=== PATIENT | male | born 2000 | race Caucasian/White ===

== ENCOUNTER 2021-05-28 19:52 | Emergency (ER) | payer SELFPAY ==
[~2021-05-28] VITALS: Ht 175.3 cm; Wt 77.3 kg
[2021-05-28 20:05] VITALS: BP 145/81
== END 2021-05-28 21:47 | disposition home or self-care (01) ==
LOC: ER 19:53
DX: J06.9 Acute upper respiratory infection, unspecified (principal); Z20.822 Contact with and (suspected) exposure to COVID-19
CPT/HCPCS: 87635; 99283; C9803

== ENCOUNTER 2021-05-29 22:01 | Emergency (ER) | payer MEDICAID ==
[~2021-05-29] VITALS: Ht 175.3 cm; Wt 69.3 kg
[2021-05-29 22:51] VITALS: BP 155/77
== END 2021-05-30 02:00 | disposition home or self-care (01) ==
LOC: ER 22:01
DX: M79.604 Pain in right leg (principal); R20.0 Anesthesia of skin; M79.651 Pain in right thigh; F17.200 Nicotine dependence, unspecified, uncomplicated
CPT/HCPCS: 99281

== ENCOUNTER 2022-01-26 16:03 | Emergency (ER) | payer MEDICAID ==
[~2022-01-26] VITALS: Ht 175.3 cm; Wt 65.9 kg
[2022-01-26 16:49] VITALS: BP 104/70
== END 2022-01-26 22:12 | disposition home or self-care (01) ==
LOC: ER 16:04
DX: F15.10 Other stimulant abuse, uncomplicated (principal); Z00.8 Encounter for other general examination
CPT/HCPCS: 99281

== ENCOUNTER 2022-01-30 10:00 | Emergency (ER) | payer MEDICAID ==
[~2022-01-30] VITALS: Ht 175.3 cm; Wt 59.1 kg
[2022-01-30 10:05] VITALS: BP 126/73
== END 2022-01-30 10:51 | disposition home or self-care (01) ==
LOC: ER 10:00
DX: Z00.8 Encounter for other general examination (principal); F12.90 Cannabis use, unspecified, uncomplicated; F15.90 Other stimulant use, unspecified, uncomplicated; Z72.89 Other problems related to lifestyle
CPT/HCPCS: 99281

== ENCOUNTER 2022-03-07 13:13 | Emergency (ER) | payer MEDICAID ==
[~2022-03-07] VITALS: Ht 175.3 cm; Wt 74.0 kg
[~2022-03-07 13:13] MED LIST: ESCI-8 PO; HYDR-3686 PO; NICO-687 TD; NO HOME MEDS; OLAN10TA73 PO; OLAN15TA20 PO; TRAZ-251 PO
[2022-03-07 13:48] VITALS: BP 118/64
== END 2022-03-07 18:10 | disposition left against medical advice (07) ==
LOC: ER 13:14
DX: Z76.0 Encounter for issue of repeat prescription (principal); Z53.21 Procedure and treatment not carried out due to patient leaving prior to being seen by health care provider

== ENCOUNTER 2022-03-16 14:58 | Emergency (ER) | payer MEDICAID ==
[~2022-03-16] VITALS: Ht 175.3 cm; Wt 77.3 kg
[2022-03-16] MEDS ORDERED: HYDR-3686 PO (19:28)
[2022-03-16] MEDS ORDERED: hydrOXYzine 25 MG tablet PO ONE (19:30)
[2022-03-16 19:41] VITALS: BP 121/79
== END 2022-03-16 19:43 | disposition home or self-care (01) ==
LOC: ER 14:59
DX: F41.9 Anxiety disorder, unspecified (principal); F12.90 Cannabis use, unspecified, uncomplicated; F15.90 Other stimulant use, unspecified, uncomplicated; Z72.89 Other problems related to lifestyle; Z79.899 Other long term (current) drug therapy
CPT/HCPCS: 99283; Q0177

== ENCOUNTER 2022-04-17 15:47 | Inpatient (IN) | payer MEDICAID ==
[~2022-04-17] VITALS: Ht 175.3 cm; Wt 80.8 kg
[2022-04-17 22:46] LABS: BASOPHILS % (AUTO) 0.5 % (0-1); EOSINOPHILS # (AUTO) 0.1 X10'3 (0-0.9); EOSINOPHILS % (AUTO) 1.5 % (0-6); HEMATOCRIT 45.3 % (42.0-52.0); HEMOGLOBIN 15.1 g/dl (14.0-17.9); LYMPHOCYTES # (AUTO) 2.1 X10'3 (1.1-4.8); LYMPHOCYTES % (AUTO) 25.1 % (21-51); MEAN CORPUSCULAR HEMOGLOBIN 28.1 PG (27.0-31.0); MEAN CORPUSCULAR HGB CONC 33.3 g/dL (33.0-36.5); MEAN CORPUSCULAR VOLUME 84.3 FL (78-98); MEAN PLATELET VOLUME 7.4 FL (7.4-10.4); MONOCYTES # (AUTO) 0.9 X10'3 (0-0.9); MONOCYTES % (AUTO) 10.3 % (2-12); NEUTROPHILS # (AUTO) 5.2 X10'3 (1.8-7.7); NEUTROPHILS % (AUTO) 62.6 % (42-75); PLATELET COUNT 250 X10'3 (140-440); RED BLOOD COUNT 5.38 X10'6 (4.70-6.10); RED CELL DISTRIBUTION WIDTH 13.9 % (11.5-14.5); WHITE BLOOD COUNT 8.3 X10'3 (4.5-11.0)
[2022-04-17 22:53] LABS: ALANINE AMINOTRANSFERASE 37 U/L (12-78); ALBUMIN 4.2 G/DL (3.4-5.0); ALBUMIN/GLOBULIN RATIO 1.1 (1.1-1.5); ALKALINE PHOSPHATASE 83 IU/L (46-116); ANION GAP 9 (8-16); ASPARTATE AMINO TRANSFERASE 27 U/L (10-37); BILIRUBIN,TOTAL 0.6 MG/DL (0.1-1.0); BLOOD UREA NITROGEN 16 MG/DL (7-18); BUN/CREATININE RATIO 15.1 (5.4-32.0); CALCIUM 9.8 MG/DL (8.5-10.1); CHLORIDE 102 MMOL/L (99-107); CREATININE 1.06 MG/DL (0.60-1.10); ETHANOL < 0.010 GM/DL (0.0-0.010); GLUCOSE 93 MG/DL (70-104); POTASSIUM 3.7 MMOL/L (3.5-5.1); SODIUM 139 MMOL/L (135-145); TOTAL CARBON DIOXIDE 28.5 MMOL/L (24-32); TOTAL PROTEIN 7.9 G/DL (6.4-8.2); eGFR 88 ML/MIN
--- NOTE | 2022-04-18 07:46 | NUR ---
PT SLEEPING ON FLOOR IN ER LOBBY, EASILY AROUSEABLE, GCS 15, ALERT AND ORIENTED X3, RESP EVEN AND UNLABORED, SKIN P/W/D, PT IS CALM AND COOPERATIVE
--- NOTE | 2022-04-18 07:48 | NUR ---
PT SAID HE IS STILL HEARING VOICES IN HIS HEAD TELLING HIM TO GO TO THE TRAIN STATION, PT AGREES TO STAY HERE AND BE SEEN
--- NOTE | 2022-04-18 08:29 | NUR ---
Pt transported from the waiting room to [facility]
[2022-04-18 10:41] LABS: URINE AMPHETAMINE SCREEN POSITIVE (Neg); URINE BARBITUATE SCREEN NEGATIVE (Neg); URINE BENZODIAZEPINES SCREEN NEGATIVE (Neg); URINE CANNABINOID SCREEN POSITIVE (Neg); URINE COCAINE SCREEN NEGATIVE (Neg); URINE METHADONE SCREEN NEGATIVE (Neg); URINE OPIATE SCREEN NEGATIVE (Neg); URINE PHENCYCLIDINE SCREEN NEGATIVE (Neg)
--- NOTE | 2022-04-18 10:48 | NUR ---
packet was sent to [facility]
--- NOTE | 2022-04-18 11:00 | NUR ---
Pt resting in bed w/ eyes closed. No s/s of distress at this time.
--- NOTE | 2022-04-18 13:15 | NUR ---
Pt overall quiet and pleasant. Pt ate lunch well and remains in bed resting.
[2022-04-18] MEDS ORDERED: loperamide 2mg capsule PO ONE (13:55)
[2022-04-18] MEDS ORDERED: hydrOXYzine 25 MG tablet PO ONE ×2 (14:30→19:20)
--- NOTE | 2022-04-18 14:50 | NUR ---
Pt seen by [facility] and placed on 5150 hold. Pt reports smoking a pack of cigs Qd and asked for a nicotine patch.
--- NOTE | 2022-04-18 16:15 | NUR ---
Pt in bed talking to Pt next door appropriately. Pt reports drug relapse and getting off his MH meds.
[2022-04-18] MEDS ORDERED: nicotine 21mg patch - 24 hr TD ONE (16:40)
--- NOTE | 2022-04-18 17:25 | NUR ---
Pt received Nicotine Patch 21mg. Pt in bed with eyes closed.
[2022-04-18 18:05] LABS: CLARITY,URINE CLOUDY (Clear); COLOR,URINE YELLOW (Yellow); GLUCOSE, URINE NEGATIVE (Neg); KETONES,URINE >=80 mg/dl (Neg); LEUKOCYTE ESTERASE ,URINE NEGATIVE (Neg); NITRITES, URINE NEGATIVE (Neg); OCCULT BLOOD,URINE TRACE-INTACT (Neg); PROTEIN,URINE NEGATIVE (Neg); UROBILINOGEN,URINE 0.2 E.U/dL (0.2-1.0)
[2022-04-18 18:20] LABS: UA COLLECTION TYPE CLN CATCH MIDSTREAM
[2022-04-18 18:23] LABS: AMORPHOUS URATES 4+; RBC,URINE 0-2 /HPF (0-2)
[2022-04-18 18:42] LABS: BACTERIA,URINE 1+ /HPF (Neg); SQUAMOUS EPITHELIAL CELL,UR FEW /LPF (FEW)
[2022-04-18] MEDS ORDERED: HYDR-3686 PO (19:12)
[2022-04-18] MEDS ORDERED: ESCI-8 PO (19:12)
[2022-04-18] MEDS ORDERED: OLAN15TA3 PO (19:12)
[2022-04-18] MEDS ORDERED: TRAZ-251 PO (19:12)
--- NOTE | 2022-04-18 19:28 | NUR ---
Lissette montanez in [facility] - 04/18/22 at 1931 by CHICHO c
--- NOTE | 2022-04-18 19:31 | NUR ---
One to one with the patient who has been somulent and quietly resting on his bed. He was polite when approached for the evening assessment. He stated that he has not been taking medications as prescribed and admits to meth use. He reports he is hearing voices "all the time" and at times they are telling him to kill himself. He reports continued suicidal thoughts with a plan to steop in front of a train. He stated that he believes he can be safe here in the hospital. The patient approached the nursing station a short time later and requested to be given Klonopin after he overheard another patient receiving klonopin. Discussed patient with Charline GÓMEZ and orders received.
--- NOTE | 2022-04-18 20:15 | NUR ---
The patient is focused on medications. He is asking for something for withdrawals from methamphetamines. He was made aware that he would be transfering soon to [facility] and they would address his medications up there.
--- NOTE | 2022-04-18 21:12 | NUR ---
The patient appears to be sleeping at this time
--- NOTE | 2022-04-18 21:25 | NUR ---
Admit Note Pt arrived on unit @ 2124. Pt has a history of suicidal ideation and placed on 5150. Pt has an active plan to end his life by jumping in front of a train. Pt states he sees train lights in his head telling him to jump in front of it. Pt current denies SI at this moment and would like to stay here until he gets better. Pt has hx of marijuana, methamphetamine, alcohol and tobacco use. Pt would like to go to rehab after leaving here.
[2022-04-18] MEDS ORDERED: loperamide 2mg capsule PO PRN (21:55)
[2022-04-18] MEDS ORDERED: mag hydrox/Alum hydrox/simeth 30ml oral suspension PO PRN (21:55)
[2022-04-18] MEDS ORDERED: acetaminophen 325mg tablet PO PRN (21:55)
[2022-04-18] MEDS ORDERED: magnesium hydroxide 30ml (MOM) UD suspension PO PRN (21:55)
[2022-04-18] MEDS ORDERED: traZODone 50mg tablet PO ONE (22:30)
[2022-04-18] MEDS ORDERED: OLANZAPINE 5 MG TABLET PO ONE (22:35)
[2022-04-19 08:00] VITALS: BP 104/56
[2022-04-19] MEDS: OLANZAPINE 5 MG TABLET PO SCH (08:42)
[2022-04-19] MEDS: nicotine 21mg patch - 24 hr TD SCH (08:46)
[2022-04-19 08:54] LABS: CHOL/HDL RATIO 2.2 (0.00-4.99); CHOLESTEROL 121 MG/DL (0-200); HDL CHOLESTEROL 54 MG/DL (35-60); HEMOGLOBIN A1C 5.4 % (4.5-6.2); LDL CHOLESTEROL 59 MG/DL (50-100); TRIGLYCERIDES 56 MG/DL (20-135)
[2022-04-19] MEDS ORDERED: OLAN15TA20 PO (11:32)
[2022-04-19] MEDS ORDERED: OLANZapine 5mg rapidly disint. tablet PO SCH (11:34)
[2022-04-19] MEDS: hydrOXYzine 25 MG tablet PO PRN ×2 (13:01→21:02)
--- NOTE | 2022-04-19 14:48 | NUR ---
Nursing Note: Problem : Pt has a history of suicidal ideation and was placed on 5150. Pt has an active plan to end his life by jumping in front of a train. Pt states he sees train lights in his head telling him to jump in front of it. Pt current denies SI at this moment and would like to stay here until he gets better. Pt has hx of marijuana, methamphetamine, alcohol and tobacco use. Pt would like to go to rehab after leaving here. Interventions : 1:1 assessment, establishment of rapport, therapeutic communication, active listening, ensured contract for safety, medication administration/education/monitoring, encouragement to come to the dining room for meals, provided encouragement, Q 15 minute safety checks. Response : Pt declined to come to the dining room this morning and ate breakfast in his room. Pt was encouraged to come to the dining room for lunch however, he was brought his tray in his room by a staff member. Pt endorsed AH, "normal conversation" and VH, "shadows." When asked if he felt depressed, pt replied, "I'm coming down." Pt denied SI this morning. Pt approached the charting room to ask for something to help with his withdrawals. Encouraged pt to eat well and to sleep. Administered PRN Atarax 50 mg for increased anxiety at 1301. Less than an hour later, pt asked if he could have some "methadone or something." Education provided that methadone is for opiate replacement not methamphetamine. Pt is not complaining of pain. Pt's tox screen was positive for methamphetamine, not opioids. Plan : Pt is in need of crisis interruption and stabilization until no longer a danger to self.
[2022-04-19 19:00] VITALS: BP 108/51
[2022-04-19] MEDS: traZODone 50mg tablet PO SCH (20:53)
[2022-04-19] MEDS: ESCITALOPRAM OXALATE 5 MG TABLET PO SCH (20:53)
[2022-04-19] MEDS ORDERED: non-formulary drug (Olanzapine 1 TAB) PO SCH (21:00)
--- NOTE | 2022-04-20 00:48 | NUR ---
Nursing Note: Problem : Pt has a history of suicidal ideation and was placed on 5150. Pt has an active plan to end his life by jumping in front of a train. Pt states he sees train lights in his head telling him to jump in front of it. Pt current denies SI at this moment and would like to stay here until he gets better. Pt has hx of marijuana, methamphetamine, alcohol and tobacco use. Pt would like to go to rehab after leaving here. Interventions : 1:1 assessment, establishment of rapport, therapeutic communication, active listening, ensured contract for safety, medication administration/education/monitoring, encouragement to come to the dining room for meals, provided encouragement, Q 15 minute safety checks. Response : Received pt. in dark room lying in bed at shift change. He isolated to his room . Pt. did not participate in snack. States he plans to come out of the room tomorrow. Pt. was asleep when this ONCOLOGY NURSE entered his room with bedtime medications. He woke up pleasant and cooperative and was compliant with medications. Denies HI, AH/VH. Continues having passive SI. Requested PRN atarax and it was provided to patient. Pt. appears to be sleeping at this time. Plan : Pt is in need of crisis interruption and stabilization until no longer a danger to self.
[2022-04-20 07:32] VITALS: BP 100/58
[2022-04-20] MEDS: OLANZAPINE 5 MG TABLET PO SCH (07:56)
[2022-04-20] MEDS: nicotine 21mg patch - 24 hr TD SCH (07:58)
[2022-04-20] MEDS: hydrOXYzine 25 MG tablet PO PRN ×2 (11:32→15:52)
[2022-04-20] MEDS: NICOTINE POLACRILEX 2 MG LOZENGE BC PRN ×2 (11:32→21:21)
--- NOTE | 2022-04-20 13:58 | NUR ---
Nursing Note: Problem : Pt has a history of suicidal ideation and was placed on 5150. Pt has an active plan to end his life by jumping in front of a train. Pt states he sees train lights in his head telling him to jump in front of it. Pt current denies SI at this moment and would like to stay here until he gets better. Pt has hx of marijuana, methamphetamine, alcohol and tobacco use. Pt would like to go to rehab after leaving here. Interventions : 1:1 assessment, establishment of rapport, therapeutic communication, active listening, ensured contract for safety, medication administration/education/monitoring, encouragement to come to the dining room for meals, provided encouragement, Q 15 minute safety checks. Response : Pt was up for breakfast in the dining room. Pt was cooperative with his Zyprexa. Pt c/o increased anxiety and was given PRN Atarax 50 mg and a nicotine lozenge at 1132 with good effect. Pt is endorsing CAH to kill himself. Pt rated his depression at a 7/10 with a plan to walk in front of a train if he is discharged. Pt stated, "I think I should stay here longer." Pt denies VH. Plan : Pt is in need of crisis interruption and stabilization until no longer a danger to self. Addendum: 04/20/22 at 1555 by Reena Ward RN ([place]) Pt has new orders for Clonidine 0.1 mg Q6H PRN agitation, his PRN Atarax was increased to 100 mg Q6H.
[2022-04-20 16:34] VITALS: BP 136/72
[2022-04-20] MEDS: cloNIDine 0.1 mg tablet PO PRN (16:37)
[2022-04-20 19:00] VITALS: BP 126/60
[2022-04-20] MEDS: ESCITALOPRAM OXALATE 5 MG TABLET PO SCH (21:08)
[2022-04-20] MEDS: traZODone 50mg tablet PO SCH (21:08)
--- NOTE | 2022-04-21 00:10 | NUR ---
Nursing Note: Problem : Pt has a history of suicidal ideation and was placed on 5150. Pt has an active plan to end his life by jumping in front of a train. Pt states he sees train lights in his head telling him to jump in front of it. Pt current denies SI at this moment and would like to stay here until he gets better. Pt has hx of marijuana, methamphetamine, alcohol and tobacco use. Pt would like to go to rehab after leaving here. Interventions : 1:1 assessment, establishment of rapport, therapeutic communication, active listening, ensured contract for safety, medication administration/education/monitoring, encouragement to come to the dining room for meals, provided encouragement, Q 15 minute safety checks. Response : patient lying in bed at change of shift. He is quiet and pleasant. Stayed in room until snack time. He was observed standing in the hallway getting a snack. Pt. went back to room. Compliant with medications. Stated he talk to his mom today. When asked about SI patient states "feeling a little suicidal and that he sees a train with lights". A while later he came to the nurse's area and requested a nicotine lozenge. Pt. provided with lozenge. Stayed in his room the rest of the night. Appears to be sleeping. Plan : Pt is in need of crisis interruption and stabilization until no longer a danger to self.
[2022-04-21 07:27] VITALS: BP 110/54
[2022-04-21] MEDS: OLANZAPINE 5 MG TABLET PO SCH (08:20)
[2022-04-21] MEDS: nicotine 21mg patch - 24 hr TD SCH (08:22)
[2022-04-21] MEDS: NICOTINE POLACRILEX 2 MG LOZENGE BC PRN ×3 (13:14→20:31)
[2022-04-21] MEDS: hydrOXYzine 25 MG tablet PO PRN ×2 (13:14→20:31)
[2022-04-21 15:57] VITALS: BP 119/77
[2022-04-21] MEDS: cloNIDine 0.1 mg tablet PO PRN (15:58)
--- NOTE | 2022-04-21 17:12 | NUR ---
Nursing Note: Problem : Pt has a history of suicidal ideation and was placed on 5150. Pt has an active plan to end his life by jumping in front of a train. Pt states he sees train lights in his head telling him to jump in front of it. Pt current denies SI at this moment and would like to stay here until he gets better. Pt has hx of marijuana, methamphetamine, alcohol and tobacco use. Pt would like to go to rehab after leaving here. Interventions : 1:1 assessment, establishment of rapport, therapeutic communication, active listening, ensured contract for safety, medication administration/education/monitoring, provided distraction, direction, encouragement, Q 15 minute safety checks. Response : Pt was up for breakfast. Pt was cooperative with scheduled medication. Pt does have periods of increased anxiety. Pt asked for an anxiety med after lunch and was given PRN Atarax 100 mg at 1314. He c/o anxiety again at 1558 and was given PRN Clonidine 0.1 mg with good effect. Pt asked for nicotine lozenges at 1314 and 1602. Pt rated his depression today at a 6/10. Pt continues to endorse SI with a plan to walk in front of a train if discharged. When asked about voices, pt replied, "They got better." Pt reads [employer] books in his room and colors [employer] coloring pages. Pt socializes with select peers. Plan : Pt is in need of crisis interruption and stabilization until no longer a danger to self.
[2022-04-21 20:00] VITALS: BP 114/52
[2022-04-21] MEDS: traZODone 50mg tablet PO SCH (20:31)
[2022-04-21] MEDS: ESCITALOPRAM OXALATE 5 MG TABLET PO SCH (20:31)
[2022-04-21] MEDS ORDERED: traZODone 50mg tablet PO ONE (22:10)
--- NOTE | 2022-04-21 23:23 | NUR ---
Nursing Note: Problem : Pt has a history of suicidal ideation and was placed on 5150. Pt has an active plan to end his life by jumping in front of a train. Pt states he sees train lights in his head telling him to jump in front of it. Pt current denies SI at this moment and would like to stay here until he gets better. Pt has hx of marijuana, methamphetamine, alcohol and tobacco use. Pt would like to go to rehab after leaving here. Interventions : 1:1 assessment, establishment of rapport, therapeutic communication, active listening, ensured contract for safety, medication administration/education/monitoring, provided distraction, direction, encouragement, Q 15 minute safety checks. Response : This patient resides in his room following shift change. 1:1 Interview at bedside. This patient is well oriented. He denies S/I or H/I. Patient does complain of anxiety. He denies hallucinations this evening. Patient states his depression is improving. He does not describe any hallucinations. Patient continued to have difficulty sleeping after his scheduled Trazadone was given. Atarax was given for anxiety. Patient remains awake. Dr. Martinez was contacted, an order for an additional Trazadone 100 mg was given PO and the scheduled Trazadone order was increased to 100 mg QHS. Plan : Pt is in need of crisis interruption and stabilization until no longer a danger to self.
[2022-04-22 07:00] VITALS: BP 110/66
[2022-04-22] MEDS: OLANZAPINE 5 MG TABLET PO SCH (08:19)
[2022-04-22] MEDS: nicotine 21mg patch - 24 hr TD SCH (08:20)
--- NOTE | 2022-04-22 09:47 | NUR ---
Initial: Pt admit DX SI and meth abuse per EMR. PO mostly 100% regular diet meeting needs. LBM 04/19. No nutrition interventions at this time. Will continue to follow. Rec: 1. continue regular diet 2. bowel care per rx 3. weekly wts Addendum: 04/22/22 at [address] Amended: Links added.
[2022-04-22] MEDS: NICOTINE POLACRILEX 2 MG LOZENGE BC PRN ×3 (11:18→17:52)
[2022-04-22] MEDS: hydrOXYzine 25 MG tablet PO PRN (11:47)
[2022-04-22] MEDS: cloNIDine 0.1 mg tablet PO PRN ×2 (13:06→18:46)
--- NOTE | 2022-04-22 17:16 | NUR ---
Nursing Progress Note: Problem : Pt has a history of suicidal ideation and was placed on 5150. Pt has an active plan to end his life by jumping in front of a train. Pt states he sees train lights in his head telling him to jump in front of it. Pt current denies SI at this moment and would like to stay here until he gets better. Pt has hx of marijuana, methamphetamine, alcohol and tobacco use. Pt would like to go to rehab after leaving here. Interventions : 1:1 assessment, establishment of rapport, therapeutic communication, active listening, ensured contract for safety, medication administration/education/monitoring, provided distraction, direction, encouragement, Q 15 minute safety checks. Response: Received patient sleeping in bed at change of shift. Patient awakens and attends breakfast in the dining room. Patient takes his medications as directed. Patient reports that he is still suicidal. Patient states that he has been hearing voices that tell him to kill himself or that he is no good. Patient would like a prn antipsychotic for these intrusive thoughts. Patient having anxiety and was given Atarax 100 mg. Patient went outside for group, and came back in requesting Clonidine, which was administered for anxiety. Plan : Pt is in need of crisis interruption and stabilization until no longer a danger to self.
[2022-04-22] MEDS: acetaminophen 325mg tablet PO PRN (18:50)
[2022-04-22 19:17] VITALS: BP 125/71
[2022-04-22] MEDS ORDERED: OLANZAPINE 5 MG TABLET PO SCH (20:43)
[2022-04-22] MEDS: traZODone 50mg tablet PO SCH (20:55)
--- NOTE | 2022-04-22 21:05 | NUR ---
Nicotine patch removed from left shoulder
--- NOTE | 2022-04-22 21:46 | NUR ---
Nursing Progress Note: Problem : Pt has a history of suicidal ideation and was placed on 5150. Pt has an active plan to end his life by jumping in front of a train. Pt states he sees train lights in his head telling him to jump in front of it. Pt current denies SI at this moment and would like to stay here until he gets better. Pt has hx of marijuana, methamphetamine, alcohol and tobacco use. Pt would like to go to rehab after leaving here. Interventions : 1:1 assessment, establishment of rapport, therapeutic communication, active listening, ensured contract for safety, medication administration/education/monitoring, provided distraction, direction, encouragement, Q 15 minute safety checks. Response: Pt was in the group room at change of shift. C/O anxiety and reports s/i and hearing voices. Pt states he doesnt have plans to harm himself while he is here. Pt sat quietly in the leonard then spent time laying in bed in his room. Pt is quiet and doesnt appear to social with peers. Pt was given PO clonidine, and HS meds. Provider called after meds were given and ordered Zyprexa 15 mg. Zyprexa was changed to an HS order. Lexapro was changed to a daily order per Dr. Martinez. Pt requested nicotine lozenge and went to bed after HS meds. Plan : Pt is in need of crisis interruption and stabilization until no longer a danger to self.
[2022-04-23 07:28] VITALS: BP 94/50
[2022-04-23] MEDS: nicotine 21mg patch - 24 hr TD SCH (08:05)
[2022-04-23] MEDS: ESCITALOPRAM OXALATE 5 MG TABLET PO SCH (08:05)
[2022-04-23] MEDS: acetaminophen 325mg tablet PO PRN ×3 (08:18→20:24)
[2022-04-23] MEDS: hydrOXYzine 25 MG tablet PO PRN ×2 (11:18→17:12)
[2022-04-23 12:25] VITALS: BP 122/68
[2022-04-23] MEDS: cloNIDine 0.1 mg tablet PO PRN ×2 (12:30→20:24)
[2022-04-23] MEDS: NICOTINE POLACRILEX 2 MG LOZENGE BC PRN ×4 (13:19→20:40)
--- NOTE | 2022-04-23 13:24 | NUR ---
5250 upheld for GD and DTS
--- NOTE | 2022-04-23 14:59 | NUR ---
CASE MANAGEMENT Spoke to Pt. about his discharge plan. He would like to go back to [facility] but not sure he can. This [employer]her left a message for Salvador at [facility] to see if this is a possibility for Pt. Also gave Pt. phone number for [facility] for him to call to see what other rehabs are available to him. Pt was appreciative for the information and plans on calling this afternoon. Lilli Miller LCSW
--- NOTE | 2022-04-23 16:42 | NUR ---
Nursing Progress Note: Problem: Pt has a history of suicidal ideation and was placed on 5150. Pt has an active plan to end his life by jumping in front of a train. Pt states he sees train lights in his head telling him to jump in front of it. Pt current denies SI at this moment and would like to stay here until he gets better. Pt has hx of marijuana, methamphetamine, alcohol and tobacco use. Pt would like to go to rehab after leaving here. Interventions: Provide medication administration & medication management; Maintained a safe & supportive environment; Clear & simple instructions; Direction & encouragement regarding performance of ADLs; monitored behaviors & maintained clear boundaries; Patient physical assessment & 1:1 patient interview; Therapeutic conversation & active listening; Patient education & monitoring. Response: Patient woke up at approximately 0755 and went to sit in the Community Room. Patient took 0800 medications and sat in the back of the room and ate breakfast. Patient stated I started having pain this morning in my left forearm that feels like my nerves and veins are throbbing in my forearms. Compared bilateral forearms and noted equal strength and that the LFA had 1+ swelling from his left elbow to wrist. Patient received Tylenol for pain rated at 6 out of 10, and received good relief from the Tylenol. Patient states he is not having AH/VH, but does report that he is still having SI. Patient laid down and slept until about 1115, then informed that he was feeling anxious and was given Atarax at 1117 this morning with good relief. Patient states he met with Dr. Young this morning, and he asked Dr. Young to increase the Atarax to 150mg. Will watch for this new order. Patient woke up for lunch and went to the Community Room then requested Tylenol and a Nicotine Lozenge before he returned back to bed after lunch. Resting in bed now. Plan: Pt is in need of crisis interruption and stabilization until no longer a danger to self.
[2022-04-23 19:26] VITALS: BP 127/46
[2022-04-23] MEDS: OLANZAPINE 5 MG TABLET PO SCH (20:24)
[2022-04-23] MEDS: traZODone 50mg tablet PO SCH (20:25)
--- NOTE | 2022-04-23 21:23 | NUR ---
Nursing Progress Note: Problem: Pt has a history of suicidal ideation and was placed on 5150. Pt has an active plan to end his life by jumping in front of a train. Pt states he sees train lights in his head telling him to jump in front of it. Pt current denies SI at this moment and would like to stay here until he gets better. Pt has hx of marijuana, methamphetamine, alcohol and tobacco use. Pt would like to go to rehab after leaving here. Interventions: Provide medication administration & medication management; Maintained a safe & supportive environment; Clear & simple instructions; Direction & encouragement regarding performance of ADLs; monitored behaviors & maintained clear boundaries; Patient physical assessment & 1:1 patient interview; Therapeutic conversation & active listening; Patient education & monitoring. Response: Pt was in bed napping at change of shift. Pts vitals were WNL, pt reports feeling anxious and reports 4/10 pain in his left forearm. Pt denies s/i, denies a/vh. Pt is requesting nicotine lozenge, anxiety meds at change of shift. Explained to patient he had already received those and would need to wait until they were due again. Pt was given prns for anxiety, pain, and nicotine lozenge. Pt had an evening snack and took HS meds. Pt requested deoderant and states he would like to keep his nicotine patch on and will let me know if he changes his mind and takes it off. Plan: Pt is in need of crisis interruption and stabilization until no longer a danger to self.
[2022-04-24 07:00] VITALS: BP 93/50
[2022-04-24] MEDS: ESCITALOPRAM OXALATE 5 MG TABLET PO SCH (08:10)
[2022-04-24] MEDS: acetaminophen 325mg tablet PO PRN ×3 (08:14→20:40)
[2022-04-24] MEDS: nicotine 21mg patch - 24 hr TD SCH (08:16)
--- NOTE | 2022-04-24 09:28 | NUR ---
CASE MANAGEMENT Received a call back from Salvador at [facility]. They are okay with him coming back to that program but have a waiting list at the time of 20 people in front of him. It was suggested he call [facility] and see what other programs have availability in the area. Will pass this message on to Pt. Lilli Miller LCSW
[2022-04-24] MEDS: hydrOXYzine 25 MG tablet PO PRN ×2 (10:07→17:05)
[2022-04-24] MEDS: NICOTINE POLACRILEX 2 MG LOZENGE BC PRN ×4 (10:07→20:45)
[2022-04-24 13:47] VITALS: BP 129/66
[2022-04-24] MEDS: cloNIDine 0.1 mg tablet PO PRN (13:47)
--- NOTE | 2022-04-24 15:08 | NUR ---
Mr. Gerber attended group today. Todays group was about healthy communication, based on Gotjeovanyan method. We learned about what shuts communication down (defensiveness, contempt, stonewalling, criticism) and then discussed what positive communication styles: "I" statements, taking time outs, listening. Pt. was engaged in the topic as evidenced by conversation with peers and this software writer, review of handouts. Thought content contained sadness and concern about a son who client said has a brain injury, and he feels he let him down/he doesn't know where he is. Client stated he does not like toxic masculinity (his words), and when men try to be tough--he feels he communicates better with women. Client was dressed in scrubs, hygiene WNL, client was alert and oriented X 4. His mood was sad and concerned, along with stating he wants to continue to be a better man and father. Demeanor was calm, compliant, and pleasant to work with. Addendum: 04/24/22 at 1513 by Idalia NORWOOD DISREGARD, entered in error
--- NOTE | 2022-04-24 15:14 | NUR ---
DISREGARD therapeutic group note: Entered in error.
--- NOTE | 2022-04-24 17:48 | NUR ---
Nursing Progress Note: Problem: Pt has a history of suicidal ideation and was placed on 5150. Pt has an active plan to end his life by jumping in front of a train. Pt states he sees train lights in his head telling him to jump in front of it. Pt current denies SI at this moment and would like to stay here until he gets better. Pt has hx of marijuana, methamphetamine, alcohol and tobacco use. Pt would like to go to rehab after leaving here. Interventions: Provide medication administration & medication management; Maintained a safe & supportive environment; Clear & simple instructions; Direction & encouragement regarding performance of ADLs; monitored behaviors & maintained clear boundaries; Patient physical assessment & 1:1 patient interview; Therapeutic conversation & active listening; Patient education & monitoring. Response: Received patient sleeping in bed at change of shift. Patient awakens for breakfast and takes medications in the dining room. Patient returns to his room and 1:1 was performed. Patient reports that he is still feeling suicidal and can still see the train tracks. Reports A/H telling him to kill himself and calling him other derogatory names. Patient reports anxiety and was given Atarax, then patient requested Clonidine. Patient self isolates to his room, and doesnt speak to staff or peers unless he needs something. Patient is complaining of left forearm pain and swelling, requested he speak with M.D. regarding left wrist. Patient has had Tylenol x 2, nicotine lozenges x 2, Atarax x 2. Plan: Pt is in need of crisis interruption and stabilization until no longer a danger to self.
[2022-04-24 19:55] VITALS: BP 116/53
[2022-04-24] MEDS: traZODone 50mg tablet PO SCH (20:39)
[2022-04-24] MEDS: OLANZAPINE 5 MG TABLET PO SCH (20:40)
--- NOTE | 2022-04-25 00:19 | NUR ---
Nursing Progress Note: Problem: Pt has a history of suicidal ideation and was placed on 5150. Pt has an active plan to end his life by jumping in front of a train. Pt states he sees train lights in his head telling him to jump in front of it. Pt current denies SI at this moment and would like to stay here until he gets better. Pt has hx of marijuana, methamphetamine, alcohol and tobacco use. Pt would like to go to rehab after leaving here. Interventions: Provide medication administration & medication management; Maintained a safe & supportive environment; Clear & simple instructions; Direction & encouragement regarding performance of ADLs; monitored behaviors & maintained clear boundaries; Patient physical assessment & 1:1 patient interview; Therapeutic conversation & active listening; Patient education & monitoring. Response: Pt was in his room at change of shift. Pt asked for tylenol and prns for anxiety. Explained to pt that it was too soon for him to have more. Pt states he understands. Pt is isolating to his room, reports hearing voices telling him to kill himself and the thinks of walking on the train tracks. Pt took HS meds and requested prn nicotine lozenge. Pt was provided with tylenol prn and still not time for anxiety meds, pt went to sleep before they were due. Pt declined to remove nicotine patch this evening. Plan: Pt is in need of crisis interruption and stabilization until no longer a danger to self.
[2022-04-25 07:09] VITALS: BP 102/52
[2022-04-25] MEDS: ESCITALOPRAM OXALATE 5 MG TABLET PO SCH (08:54)
[2022-04-25] MEDS: nicotine 21mg patch - 24 hr TD SCH (08:55)
[2022-04-25] MEDS: hydrOXYzine 25 MG tablet PO PRN ×2 (09:03→18:52)
[2022-04-25] MEDS: acetaminophen 325mg tablet PO PRN ×2 (12:39→18:46)
[2022-04-25] MEDS: NICOTINE POLACRILEX 2 MG LOZENGE BC PRN ×4 (14:06→20:52)
[2022-04-25] MEDS ORDERED: guanFACINE 1 mg tablet PO ONE ×3 (16:25→20:39)
--- NOTE | 2022-04-25 17:26 | NUR ---
Nursing Progress Note: Problem: Pt has a history of suicidal ideation and was placed on 5150. Pt has an active plan to end his life by jumping in front of a train. Pt states he sees train lights in his head telling him to jump in front of it. Pt current denies SI at this moment and would like to stay here until he gets better. Pt has hx of marijuana, methamphetamine, alcohol and tobacco use. Pt would like to go to rehab after leaving here. Interventions: Provide medication administration & medication management; Maintained a safe & supportive environment; Clear & simple instructions; Direction & encouragement regarding performance of ADLs; monitored behaviors & maintained clear boundaries; Patient physical assessment & 1:1 patient interview; Therapeutic conversation & active listening; Patient education & monitoring. Response: Received patient sleeping in bed at change of shift. Pt took meals in community room. Compliant with all medication administration. This YOGA INSTRUCTOR completed 1:1 in bedroom; endorses SI off/on stating, I think about walking in front of a train; denies HI. Endorses AH stating, It tells me Im worthless and stupid; denies VH. Pt well-groomed and dressed appropriately. Speaks in a soft linear manner. Patient reports anxiety and was given Atarax. Pt requested clonidine and Tylenol PRN in afternoon. Pt self isolates to his room, and doesnt speak to staff or peers unless he needs something. Pt given one time order of Tenex 0.5mg, and new order started of Tenex 0.5mg BID. Pt states he would like to discharge to a rehab. Plan: Pt is in need of crisis interruption and stabilization until no longer a danger to self.
[2022-04-25] MEDS ORDERED: guanFACINE 1 mg tablet PO SCH ×2 (20:00→20:17)
[2022-04-25] MEDS: OLANZAPINE 5 MG TABLET PO SCH (20:40)
[2022-04-25] MEDS: traZODone 50mg tablet PO SCH (20:40)
[2022-04-25 20:54] VITALS: BP 120/67
--- NOTE | 2022-04-26 04:19 | NUR ---
Nursing Progress Note: Problem: Pt has a history of suicidal ideation and was placed on 5150. Pt has an active plan to end his life by jumping in front of a train. Pt states he sees train lights in his head telling him to jump in front of it. Pt current denies SI at this moment and would like to stay here until he gets better. Pt has hx of marijuana, methamphetamine, alcohol and tobacco use. Pt would like to go to rehab after leaving here. Interventions: Provide medication administration & medication management; Maintained a safe & supportive environment; Clear & simple instructions; Direction & encouragement regarding performance of ADLs; monitored behaviors & maintained clear boundaries; Patient physical assessment & 1:1 patient interview; Therapeutic conversation & active listening; Patient education & monitoring. Response: Patient was received laying in bed resting. Patient came up to nurse asking for anxiety medication. Patient was given prn Atrax and retuned to room. Patient spent majority of shift in room self isolating and sleeping. Patient came to nurse asking for nicotine lozenge and Tylenol for headache. Patient participate in snack and took al night medications without issue. Patient complained that is Atrax isn't working and he needs Ativan, patient was upset that he didn't have any ordered. Patient requested another nicotine lozenge and refused to take off nicotine patch. Plan: Pt is in need of crisis interruption and stabilization until no longer a danger to self.
[2022-04-26 08:00] VITALS: BP 130/78
[2022-04-26] MEDS: ESCITALOPRAM OXALATE 5 MG TABLET PO SCH (08:29)
[2022-04-26] MEDS: nicotine 21mg patch - 24 hr TD SCH (08:35)
[2022-04-26] MEDS: acetaminophen 325mg tablet PO PRN ×2 (08:50→20:21)
[2022-04-26] MEDS: hydrOXYzine 25 MG tablet PO PRN (12:00)
[2022-04-26] MEDS: NICOTINE POLACRILEX 2 MG LOZENGE BC PRN ×4 (13:42→21:54)
--- NOTE | 2022-04-26 16:42 | NUR ---
Nursing Progress Note: Problem: Pt has a history of suicidal ideation and was placed on 5150. Pt has an active plan to end his life by jumping in front of a train. Pt states he sees train lights in his head telling him to jump in front of it. Pt current denies SI at this moment and would like to stay here until he gets better. Pt has hx of marijuana, methamphetamine, alcohol and tobacco use. Pt would like to go to rehab after leaving here. Interventions: Provide medication administration & medication management; Maintained a safe & supportive environment; Clear & simple instructions; Direction & encouragement regarding performance of ADLs; monitored behaviors & maintained clear boundaries; Patient physical assessment & 1:1 patient interview; Therapeutic conversation & active listening; Patient education & monitoring. Response: Received patient sleeping in bed at change of shift. Pt awoke and attended breakfast and then returned to bed. Medications administered and 1:1 done at bedside. Pt requesting his tenex to be discontinued stating it makes him feel weird. He states he spoke with the psychiatrist about this today. Pt continues to isolate himself to his room, lying in bed. He continues to have thoughts of suicide stating, I think about going in front of a train. He endorses AH, often hearing them having derogatory remarks towards him, denies VH. PRN atarax administered at 12pm for c/o anxiety. Plan: Pt is in need of crisis interruption and stabilization until no longer a danger to self.
[2022-04-26 19:54] VITALS: BP 130/81
[2022-04-26] MEDS: OLANZAPINE 5 MG TABLET PO SCH (20:20)
[2022-04-26] MEDS: traZODone 50mg tablet PO SCH (20:21)
[2022-04-26] MEDS: busPIRone 5mg tablet PO SCH (20:22)
--- NOTE | 2022-04-27 04:07 | NUR ---
Nursing Progress Note: Problem: Pt has a history of suicidal ideation and was placed on 5150. Pt has an active plan to end his life by jumping in front of a train. Pt states he sees train lights in his head telling him to jump in front of it. Pt current denies SI at this moment and would like to stay here until he gets better. Pt has hx of marijuana, methamphetamine, alcohol and tobacco use. Pt would like to go to rehab after leaving here. Interventions: Provide medication administration & medication management; Maintained a safe & supportive environment; Clear & simple instructions; Direction & encouragement regarding performance of ADLs; monitored behaviors & maintained clear boundaries; Patient physical assessment & 1:1 patient interview; Therapeutic conversation & active listening; Patient education & monitoring. Response: Patient was received laying in bed at beginning of shift. Patient almost instantly got up and started asking for medications the dr. young hadn't ordered yet. Patient appeared anxious and antsy. Patient asked for a nicotine lozenge and returned to room. Patient got up again shortly after still asking for new medications. Patient was confused on what his new medications would do and was upset his clonidine didn't start until tomorrow. Patient participated in snack and took night medications with out issue. Patent came to nurse asking for another nicotine lozenge and Tylenol 650mg for a headache. Patient again refused to give back nicotine patch. Plan: Pt is in need of crisis interruption and stabilization until no longer a danger to self.
[2022-04-27] MEDS: cloNIDine 0.1 mg tablet PO SCH ×2 (06:59→12:02)
[2022-04-27] MEDS: busPIRone 5mg tablet PO SCH ×3 (07:00→20:27)
[2022-04-27] MEDS: acetaminophen 325mg tablet PO PRN ×2 (07:00→19:29)
[2022-04-27] MEDS: ESCITALOPRAM OXALATE 5 MG TABLET PO SCH (07:01)
[2022-04-27] MEDS: nicotine 21mg patch - 24 hr TD SCH (07:01)
[2022-04-27 08:00] VITALS: BP 118/80
[2022-04-27] MEDS: NICOTINE POLACRILEX 2 MG LOZENGE BC PRN ×4 (08:22→21:26)
--- NOTE | 2022-04-27 11:25 | NUR ---
CASE MANAGEMENT Pt. was interested in seeing if [facility] would be an option as he is not finding any available rehab beds. This Live Ammunition Inspector sent a referral to the [facility] today. Will await a response. Pt also reported he called [facility] again and is waiting to hear back again from them - he is wondering what the wait time for beds is like now. Lilli Miller
[2022-04-27] MEDS: hydrOXYzine 25 MG tablet PO PRN ×2 (13:14→20:26)
--- NOTE | 2022-04-27 13:56 | NUR ---
CASE MANAGEMENT Gave Pt. an application for [facility] at the [facility] to fill out as another option for rehab. Pt reported he also called [facility] a few more times to try to get through and also called [facility] today. Lilli Miller LCSW
--- NOTE | 2022-04-27 16:54 | NUR ---
Nursing Progress Note: Problem: Pt has a history of suicidal ideation and was placed on 5150. Pt has an active plan to end his life by jumping in front of a train. Pt states he sees train lights in his head telling him to jump in front of it. Pt current denies SI at this moment and would like to stay here until he gets better. Pt has hx of marijuana, methamphetamine, alcohol and tobacco use. Pt would like to go to rehab after leaving here. Interventions: Provide medication administration & medication management; Maintained a safe & supportive environment; Clear & simple instructions; Direction & encouragement regarding performance of ADLs; monitored behaviors & maintained clear boundaries; Patient physical assessment & 1:1 patient interview; Therapeutic conversation & active listening; Patient education & monitoring. Response: Received patient sleeping in bed at change of shift. Pt took meals in community room. Compliant with all medication administration. This VICE PROVOST completed 1:1 in bedroom; endorses SI off/on stating, I saw train tracks in my dreams; denies HI. Endorses AH stating, It tells me Im stupid; denies VH. Pt well-groomed and dressed appropriately. Speaks in a soft linear manner. Patient reports anxiety and was given routine Clonidine. Buspar added 5mg TID and Lexapro increased to 20mg QD. PRN Atarax and Nicotine Lozenge. Pt self isolates to his room, and doesnt speak to staff or peers unless he needs something. Pt states he would like to discharge to a rehab, and attempted to call Marissa of the [facility]; director out will return Saturday. Plan: Pt is in need of crisis interruption and stabilization until no longer a danger to self.
[2022-04-27 20:00] VITALS: BP 115/61
[2022-04-27] MEDS: OLANZAPINE 5 MG TABLET PO SCH (20:25)
[2022-04-27] MEDS: traZODone 50mg tablet PO SCH (20:26)
--- NOTE | 2022-04-28 05:23 | NUR ---
Nursing Progress Note: Problem: Pt has a history of suicidal ideation and was placed on 5150. Pt has an active plan to end his life by jumping in front of a train. Pt states he sees train lights in his head telling him to jump in front of it. Pt current denies SI at this moment and would like to stay here until he gets better. Pt has hx of marijuana, methamphetamine, alcohol and tobacco use. Pt would like to go to rehab after leaving here. Interventions: Provide medication administration & medication management; Maintained a safe & supportive environment; Clear & simple instructions; Direction & encouragement regarding performance of ADLs; monitored behaviors & maintained clear boundaries; Patient physical assessment & 1:1 patient interview; Therapeutic conversation & active listening; Patient education & monitoring. Response: Received patient laying in bed at begging of shift. Patient self isolated through out shift except for asking nurse for prn medications. Patient requested Tylenol for headaches, nicotine lozenge times 2 and Atrax for anxiety. Patient stated that his voices were getting louder and he hoped his new medications mixed with the Atrax will help calm them down. Patient took all night medications with out issue except for refusing to give up nicotine patch. Plan: Pt is in need of crisis interruption and stabilization until no longer a danger to self.
[2022-04-28] MEDS: cloNIDine 0.1 mg tablet PO SCH ×2 (07:04→12:30)
[2022-04-28] MEDS: nicotine 21mg patch - 24 hr TD SCH (07:05)
[2022-04-28] MEDS: busPIRone 5mg tablet PO SCH ×3 (07:05→19:35)
[2022-04-28] MEDS: ESCITALOPRAM OXALATE 5 MG TABLET PO SCH (07:05)
[2022-04-28] MEDS: NICOTINE POLACRILEX 2 MG LOZENGE BC PRN ×6 (07:06→21:09)
[2022-04-28 08:00] VITALS: BP 110/51
[2022-04-28] MEDS: hydrOXYzine 25 MG tablet PO PRN (11:28)
[2022-04-28] MEDS: acetaminophen 325mg tablet PO PRN ×2 (15:32→19:35)
--- NOTE | 2022-04-28 17:30 | NUR ---
Nursing Progress Note: Problem: Pt has a history of suicidal ideation and was placed on 5150. Pt has an active plan to end his life by jumping in front of a train. Pt states he sees train lights in his head telling him to jump in front of it. Pt current denies SI at this moment and would like to stay here until he gets better. Pt has hx of marijuana, methamphetamine, alcohol and tobacco use. Pt would like to go to rehab after leaving here. Interventions: Provide medication administration & medication management; Maintained a safe & supportive environment; Clear & simple instructions; Direction & encouragement regarding performance of ADLs; monitored behaviors & maintained clear boundaries; Patient physical assessment & 1:1 patient interview; Therapeutic conversation & active listening; Patient education & monitoring. Response: Received patient sleeping in bed at change of shift. Pt took meals in community room. Compliant with all medication administration. This VICE PRESIDENT [employer] completed 1:1 in bedroom; endorses SI off/on stating, It comes and goes. denies HI. Endorses AH stating, They just say bad things about me; denies VH. Pt well-groomed and dressed appropriately. Speaks in a soft linear manner. Patient reports anxiety and was given routine Clonidine. PRN Atarax and Nicotine Lozenge. Pt requested shower, 2 outfits picked from community closet. Pt reports decreased overall anxiety over last day, attributing it to new order of Buspar. Pt self isolates to his room, and doesnt speak to staff or peers unless he needs something. Pt states he would like to discharge to a rehab. Plan: Pt is in need of crisis interruption and stabilization until no longer a danger to self.
[2022-04-28] MEDS: OLANZAPINE 5 MG TABLET PO SCH (19:34)
[2022-04-28] MEDS: traZODone 50mg tablet PO SCH (19:35)
[2022-04-28 20:00] VITALS: BP 115/53
--- NOTE | 2022-04-29 00:26 | NUR ---
Nursing Progress Note: Problem: Pt has a history of suicidal ideation and was placed on 5150. Pt has an active plan to end his life by jumping in front of a train. Pt states he sees train lights in his head telling him to jump in front of it. Pt current denies SI at this moment and would like to stay here until he gets better. Pt has hx of marijuana, methamphetamine, alcohol and tobacco use. Pt would like to go to rehab after leaving here. Interventions: Provide medication administration & medication management; Maintained a safe & supportive environment; Clear & simple instructions; Direction & encouragement regarding performance of ADLs; monitored behaviors & maintained clear boundaries; Patient physical assessment & 1:1 patient interview; Therapeutic conversation & active listening; Patient education & monitoring. Response:Patient sleeping in room at shift change. patient compliant with VS. Patient denies SI at this this time stating, "I did a couple times earlier today but not right now." Patient reports A/H that are both positive and negative at times. Patient isolates to room most of the evening. Patient ate snack in community room by himself. Patient took evening meds and nicotine lozenges throughout the evening X2. Patient went to sleep shortly after med pass. Plan: Pt is in need of crisis interruption and stabilization until no longer a danger to self.
[2022-04-29] MEDS: cloNIDine 0.1 mg tablet PO SCH ×2 (07:30→13:20)
[2022-04-29 07:55] VITALS: BP 100/50
[2022-04-29] MEDS: ESCITALOPRAM OXALATE 5 MG TABLET PO SCH (08:42)
[2022-04-29] MEDS: busPIRone 5mg tablet PO SCH ×3 (08:42→19:44)
[2022-04-29] MEDS: nicotine 21mg patch - 24 hr TD SCH (08:44)
[2022-04-29] MEDS: acetaminophen 325mg tablet PO PRN (11:23)
[2022-04-29] MEDS: hydrOXYzine 25 MG tablet PO PRN (11:23)
[2022-04-29] MEDS: NICOTINE POLACRILEX 2 MG LOZENGE BC PRN ×5 (11:23→20:44)
[2022-04-29 13:13] VITALS: BP 126/57
--- NOTE | 2022-04-29 14:25 | NUR ---
NURSING PROGRESS NOTE Problem: Pt has a history of suicidal ideation and was placed on 5150. Pt has an active plan to end his life by jumping in front of a train. Pt states he sees train lights in his head telling him to jump in front of it. Pt current denies SI at this moment and would like to stay here until he gets better. Pt has hx of marijuana, methamphetamine, alcohol and tobacco use. Pt would like to go to rehab after leaving here. Interventions: One to one with patient to assess mood, administered medication as ordered with no adverse side effects, monitored behaviors, therapeutic conversation with active listening, ensured contract for safety, provided safe and supportive environment, encouraged participation in unit activities, Q15 min safety rounds. Response: Received patient sleeping at shift change. Pt slept 8.0 hours per sleep assessment. Pt woke and requested his morning medication. Pt is pleasant. Pt denies A/VH, HI. Passive SI without a plan. Pt was visible on unit, socializing appropriately. Pt gets along well with roommate. Encouraged pt to utilize coping skills as he was asking for PRNs throughout the shift. PRNs administered as ordered. Pt states he relates his anxiety to upcoming discharge I need to set a plan before I leave. PRNs given this shift Atarax, Tylenol for headache, nicotine lozenge. Plan: To develop a safe discharge plan to possibly include Residential treatment plan. Addendum: 04/29/22 at 1428 by Bertha Finley RN AH - "negative thoughts in my head."
[2022-04-29] MEDS: traZODone 50mg tablet PO SCH (19:44)
[2022-04-29] MEDS: OLANZAPINE 5 MG TABLET PO SCH (19:44)
[2022-04-29 20:19] VITALS: BP 131/83
--- NOTE | 2022-04-29 23:31 | NUR ---
Nursing Progress Note: Problem: Pt has a history of suicidal ideation and was placed on 5150. Pt has an active plan to end his life by jumping in front of a train. Pt states he sees train lights in his head telling him to jump in front of it. Pt current denies SI at this moment and would like to stay here until he gets better. Pt has hx of marijuana, methamphetamine, alcohol and tobacco use. Pt would like to go to rehab after leaving here. Interventions: Provide medication administration & medication management; Maintained a safe & supportive environment; Clear & simple instructions; Direction & encouragement regarding performance of ADLs; monitored behaviors & maintained clear boundaries; Patient physical assessment & 1:1 patient interview; Therapeutic conversation & active listening; Patient education & monitoring. Response: Patient in room socializing with roommate at shift change. Patient 1:1, Patient reports thoughts of suicide earlier in the day with no plan. patient also states that he hears voices that have negative things to say about himself. Patient up socializing in his room and out of room. patient ate snack in community room. patient took evening meds w/o complications. Patient asked for PRN Nicotine lozenges X2 throughout evening. Patient went to bed shortly after med pass. Plan: Pt is in need of crisis interruption and stabilization until no longer a danger to self.
[2022-04-30 07:39] VITALS: BP 108/50
[2022-04-30] MEDS: ESCITALOPRAM OXALATE 5 MG TABLET PO SCH (08:09)
[2022-04-30] MEDS: cloNIDine 0.1 mg tablet PO SCH ×2 (08:09→11:51)
[2022-04-30] MEDS: busPIRone 5mg tablet PO SCH ×3 (08:09→20:34)
[2022-04-30 08:10] VITALS: BP 110/60
[2022-04-30] MEDS: nicotine 21mg patch - 24 hr TD SCH (08:32)
--- NOTE | 2022-04-30 11:32 | NUR ---
[facility] INTERVIEW TOMORROW 05/01/22 ADARSH Villalpando
[2022-04-30 11:50] VITALS: BP 117/65
[2022-04-30] MEDS: NICOTINE POLACRILEX 2 MG LOZENGE BC PRN ×5 (11:51→20:40)
[2022-04-30] MEDS: hydrOXYzine 25 MG tablet PO PRN ×2 (13:33→20:33)
--- NOTE | 2022-04-30 15:00 | NUR ---
NURSING PROGRESS NOTE Problem: Pt has a history of suicidal ideation and was placed on 5150. Pt has an active plan to end his life by jumping in front of a train. Pt states he sees train lights in his head telling him to jump in front of it. Pt current denies SI at this moment and would like to stay here until he gets better. Pt has hx of marijuana, methamphetamine, alcohol and tobacco use. Pt would like to go to rehab after leaving here. Interventions: One to one with patient to assess mood, administered medication as ordered with no adverse side effects, monitored behaviors, therapeutic conversation with active listening, provided safe and supportive environment, encouraged participation in unit activities, Q15 min safety rounds. Response: Received patient sleeping at shift change. Pt slept 7.25 hours per sleep assessment. Pt continues to be cooperative and compliant with medication. Pt expresses anxiety r/t upcoming discharge. Pt has an interview with [facility] tomorrow 05/01. Pt is verbalizing motivation for his recovery. Pt attended and participated in group today. Pt required PRN Atarax and nicotine lozenges. Pt was encouraged to find ways to cope with his anxiety, pt reported he completed fifteen burpees. Plan: Patient is at baseline and has an interview with [facility] tomorrow. A safety plan will then be developed.
[2022-04-30] MEDS: acetaminophen 325mg tablet PO PRN (19:20)
[2022-04-30 19:58] VITALS: BP 125/77
[2022-04-30] MEDS: traZODone 50mg tablet PO SCH (20:33)
[2022-04-30] MEDS: OLANZAPINE 5 MG TABLET PO SCH (20:34)
--- NOTE | 2022-05-01 05:48 | NUR ---
NURSING PROGRESS NOTE Problem: Pt has a history of suicidal ideation and was placed on 5150. Pt has an active plan to end his life by jumping in front of a train. Pt states he sees train lights in his head telling him to jump in front of it. Pt current denies SI at this moment and would like to stay here until he gets better. Pt has hx of marijuana, methamphetamine, alcohol and tobacco use. Pt would like to go to rehab after leaving here. Interventions: One to one with patient to assess mood, administered medication as ordered with no adverse side effects, monitored behaviors, therapeutic conversation with active listening, provided safe and supportive environment, encouraged participation in unit activities, Q15 min safety rounds. Response: Patient is pleasant and cooperative with care; compliant with medication. PRN Atarax, Tylenol and Nicotine lozenge provided. Nicotine patch removed. He expressed not having SI this shift but earlier in the day he was and planned to jump in front of a bridge. He endorsed negative AH telling him to he has nothing to live for and to kill himself. Patient is social with peers and participated in HS snack prior to bed; observed sleeping and does not appear to be hvaing difficulty. Plan: Patient is at baseline and has an interview with [facility] tomorrow. A safety plan will then be developed.
[2022-05-01] MEDS: busPIRone 5mg tablet PO SCH ×3 (07:31→20:27)
[2022-05-01] MEDS: ESCITALOPRAM OXALATE 5 MG TABLET PO SCH (07:31)
[2022-05-01] MEDS: cloNIDine 0.1 mg tablet PO SCH ×2 (07:31→12:56)
[2022-05-01] MEDS: nicotine 21mg patch - 24 hr TD SCH (07:32)
[2022-05-01 07:44] VITALS: BP 137/58
[2022-05-01] MEDS: NICOTINE POLACRILEX 2 MG LOZENGE BC PRN ×4 (10:08→19:13)
[2022-05-01] MEDS: acetaminophen 325mg tablet PO PRN (10:08)
--- NOTE | 2022-05-01 10:14 | NUR ---
CASE MANAGEMENT Received a call from Salvador from [facility] - He reported that Pt. is ninth on the list which means there will be no bed for at least 30 days. Pt. also called and left messages for Amarilis, Substance Abuse Counselor for [facility] to find out what other available options there are. Pt. is awaiting an interview today with [facility]. Lilli Miller LCSW
[2022-05-01] MEDS: hydrOXYzine 25 MG tablet PO PRN (13:26)
--- NOTE | 2022-05-01 13:32 | NUR ---
Nursing Progress Note: Problem: Pt has a history of suicidal ideation and was placed on 5150. Pt has an active plan to end his life by jumping in front of a train. Pt states he sees train lights in his head telling him to jump in front of it. Pt current denies SI at this moment and would like to stay here until he gets better. Pt has hx of marijuana, methamphetamine, alcohol and tobacco use. Pt would like to go to rehab after leaving here. Interventions: Provided 1:1 assessment with therapeutic communication and active listening; Provided Medication administration/education/monitoring; Education provided on the use of Atrax encouraging pt to try other relaxation methods; Provided PRN's per request. Provided direction & encouragement regarding performance of ADLs; monitored behaviors & maintained clear boundaries; Monitored q 15min safety checks. Response: Pt up for breakfast. Reports regular BM. Compliant with medications. Endorses SI stating, "sometimes still." He further endorse AH that are derogatory towards him. He continues to talk about discharge and where is might be going. Requested to talk with social sciences professor and psychiatrist today. Mood anxious. For anxiety, he was given routine Clonidine, PRN Atrax and Nicotine Lozenge. Speech is linear. Plan: Pt is in need of crisis interruption and stabilization until no longer a danger to self.
--- NOTE | 2022-05-01 15:37 | NUR ---
Therapeutic group Client attended group today. Todays group focused on a breathing and sensory exercise of freeform drawing with breathing, calm music. After this grounding exercise, clients were then asked to proactive add something not random/what they wanted in their drawings. Clients were then asked to explain their choices, with peer encouragement and input. Client's content was linear and WNL. Client was dressed neatly, hygiene WNL. Client interacted with material as evidenced by completing a drawing, sharing it with the group, talking with peers and this leader writer. Client's demeanor was calm, context appropriate, pleasant to work with. Client ankit a picture of the beach, explaining it is his favorite place to be.
[2022-05-01 19:56] VITALS: BP 113/55
[2022-05-01] MEDS: traZODone 50mg tablet PO SCH (20:27)
[2022-05-01] MEDS: OLANZAPINE 5 MG TABLET PO SCH (20:29)
--- NOTE | 2022-05-02 05:44 | NUR ---
NURSING PROGRESS NOTE Problem: Pt has a history of suicidal ideation and was placed on 5150. Pt has an active plan to end his life by jumping in front of a train. Pt states he sees train lights in his head telling him to jump in front of it. Pt current denies SI at this moment and would like to stay here until he gets better. Pt has hx of marijuana, methamphetamine, alcohol and tobacco use. Pt would like to go to rehab after leaving here. Interventions: One to one with patient to assess mood, administered medication as ordered with no adverse side effects, monitored behaviors, therapeutic conversation with active listening, provided safe and supportive environment, encouraged participation in unit activities, Q15 min safety rounds. Response: Patient is pleasant and cooperative with care; compliant with medication. PRN Nicotine lozenge provided and Nicotine patch removed. Patient denies SI, HI, A/VH this shift; expressed he had been having suicidal thoughts earlier in the day though. Patient socialized with peers and participated in HS snack prior to bed; observed sleeping and does not appear to be having difficulty. Plan: Patient is at baseline; accepted at [facility] and awaiting availability.
[2022-05-02 07:00] VITALS: BP 94/49
[2022-05-02] MEDS: ESCITALOPRAM OXALATE 5 MG TABLET PO SCH (08:28)
[2022-05-02] MEDS: busPIRone 5mg tablet PO SCH ×3 (08:29→20:51)
[2022-05-02] MEDS: nicotine 21mg patch - 24 hr TD SCH (08:29)
[2022-05-02] MEDS: cloNIDine 0.1 mg tablet PO SCH ×3 (08:35→20:51)
[2022-05-02] MEDS: NICOTINE POLACRILEX 2 MG LOZENGE BC PRN ×2 (10:16→19:56)
[2022-05-02] MEDS: acetaminophen 325mg tablet PO PRN ×2 (11:39→21:21)
[2022-05-02] MEDS: hydrOXYzine 25 MG tablet PO PRN (12:48)
--- NOTE | 2022-05-02 13:27 | NUR ---
F/u 05/02: Pt PO mostly ~100% regular diet meeting needs. LBM 04/30 per EMR. No nutrition interventions at this time. Will continue to follow. Rec: 1. continue regular diet 2. bowel care per rx 3. weekly wts Addendum: 05/02/22 at [address] Amended: Links added.
--- NOTE | 2022-05-02 17:29 | NUR ---
Nursing Progress Note: Problem: Pt has a history of suicidal ideation and was placed on 5150. Pt has an active plan to end his life by jumping in front of a train. Pt states he sees train lights in his head telling him to jump in front of it. Pt current denies SI at this moment and would like to stay here until he gets better. Pt has hx of marijuana, methamphetamine, alcohol and tobacco use. Pt would like to go to rehab after leaving here. Interventions: Provided 1:1 assessment with therapeutic communication and active listening; Provided Medication administration/education/monitoring; Education provided on the use of Atrax encouraging pt to try other relaxation methods; Provided PRN's per request. Provided direction & encouragement regarding performance of ADLs; monitored behaviors & maintained clear boundaries; Monitored q 15min safety checks. Response: Patient sleeping at change of shift. Patient awakens for breakfast and takes his morning medications. BP was 94/49, so Clonidine was held. Patient took his other medications without complication. Patient has been accepted at [facility] and is now awaiting bed. Patient is quiet, but makes his needs known. Patient self-isolates most of the day to his room, sleeping on and off. Patient states that he is hearing auditory hallucinations and remains feeling suicidal. Plan: Pt is in need of crisis interruption and stabilization until no longer a danger to self.
[2022-05-02 19:00] VITALS: BP 121/60
[2022-05-02] MEDS: traZODone 50mg tablet PO SCH (20:52)
[2022-05-02] MEDS: OLANZAPINE 5 MG TABLET PO SCH (21:05)
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
[2022-05-03 07:00] VITALS: BP 103/58
[2022-05-03] MEDS: ESCITALOPRAM OXALATE 5 MG TABLET PO SCH (08:18)
[2022-05-03] MEDS: busPIRone 5mg tablet PO SCH ×3 (08:18→20:24)
[2022-05-03] MEDS: cloNIDine 0.1 mg tablet PO SCH ×3 (08:19→20:24)
[2022-05-03] MEDS: acetaminophen 325mg tablet PO PRN ×2 (08:19→20:28)
[2022-05-03] MEDS: nicotine 21mg patch - 24 hr TD SCH (08:27)
[2022-05-03] MEDS: NICOTINE POLACRILEX 2 MG LOZENGE BC PRN ×4 (11:48→20:28)
--- NOTE | 2022-05-03 15:16 | NUR ---
CASE MANAGEMENT Pt has been accepted to the [facility], at first they thought they could take him this week but it was reported today that they actually won't have a bed until May 14. He is number one on the waiting list. Geno from [facility] will be coming over tomorrow morning to meet with Pt. to call more [facility] rehabs. Lilli Miller LCSW
--- NOTE | 2022-05-03 17:49 | NUR ---
Nursing Progress Note: Problem: Pt has a history of suicidal ideation and was placed on 5150. Pt has an active plan to end his life by jumping in front of a train. Pt states he sees train lights in his head telling him to jump in front of it. Pt current denies SI at this moment and would like to stay here until he gets better. Pt has hx of marijuana, methamphetamine, alcohol and tobacco use. Pt would like to go to rehab after leaving here. Interventions: Provided 1:1 assessment with therapeutic communication and active listening; Provided Medication administration/education/monitoring; Education provided on the use of Atrax encouraging pt to try other relaxation methods; Provided PRN's per request. Provided direction & encouragement regarding performance of ADLs; monitored behaviors & maintained clear boundaries; Monitored q 15min safety checks. Response: Patient sleeping in bed at shift change. Patient awakens and goes to the dining room for breakfast. Patient took his medications as directed. Patient takes prn Atarax, Tylenol and Nicotine lozengges. Patient reports that he is still hearing A/H, and that he is feeling suicidal. Patient wishes to go into rehab. When he leaves, but will also go to [facility] if a bed opens up. Patient continues to self-isolate during the day. Plan: Pt is in need of crisis interruption and stabilization until no longer a danger to self.
[2022-05-03 19:00] VITALS: BP 138/74
[2022-05-03] MEDS: OLANZAPINE 5 MG TABLET PO SCH (20:22)
[2022-05-03] MEDS: hydrOXYzine 25 MG tablet PO PRN (20:23)
[2022-05-03] MEDS: traZODone 50mg tablet PO SCH (20:23)
--- NOTE | 2022-05-04 04:43 | NUR ---
Nursing Progress Note: Problem: Pt has a history of suicidal ideation and was placed on 5150. Pt has an active plan to end his life by jumping in front of a train. Pt states he sees train lights in his head telling him to jump in front of it. Pt current denies SI at this moment and would like to stay here until he gets better. Pt has hx of marijuana, methamphetamine, alcohol and tobacco use. Pt would like to go to rehab after leaving here. Interventions: Provided 1:1 assessment with therapeutic communication and active listening; Provided Medication administration/education/monitoring; Education provided on the use of Atrax encouraging pt to try other relaxation methods; Provided PRN's per request. Provided direction & encouragement regarding performance of ADLs; monitored behaviors & maintained clear boundaries; Monitored q 15min safety checks. Response: Patient was received isolating in room at beginning of shift. Patient came to nurse asking when he could get his night Meds because he wanted to go to bed early. Patient requested prn hydroxyzine with his night medications. Patient stated he was having AH but they and hoped the Atrax would help to quiet them down. Patient spent majority of shift inside of room except for coming out for snack. Patient took all night medications without issue including prn Tylenol for headaches. Patient came back later for nicotine lozenge. Plan: Pt is in need of crisis interruption and stabilization until no longer a danger to self.
[2022-05-04] MEDS: busPIRone 5mg tablet PO SCH ×3 (07:44→20:18)
[2022-05-04] MEDS: ESCITALOPRAM OXALATE 5 MG TABLET PO SCH (07:45)
[2022-05-04] MEDS: nicotine 21mg patch - 24 hr TD SCH (07:45)
[2022-05-04] MEDS: cloNIDine 0.1 mg tablet PO SCH ×3 (07:48→20:21)
[2022-05-04 08:00] VITALS: BP 102/66
[2022-05-04] MEDS: NICOTINE POLACRILEX 2 MG LOZENGE BC PRN ×5 (10:10→20:28)
[2022-05-04] MEDS: acetaminophen 325mg tablet PO PRN (10:17)
[2022-05-04] MEDS: hydrOXYzine 25 MG tablet PO PRN (13:20)
--- NOTE | 2022-05-04 13:59 | NUR ---
DISCHARGE PLAN Received a call from the [facility] today, they had a male leave the program earlier then expected so they now have a bed available for this coming Saturday05/07/22 for Pt. Spoke to Pt. about this and he is agreeable to this plan. Lilli Miller LCSW
[2022-05-04] MEDS ORDERED: tuberculin, purif. prot. deriv. 5 units/0.1ml ID ONE (15:10)
[2022-05-04] MEDS ORDERED: ESCI20TA39 PO (16:11)
[2022-05-04] MEDS ORDERED: NICO-907 BC (16:11)
[2022-05-04] MEDS ORDERED: OLAN20TA19 PO ×2 (16:11)
[2022-05-04] MEDS ORDERED: BUSP10TA16 PO (16:11)
[2022-05-04] MEDS ORDERED: HYDR50TA65 PO (16:11)
[2022-05-04] MEDS ORDERED: CLON0.1T2 PO (16:11)
[2022-05-04] MEDS ORDERED: TRAZ150T78 PO (16:11)
--- NOTE | 2022-05-04 17:00 | NUR ---
Nursing Progress Note: Sajan Problem: Pt has a history of suicidal ideation and was placed on 5150. Pt has an active plan to end his life by jumping in front of a train. Pt states he sees train lights in his head telling him to jump in front of it. Pt current denies SI at this moment and would like to stay here until he gets better. Pt has hx of marijuana, methamphetamine, alcohol and tobacco use. Pt would like to go to rehab after leaving here. Interventions: Provided 1:1 assessment with therapeutic communication and active listening; Provided Medication administration/education/monitoring; Education provided on the use of Atrax encouraging pt to try other relaxation methods; Provided PRN's per request. Provided direction & encouragement regarding performance of ADLs; monitored behaviors & maintained clear boundaries; Monitored q 15min safety checks. Response: Pt. received asleep in his room, and woke to take his medications. Pt. endorses SI, stating Im suicidal, I think if I was let out Id head for the train tracks Pt. denies HI,VH and also endorses AH stating the voices are telling me things like, I suck, and Im worthless He reports his DC plan is to go to the [facility], but also had an interview with [facility] today. He c/o anxiety and requested Atarax once today along with nicotine lozenges. Pt. spent some time out of his room and socialized with another male cohorts, but spent considerable time isolating in his room. Pt. took a one hour nap today, and ate all meals in the community room. He has good hygiene, groomed, and wears street clothes. Plan: Pt is in need of crisis interruption and stabilization until no longer a danger to self
[2022-05-04 19:47] VITALS: BP 135/62
[2022-05-04] MEDS: traZODone 50mg tablet PO SCH (20:21)
[2022-05-04] MEDS: OLANZAPINE 5 MG TABLET PO SCH (20:21)
--- NOTE | 2022-05-04 22:51 | NUR ---
Nursing Progress Note: Problem: Pt has a history of suicidal ideation and was placed on 5150. Pt has an active plan to end his life by jumping in front of a train. Pt states he sees train lights in his head telling him to jump in front of it. Pt current denies SI at this moment and would like to stay here until he gets better. Pt has hx of marijuana, methamphetamine, alcohol and tobacco use. Pt would like to go to rehab after leaving here. Interventions: Provided 1:1 assessment with therapeutic communication and active listening; Provided Medication administration/education/monitoring; Education provided on the use of Atrax encouraging pt to try other relaxation methods; Provided PRN's per request. Provided direction & encouragement regarding performance of ADLs; monitored behaviors & maintained clear boundaries; Monitored q 15min safety checks. Response: Patient socialized with other patient following shift change in the community room. He is cooperative. 1:1 Interview with this rewriter in the recreation room. Patient is well oriented and cooperative. Some anxiety present. Patient does admit to hearing voices, "intermittent, good and bad," he does not elaborate. He admits to visual hallucinations, "train tracks." he associates this with a plan for a suicide attempt. He denies H/I. The patient did have a BM today. PRN nicotine lozenge given. He was medication compliant. Patient did get a shave. He ate a full dinner. In general save for minor anxiety he was in a good mood. Plan: Pt is in need of crisis interruption and stabilization until no longer a danger to self.
[2022-05-05 08:00] VITALS: BP 133/51
[2022-05-05] MEDS: ESCITALOPRAM OXALATE 5 MG TABLET PO SCH (08:52)
[2022-05-05] MEDS: cloNIDine 0.1 mg tablet PO SCH ×3 (08:52→20:00)
[2022-05-05] MEDS: busPIRone 5mg tablet PO SCH ×3 (08:52→20:00)
[2022-05-05] MEDS: nicotine 21mg patch - 24 hr TD SCH (08:59)
[2022-05-05] MEDS: NICOTINE POLACRILEX 2 MG LOZENGE BC PRN ×3 (11:40→17:26)
[2022-05-05] MEDS: acetaminophen 325mg tablet PO PRN ×2 (13:21→20:01)
[2022-05-05] MEDS: hydrOXYzine 25 MG tablet PO PRN (16:07)
[2022-05-05] MEDS: buPROPion SR 100mg tab PO SCH (16:10)
--- NOTE | 2022-05-05 16:21 | NUR ---
Nursing Progress Note Problem: Pt has a history of suicidal ideation and was placed on 5150. Pt has an active plan to end his life by jumping in front of a train. Pt states he sees train lights in his head telling him to jump in front of it. Pt current denies SI at this moment and would like to stay here until he gets better. Pt has hx of marijuana, methamphetamine, alcohol and tobacco use. Pt would like to go to rehab after leaving here. Interventions: Provided 1:1 assessment with therapeutic communication and active listening; Provided Medication administration/education/monitoring; Education provided on the use of Atrax encouraging pt to try other relaxation methods; Provided PRN's per request. Provided direction & encouragement regarding performance of ADLs; monitored behaviors & maintained clear boundaries; Monitored q 15min safety checks. Response: Received Pt in bed sleeping w/o distress at the beginning of the shift. Pt woke and was cooperative with vitals and went to sleep again. Pt woke for breakfast and ate well. He took meds throughout the day w/o issue and used nicotine Lozenges and Tylenol for a CARTER with good effect. Pt napped in AM and PM. Pt excited about going to the [facility] and discussed ways in which he can use that environment and tools. PPD placed in Lft forearm w/o issue.Pt in overall pleasant mood and cooperative with staff although isolative to room most of the day. Plan: Pt is in need of crisis interruption and stabilization until no longer a danger to self
[2022-05-05 20:00] VITALS: BP 140/58
[2022-05-05] MEDS: traZODone 50mg tablet PO SCH (20:01)
[2022-05-05] MEDS: OLANZAPINE 5 MG TABLET PO SCH (20:01)
--- NOTE | 2022-05-05 22:29 | NUR ---
Nursing Progress Note Problem: Pt has a history of suicidal ideation and was placed on 5150. Pt has an active plan to end his life by jumping in front of a train. Pt states he sees train lights in his head telling him to jump in front of it. Pt current denies SI at this moment and would like to stay here until he gets better. Pt has hx of marijuana, methamphetamine, alcohol and tobacco use. Pt would like to go to rehab after leaving here. Interventions: Provided 1:1 assessment with therapeutic communication and active listening; Provided Medication administration/education/monitoring; Education provided on the use of Atrax encouraging pt to try other relaxation methods; Provided PRN's per request. Provided direction & encouragement regarding performance of ADLs; monitored behaviors & maintained clear boundaries; Monitored q 15min safety checks. Response: Received Pt in community room talking with another Pt. Pt walked halls and talked and then enjoyed snack. Pt cooperative with vitals and assessments. He is anticipating going to [facility] and took PM meds w/o issue. He denies SI/HI. Pt did not elaborate on Ahs. Overall pleasant mood and respectful of staff and others. Pt given Tylenol for CARTER with good results. Pt currently sleeping w/o distress. Plan: Pt is in need of crisis interruption and stabilization until no longer a danger to self
[2022-05-06] MEDS: nicotine 21mg patch - 24 hr TD SCH (08:21)
[2022-05-06] MEDS: busPIRone 5mg tablet PO SCH ×3 (08:22→20:01)
[2022-05-06] MEDS: ESCITALOPRAM OXALATE 5 MG TABLET PO SCH (08:22)
[2022-05-06] MEDS: buPROPion SR 100mg tab PO SCH ×2 (08:22→12:50)
[2022-05-06] MEDS: cloNIDine 0.1 mg tablet PO SCH ×3 (08:22→20:01)
[2022-05-06] MEDS: NICOTINE POLACRILEX 2 MG LOZENGE BC PRN ×4 (08:25→17:57)
[2022-05-06] MEDS: hydrOXYzine 25 MG tablet PO PRN (11:23)
[2022-05-06] MEDS ORDERED: OLAN15TA3 PO (17:19)
[2022-05-06] MEDS ORDERED: BUPR100T15 PO (17:19)
--- NOTE | 2022-05-06 17:45 | NUR ---
Nursing Progress Note Problem: Pt has a history of suicidal ideation and was placed on 5150. Pt has an active plan to end his life by jumping in front of a train. Pt states he sees train lights in his head telling him to jump in front of it. Pt current denies SI at this moment and would like to stay here until he gets better. Pt has hx of marijuana, methamphetamine, alcohol and tobacco use. Pt would like to go to rehab after leaving here. Interventions: Provided 1:1 assessment with therapeutic communication and active listening; Provided Medication administration/education/monitoring; Education provided on the use of Atrax encouraging pt to try other relaxation methods; Provided PRN's per request. Provided direction & encouragement regarding performance of ADLs; monitored behaviors & maintained clear boundaries; Monitored q 15min safety checks. Response: Patient awoke for breakfast and took his medications as ordered. Patient requests Tylenol and Nicotine lozenge, then took a nap in his room. Patient is excited to go to [facility] tomorrow. PPD will need to be read tomorrow. Patient is polite and cooperative with treatment. Patient self-isolates to his room for most of the day. Plan: Pt is in need of crisis interruption and stabilization until no longer a danger to self
[2022-05-06] MEDS: acetaminophen 325mg tablet PO PRN (19:05)
[2022-05-06] MEDS: OLANZAPINE 5 MG TABLET PO SCH (20:00)
[2022-05-06] MEDS: traZODone 50mg tablet PO SCH (20:01)
[2022-05-06 20:37] VITALS: BP 117/55
--- NOTE | 2022-05-06 21:26 | NUR ---
Nursing Progress Note Problem: Pt has a history of suicidal ideation and was placed on 5150. Pt has an active plan to end his life by jumping in front of a train. Pt states he sees train lights in his head telling him to jump in front of it. Pt current denies SI at this moment and would like to stay here until he gets better. Pt has hx of marijuana, methamphetamine, alcohol and tobacco use. Pt would like to go to rehab after leaving here. Interventions: Provided 1:1 assessment with therapeutic communication and active listening; Provided Medication administration/education/monitoring; Education provided on the use of Atrax encouraging pt to try other relaxation methods; Provided PRN's per request. Provided direction & encouragement regarding performance of ADLs; monitored behaviors & maintained clear boundaries; Monitored q 15min safety checks. Response: Pt was in his room brushing his teeth at change of shift. Pt is in a good mood tonight states he is looking forward to going to the [facility]. Pt denies s/i. Pt was c/o of a CARTER and given prn tylenol at shift change. Pt took HS meds, declined to have snacks and went to bed. Plan: Pt is in need of crisis interruption and stabilization until no longer a danger to self
[2022-05-07 08:00] VITALS: BP 91/52
[2022-05-07] MEDS: cloNIDine 0.1 mg tablet PO SCH ×2 (08:02→13:01)
[2022-05-07] MEDS: busPIRone 5mg tablet PO SCH ×2 (08:02→13:00)
[2022-05-07] MEDS: buPROPion SR 100mg tab PO SCH ×2 (08:03→13:00)
[2022-05-07] MEDS: ESCITALOPRAM OXALATE 5 MG TABLET PO SCH (08:04)
[2022-05-07] MEDS: nicotine 21mg patch - 24 hr TD SCH (08:12)
[2022-05-07] MEDS: NICOTINE POLACRILEX 2 MG LOZENGE BC PRN (11:48)
[2022-05-07] MEDS: hydrOXYzine 25 MG tablet PO PRN (11:48)
[2022-05-07] MEDS: acetaminophen 325mg tablet PO PRN (12:54)
--- NOTE | 2022-05-07 13:26 | NUR ---
Nursing Discharge Note: Pt discharged from [facility] at 1316 to a [facility] new autos delivery driver to take him to the [facility]. Pt calm and cooperative and excited about going to [facility]. Pt denies SI/HI and has been improving since admission. Pt's belongings inventoried and returned to him along with medications. Pt in no acute physical or emotional distress and understands his discharge instructions and plan. Pt has been provided nicotine replacement at his request.
== END 2022-05-07 13:16 | DRG 751 ==
LOC: ER 15:47 → ED HOLD 04-18 17:35 → ADULT MH 04-18 21:25
PROVIDERS: ADMIT Psychiatry & Neurology Psychiatry; ATTEND Psychiatry & Neurology Psychiatry
DX: F33.2 Major depressive disorder, recurrent severe without psychotic features (principal); F29 Unspecified psychosis not due to a substance or known physiological condition; R45.851 Suicidal ideations; F41.9 Anxiety disorder, unspecified; Z20.822 Contact with and (suspected) exposure to COVID-19; F12.10 Cannabis abuse, uncomplicated; F90.9 Attention-deficit hyperactivity disorder, unspecified type; F17.210 Nicotine dependence, cigarettes, uncomplicated; F10.10 Alcohol abuse, uncomplicated; F43.10 Post-traumatic stress disorder, unspecified; F15.10 Other stimulant abuse, uncomplicated; Z59.00 Homelessness unspecified; Z79.899 Other long term (current) drug therapy; Z81.8 Family history of other mental and behavioral disorders; Z56.0 Unemployment, unspecified
CPT/HCPCS: 36415; 80053; 80061; 80305; 80320; 81001; 83036; 85025; 87081; 87088; 87811; 99285; J3490; Q0177

== ENCOUNTER 2022-08-25 21:13 | Emergency (ER) | payer MEDICAID ==
[~2022-08-25] VITALS: Ht 180.3 cm; Wt 79.5 kg
[~2022-08-25 21:13] MED LIST changes: +BUSP10TA16 PO; +CLON0.1T2 PO; -ESCI-8 PO; +ESCI20TA39 PO; -HYDR-3686 PO; +HYDR50TA65 PO; -NICO-687 TD; +NICO-907 BC; -NO HOME MEDS; -OLAN10TA73 PO; -OLAN15TA20 PO; +OLAN15TA3 PO; -TRAZ-251 PO; +TRAZ150T78 PO
[2022-08-25] MEDS ORDERED: LORazepam 1 MG tablet PO ONE (21:45)
[2022-08-25 22:11] LABS: BASOPHILS % (AUTO) 0.5 % (0-1); EOSINOPHILS % (AUTO) 0.5 % (0-6); HEMATOCRIT 43.9 % (42.0-52.0); HEMOGLOBIN 14.2 g/dl (14.0-17.9); LYMPHOCYTES # (AUTO) 2.2 X10'3 (1.1-4.8); LYMPHOCYTES % (AUTO) 23.5 % (21-51); MEAN CORPUSCULAR HEMOGLOBIN 26.3 PG (27.0-31.0); MEAN CORPUSCULAR HGB CONC 32.4 g/dL (33.0-36.5); MEAN CORPUSCULAR VOLUME 81.1 FL (78-98); MEAN PLATELET VOLUME 7.8 FL (7.4-10.4); MONOCYTES # (AUTO) 0.6 X10'3 (0-0.9); MONOCYTES % (AUTO) 6.8 % (2-12); NEUTROPHILS # (AUTO) 6.4 X10'3 (1.8-7.7); NEUTROPHILS % (AUTO) 68.7 % (42-75); PLATELET COUNT 354 X10'3 (140-440); RED BLOOD COUNT 5.42 X10'6 (4.70-6.10); RED CELL DISTRIBUTION WIDTH 16.3 % (11.5-14.5); WHITE BLOOD COUNT 9.3 X10'3 (4.5-11.0)
[2022-08-25 22:19] LABS: ALANINE AMINOTRANSFERASE 25 U/L (12-78); ALBUMIN 3.9 G/DL (3.4-5.0); ALKALINE PHOSPHATASE 97 IU/L (46-116); ANION GAP 3 (8-16); ASPARTATE AMINO TRANSFERASE 20 U/L (10-37); BILIRUBIN,TOTAL 0.3 MG/DL (0.1-1.0); BLOOD UREA NITROGEN 12 MG/DL (7-18); BUN/CREATININE RATIO 14.1 (10.0-20.0); CALCIUM 9.9 MG/DL (8.5-10.1); CHLORIDE 106 MMOL/L (99-107); CREATININE 0.85 MG/DL (0.60-1.10); ETHANOL < 0.010 GM/DL (0.0-0.010); GLUCOSE 114 MG/DL (70-104); POTASSIUM 4.1 MMOL/L (3.5-5.1); SODIUM 140 MMOL/L (135-145); TOTAL CARBON DIOXIDE 30.7 MMOL/L (24-32); TOTAL PROTEIN 7.9 G/DL (6.4-8.2); eGFR > 90 ML/MIN
[2022-08-25 22:26] LABS: CLARITY,URINE SLIGHTLY CLOUDY (Clear); COLOR,URINE YELLOW (Yellow); GLUCOSE, URINE NEGATIVE (Neg); KETONES,URINE NEGATIVE (Neg); LEUKOCYTE ESTERASE ,URINE NEGATIVE (Neg); NITRITES, URINE NEGATIVE (Neg); OCCULT BLOOD,URINE NEGATIVE (Neg); PROTEIN,URINE TRACE mg/dl (Neg); UROBILINOGEN,URINE 0.2 E.U/dL (0.2-1.0)
[2022-08-25 22:32] LABS: UA COLLECTION TYPE CLN CATCH MIDSTREAM
[2022-08-25 22:33] LABS: BACTERIA,URINE FEW /HPF (Neg); RBC,URINE NONE SEEN /HPF (0-2); SQUAMOUS EPITHELIAL CELL,UR FEW /LPF (FEW)
[2022-08-25 22:34] LABS: MUCUS STRANDS FEW /LPF (Neg); WBC CLUMPS,URINE FEW /HPF (NEGATIVE)
[2022-08-25 22:42] LABS: URINE AMPHETAMINE SCREEN POSITIVE (Neg); URINE BARBITUATE SCREEN NEGATIVE (Neg); URINE BENZODIAZEPINES SCREEN NEGATIVE (Neg); URINE CANNABINOID SCREEN POSITIVE (Neg); URINE COCAINE SCREEN NEGATIVE (Neg); URINE METHADONE SCREEN NEGATIVE (Neg); URINE OPIATE SCREEN NEGATIVE (Neg); URINE PHENCYCLIDINE SCREEN NEGATIVE (Neg)
[2022-08-25] MEDS ORDERED: NO HOME MEDS (22:43)
--- NOTE | 2022-08-25 23:01 | NUR ---
The patient is a well known 22 year old male. He has had two admissions to [facility] with the last admit in April. He has chronic substance abuse with some treatment at [facility] the [place]. He is currently possitive for Fentanyl, Amphetamines and THC. He is homeless and not taking his psychiatric medications. He was cooperative with the move the overflow area. He had called 911 from the local AM/PM and stated he was suicidal to walk in front of a train. He was not able to safety plan with the responding officer.
--- NOTE | 2022-08-25 23:29 | NUR ---
PACKET SENT TO [facility]
--- NOTE | 2022-08-26 00:08 | NUR ---
The patient appears to be sleeping
--- NOTE | 2022-08-26 01:22 | NUR ---
The patient appears to be sleeping
--- NOTE | 2022-08-26 03:02 | NUR ---
The patient appears to be sleeping
--- NOTE | 2022-08-26 05:05 | NUR ---
The patient appears to be sleeping
[2022-08-26] MEDS ORDERED: hydrOXYzine 25 MG tablet PO PRN (05:30)
--- NOTE | 2022-08-26 07:08 | NUR ---
Pt appears to be sleeping, no apparent distress. Respirations even and unlabored.
--- NOTE | 2022-08-26 09:00 | NUR ---
One on one with patient at bedside. Pt just finished breakfast and was pleasant on greeting. Pt currently denies SI/HI, A/VH. Pt reports the reason he is here "I want to get back on my medication (psychiatric meds.)" Pt has been non compliant since discharge from [facility] on 05/07, stating "I lost them." Pt said "I couldn't take Klonopin when I was here last time because I was in rehab." No history of prescibed Klonopin. Pt then said "I just need Suboxone or methadone and I will be fine." Pt is not interested in another residential program. Per [facility] clinician assessment. Pt is an out of county resident from the [facility]. Pt reports he has been in [place] for about 1.5 year. Pt moved to [place] to attend the residential treatment program at [facility]. Pt left voluntary and relapsed on methamphetamine. Pt was last seen at [facility] on 04/18/22 and admitted to [facility]. Pt was discharged on 05/07/22 to [facility], where he failed program because he came back drunk.
--- NOTE | 2022-08-26 10:58 | NUR ---
Pt resting comfortably on right side, respirations even and unlabored.
[2022-08-26] MEDS ORDERED: nicotine 14mg patch - 24hr TD ONE (11:00)
--- NOTE | 2022-08-26 13:00 | NUR ---
Pt resting comfortably with eyes open, respirations even and unlabored.
--- NOTE | 2022-08-26 15:30 | NUR ---
Pt has been c/o increased anxiety, hydrozyzine 50mg q8h is not helping. Received order for Ativan 1 mg q2h for withdrawal symptoms. Pt's last used Fentanyl 2 days ago.
[2022-08-26] MEDS: LORazepam 1 MG tablet PO PRN ×2 (15:35→20:16)
--- NOTE | 2022-08-26 17:01 | NUR ---
Pt resting comfortably on left side, rr even an unlabored.
--- NOTE | 2022-08-26 19:08 | NUR ---
The patient has been resting on his bed quietly after eating most of his dinner. He reports that the continues to feel suicidal and that he is hearing voices telling him random things. He is wanting suboxone.
--- NOTE | 2022-08-26 20:28 | NUR ---
The patient appears to be sleeping
[2022-08-26] MEDS ORDERED: quetiapine 100mg tablet PO ONE (21:10)
--- NOTE | 2022-08-26 22:15 | NUR ---
The patient is asking for more ativan. He wants higher doses. Discussed with Dr. Hendrix and orders received.
--- NOTE | 2022-08-26 23:00 | NUR ---
The patient appears to be sleeping
--- NOTE | 2022-08-27 01:13 | NUR ---
The patient appears to be sleeping
--- NOTE | 2022-08-27 02:48 | NUR ---
The patient appears to be sleeping
--- NOTE | 2022-08-27 05:01 | NUR ---
The patient appears to be sleeping
--- NOTE | 2022-08-27 06:45 | NUR ---
Patient awake and asking for Ativan and Suboxone. Will give the patient Ativan and speak to the doctor about suboxone. Continue to monitor.
[2022-08-27] MEDS: LORazepam 1 MG tablet PO PRN ×4 (06:48→15:41)
--- NOTE | 2022-08-27 08:11 | NUR ---
Patient eating breakfast. No distress observed. Continue to monitor.
[2022-08-27] MEDS ORDERED: buprenorphine/naloxone 8MG-2MG SUBlingual film SL SCH (09:55)
--- NOTE | 2022-08-27 10:25 | NUR ---
Patient given Suboxone, no increase in Ativan given. Patient appears to be sleeping supine. Continue to monitor.
--- NOTE | 2022-08-27 13:48 | NUR ---
The 1347 1 mg Ativan dose was administered at 1005 but RN forgot to scan med. Continue to monitor.
--- NOTE | 2022-08-27 14:37 | NUR ---
Patient sitting in bed agitated and cussing. Patient appears disorganized and psychotic. Patient was given Suboxone today for the first time. Continue to monitor.
[2022-08-27] MEDS: nicotine 14mg patch - 24hr TD SCH (15:41)
--- NOTE | 2022-08-27 16:05 | NUR ---
Solo CLARKE, speaking with patient. Patient is angry and wants to leave. Continue to monitor.
--- NOTE | 2022-08-27 19:27 | NUR ---
Patient resting in bed at this time. Obtained a good portion of dinner. Being compliant. Patient has used the restroom one time in this house. No acute distress at this time, will continue to monitor.
[2022-08-27] MEDS: buprenorphine/naloxone 8MG-2MG SUBlingual film SL SCH (20:42)
--- NOTE | 2022-08-27 21:10 | NUR ---
Patient has been resting in bed, with no apparent issues. No acute distress.
[2022-08-27] MEDS ORDERED: traZODone 50mg tablet PO SCH (22:40)
[2022-08-27] MEDS ORDERED: traZODone 50mg tablet PO ONE (22:40)
--- NOTE | 2022-08-28 00:55 | NUR ---
Patient sleeping in bed at this time. No acute distress at this time. Walked to the restroom x1.
--- NOTE | 2022-08-28 02:57 | NUR ---
Patient has been lying in bed in room, w/ tech (sitter) at bedside. Patients needs able to be met. No acut distress. Addendum: 08/28/22 at 257 by YOHANNES Sitter not for this patient. However by bedside with the other patients accompany. Addendum: 08/28/22 at 258 by YOHANNES acute"
--- NOTE | 2022-08-28 04:37 | NUR ---
Patient has been sleeping great throughout the night. [place] asking for a snack. Good verbage, no acute distress at this time.
--- NOTE | 2022-08-28 07:00 | NUR ---
Received Pt in bed sleeping w/o distress at the beginning of this shift.
[2022-08-28] MEDS: LORazepam 1 MG tablet PO PRN ×4 (09:36→19:32)
[2022-08-28] MEDS: nicotine 14mg patch - 24hr TD SCH (09:36)
[2022-08-28] MEDS: buprenorphine/naloxone 8MG-2MG SUBlingual film SL SCH ×2 (09:36→19:32)
--- NOTE | 2022-08-28 09:52 | NUR ---
Pt woke and ate breakfast well. He took AM meds w/o issue and also received Ativan prn for anxiety. Pt seen talking to self and mumbling. Pt remembers this RN from [facility] in past and was appropriate in interactions.
--- NOTE | 2022-08-28 11:29 | NUR ---
Breaking RN. Pt. asleep in bed on right side. Respirations 12, even and unlabored.
--- NOTE | 2022-08-28 12:47 | NUR ---
Met with patient in regards to substance use and to see if patient was interested in resources for treatment options. Patient is interested in outpatient and inpatient treatment. I gave patient [facility] number to start that process. I gave patient a list of facilities. Patient was started on Suboxone, I gave him a card for [facility] to continue it. Patient has my card to call me with any questions.
--- NOTE | 2022-08-28 14:27 | NUR ---
Pt up and ate lunch and met with Mary Kay r/t drug and alcohol Tx options. Pt appeared interested and received information. Pt received Ativan PRN and made a couple phone calls.
--- NOTE | 2022-08-28 16:16 | NUR ---
Pt in bed and appears to be sleeping without distress. Will continue to monitor.
--- NOTE | 2022-08-28 17:25 | NUR ---
Pt became verbally agitated and aggressive and was able to calm a bit. He was given Ativan PRN which he agreed to and took w/o issue. Pt in bed and remains making statements accusing his mother of many things in beed and appears to be calming slightly.
[2022-08-28] MEDS ORDERED: acetaminophen 325mg tablet PO ONE (18:15)
[2022-08-28] MEDS ORDERED: ondansetron 4mg rapidly disintigrating tab PO ONE (18:15)
--- NOTE | 2022-08-28 18:27 | NUR ---
The patient is resting on his bed. He complains of headache and nausea and Maury GÓMEZ made aware and orders received. He denies cravings. He denies thoughts to harm himself and he is wanting to DC. He did state he has minimal voices.
[2022-08-28] MEDS ORDERED: LORazepam 2 mg/ml vial ONE (20:02)
[2022-08-28] MEDS ORDERED: diphenhydrAMINE 50 mg/ml inj ONE (20:03)
[2022-08-28] MEDS ORDERED: haloperidol lactate 5mg/ml inj ONE (20:03)
--- NOTE | 2022-08-28 20:16 | NUR ---
The patient began making verbal threats to the patient in the bed next to him. He believed the patient was whispering under his breath that the other patient was calling him a pussy extra. The patient was agitated. His speech was disorganized. He was cooperative with moving across the unit to bed 26. Security called. Dr. Guerrier made aware and orders received. The patient was educated to what he was receiving and he gave consent for the medications to be given IM.
--- NOTE | 2022-08-28 21:30 | NUR ---
The patient appears to be sleeping
--- NOTE | 2022-08-28 23:03 | NUR ---
The patient appears to be sleeping
--- NOTE | 2022-08-29 00:53 | NUR ---
The patient appears to be sleeping
--- NOTE | 2022-08-29 02:43 | NUR ---
The patient appears to be sleeping
--- NOTE | 2022-08-29 05:02 | NUR ---
The patient appears to be sleeping
[2022-08-29] MEDS ORDERED: OLANZAPINE 5 MG TABLET PO SCH (08:00)
[2022-08-29] MEDS: buprenorphine/naloxone 8MG-2MG SUBlingual film SL SCH (09:07)
[2022-08-29] MEDS: nicotine 14mg patch - 24hr TD SCH (09:08)
--- NOTE | 2022-08-29 09:36 | NUR ---
Patient awoke for evaluation by [facility]. Patient went to the restroom, ate breakfast. Patient took his medications without incident. Patient sleeping in bed at this time.
--- NOTE | 2022-08-29 11:03 | NUR ---
Patient lying in bed sleeping supine. No distress noted.
[2022-08-29] MEDS ORDERED: BUPR1FIL3 SL (11:57)
--- NOTE | 2022-08-29 12:26 | NUR ---
Patient is sleeping. He will be discharged at 14:00 for a 15:00 meeting at the [facility] for their Drug and alcohol treatment program.
[2022-08-29 14:18] VITALS: BP 114/69
[2022-08-29] MEDS ORDERED: QUEtiapine 25mg tablet PO SCH (21:00)
== END 2022-08-29 14:32 | disposition home or self-care (01) ==
LOC: ER 21:13
DX: R45.851 Suicidal ideations (principal); Z20.822 Contact with and (suspected) exposure to COVID-19; F15.959 Other stimulant use, unspecified with stimulant-induced psychotic disorder, unspecified; F12.90 Cannabis use, unspecified, uncomplicated
CPT/HCPCS: 36415; 80053; 80305; 80320; 81001; 85025; 87088; 87811; 99285; Q0177

== ENCOUNTER 2022-11-07 05:45 | Emergency (ER) | payer MEDICAID ==
[~2022-11-07] VITALS: Ht 175.3 cm; Wt 60.0 kg
[~2022-11-07 05:45] MED LIST changes: -BUSP10TA16 PO; -CLON0.1T2 PO; -ESCI20TA39 PO; -HYDR50TA65 PO; -NICO-907 BC; +NO HOME MEDS; -OLAN15TA3 PO; -TRAZ150T78 PO
[2022-11-07 07:32] LABS: BASOPHILS % (AUTO) 0.1 % (0-1); EOSINOPHILS # (AUTO) 0.1 X10'3 (0-0.9); EOSINOPHILS % (AUTO) 0.9 % (0-6); HEMATOCRIT 42.4 % (42.0-52.0); LYMPHOCYTES # (AUTO) 1.6 X10'3 (1.1-4.8); LYMPHOCYTES % (AUTO) 15.3 % (21-51); MEAN CORPUSCULAR HEMOGLOBIN 27.3 PG (27.0-31.0); MEAN CORPUSCULAR VOLUME 82.7 FL (78-98); MEAN PLATELET VOLUME 7.6 FL (7.4-10.4); MONOCYTES # (AUTO) 0.7 X10'3 (0-0.9); MONOCYTES % (AUTO) 7.1 % (2-12); NEUTROPHILS # (AUTO) 7.9 X10'3 (1.8-7.7); NEUTROPHILS % (AUTO) 76.6 % (42-75); PLATELET COUNT 243 X10'3 (140-440); RED BLOOD COUNT 5.12 X10'6 (4.70-6.10); RED CELL DISTRIBUTION WIDTH 15.5 % (11.5-14.5); WHITE BLOOD COUNT 10.3 X10'3 (4.5-11.0)
[2022-11-07 07:48] LABS: ALANINE AMINOTRANSFERASE 45 U/L (12-78); ALBUMIN 3.6 G/DL (3.4-5.0); ALKALINE PHOSPHATASE 102 IU/L (46-116); ANION GAP 8 (8-16); ASPARTATE AMINO TRANSFERASE 42 U/L (10-37); BILIRUBIN,TOTAL 0.2 MG/DL (0.1-1.0); BLOOD UREA NITROGEN 17 MG/DL (7-18); CHLORIDE 104 MMOL/L (99-107); CREATININE 0.81 MG/DL (0.60-1.10); ETHANOL < 10 MG/DL (<10); GLUCOSE 101 MG/DL (70-104); MAGNESIUM 2.2 MG/DL (1.5-2.4); POTASSIUM 3.6 MMOL/L (3.5-5.1); SODIUM 142 MMOL/L (135-145); TOTAL CARBON DIOXIDE 30.3 MMOL/L (24-32); TOTAL PROTEIN 7.1 G/DL (6.4-8.2); eGFR > 90 ML/MIN
[2022-11-07] MEDS: normal saline 1000ml 1,000 ML IV SCH ×2 (08:07→11:18)
--- NOTE | 2022-11-07 08:24 | NUR ---
Tried to meet with patient in regards to substance use. Patient unable to have a conversation. I left resources in the room. I will try to meet with patient again.
[2022-11-07 12:12] VITALS: BP 129/82; PULSE 78; RESP 16; O2SAT 97
[2022-11-07] MEDS ORDERED: NO HOME MEDS (15:58)
== END 2022-11-07 12:15 | disposition home or self-care (01) ==
LOC: ER 05:46
DX: T50.7X1A Poisoning by analeptics and opioid receptor antagonists, accidental (unintentional), initial encounter (principal); Y92.89 Other specified places as the place of occurrence of the external cause
CPT/HCPCS: 36415; 80053; 80320; 83735; 85025; 96360; 99285; J7030; J7040

== ENCOUNTER 2022-11-07 14:17 | Emergency (ER) | payer MEDICAID ==
[~2022-11-07] VITALS: Ht 175.3 cm; Wt 56.2 kg
--- NOTE | 2022-11-07 15:15 | NUR ---
Pt. ambulated over from the main ER accompanied by staff. His belongings were put away and he changed into green scrubs. Pt. was provided urine cup for urine collection.
[2022-11-07 15:25] LABS: BASOPHILS % (AUTO) 0.3 % (0-1); EOSINOPHILS # (AUTO) 0.1 X10'3 (0-0.9); EOSINOPHILS % (AUTO) 1.9 % (0-6); HEMATOCRIT 39.8 % (42.0-52.0); HEMOGLOBIN 12.8 g/dl (14.0-17.9); LYMPHOCYTES # (AUTO) 2.8 X10'3 (1.1-4.8); LYMPHOCYTES % (AUTO) 39.3 % (21-51); MEAN CORPUSCULAR HEMOGLOBIN 26.7 PG (27.0-31.0); MEAN CORPUSCULAR HGB CONC 32.2 g/dL (33.0-36.5); MEAN CORPUSCULAR VOLUME 82.9 FL (78-98); MEAN PLATELET VOLUME 7.4 FL (7.4-10.4); MONOCYTES # (AUTO) 0.7 X10'3 (0-0.9); MONOCYTES % (AUTO) 9.9 % (2-12); NEUTROPHILS # (AUTO) 3.5 X10'3 (1.8-7.7); NEUTROPHILS % (AUTO) 48.6 % (42-75); PLATELET COUNT 241 X10'3 (140-440); RED CELL DISTRIBUTION WIDTH 15.1 % (11.5-14.5); WHITE BLOOD COUNT 7.2 X10'3 (4.5-11.0)
[2022-11-07 15:37] LABS: ALANINE AMINOTRANSFERASE 36 U/L (12-78); ALBUMIN 3.3 G/DL (3.4-5.0); ALBUMIN/GLOBULIN RATIO 1.1 (1.1-1.5); ALKALINE PHOSPHATASE 91 IU/L (46-116); ANION GAP 7 (8-16); ASPARTATE AMINO TRANSFERASE 34 U/L (10-37); BILIRUBIN,TOTAL 0.2 MG/DL (0.1-1.0); BLOOD UREA NITROGEN 13 MG/DL (7-18); BUN/CREATININE RATIO 16.3 (10.0-20.0); CALCIUM 8.7 MG/DL (8.5-10.1); CHLORIDE 104 MMOL/L (99-107); GLUCOSE 95 MG/DL (70-104); POTASSIUM 3.7 MMOL/L (3.5-5.1); SODIUM 137 MMOL/L (135-145); TOTAL CARBON DIOXIDE 26.5 MMOL/L (24-32); TOTAL PROTEIN 6.2 G/DL (6.4-8.2); eGFR > 90 ML/MIN
[2022-11-07] MEDS ORDERED: NO HOME MEDS (15:58)
--- NOTE | 2022-11-07 16:14 | NUR ---
Packet faxed to [facility]
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
--- NOTE | 2022-11-07 17:27 | NUR ---
Pt. was awoken for dinner and head of bed was raised for safety as he continues to be drowsy. Pt. continues to be encouraged to provide a urine sample. Per [facility], once sample is obtained it is to be directly faxed to them so pt. can be evaluated, they have already received the rest of pt's packet. Per director of [facility], pt. once pt. is placed on a hold, he will likely be accepted and transferred upstairs. Addendum: 11/07/22 at 1742 by TOMI Pt's urine was collected and sent to lab.
[2022-11-07 17:42] LABS: CLARITY,URINE CLEAR (Clear); COLOR,URINE YELLOW (Yellow); GLUCOSE, URINE NEGATIVE (Neg); KETONES,URINE NEGATIVE (Neg); LEUKOCYTE ESTERASE ,URINE NEGATIVE (Neg); NITRITES, URINE NEGATIVE (Neg); OCCULT BLOOD,URINE NEGATIVE (Neg); PROTEIN,URINE NEGATIVE (Neg); UROBILINOGEN,URINE 0.2 E.U/dL (0.2-1.0)
[2022-11-07 17:46] LABS: UA COLLECTION TYPE CLN CATCH MIDSTREAM
[2022-11-07 18:16] LABS: URINE AMPHETAMINE SCREEN POSITIVE (Neg); URINE BARBITUATE SCREEN NEGATIVE (Neg); URINE BENZODIAZEPINES SCREEN NEGATIVE (Neg); URINE CANNABINOID SCREEN POSITIVE (Neg); URINE COCAINE SCREEN NEGATIVE (Neg); URINE METHADONE SCREEN NEGATIVE (Neg); URINE OPIATE SCREEN NEGATIVE (Neg); URINE PHENCYCLIDINE SCREEN NEGATIVE (Neg)
--- NOTE | 2022-11-07 18:30 | NUR ---
Received report from Deepali Olivera RN. Client was resting in Bed 24. Respirations were even and unlabored.
--- NOTE | 2022-11-07 20:30 | NUR ---
Client was sleeping. Respirations even and unlabored.
--- NOTE | 2022-11-07 22:30 | NUR ---
Resting on right side. Resp even and unlabored.
--- NOTE | 2022-11-08 00:30 | NUR ---
Asleep. Resp even and unlabored.
--- NOTE | 2022-11-08 03:14 | NUR ---
Asleep. Resp even and unlabored.
--- NOTE | 2022-11-08 04:39 | NUR ---
Asleep. Resp even and unlabored.
[2022-11-08 06:06] VITALS: BP 135/88; PULSE 52; TEMP 98.6; O2SAT 98
--- NOTE | 2022-11-08 06:30 | NUR ---
Pt is lying in bed, he appears to be sleeping.
--- NOTE | 2022-11-08 07:27 | NUR ---
Pt up to use the bathroom.
--- NOTE | 2022-11-08 08:19 | NUR ---
Pt declined to eat breakfast at this time, went back to sleep.
--- NOTE | 2022-11-08 09:16 | NUR ---
[facility] at bedside evaluating the patient.
--- NOTE | 2022-11-08 09:26 | NUR ---
Pt is not being placed on a mental health hold. Pt to be discharged and transported via cab to [facility] with a plan on getting him into the [facility].
--- NOTE | 2022-11-08 09:30 | NUR ---
Pt is finishing his breakfast.
[2022-11-08 09:31] VITALS: RESP 18
--- NOTE | 2022-11-08 09:55 | NUR ---
fernandez called cab for pt to get them to [facility] in [place].
--- NOTE | 2022-11-08 10:00 | NUR ---
Cab has been called for the patient with an ETA of 1045.
--- NOTE | 2022-11-08 11:05 | NUR ---
Pt discharged, ambulated off the unit accompanied by security to cab awaiting outside. All belongings returned.
== END 2022-11-08 11:05 | disposition home or self-care (01) ==
LOC: ER 14:18
DX: R45.851 Suicidal ideations (principal); Z20.822 Contact with and (suspected) exposure to COVID-19
CPT/HCPCS: 36415; 80053; 80305; 81003; 85025; 87811; 99285

== ENCOUNTER 2022-11-27 21:56 | Emergency (ER) | payer MEDICAID ==
[~2022-11-27] VITALS: Ht 157.5 cm; Wt 130.0 kg
[2022-11-27 21:58] VITALS: BP 127/86; PULSE 86; RESP 14; TEMP 97.9; O2SAT 98
[2022-11-27] MEDS ORDERED: ondansetron 4mg rapidly disintigrating tab PO ONE (22:30)
[2022-11-27] MEDS ORDERED: ONDA8TAB13 PO (22:53)
== END 2022-11-27 23:04 | disposition home or self-care (01) ==
LOC: ER 21:57
DX: R11.0 Nausea (principal); F15.10 Other stimulant abuse, uncomplicated; F12.90 Cannabis use, unspecified, uncomplicated; Z72.89 Other problems related to lifestyle; Z79.899 Other long term (current) drug therapy
CPT/HCPCS: 99283

== ENCOUNTER 2022-11-28 00:48 | Emergency (ER) | payer MEDICAID ==
[~2022-11-28 00:48] MED LIST changes: +ONDA8TAB13 PO
[2022-11-29] MEDS ORDERED: CEPH-585 PO (10:51)
[2022-11-29] MEDS ORDERED: SULF1TAB49 PO (10:51)
== END 2022-11-28 03:00 | disposition left against medical advice (07) ==
LOC: ER 00:49
DX: R45.851 Suicidal ideations (principal); Z53.21 Procedure and treatment not carried out due to patient leaving prior to being seen by health care provider

== ENCOUNTER 2022-11-29 09:20 | Emergency (ER) | payer MEDICAID ==
[~2022-11-29] VITALS: Ht 175.3 cm; Wt 60.3 kg
--- NOTE | 2022-11-29 10:18 | NUR ---
PT PRESENTS THE ER FOR "BEING OFF OF MY MEDS, FOR THE VOICES IN MY HEAD AND MY MEDS TO HELP ME SLEEP AND ANXIETY. "
--- NOTE | 2022-11-29 10:25 | NUR ---
PT DENIES SI OR HI.
[2022-11-29 10:47] VITALS: BP 119/73; PULSE 87; RESP 18; O2SAT 100
[2022-11-29] MEDS ORDERED: CEPH-585 PO (10:51)
[2022-11-29] MEDS ORDERED: SULF1TAB49 PO (10:51)
[2022-11-29 11:14] VITALS: TEMP 97.9
== END 2022-11-29 11:16 | disposition home or self-care (01) ==
LOC: ER 09:21
DX: L02.414 Cutaneous abscess of left upper limb (principal); L03.114 Cellulitis of left upper limb; F12.90 Cannabis use, unspecified, uncomplicated; F15.90 Other stimulant use, unspecified, uncomplicated
CPT/HCPCS: 99283

== ENCOUNTER 2022-12-07 17:55 | Emergency (ER) | payer MEDICAID ==
[~2022-12-07] VITALS: Ht 175.3 cm; Wt 72.7 kg
[~2022-12-07 17:55] MED LIST changes: +CEPH-585 PO; +SULF1TAB49 PO
[2022-12-07] MEDS ORDERED: normal saline 1000ML IV soln IVB ONE (18:10)
[2022-12-07 21:20] VITALS: BP 135/71; PULSE 93; RESP 18; TEMP 98.7; O2SAT 98
== END 2022-12-07 21:28 | disposition home or self-care (01) ==
LOC: ER 17:55
DX: T40.411A Poisoning by fentanyl or fentanyl analogs, accidental (unintentional), initial encounter (principal); F12.90 Cannabis use, unspecified, uncomplicated; F15.90 Other stimulant use, unspecified, uncomplicated; Z79.2 Long term (current) use of antibiotics; Z79.899 Other long term (current) drug therapy; Z72.89 Other problems related to lifestyle; Y92.89 Other specified places as the place of occurrence of the external cause
CPT/HCPCS: 96360; 99283; J7030

== ENCOUNTER 2023-01-24 00:15 | Emergency (ER) | payer MEDICAID ==
[~2023-01-24] VITALS: Ht 175.3 cm; Wt 72.7 kg
[~2023-01-24 00:15] MED LIST changes: -SULF1TAB49 PO
[2023-01-24 02:38] VITALS: TEMP 97.5
[2023-01-24] MEDS ORDERED: TETanus/Pertussis (Acell)/Diphther VAC/PF (Tdap-Adult) 0.5ml syringe IMVAC ONE (03:15)
[2023-01-24 03:34] LABS: ALANINE AMINOTRANSFERASE 28 U/L (12-78); ALBUMIN 3.2 G/DL (3.4-5.0); ALKALINE PHOSPHATASE 93 IU/L (46-116); ANION GAP 3 (8-16); ASPARTATE AMINO TRANSFERASE 19 U/L (10-37); BILIRUBIN,TOTAL 0.2 MG/DL (0.1-1.0); BLOOD UREA NITROGEN 11 MG/DL (7-18); BUN/CREATININE RATIO 15.7 (10.0-20.0); CHLORIDE 102 MMOL/L (99-107); ETHANOL < 10 MG/DL (<10); GLUCOSE 121 MG/DL (70-104); POTASSIUM 3.6 MMOL/L (3.5-5.1); SALICYLATE 0.9 MG/DL (4.0-20.0); SODIUM 137 MMOL/L (135-145); TOTAL CARBON DIOXIDE 31.6 MMOL/L (24-32); TOTAL PROTEIN 6.5 G/DL (6.4-8.2); eCRCL 167 ML/MIN; eGFR > 90 ML/MIN
[2023-01-24 03:37] LABS: ACETAMINOPHEN < 2.0 UG/ML (10-30)
[2023-01-24 03:42] LABS: BASOPHILS # (AUTO) 0.1 X10'3 (0-0.2); BASOPHILS % (AUTO) 0.5 % (0-1); EOSINOPHILS # (AUTO) 0.1 X10'3 (0-0.9); EOSINOPHILS % (AUTO) 1.2 % (0-6); HEMATOCRIT 38.9 % (42.0-52.0); HEMOGLOBIN 12.9 g/dl (14.0-17.9); LYMPHOCYTES # (AUTO) 1.7 X10'3 (1.1-4.8); LYMPHOCYTES % (AUTO) 13.8 % (21-51); MEAN CORPUSCULAR HEMOGLOBIN 27.3 PG (27.0-31.0); MEAN CORPUSCULAR HGB CONC 33.1 g/dL (33.0-36.5); MEAN CORPUSCULAR VOLUME 82.5 FL (78-98); MEAN PLATELET VOLUME 7.4 FL (7.4-10.4); MONOCYTES # (AUTO) 0.8 X10'3 (0-0.9); MONOCYTES % (AUTO) 6.7 % (2-12); NEUTROPHILS # (AUTO) 9.4 X10'3 (1.8-7.7); NEUTROPHILS % (AUTO) 77.8 % (42-75); PLATELET COUNT 266 X10'3 (140-440); RED BLOOD COUNT 4.72 X10'6 (4.70-6.10); RED CELL DISTRIBUTION WIDTH 14.3 % (11.5-14.5)
[2023-01-24 04:04] LABS: URINE AMPHETAMINE SCREEN POSITIVE (Neg); URINE BARBITUATE SCREEN NEGATIVE (Neg); URINE BENZODIAZEPINES SCREEN NEGATIVE (Neg); URINE CANNABINOID SCREEN POSITIVE (Neg); URINE COCAINE SCREEN NEGATIVE (Neg); URINE OPIATE SCREEN NEGATIVE (Neg); URINE PHENCYCLIDINE SCREEN NEGATIVE (Neg)
--- NOTE | 2023-01-24 05:18 | NUR ---
PACKET SENT TO [facility]
[2023-01-24 05:30] VITALS: BP 104/63; PULSE 56; RESP 14; O2SAT 99
--- NOTE | 2023-01-24 06:37 | NUR ---
Patient ambulated to overflow bed 25 from main ER accompanied by STEWART Nicole and SOHAM Phillips. He has used the bathroom, changed into green unit scrubs and laid down in bed.
--- NOTE | 2023-01-24 07:03 | NUR ---
Patient has climbed in bed, and appears to have fallen asleep. Inventory cpmpleted. No s/sx of distress.
--- NOTE | 2023-01-24 08:39 | NUR ---
Received order for consult. Met with patient in regards to substance use and to see if patient was interested in resources for treatment options. Patient would like to start Suboxone. Patient is not having withdrawal symptoms yet. I will check back in with patient and then speak to .
--- NOTE | 2023-01-24 10:02 | NUR ---
Silas appears to be asleep. He is lying on his right side. RR is even and unlabored. No s/sx of distress.
--- NOTE | 2023-01-24 11:45 | NUR ---
Patient asleep on his left side. Resp. even and unlabored. no s/sx of distress.
--- NOTE | 2023-01-24 12:47 | NUR ---
RN breaking primary nurse for lunch. Pt. is awake and resting in bed.
== END 2023-01-24 16:12 | disposition home or self-care (01) ==
LOC: ER 00:16
DX: S01.01XA Laceration without foreign body of scalp, initial encounter (principal); T40.411A Poisoning by fentanyl or fentanyl analogs, accidental (unintentional), initial encounter; Z20.822 Contact with and (suspected) exposure to COVID-19; F12.10 Cannabis abuse, uncomplicated; F15.10 Other stimulant abuse, uncomplicated; Z79.899 Other long term (current) drug therapy; X58.XXXA Exposure to other specified factors, initial encounter; Y93.89 Activity, other specified; Y92.89 Other specified places as the place of occurrence of the external cause; Y99.8 Other external cause status
CPT/HCPCS: 12001; 36415; 70450; 72125; 80053; 80305; 80320; 80329; 85025; 87811; 90471; 90715; 99285; A4615

== ENCOUNTER 2023-03-16 20:22 | Emergency (ER) | payer MEDICAID ==
[~2023-03-16] VITALS: Ht 175.3 cm; Wt 72.0 kg
[2023-03-16 20:27] VITALS: BP 143/74; PULSE 133; TEMP 98; O2SAT 97
[2023-03-16] MEDS ORDERED: SULF1TAB49 PO (21:43)
[2023-03-16] MEDS ORDERED: CEPH-585 PO (21:43)
== END 2023-03-16 21:54 | disposition home or self-care (01) ==
LOC: ER 20:23
DX: L03.115 Cellulitis of right lower limb (principal); F12.90 Cannabis use, unspecified, uncomplicated; F15.90 Other stimulant use, unspecified, uncomplicated; Z79.2 Long term (current) use of antibiotics; Z79.899 Other long term (current) drug therapy; Z72.89 Other problems related to lifestyle
CPT/HCPCS: 99283

== ENCOUNTER 2023-03-19 17:47 | Emergency (ER) | payer MEDICAID ==
[~2023-03-19] VITALS: Ht 175.3 cm; Wt 72.7 kg
[~2023-03-19 17:47] MED LIST changes: +SULF1TAB49 PO
[2023-03-19 19:26] LABS: BASOPHILS % (AUTO) 0.1 % (0-1); EOSINOPHILS % (AUTO) 0 % (0-6); HEMATOCRIT 44.4 % (42.0-52.0); HEMOGLOBIN 14.7 g/dl (14.0-17.9); LYMPHOCYTES # (AUTO) 1.5 X10'3 (1.1-4.8); LYMPHOCYTES % (AUTO) 13.4 % (21-51); MEAN CORPUSCULAR HEMOGLOBIN 27.7 PG (27.0-31.0); MEAN CORPUSCULAR HGB CONC 33.2 g/dL (33.0-36.5); MEAN CORPUSCULAR VOLUME 83.6 FL (78-98); MEAN PLATELET VOLUME 7.7 FL (7.4-10.4); MONOCYTES # (AUTO) 0.8 X10'3 (0-0.9); MONOCYTES % (AUTO) 7.7 % (2-12); NEUTROPHILS # (AUTO) 8.5 X10'3 (1.8-7.7); NEUTROPHILS % (AUTO) 78.8 % (42-75); PLATELET COUNT 346 X10'3 (140-440); RED BLOOD COUNT 5.31 X10'6 (4.70-6.10); RED CELL DISTRIBUTION WIDTH 14.7 % (11.5-14.5); WHITE BLOOD COUNT 10.9 X10'3 (4.5-11.0)
[2023-03-19 19:34] LABS: ALANINE AMINOTRANSFERASE 21 U/L (12-78); ALBUMIN 3.4 G/DL (3.4-5.0); ALBUMIN/GLOBULIN RATIO 0.7 (1.1-1.5); ALKALINE PHOSPHATASE 134 IU/L (46-116); ANION GAP 12 (8-16); ASPARTATE AMINO TRANSFERASE 16 U/L (10-37); BILIRUBIN,TOTAL 0.5 MG/DL (0.1-1.0); BLOOD UREA NITROGEN 7 MG/DL (7-18); BUN/CREATININE RATIO 9.1 (10.0-20.0); CALCIUM 9.3 MG/DL (8.5-10.1); CHLORIDE 99 MMOL/L (99-107); CREATININE 0.77 MG/DL (0.60-1.10); GLUCOSE 108 MG/DL (70-104); POTASSIUM 3.8 MMOL/L (3.5-5.1); SODIUM 135 MMOL/L (135-145); TOTAL CARBON DIOXIDE 24.5 MMOL/L (24-32); eCRCL 150 ML/MIN; eGFR > 90 ML/MIN
[2023-03-19 19:42] LABS: ETHANOL < 10 MG/DL (<10); THYROID STIMULATING HORMONE 0.27 ulU/ml (0.34-4.50)
[2023-03-20] MEDS ORDERED: ziprasidone IM 20mg inj **IM only IM ONE (09:25)
[2023-03-20 09:41] LABS: URINE AMPHETAMINE SCREEN POSITIVE (Neg); URINE BARBITUATE SCREEN NEGATIVE (Neg); URINE BENZODIAZEPINES SCREEN NEGATIVE (Neg); URINE CANNABINOID SCREEN POSITIVE (Neg); URINE COCAINE SCREEN NEGATIVE (Neg); URINE METHADONE SCREEN NEGATIVE (Neg); URINE OPIATE SCREEN NEGATIVE (Neg); URINE PHENCYCLIDINE SCREEN NEGATIVE (Neg)
[2023-03-20] MEDS ORDERED: ziprasidone IM 20mg inj **IM only IM STA (10:20)
[2023-03-20] MEDS ORDERED: acetaminophen 325mg tablet PO ONE (19:40)
[2023-03-20] MEDS: buprenorphine/naloxone 8MG-2MG SUBlingual film SL SCH (20:07)
[2023-03-21] MEDS ORDERED: ziprasidone IM 20mg inj **IM only IM ONE ×2 (03:05→14:50)
[2023-03-21] MEDS ORDERED: haloperidol lactate 5mg/ml inj IM ONE (07:40)
[2023-03-21] MEDS ORDERED: diphenhydrAMINE 50 mg/ml inj IM ONE (07:40)
[2023-03-21] MEDS ORDERED: LORazepam 2 mg/ml vial IM ONE (07:40)
[2023-03-21] MEDS ORDERED: nicotine 14mg patch - 24hr TD ONE (15:05)
[2023-03-21] MEDS ORDERED: buprenorphine/naloxone 8MG-2MG SUBlingual film SL ONE ×2 (19:40→22:35)
[2023-03-21] MEDS ORDERED: ziprasidone IM 20mg inj **IM only IM PRN (19:40)
[2023-03-21] MEDS: buprenorphine/naloxone 8MG-2MG SUBlingual film SL SCH (21:37)
[2023-03-22 09:38] VITALS: BP 141/82; PULSE 89; TEMP 98.7; O2SAT 95
[2023-03-22 09:39] VITALS: RESP 14
== END 2023-03-22 10:35 | disposition home or self-care (01) ==
LOC: ER 17:47
DX: U07.1 COVID-19 (principal); R45.851 Suicidal ideations; F15.10 Other stimulant abuse, uncomplicated; F12.90 Cannabis use, unspecified, uncomplicated; Z72.89 Other problems related to lifestyle; Z79.2 Long term (current) use of antibiotics; Z79.899 Other long term (current) drug therapy
CPT/HCPCS: 36415; 80053; 80305; 80320; 84443; 85025; 87811; 96372; 99285; J3486

== ENCOUNTER 2023-03-23 18:09 | Emergency (ER) | payer MEDICAID ==
[~2023-03-23] VITALS: Ht 180.3 cm; Wt 63.5 kg
[~2023-03-23 18:09] MED LIST changes: -CEPH-585 PO; -ONDA8TAB13 PO; -SULF1TAB49 PO
[2023-03-23 18:15] VITALS: BP 145/84; PULSE 125; RESP 16; TEMP 98.2; O2SAT 100
== END 2023-03-23 21:02 | disposition home or self-care (01) ==
LOC: ER 18:10
DX: T16.2XXA Foreign body in left ear, initial encounter (principal); X58.XXXA Exposure to other specified factors, initial encounter; Y93.89 Activity, other specified; Y92.89 Other specified places as the place of occurrence of the external cause; Y99.8 Other external cause status
CPT/HCPCS: 99282; 99283

== ENCOUNTER 2023-04-13 15:00 | Emergency (ER) | payer MEDICAID ==
[~2023-04-13] VITALS: Ht 175.3 cm; Wt 61.8 kg
[2023-04-13 16:39] LABS: BASOPHILS % (AUTO) 0.3 % (0-1); EOSINOPHILS # (AUTO) 0.1 X10'3 (0-0.9); EOSINOPHILS % (AUTO) 0.9 % (0-6); HEMATOCRIT 42.5 % (42.0-52.0); HEMOGLOBIN 13.9 g/dl (14.0-17.9); LYMPHOCYTES % (AUTO) 26.3 % (21-51); MEAN CORPUSCULAR HEMOGLOBIN 27.5 PG (27.0-31.0); MEAN CORPUSCULAR HGB CONC 32.6 g/dL (33.0-36.5); MEAN CORPUSCULAR VOLUME 84.3 FL (78-98); MEAN PLATELET VOLUME 7.5 FL (7.4-10.4); MONOCYTES # (AUTO) 0.5 X10'3 (0-0.9); MONOCYTES % (AUTO) 6.3 % (2-12); NEUTROPHILS % (AUTO) 66.2 % (42-75); PLATELET COUNT 296 X10'3 (140-440); RED BLOOD COUNT 5.04 X10'6 (4.70-6.10); RED CELL DISTRIBUTION WIDTH 15.1 % (11.5-14.5); WHITE BLOOD COUNT 7.6 X10'3 (4.5-11.0)
[2023-04-13 16:54] LABS: ALANINE AMINOTRANSFERASE 26 U/L (12-78); ALBUMIN 3.8 G/DL (3.4-5.0); ALKALINE PHOSPHATASE 106 IU/L (46-116); ANION GAP 12 (8-16); ASPARTATE AMINO TRANSFERASE 32 U/L (10-37); BILIRUBIN,TOTAL 0.4 MG/DL (0.1-1.0); BLOOD UREA NITROGEN 16 MG/DL (7-18); BUN/CREATININE RATIO 22.9 (10.0-20.0); CALCIUM 9.2 MG/DL (8.5-10.1); CHLORIDE 103 MMOL/L (99-107); ETHANOL < 10 MG/DL (<10); GLUCOSE 84 MG/DL (70-104); POTASSIUM 3.5 MMOL/L (3.5-5.1); SODIUM 140 MMOL/L (135-145); TOTAL CARBON DIOXIDE 24.7 MMOL/L (24-32); TOTAL PROTEIN 7.8 G/DL (6.4-8.2); eCRCL 145 ML/MIN; eGFR > 90 ML/MIN
[2023-04-13 17:15] VITALS: BP 123/57; PULSE 75; RESP 18; TEMP 97.7; O2SAT 100
[2023-04-13 20:22] LABS: URINE AMPHETAMINE SCREEN POSITIVE (Neg); URINE BARBITUATE SCREEN NEGATIVE (Neg); URINE BENZODIAZEPINES SCREEN NEGATIVE (Neg); URINE CANNABINOID SCREEN POSITIVE (Neg); URINE COCAINE SCREEN NEGATIVE (Neg); URINE METHADONE SCREEN NEGATIVE (Neg); URINE OPIATE SCREEN NEGATIVE (Neg); URINE PHENCYCLIDINE SCREEN NEGATIVE (Neg)
[2023-04-14] MEDS ORDERED: nicotine 21mg patch - 24 hr TD ONE (14:55)
== END 2023-04-14 16:51 | disposition home or self-care (01) ==
LOC: ER 15:00
DX: U07.1 COVID-19 (principal); R45.851 Suicidal ideations; F15.10 Other stimulant abuse, uncomplicated; F12.90 Cannabis use, unspecified, uncomplicated; Z72.89 Other problems related to lifestyle; Z59.00 Homelessness unspecified
CPT/HCPCS: 36415; 80053; 80305; 80320; 85025; 87811; 99284; 99285

== ENCOUNTER 2023-05-15 17:08 | Emergency (ER) | payer MEDICAID ==
[~2023-05-15] VITALS: Ht 172.7 cm; Wt 63.6 kg
[2023-05-15 18:32] LABS: BASOPHILS % (AUTO) 0.3 % (0-1); EOSINOPHILS # (AUTO) 0.1 X10'3 (0-0.9); EOSINOPHILS % (AUTO) 1.3 % (0-6); HEMATOCRIT 41.8 % (42.0-52.0); HEMOGLOBIN 13.6 g/dl (14.0-17.9); LYMPHOCYTES # (AUTO) 1.8 X10'3 (1.1-4.8); LYMPHOCYTES % (AUTO) 30.7 % (21-51); MEAN CORPUSCULAR HEMOGLOBIN 26.7 PG (27.0-31.0); MEAN CORPUSCULAR HGB CONC 32.4 g/dL (33.0-36.5); MEAN CORPUSCULAR VOLUME 82.3 FL (78-98); MEAN PLATELET VOLUME 7.8 FL (7.4-10.4); MONOCYTES # (AUTO) 0.5 X10'3 (0-0.9); MONOCYTES % (AUTO) 8.8 % (2-12); NEUTROPHILS # (AUTO) 3.4 X10'3 (1.8-7.7); NEUTROPHILS % (AUTO) 58.9 % (42-75); PLATELET COUNT 352 X10'3 (140-440); RED BLOOD COUNT 5.08 X10'6 (4.70-6.10); RED CELL DISTRIBUTION WIDTH 14.9 % (11.5-14.5); WHITE BLOOD COUNT 5.8 X10'3 (4.5-11.0)
[2023-05-15] MEDS: ringers solution, lactated 1000ml IV soln IV ONE (18:37)
[2023-05-15 19:17] LABS: ALBUMIN 3.8 G/DL (3.4-5.0); ANION GAP 3 (8-16); BLOOD UREA NITROGEN 17 MG/DL (7-18); BUN/CREATININE RATIO 21.5 (10.0-20.0); CALCIUM 9.2 MG/DL (8.5-10.1); CHLORIDE 109 MMOL/L (99-107); CREATININE 0.79 MG/DL (0.60-1.10); ETHANOL < 10 MG/DL (<10); GLUCOSE 71 MG/DL (70-104); POTASSIUM 3.7 MMOL/L (3.5-5.1); SODIUM 146 MMOL/L (135-145); TOTAL CARBON DIOXIDE 34.1 MMOL/L (24-32); eCRCL 132 ML/MIN; eGFR > 90 ML/MIN
[2023-05-15] MEDS: POTASSIUM BICARB 20meq eff tab 20 MEQ TABLET.EFF PO SCH (19:49)
[2023-05-15 21:07] LABS: BILIRUBIN,URINE NEGATIVE (Neg); CLARITY,URINE CLOUDY (Clear); COLOR,URINE YELLOW (Yellow); GLUCOSE, URINE NEGATIVE (Neg); KETONES,URINE NEGATIVE (Neg); LEUKOCYTE ESTERASE ,URINE NEGATIVE (Neg); NITRITES, URINE NEGATIVE (Neg); OCCULT BLOOD,URINE NEGATIVE (Neg); PH,URINE 8.5 (4.8-8.0); PROTEIN,URINE NEGATIVE (Neg)
[2023-05-15 21:08] LABS: UA COLLECTION TYPE VOIDED
[2023-05-15 21:21] LABS: MUCUS STRANDS NONE SEEN /LPF (Neg); RBC,URINE 0-2 /HPF (0-2); SQUAMOUS EPITHELIAL CELL,UR FEW /LPF (FEW); WBC,URINE 0-4 /HPF (0-4)
[2023-05-15 21:23] LABS: TRANSITIONAL EPI CELLS,URINE FEW /HPF
[2023-05-15 21:24] LABS: AMORPHOUS PHOSPHATES 4+; BACTERIA,URINE FEW /HPF (Neg)
[2023-05-15 21:39] LABS: URINE AMPHETAMINE SCREEN POSITIVE (Neg); URINE BARBITUATE SCREEN NEGATIVE (Neg); URINE BENZODIAZEPINES SCREEN NEGATIVE (Neg); URINE CANNABINOID SCREEN POSITIVE (Neg); URINE COCAINE SCREEN NEGATIVE (Neg); URINE METHADONE SCREEN NEGATIVE (Neg); URINE OPIATE SCREEN NEGATIVE (Neg); URINE PHENCYCLIDINE SCREEN NEGATIVE (Neg)
[2023-05-16 05:56] VITALS: BP 110/66; PULSE 64; TEMP 98; O2SAT 97
[2023-05-16 06:15] VITALS: RESP 16
== END 2023-05-16 13:28 | disposition home or self-care (01) ==
LOC: ER 17:09
DX: Z76.5 Malingerer [conscious simulation] (principal); F15.10 Other stimulant abuse, uncomplicated; F19.10 Other psychoactive substance abuse, uncomplicated; F12.90 Cannabis use, unspecified, uncomplicated; Z72.89 Other problems related to lifestyle; Z20.822 Contact with and (suspected) exposure to COVID-19
CPT/HCPCS: 36415; 71045; 80048; 80305; 80320; 81001; 84484; 85025; 87811; 99284; J7120

== ENCOUNTER 2023-05-17 04:39 | Emergency (ER) | payer MEDICAID ==
[~2023-05-17] VITALS: Ht 177.8 cm; Wt 66.6 kg
[2023-05-17 04:45] VITALS: BP 119/79; PULSE 71; RESP 16; TEMP 97.4; O2SAT 96
== END 2023-05-17 08:29 | disposition home or self-care (01) ==
LOC: ER 04:40
DX: Z76.5 Malingerer [conscious simulation] (principal); F15.10 Other stimulant abuse, uncomplicated; F12.90 Cannabis use, unspecified, uncomplicated
CPT/HCPCS: 99282

== ENCOUNTER 2023-05-20 20:30 | Emergency (ER) | payer MEDICAID ==
[~2023-05-20] VITALS: Ht 177.8 cm; Wt 67.4 kg
[2023-05-20 23:01] LABS: BASOPHILS % (AUTO) 0.4 % (0-1); EOSINOPHILS # (AUTO) 0.1 X10'3 (0-0.9); EOSINOPHILS % (AUTO) 2.5 % (0-6); HEMOGLOBIN 12.6 g/dl (14.0-17.9); LYMPHOCYTES # (AUTO) 2.2 X10'3 (1.1-4.8); LYMPHOCYTES % (AUTO) 37.2 % (21-51); MEAN CORPUSCULAR HGB CONC 32.4 g/dL (33.0-36.5); MEAN CORPUSCULAR VOLUME 83.5 FL (78-98); MEAN PLATELET VOLUME 7.8 FL (7.4-10.4); MONOCYTES # (AUTO) 0.5 X10'3 (0-0.9); MONOCYTES % (AUTO) 7.8 % (2-12); NEUTROPHILS # (AUTO) 3.1 X10'3 (1.8-7.7); NEUTROPHILS % (AUTO) 52.1 % (42-75); PLATELET COUNT 276 X10'3 (140-440); RED BLOOD COUNT 4.67 X10'6 (4.70-6.10); RED CELL DISTRIBUTION WIDTH 14.9 % (11.5-14.5)
[2023-05-20 23:07] LABS: ALBUMIN 3.1 G/DL (3.4-5.0); ANION GAP 6 (8-16); BLOOD UREA NITROGEN 9 MG/DL (7-18); BUN/CREATININE RATIO 11.4 (10.0-20.0); CALCIUM 8.6 MG/DL (8.5-10.1); CHLORIDE 108 MMOL/L (99-107); CREATININE 0.79 MG/DL (0.60-1.10); ETHANOL < 10 MG/DL (<10); GLUCOSE 109 MG/DL (70-104); SODIUM 143 MMOL/L (135-145); TOTAL CARBON DIOXIDE 29.1 MMOL/L (24-32); eCRCL 140 ML/MIN; eGFR > 90 ML/MIN
[2023-05-20 23:25] LABS: ACETAMINOPHEN < 2.0 UG/ML (10-30)
[2023-05-20 23:36] LABS: URINE AMPHETAMINE SCREEN NEGATIVE (Neg); URINE BARBITUATE SCREEN NEGATIVE (Neg); URINE BENZODIAZEPINES SCREEN NEGATIVE (Neg); URINE CANNABINOID SCREEN POSITIVE (Neg); URINE COCAINE SCREEN NEGATIVE (Neg); URINE METHADONE SCREEN NEGATIVE (Neg); URINE OPIATE SCREEN NEGATIVE (Neg); URINE PHENCYCLIDINE SCREEN NEGATIVE (Neg)
[2023-05-21 06:00] VITALS: BP 116/53; PULSE 75; TEMP 97.8; O2SAT 99
[2023-05-21] MEDS: buprenorphine/naloxone 8MG-2MG SUBlingual film SL SCH (10:36)
[2023-05-21 16:29] VITALS: RESP 16
[2023-05-22] MEDS ORDERED: BUPR1FIL3 SL (11:20)
== END 2023-05-21 16:15 | disposition home or self-care (01) ==
LOC: ER 20:31
DX: R45.851 Suicidal ideations (principal); Z20.822 Contact with and (suspected) exposure to COVID-19; F12.10 Cannabis abuse, uncomplicated; F15.10 Other stimulant abuse, uncomplicated
CPT/HCPCS: 36415; 80048; 80305; 80320; 80329; 85025; 87811; 99285

== ENCOUNTER 2023-05-22 10:11 | Emergency (ER) | payer MEDICAID ==
[~2023-05-22] VITALS: Ht 175.3 cm; Wt 75.0 kg
[2023-05-22] MEDS ORDERED: BUPR1FIL3 SL (11:20)
[2023-05-22] MEDS: buprenorphine/naloxone 8MG-2MG SUBlingual film SL ONE (11:36)
[2023-05-22 11:42] VITALS: BP 127/83; PULSE 90; RESP 18; TEMP 98; O2SAT 98
[2023-05-23] MEDS ORDERED: buprenorphine/naloxone 8MG-2MG SUBlingual film SL SCH (08:00)
== END 2023-05-22 11:44 | disposition home or self-care (01) ==
LOC: ER 10:11
DX: F11.20 Opioid dependence, uncomplicated (principal); F12.10 Cannabis abuse, uncomplicated; F15.10 Other stimulant abuse, uncomplicated; Z79.899 Other long term (current) drug therapy
CPT/HCPCS: 99283

== ENCOUNTER 2023-05-23 04:44 | Emergency (ER) | payer MEDICAID ==
[~2023-05-23] VITALS: Ht 175.3 cm; Wt 72.7 kg
[~2023-05-23 04:44] MED LIST changes: +BUPR1FIL3 SL
[2023-05-23 05:24] VITALS: BP 152/88; PULSE 118; RESP 18; TEMP 97.5; O2SAT 99
== END 2023-05-23 07:41 | disposition left against medical advice (07) ==
LOC: ER 04:45
DX: Z00.8 Encounter for other general examination (principal); Z53.21 Procedure and treatment not carried out due to patient leaving prior to being seen by health care provider
CPT/HCPCS: 99281

== ENCOUNTER 2023-05-24 04:04 | Emergency (ER) | payer MEDICAID ==
[~2023-05-24] VITALS: Ht 175.3 cm; Wt 70.0 kg
[2023-05-24 04:12] VITALS: BP 133/67; PULSE 104; RESP 18; TEMP 97.4; O2SAT 97
== END 2023-05-24 04:29 | disposition left against medical advice (07) ==
LOC: ER 04:04
DX: Z76.0 Encounter for issue of repeat prescription (principal); Z53.21 Procedure and treatment not carried out due to patient leaving prior to being seen by health care provider
CPT/HCPCS: 99281

== ENCOUNTER 2023-07-01 03:20 | Emergency (ER) | payer OTHER, MEDICAID ==
[~2023-07-01] VITALS: Ht 175.3 cm; Wt 80.0 kg
[~2023-07-01 03:20] MED LIST changes: -BUPR1FIL3 SL
[2023-07-01 03:26] VITALS: TEMP 98.1
[2023-07-01 10:17] LABS: BASOPHILS % (AUTO) 0.6 % (0-1); EOSINOPHILS # (AUTO) 0.1 X10'3 (0-0.9); EOSINOPHILS % (AUTO) 1.7 % (0-6); HEMATOCRIT 37.1 % (42.0-52.0); HEMOGLOBIN 12.2 g/dl (14.0-17.9); LYMPHOCYTES # (AUTO) 2.1 X10'3 (1.1-4.8); LYMPHOCYTES % (AUTO) 26.2 % (21-51); MEAN CORPUSCULAR HEMOGLOBIN 26.8 PG (27.0-31.0); MEAN CORPUSCULAR HGB CONC 32.9 g/dL (33.0-36.5); MEAN CORPUSCULAR VOLUME 81.4 FL (78-98); MEAN PLATELET VOLUME 7.2 FL (7.4-10.4); MONOCYTES # (AUTO) 0.7 X10'3 (0-0.9); MONOCYTES % (AUTO) 9.4 % (2-12); NEUTROPHILS # (AUTO) 4.9 X10'3 (1.8-7.7); NEUTROPHILS % (AUTO) 62.1 % (42-75); PLATELET COUNT 448 X10'3 (140-440); RED BLOOD COUNT 4.56 X10'6 (4.70-6.10); RED CELL DISTRIBUTION WIDTH 15.2 % (11.5-14.5); WHITE BLOOD COUNT 7.9 X10'3 (4.5-11.0)
[2023-07-01 10:39] LABS: ALBUMIN 3.4 G/DL (3.4-5.0); ANION GAP 10 (8-16); BLOOD UREA NITROGEN 14 MG/DL (7-18); BUN/CREATININE RATIO 20.6 (10.0-20.0); CALCIUM 9.7 MG/DL (8.5-10.1); CHLORIDE 105 MMOL/L (99-107); CREATININE 0.68 MG/DL (0.60-1.10); ETHANOL < 10 MG/DL (<10); GLUCOSE 97 MG/DL (70-104); POTASSIUM 3.9 MMOL/L (3.5-5.1); SODIUM 140 MMOL/L (135-145); TOTAL CARBON DIOXIDE 25.4 MMOL/L (24-32); eCRCL 170 ML/MIN; eGFR > 90 ML/MIN
[2023-07-01 12:34] LABS: URINE AMPHETAMINE SCREEN POSITIVE (Neg); URINE BARBITUATE SCREEN NEGATIVE (Neg); URINE BENZODIAZEPINES SCREEN NEGATIVE (Neg); URINE CANNABINOID SCREEN POSITIVE (Neg); URINE COCAINE SCREEN NEGATIVE (Neg); URINE METHADONE SCREEN NEGATIVE (Neg); URINE OPIATE SCREEN NEGATIVE (Neg); URINE PHENCYCLIDINE SCREEN NEGATIVE (Neg)
[2023-07-01 13:48] LABS: BILIRUBIN,URINE NEGATIVE (Neg); CLARITY,URINE CLEAR (Clear); COLOR,URINE YELLOW (Yellow); GLUCOSE, URINE NEGATIVE (Neg); KETONES,URINE NEGATIVE (Neg); LEUKOCYTE ESTERASE ,URINE NEGATIVE (Neg); NITRITES, URINE NEGATIVE (Neg); OCCULT BLOOD,URINE NEGATIVE (Neg); PH,URINE 6.5 (4.8-8.0); PROTEIN,URINE NEGATIVE (Neg); UROBILINOGEN,URINE 0.2 E.U/dL (0.2-1.0)
[2023-07-01 13:54] LABS: UA COLLECTION TYPE VOIDED
[2023-07-01 14:58] VITALS: BP 124/79; PULSE 88; RESP 17; O2SAT 100
== END 2023-07-01 16:48 | disposition home or self-care (01) ==
LOC: ER 03:21
DX: M25.511 Pain in right shoulder (principal); Z20.822 Contact with and (suspected) exposure to COVID-19; R45.851 Suicidal ideations; F15.90 Other stimulant use, unspecified, uncomplicated; F12.90 Cannabis use, unspecified, uncomplicated
CPT/HCPCS: 36415; 80048; 80305; 80320; 81003; 85025; 87811; 99285

== ENCOUNTER 2023-07-08 20:31 | Emergency (ER) | payer MEDICAID ==
[~2023-07-08] VITALS: Ht 175.3 cm; Wt 68.2 kg
[2023-07-09 02:17] VITALS: BP 118/61; PULSE 88; RESP 16; TEMP 97.8; O2SAT 98
== END 2023-07-09 02:18 | disposition home or self-care (01) ==
LOC: ER 20:31
DX: M25.521 Pain in right elbow (principal); F12.90 Cannabis use, unspecified, uncomplicated; F15.90 Other stimulant use, unspecified, uncomplicated
CPT/HCPCS: 73080; 99283

== ENCOUNTER 2023-07-23 00:44 | Emergency (ER) | payer MEDICAID ==
[~2023-07-23] VITALS: Ht 175.3 cm; Wt 60.6 kg
[2023-07-23 00:46] VITALS: BP 134/82; PULSE 95; RESP 16; TEMP 98; O2SAT 98
== END 2023-07-23 02:15 | disposition left against medical advice (07) ==
LOC: ER 00:44
DX: R45.851 Suicidal ideations (principal); Z53.21 Procedure and treatment not carried out due to patient leaving prior to being seen by health care provider
CPT/HCPCS: 99281

== ENCOUNTER 2023-07-25 23:26 | Emergency (ER) | payer MEDICAID ==
[~2023-07-25] VITALS: Ht 175.3 cm; Wt 77.3 kg
[2023-07-26 05:21] LABS: BASOPHILS % (AUTO) 0.5 % (0-1); EOSINOPHILS # (AUTO) 0.2 X10'3 (0-0.9); EOSINOPHILS % (AUTO) 3.4 % (0-6); HEMATOCRIT 39.7 % (42.0-52.0); HEMOGLOBIN 12.8 g/dl (14.0-17.9); LYMPHOCYTES # (AUTO) 2.4 X10'3 (1.1-4.8); LYMPHOCYTES % (AUTO) 37.7 % (21-51); MEAN CORPUSCULAR HEMOGLOBIN 26.5 PG (27.0-31.0); MEAN CORPUSCULAR HGB CONC 32.2 g/dL (33.0-36.5); MEAN CORPUSCULAR VOLUME 82.5 FL (78-98); MEAN PLATELET VOLUME 7.3 FL (7.4-10.4); MONOCYTES # (AUTO) 0.5 X10'3 (0-0.9); MONOCYTES % (AUTO) 7.3 % (2-12); NEUTROPHILS # (AUTO) 3.3 X10'3 (1.8-7.7); NEUTROPHILS % (AUTO) 51.1 % (42-75); PLATELET COUNT 256 X10'3 (140-440); RED BLOOD COUNT 4.81 X10'6 (4.70-6.10); RED CELL DISTRIBUTION WIDTH 15.1 % (11.5-14.5); WHITE BLOOD COUNT 6.4 X10'3 (4.5-11.0)
[2023-07-26 05:47] LABS: ACETAMINOPHEN < 2.0 UG/ML (10-30); ANION GAP 4 (8-16); BLOOD UREA NITROGEN 10 MG/DL (7-18); BUN/CREATININE RATIO 14.5 (10.0-20.0); CALCIUM 8.8 MG/DL (8.5-10.1); CHLORIDE 107 MMOL/L (99-107); CREATININE 0.69 MG/DL (0.60-1.10); ETHANOL < 10 MG/DL (<10); GLUCOSE 85 MG/DL (70-104); POTASSIUM 4.5 MMOL/L (3.5-5.1); SALICYLATE 1.3 MG/DL (4.0-20.0); SODIUM 142 MMOL/L (135-145); TOTAL CARBON DIOXIDE 31.1 MMOL/L (24-32); eCRCL 168 ML/MIN; eGFR > 90 ML/MIN
[2023-07-26 09:14] LABS: URINE AMPHETAMINE SCREEN POSITIVE (Neg); URINE BARBITUATE SCREEN NEGATIVE (Neg); URINE BENZODIAZEPINES SCREEN NEGATIVE (Neg); URINE CANNABINOID SCREEN POSITIVE (Neg); URINE COCAINE SCREEN NEGATIVE (Neg); URINE METHADONE SCREEN NEGATIVE (Neg); URINE OPIATE SCREEN NEGATIVE (Neg); URINE PHENCYCLIDINE SCREEN NEGATIVE (Neg)
[2023-07-26 11:09] VITALS: BP 112/71; PULSE 65; RESP 15; TEMP 97.2; O2SAT 98
== END 2023-07-26 13:32 | disposition home or self-care (01) ==
LOC: ER 23:27
DX: R45.851 Suicidal ideations (principal); Z20.822 Contact with and (suspected) exposure to COVID-19; F15.90 Other stimulant use, unspecified, uncomplicated; F12.90 Cannabis use, unspecified, uncomplicated
CPT/HCPCS: 36415; 80048; 80305; 80320; 80329; 85025; 87811; 99285

== ENCOUNTER 2023-08-03 18:22 | Emergency (ER) | payer MEDICAID ==
[~2023-08-03] VITALS: Ht 175.3 cm; Wt 68.2 kg
[2023-08-03 20:02] LABS: ALBUMIN 4.1 G/DL (3.4-5.0); ANION GAP 12 (8-16); BLOOD UREA NITROGEN 23 MG/DL (7-18); BUN/CREATININE RATIO 24.5 (10.0-20.0); CALCIUM 9.4 MG/DL (8.5-10.1); CHLORIDE 105 MMOL/L (99-107); CREATININE 0.94 MG/DL (0.60-1.10); ETHANOL < 10 MG/DL (<10); GLUCOSE 95 MG/DL (70-104); SODIUM 142 MMOL/L (135-145); TOTAL CARBON DIOXIDE 24.7 MMOL/L (24-32); eCRCL 119 ML/MIN; eGFR > 90 ML/MIN
[2023-08-03 20:13] LABS: BASOPHILS % (AUTO) 0.1 % (0-1); EOSINOPHILS # (AUTO) 0.1 X10'3 (0-0.9); EOSINOPHILS % (AUTO) 0.8 % (0-6); HEMOGLOBIN 13.4 g/dl (14.0-17.9); LYMPHOCYTES # (AUTO) 1.3 X10'3 (1.1-4.8); LYMPHOCYTES % (AUTO) 10.8 % (21-51); MEAN CORPUSCULAR HEMOGLOBIN 26.9 PG (27.0-31.0); MEAN CORPUSCULAR HGB CONC 32.8 g/dL (33.0-36.5); MEAN PLATELET VOLUME 7.7 FL (7.4-10.4); MONOCYTES # (AUTO) 0.8 X10'3 (0-0.9); NEUTROPHILS # (AUTO) 10.2 X10'3 (1.8-7.7); NEUTROPHILS % (AUTO) 82.3 % (42-75); PLATELET COUNT 311 X10'3 (140-440); RED CELL DISTRIBUTION WIDTH 15.2 % (11.5-14.5); WHITE BLOOD COUNT 12.4 X10'3 (4.5-11.0)
[2023-08-03 22:38] LABS: BILIRUBIN,URINE NEGATIVE (Neg); CLARITY,URINE CLEAR (Clear); COLOR,URINE YELLOW (Yellow); GLUCOSE, URINE NEGATIVE (Neg); KETONES,URINE NEGATIVE (Neg); LEUKOCYTE ESTERASE ,URINE NEGATIVE (Neg); NITRITES, URINE NEGATIVE (Neg); OCCULT BLOOD,URINE NEGATIVE (Neg); PH,URINE 5.5 (4.8-8.0); PROTEIN,URINE 30 mg/dl (Neg); UROBILINOGEN,URINE 0.2 E.U/dL (0.2-1.0)
[2023-08-03 22:43] LABS: UA COLLECTION TYPE URINAL
[2023-08-03 22:44] LABS: BACTERIA,URINE 1+ /HPF (Neg); RBC,URINE 0-2 /HPF (0-2); SQUAMOUS EPITHELIAL CELL,UR FEW /LPF (FEW); WBC,URINE 0-4 /HPF (0-4)
[2023-08-03 23:01] LABS: URINE AMPHETAMINE SCREEN POSITIVE (Neg); URINE BARBITUATE SCREEN NEGATIVE (Neg); URINE BENZODIAZEPINES SCREEN NEGATIVE (Neg); URINE CANNABINOID SCREEN POSITIVE (Neg); URINE COCAINE SCREEN NEGATIVE (Neg); URINE METHADONE SCREEN NEGATIVE (Neg); URINE OPIATE SCREEN NEGATIVE (Neg); URINE PHENCYCLIDINE SCREEN NEGATIVE (Neg)
[2023-08-04 14:26] VITALS: BP 102/43; PULSE 80; RESP 16; TEMP 97.9; O2SAT 100
== END 2023-08-04 14:04 | disposition home or self-care (01) ==
LOC: ER 18:23
DX: F19.10 Other psychoactive substance abuse, uncomplicated (principal); Z20.822 Contact with and (suspected) exposure to COVID-19; F12.90 Cannabis use, unspecified, uncomplicated; F15.90 Other stimulant use, unspecified, uncomplicated
CPT/HCPCS: 36415; 80048; 80305; 80320; 81001; 85025; 87811; 93005; 99284

== ENCOUNTER 2023-08-09 01:01 | Emergency (ER) | payer MEDICAID ==
[~2023-08-09] VITALS: Ht 175.3 cm; Wt 72.7 kg
[2023-08-09 01:08] VITALS: BP 127/75; TEMP 97.7
[2023-08-09 05:14] VITALS: PULSE 97; RESP 16; O2SAT 99
[2023-08-09] MEDS: acetaminophen 325mg tablet PO ONE (05:14)
== END 2023-08-09 05:15 | disposition home or self-care (01) ==
LOC: ER 01:02
DX: M25.511 Pain in right shoulder (principal); F12.90 Cannabis use, unspecified, uncomplicated; F15.90 Other stimulant use, unspecified, uncomplicated
CPT/HCPCS: 99282

== ENCOUNTER 2023-09-11 22:29 | Emergency (ER) | payer OTHER, MEDICAID ==
[~2023-09-11] VITALS: Ht 175.3 cm; Wt 73.0 kg
[2023-09-11 22:37] VITALS: TEMP 97.6
[2023-09-12 00:21] VITALS: BP 115/51; PULSE 86; RESP 15; O2SAT 98
[2023-09-12] MEDS: buprenorphine/naloxone 8MG-2MG SUBlingual film SL ONE (00:59)
== END 2023-09-12 02:06 | disposition home or self-care (01) ==
LOC: ER 22:30
DX: F11.93 Opioid use, unspecified with withdrawal (principal); F12.90 Cannabis use, unspecified, uncomplicated; F15.90 Other stimulant use, unspecified, uncomplicated
CPT/HCPCS: 99283

== ENCOUNTER 2023-11-08 10:46 | Emergency (ER) | payer MEDICAID ==
[~2023-11-08] VITALS: Ht 175.3 cm; Wt 70.5 kg
[2023-11-08] MEDS ORDERED: CLON1PAT42 TD (11:43)
[2023-11-08] MEDS: cloNIDine 0.1 mg tablet PO ONE (11:50)
[2023-11-08 12:06] VITALS: BP 113/48; PULSE 89; RESP 15; TEMP 98; O2SAT 99
== END 2023-11-08 12:12 | disposition home or self-care (01) ==
LOC: ER 10:47
DX: T88.7XXA Unspecified adverse effect of drug or medicament, initial encounter (principal); T40.605A Adverse effect of unspecified narcotics, initial encounter; Z79.899 Other long term (current) drug therapy; Y92.89 Other specified places as the place of occurrence of the external cause
CPT/HCPCS: 99283

== ENCOUNTER 2024-06-01 17:47 | Emergency (ER) | payer MEDICAID ==
[~2024-06-01] VITALS: Ht 172.7 cm; Wt 63.6 kg
[~2024-06-01 17:47] MED LIST changes: +ARIP10TA87 PO; +BUPR-94 PO; -NO HOME MEDS; +TRAZ150T78 PO
[2024-06-01 18:36] LABS: BILIRUBIN,URINE NEGATIVE (Neg); CLARITY,URINE CLEAR (Clear); COLOR,URINE YELLOW (Yellow); GLUCOSE, URINE NEGATIVE (Neg); KETONES,URINE NEGATIVE (Neg); LEUKOCYTE ESTERASE ,URINE NEGATIVE (Neg); NITRITES, URINE NEGATIVE (Neg); OCCULT BLOOD,URINE NEGATIVE (Neg); PROTEIN,URINE NEGATIVE (Neg); UROBILINOGEN,URINE 0.2 E.U/dL (0.2-1.0)
[2024-06-01 18:42] LABS: UA COLLECTION TYPE VOIDED
[2024-06-01 18:43] LABS: URINE AMPHETAMINE SCREEN POSITIVE (Neg); URINE BARBITUATE SCREEN NEGATIVE (Neg); URINE BENZODIAZEPINES SCREEN NEGATIVE (Neg); URINE CANNABINOID SCREEN POSITIVE (Neg); URINE COCAINE SCREEN NEGATIVE (Neg); URINE METHADONE SCREEN NEGATIVE (Neg); URINE OPIATE SCREEN NEGATIVE (Neg); URINE PHENCYCLIDINE SCREEN NEGATIVE (Neg)
[2024-06-01 18:53] LABS: BASOPHILS % (AUTO) 0.2 % (0-1); EOSINOPHILS # (AUTO) 0.1 X10'3 (0-0.9); HEMOGLOBIN 12.7 g/dl (14.0-17.9); LYMPHOCYTES # (AUTO) 1.9 X10'3 (1.1-4.8); LYMPHOCYTES % (AUTO) 28.9 % (21-51); MEAN CORPUSCULAR HEMOGLOBIN 26.9 PG (27.0-31.0); MEAN CORPUSCULAR HGB CONC 32.6 g/dL (33.0-36.5); MEAN CORPUSCULAR VOLUME 82.3 FL (78-98); MEAN PLATELET VOLUME 7.8 FL (7.4-10.4); MONOCYTES # (AUTO) 0.5 X10'3 (0-0.9); MONOCYTES % (AUTO) 6.9 % (2-12); NEUTROPHILS # (AUTO) 4.1 X10'3 (1.8-7.7); PLATELET COUNT 230 X10'3 (140-440); RED BLOOD COUNT 4.74 X10'6 (4.70-6.10); RED CELL DISTRIBUTION WIDTH 14.4 % (11.5-14.5); WHITE BLOOD COUNT 6.6 X10'3 (4.5-11.0)
[2024-06-01 19:03] LABS: ALBUMIN 3.2 G/DL (3.4-5.0); ANION GAP 7 (8-16); BLOOD UREA NITROGEN 19 MG/DL (7-18); CALCIUM 8.8 MG/DL (8.5-10.1); CHLORIDE 107 MMOL/L (99-107); CREATININE 0.95 MG/DL (0.60-1.10); ETHANOL < 10 MG/DL (<10); GLUCOSE 114 MG/DL (70-104); POTASSIUM 3.9 MMOL/L (3.5-5.1); SODIUM 143 MMOL/L (135-145); TOTAL CARBON DIOXIDE 29.1 MMOL/L (24-32); eCRCL 109 ML/MIN; eGFR > 90 ML/MIN
[2024-06-01] MEDS: LORazepam 0.5 MG tablet PO ONE (19:18)
[2024-06-02 10:59] VITALS: BP 114/72; PULSE 72; RESP 16; TEMP 97.8; O2SAT 94
[2024-06-02] MEDS ORDERED: ESCI5TAB17 PO (19:25)
[2024-06-02] MEDS ORDERED: NICO-687 TOP (19:25)
[2024-06-02] MEDS ORDERED: BUPR1FIL20 SL (19:58)
[2024-06-02] MEDS ORDERED: ARIP5TAB12 PO (19:58)
[2024-06-02] MEDS ORDERED: BUPR150T8 PO (20:07)
[2024-06-02] MEDS ORDERED: TRAZ-251 PO (20:08)
[2024-06-02] MEDS ORDERED: ARIP10TA87 PO (20:10)
== END 2024-06-02 11:04 ==
LOC: ER 17:48
DX: R45.851 Suicidal ideations (principal); F99 Mental disorder, not otherwise specified; F12.90 Cannabis use, unspecified, uncomplicated; F15.90 Other stimulant use, unspecified, uncomplicated; Z20.822 Contact with and (suspected) exposure to COVID-19
CPT/HCPCS: 36415; 80048; 80305; 80320; 81003; 85025; 87811; 99283; 99284; 99285

== ENCOUNTER 2024-06-02 17:57 | Emergency (ER) | payer MEDICAID ==
[~2024-06-02] VITALS: Ht 172.7 cm; Wt 68.9 kg
[2024-06-02 19:18] VITALS: TEMP 98
[2024-06-02 19:20] LABS: BASOPHILS % (AUTO) 0.3 % (0-1); EOSINOPHILS # (AUTO) 0.1 X10'3 (0-0.9); EOSINOPHILS % (AUTO) 1.8 % (0-6); HEMATOCRIT 39.3 % (42.0-52.0); HEMOGLOBIN 13.1 g/dl (14.0-17.9); LYMPHOCYTES # (AUTO) 1.5 X10'3 (1.1-4.8); LYMPHOCYTES % (AUTO) 27.5 % (21-51); MEAN CORPUSCULAR HEMOGLOBIN 27.3 PG (27.0-31.0); MEAN CORPUSCULAR HGB CONC 33.3 g/dL (33.0-36.5); MEAN PLATELET VOLUME 7.4 FL (7.4-10.4); MONOCYTES # (AUTO) 0.4 X10'3 (0-0.9); MONOCYTES % (AUTO) 7.3 % (2-12); NEUTROPHILS # (AUTO) 3.4 X10'3 (1.8-7.7); NEUTROPHILS % (AUTO) 63.1 % (42-75); PLATELET COUNT 228 X10'3 (140-440); RED BLOOD COUNT 4.79 X10'6 (4.70-6.10); RED CELL DISTRIBUTION WIDTH 14.4 % (11.5-14.5); WHITE BLOOD COUNT 5.4 X10'3 (4.5-11.0)
[2024-06-02] MEDS ORDERED: ESCI5TAB17 PO (19:25)
[2024-06-02] MEDS ORDERED: NICO-687 TOP (19:25)
[2024-06-02 19:34] LABS: ALBUMIN 3.4 G/DL (3.4-5.0); ANION GAP 5 (8-16); BLOOD UREA NITROGEN 13 MG/DL (7-18); BUN/CREATININE RATIO 19.7 (10.0-20.0); CALCIUM 8.9 MG/DL (8.5-10.1); CHLORIDE 107 MMOL/L (99-107); CREATININE 0.66 MG/DL (0.60-1.10); ETHANOL < 10 MG/DL (<10); GLUCOSE 87 MG/DL (70-104); POTASSIUM 4.4 MMOL/L (3.5-5.1); SALICYLATE 1.5 MG/DL (4.0-20.0); SODIUM 141 MMOL/L (135-145); TOTAL CARBON DIOXIDE 28.8 MMOL/L (24-32); eCRCL 168 ML/MIN; eGFR > 90 ML/MIN
[2024-06-02] MEDS ORDERED: BUPR1FIL20 SL (19:58)
[2024-06-02] MEDS ORDERED: ARIP5TAB12 PO (19:58)
[2024-06-02 20:05] LABS: BILIRUBIN,URINE NEGATIVE (Neg); CLARITY,URINE CLEAR (Clear); COLOR,URINE YELLOW (Yellow); GLUCOSE, URINE NEGATIVE (Neg); KETONES,URINE NEGATIVE (Neg); LEUKOCYTE ESTERASE ,URINE NEGATIVE (Neg); NITRITES, URINE NEGATIVE (Neg); OCCULT BLOOD,URINE NEGATIVE (Neg); PH,URINE 6.5 (4.8-8.0); PROTEIN,URINE NEGATIVE (Neg); UROBILINOGEN,URINE 0.2 E.U/dL (0.2-1.0)
[2024-06-02 20:07] LABS: ACETAMINOPHEN < 2.0 UG/ML (10-30)
[2024-06-02] MEDS ORDERED: BUPR150T8 PO (20:07)
[2024-06-02] MEDS ORDERED: TRAZ-251 PO (20:08)
[2024-06-02] MEDS ORDERED: ARIP10TA87 PO (20:10)
[2024-06-02 20:12] LABS: URINE AMPHETAMINE SCREEN NEGATIVE (Neg); URINE BARBITUATE SCREEN NEGATIVE (Neg); URINE BENZODIAZEPINES SCREEN NEGATIVE (Neg); URINE CANNABINOID SCREEN POSITIVE (Neg); URINE COCAINE SCREEN NEGATIVE (Neg); URINE METHADONE SCREEN NEGATIVE (Neg); URINE OPIATE SCREEN NEGATIVE (Neg); URINE PHENCYCLIDINE SCREEN NEGATIVE (Neg)
[2024-06-02 20:14] LABS: UA COLLECTION TYPE CLN CATCH MIDSTREAM
[2024-06-03 10:32] VITALS: BP 130/82; PULSE 80; RESP 15; O2SAT 99
== END 2024-06-03 10:36 | disposition still patient (30) ==
LOC: ER 17:57
DX: R45.851 Suicidal ideations (principal); Z20.822 Contact with and (suspected) exposure to COVID-19
CPT/HCPCS: 36415; 80048; 80305; 80320; 80329; 81003; 85025; 87811; 99284

== ENCOUNTER 2024-06-10 01:52 | Emergency (ER) | payer MEDICAID ==
[~2024-06-10] VITALS: Ht 175.3 cm; Wt 65.9 kg
[~2024-06-10 01:52] MED LIST changes: -BUPR-94 PO; +BUPR150T8 PO; +BUPR1FIL20 SL; +ESCI5TAB17 PO; +NICO-687 TOP; +TRAZ-251 PO; -TRAZ150T78 PO
[2024-06-10 01:53] VITALS: BP 116/76; TEMP 97.3
[2024-06-10 02:27] LABS: BASOPHILS % (AUTO) 0.4 % (0-1); EOSINOPHILS # (AUTO) 0.1 X10'3 (0-0.9); EOSINOPHILS % (AUTO) 0.9 % (0-6); HEMATOCRIT 42.8 % (42.0-52.0); HEMOGLOBIN 14.2 g/dl (14.0-17.9); LYMPHOCYTES # (AUTO) 2.8 X10'3 (1.1-4.8); LYMPHOCYTES % (AUTO) 37.4 % (21-51); MEAN CORPUSCULAR HEMOGLOBIN 27.2 PG (27.0-31.0); MEAN CORPUSCULAR HGB CONC 33.1 g/dL (33.0-36.5); MEAN PLATELET VOLUME 7.8 FL (7.4-10.4); MONOCYTES # (AUTO) 0.6 X10'3 (0-0.9); MONOCYTES % (AUTO) 8.2 % (2-12); NEUTROPHILS # (AUTO) 3.9 X10'3 (1.8-7.7); NEUTROPHILS % (AUTO) 53.1 % (42-75); PLATELET COUNT 298 X10'3 (140-440); RED BLOOD COUNT 5.22 X10'6 (4.70-6.10); RED CELL DISTRIBUTION WIDTH 14.8 % (11.5-14.5); WHITE BLOOD COUNT 7.4 X10'3 (4.5-11.0)
[2024-06-10 02:48] LABS: ALBUMIN 4.4 G/DL (3.4-5.0); ANION GAP 15 (8-16); BLOOD UREA NITROGEN 18 MG/DL (7-18); BUN/CREATININE RATIO 22.2 (10.0-20.0); CALCIUM 9.4 MG/DL (8.5-10.1); CHLORIDE 108 MMOL/L (99-107); CREATININE 0.81 MG/DL (0.60-1.10); GLUCOSE 102 MG/DL (70-104); POTASSIUM 3.9 MMOL/L (3.5-5.1); SODIUM 146 MMOL/L (135-145); THYROID STIMULATING HORMONE 0.88 ulU/ml (0.34-4.50); TOTAL CARBON DIOXIDE 23.3 MMOL/L (24-32); eCRCL 132 ML/MIN; eGFR > 90 ML/MIN
[2024-06-10 03:01] LABS: ETHANOL < 10 MG/DL (<10)
[2024-06-10 03:52] VITALS: PULSE 90; RESP 16; O2SAT 98
== END 2024-06-10 03:59 | disposition home or self-care (01) ==
LOC: ER 01:52
DX: R45.851 Suicidal ideations (principal); F19.10 Other psychoactive substance abuse, uncomplicated; F12.90 Cannabis use, unspecified, uncomplicated; F15.90 Other stimulant use, unspecified, uncomplicated; F10.90 Alcohol use, unspecified, uncomplicated; Z79.899 Other long term (current) drug therapy; Z20.822 Contact with and (suspected) exposure to COVID-19; Y90.9 Presence of alcohol in blood, level not specified
CPT/HCPCS: 36415; 80048; 80320; 84443; 85025; 87811; 99285

== ENCOUNTER 2024-06-25 19:40 | Emergency (ER) | payer MEDICAID ==
[~2024-06-25] VITALS: Ht 175.3 cm; Wt 86.4 kg
[~2024-06-25 19:40] MED LIST changes: +BUPR-72 PO; -BUPR150T8 PO; -BUPR1FIL20 SL; +ESCI-8 PO; -ESCI5TAB17 PO; -NICO-687 TOP
[2024-06-25 20:12] LABS: BASOPHILS % (AUTO) 0.5 % (0-1); EOSINOPHILS # (AUTO) 0.3 X10'3 (0-0.9); HEMATOCRIT 42.2 % (42.0-52.0); LYMPHOCYTES # (AUTO) 2.5 X10'3 (1.1-4.8); LYMPHOCYTES % (AUTO) 32.9 % (21-51); MEAN CORPUSCULAR HEMOGLOBIN 27.3 PG (27.0-31.0); MEAN CORPUSCULAR HGB CONC 33.3 g/dL (33.0-36.5); MEAN CORPUSCULAR VOLUME 82.1 FL (78-98); MEAN PLATELET VOLUME 7.3 FL (7.4-10.4); MONOCYTES # (AUTO) 0.6 X10'3 (0-0.9); NEUTROPHILS # (AUTO) 4.1 X10'3 (1.8-7.7); NEUTROPHILS % (AUTO) 54.6 % (42-75); PLATELET COUNT 305 X10'3 (140-440); RED BLOOD COUNT 5.14 X10'6 (4.70-6.10); RED CELL DISTRIBUTION WIDTH 15.1 % (11.5-14.5); WHITE BLOOD COUNT 7.5 X10'3 (4.5-11.0)
[2024-06-25 20:34] LABS: ALBUMIN 3.4 G/DL (3.4-5.0); ANION GAP 7 (8-16); BLOOD UREA NITROGEN 13 MG/DL (7-18); BUN/CREATININE RATIO 12.9 (10.0-20.0); CALCIUM 8.4 MG/DL (8.5-10.1); CHLORIDE 107 MMOL/L (99-107); CREATININE 1.01 MG/DL (0.60-1.10); ETHANOL < 10 MG/DL (<10); GLUCOSE 98 MG/DL (70-104); POTASSIUM 3.6 MMOL/L (3.5-5.1); SALICYLATE 1.1 MG/DL (4.0-20.0); SODIUM 144 MMOL/L (135-145); THYROID STIMULATING HORMONE 1.99 ulU/ml (0.34-4.50); TOTAL CARBON DIOXIDE 29.6 MMOL/L (24-32); eCRCL 114 ML/MIN; eGFR > 90 ML/MIN
[2024-06-25 20:43] LABS: ACETAMINOPHEN < 2.0 UG/ML (10-30)
[2024-06-25] MEDS ORDERED: NALO4SPR22 (21:52)
[2024-06-25] MEDS ORDERED: BUPR1FIL20 SL (21:52)
[2024-06-25] MEDS ORDERED: ESCI5TAB17 PO (21:52)
[2024-06-25] MEDS ORDERED: NICO-687 TOP (21:52)
[2024-06-25] MEDS ORDERED: NALO4SPR22 NAS (22:17)
[2024-06-26 01:38] LABS: BILIRUBIN,URINE NEGATIVE (Neg); CLARITY,URINE CLEAR (Clear); COLOR,URINE YELLOW (Yellow); GLUCOSE, URINE NEGATIVE (Neg); KETONES,URINE TRACE mg/dl (Neg); LEUKOCYTE ESTERASE ,URINE NEGATIVE (Neg); NITRITES, URINE NEGATIVE (Neg); OCCULT BLOOD,URINE NEGATIVE (Neg); PROTEIN,URINE NEGATIVE (Neg); UROBILINOGEN,URINE 0.2 E.U/dL (0.2-1.0)
[2024-06-26 01:44] LABS: UA COLLECTION TYPE CLN CATCH MIDSTREAM
[2024-06-26 01:53] LABS: URINE AMPHETAMINE SCREEN POSITIVE (Neg); URINE BARBITUATE SCREEN NEGATIVE (Neg); URINE BENZODIAZEPINES SCREEN NEGATIVE (Neg); URINE CANNABINOID SCREEN POSITIVE (Neg); URINE COCAINE SCREEN NEGATIVE (Neg); URINE METHADONE SCREEN NEGATIVE (Neg); URINE OPIATE SCREEN NEGATIVE (Neg); URINE PHENCYCLIDINE SCREEN NEGATIVE (Neg)
[2024-06-26 12:31] VITALS: BP 136/81; PULSE 84; RESP 16; TEMP 98.4; O2SAT 98
== END 2024-06-26 13:21 | disposition home or self-care (01) ==
LOC: ER 19:41
DX: R45.851 Suicidal ideations (principal); F12.90 Cannabis use, unspecified, uncomplicated; F15.10 Other stimulant abuse, uncomplicated; Z00.8 Encounter for other general examination; Z79.899 Other long term (current) drug therapy; Z20.822 Contact with and (suspected) exposure to COVID-19
CPT/HCPCS: 36415; 80048; 80305; 80320; 80329; 81003; 84443; 85025; 87811; 99284

== ENCOUNTER 2024-06-28 01:35 | Emergency (ER) | payer MEDICAID ==
[~2024-06-28] VITALS: Ht 175.3 cm; Wt 49.2 kg
[~2024-06-28 01:35] MED LIST changes: -ARIP10TA87 PO; -BUPR-72 PO; -ESCI-8 PO; +NALO4SPR22 NAS; +NICO-687 TOP; -TRAZ-251 PO
[2024-06-28 02:59] VITALS: BP 147/95; PULSE 110; RESP 18; TEMP 98; O2SAT 96
== END 2024-06-28 03:02 | disposition home or self-care (01) ==
LOC: ER 01:36
DX: M25.512 Pain in left shoulder (principal); Z76.5 Malingerer [conscious simulation]; F12.90 Cannabis use, unspecified, uncomplicated; F15.90 Other stimulant use, unspecified, uncomplicated; F10.90 Alcohol use, unspecified, uncomplicated; Z79.899 Other long term (current) drug therapy; Y90.9 Presence of alcohol in blood, level not specified
CPT/HCPCS: 73030; 99283

== ENCOUNTER 2024-07-09 20:11 | Emergency (ER) | payer MEDICAID ==
[~2024-07-09] VITALS: Ht 180.3 cm; Wt 50.5 kg
[2024-07-09 20:40] VITALS: BP 114/65; PULSE 87; RESP 15; O2SAT 99
[2024-07-09 21:29] VITALS: TEMP 98.6
== END 2024-07-09 21:55 | disposition home or self-care (01) ==
LOC: ER 20:12
DX: F19.10 Other psychoactive substance abuse, uncomplicated (principal); Z59.01 Sheltered homelessness
CPT/HCPCS: 99281

== ENCOUNTER 2024-07-19 17:19 | Emergency (ER) | payer MEDICAID | END 2024-07-19 18:36 | disposition left against medical advice (07) | LOC: ER 17:20 | DX: R10.9 Unspecified abdominal pain (principal); Z53.21 Procedure and treatment not carried out due to patient leaving prior to being seen by health care provider ==

== ENCOUNTER 2024-07-24 23:31 | Emergency (ER) | payer MEDICAID ==
[~2024-07-24] VITALS: Ht 180.3 cm; Wt 74.0 kg
[2024-07-24 23:33] VITALS: BP 114/65; PULSE 87; RESP 15; TEMP 98.6; O2SAT 96
--- NOTE | 2024-07-25 00:21 | Physician Documentation ---
History of Present Illness ~ Chief Complaint: Mental Health Eval Stated Complaint: SI Time Seen by MD: 00:21 Primary Medical Doctor: NONE Source: patient, RN/ HPI 24-year-old male, history of homelessness and substance abuse who presents with multiple complaints. The patient is well known to the emergency department, his frequent visits for nonemergent issues. Per nursing staff, he has been hanging out in the waiting room for several hours. He was displaying some bizarre behavior. When I go speak to the patient, his only request is if he can spend the night in the waiting room. He also asks for food and something to drink. He is a limited historian, but does not offer any other medical concerns at this time. He tells me he has been staying on [address]. He has not really been eating or drinking much. He denies any injury or pain. Medication Reconciliation Allergies: Coded Allergies: No Known Allergies (Unverified , 07/09/24) Scheduled Nicotine 21 MG Patch* (Habitrol 21 MG Patch*), 1 PATCH TOP DAILY, (Reported) Scheduled PRN Naloxone HCl (Naloxone HCl), 1 SPRAY XIOMARA Q5MIN PRN for PRN, (Reported) Past Medical History Past Medical History: *PSYCH* Past Surgical History: no surgical history Alcohol Use: Heavy Drug Use: marijuana, methamphetamine Lives In: Home Review of Systems Constitutional: Denies: fever Gastrointestinal: Denies: abdominal pain Physical Exam Vital Signs: Temperature: 98.6, Source: Temporal, Heart Rate: 87, Respiratory Rate: 15, BP: 114/65, Pulse Oximetry: 96, Weight: 74.000 Physical Exam General: This is a disheveled thin young man, sitting in the waiting room, has multiple food containers surrounding him HEENT: Atraumatic, oropharynx is moist Heart: Regular rate and rhythm, normal-appearing peripheral perfusion Lungs: normal work of breathing, normal oxygen saturation on room air Extremities: Warm and well-perfused, no obvious traumatic findings Neuro: Alert and oriented to self and location, he was ambulatory Psychiatric: Has a bizarre affect, appears to have psychomotor agitation, is cooperative Progress Results/Orders Results/Orders Vital Signs 07/24/24 23:33 Temp 98.6 Pulse 87 Resp 15 B/P (MAP) 114/65 Pulse Ox 96 Medical Decision Making Differential Dx:Considerations: Include: Alcohol abuse, Anxiety, Substance abuse Differential Diagnosis Homelessness, secondary gain Assessment The patient presents to the emergency department with multiple complaints, which primarily seemed to be related to a lack of housing and food. He does not have any sign of trauma or acute medical issues. He has not appear to be a danger to himself or others, does not appear to have an acute medical or surgical emergency. I do not feel that any further workup or testing is indicated at this time. Departure Impression: Primary Impression: Homeless single person Referrals: NO PRIMARY CARE PROVIDER (PCP) Signature Scribe Signature: a Attestation: MAEGAN Dupont MD Jul 25, 2024 00:21
== END 2024-07-25 01:47 | disposition home or self-care (01) ==
LOC: ER 23:31
DX: R46.1 Bizarre personal appearance (principal); Z59.00 Homelessness unspecified; Z79.899 Other long term (current) drug therapy
CPT/HCPCS: 99281

== ENCOUNTER 2024-07-27 23:09 | Emergency (ER) | payer MEDICAID ==
[~2024-07-27] VITALS: Ht 180.3 cm; Wt 72.7 kg
[2024-07-28] MEDS: ondansetron 4mg rapidly disintigrating tab PO ONE (00:13)
[2024-07-28 00:27] LABS: ALBUMIN 4.1 G/DL (3.4-5.0); ANION GAP 8 (8-16); BASOPHILS % (AUTO) 0.1 % (0-1); BLOOD UREA NITROGEN 14 MG/DL (7-18); BUN/CREATININE RATIO 17.7 (10.0-20.0); CALCIUM 9.1 MG/DL (8.5-10.1); CHLORIDE 107 MMOL/L (99-107); CREATININE 0.79 MG/DL (0.60-1.10); EOSINOPHILS # (AUTO) 0.1 X10'3 (0-0.9); EOSINOPHILS % (AUTO) 0.5 % (0-6); GLUCOSE 76 MG/DL (70-104); HEMATOCRIT 42.8 % (42.0-52.0); HEMOGLOBIN 14.1 g/dl (14.0-17.9); LIPASE 28 U/L (16-77); LYMPHOCYTES # (AUTO) 0.8 X10'3 (1.1-4.8); LYMPHOCYTES % (AUTO) 5.8 % (21-51); MAGNESIUM 2.1 MG/DL (1.5-2.4); MEAN CORPUSCULAR HGB CONC 32.9 g/dL (33.0-36.5); MEAN CORPUSCULAR VOLUME 82.1 FL (78-98); MEAN PLATELET VOLUME 7.7 FL (7.4-10.4); MONOCYTES # (AUTO) 0.8 X10'3 (0-0.9); MONOCYTES % (AUTO) 5.8 % (2-12); NEUTROPHILS # (AUTO) 12.6 X10'3 (1.8-7.7); NEUTROPHILS % (AUTO) 87.8 % (42-75); PLATELET COUNT 274 X10'3 (140-440); POTASSIUM 3.7 MMOL/L (3.5-5.1); RED BLOOD COUNT 5.21 X10'6 (4.70-6.10); RED CELL DISTRIBUTION WIDTH 15.2 % (11.5-14.5); SODIUM 144 MMOL/L (135-145); TOTAL CARBON DIOXIDE 29.4 MMOL/L (24-32); WHITE BLOOD COUNT 14.4 X10'3 (4.5-11.0); eCRCL 150 ML/MIN; eGFR > 90 ML/MIN
[2024-07-28 00:31] LABS: ETHANOL < 10 MG/DL (<10)
[2024-07-28] MEDS ORDERED: ondansetron 4mg rapidly disintigrating tab PO STA (02:12)
[2024-07-28 02:50] LABS: URINE AMPHETAMINE SCREEN POSITIVE (Neg); URINE BARBITUATE SCREEN NEGATIVE (Neg); URINE BENZODIAZEPINES SCREEN NEGATIVE (Neg); URINE CANNABINOID SCREEN POSITIVE (Neg); URINE COCAINE SCREEN NEGATIVE (Neg); URINE METHADONE SCREEN NEGATIVE (Neg); URINE OPIATE SCREEN NEGATIVE (Neg); URINE PHENCYCLIDINE SCREEN NEGATIVE (Neg)
--- NOTE | 2024-07-28 03:09 | Physician Documentation ---
History of Present Illness Chief Complaint: Vomiting Stated Complaint: N/V Time Seen by MD: 03:05 OK to notify your PCP?: Yes Primary Medical Doctor: NONE Source: patient, RN/MD, EMS, RN notes reviewed, EMS notes reviewed, old records Mode of Arrival: EMS Exam Limitations: no limitations HPI 24 year old male presents to the emergency department via EMS for complaints of vomiting that has been present for three hours. He [facility] and there is a virus going around. Patient states that he has been vomiting and states that he is having abdominal pain. Patient denies any diarrhea. Patient denies drug use when asked. Medication Reconciliation Allergies: Coded Allergies: No Known Allergies (Unverified , 07/09/24) Scheduled Nicotine 21 MG Patch* (Habitrol 21 MG Patch*), 1 PATCH TOP DAILY, (Reported) Scheduled PRN Naloxone HCl (Naloxone HCl), 1 SPRAY XIOMARA Q5MIN PRN for PRN, (Reported) ONDANSETRON ODT 4mg tablet (Ondansetron Odt), 1 TAB PO Q6H PRN PRN for nausea/vomiting Past Medical History Past Medical History: No Pertinent History, *PSYCH* Past Surgical History: no surgical history Smoking Status: Current every day smoker Alcohol Use: Heavy Drug Use: marijuana, methamphetamine Lives In: Home Review of Systems All Other Systems at this time: Reviewed and Negative ROS As stated above in the HPI, otherwise all systems are reviewed and negative. Physical Exam Vital Signs: RN Vital Signs have been reviewed: Yes, Temperature: 98.6, Heart Rate: 82, Respiratory Rate: 18, BP: 116/74, Pulse Oximetry: 98, Weight: 72.730 Oxygen Flow Rate: 0 Pulse Oximetry Reflects: adequate oxygenation Physical Exam General: The patient is well developed, well nourished, nontoxic appearing and is in no acute distress. Skin: [place], warm and dry with no rashes. HEENT: Head was normocephalic and atraumatic. Eyes - pupils equal, round, reactive to light and accommodation. Extraocular movements were intact. Conjunctivae were nonicteric. Ears - bilateral tympanic membranes were normal. The mouth and oropharynx were clear with moist mucous membranes. There were no pharyngeal exudates or erythema. Neck: Supple and nontender. There was no jugular venous distention, lymphadenopathy, thyromegaly or masses. Chest: Clear to auscultation bilaterally without wheezes, rales or rhonchi. No accessory muscle use. No dullness to percussion. Heart: Rate regular and rhythmic. S1, S2. No murmurs. Palpation of the chest wall was normal. No rubs or thrills. Abdomen: Soft, nontender and nondistended. Positive bowel sounds. No guarding or rebound. No hepatosplenomegaly or palpable masses. Extremities: No cyanosis, clubbing or edema. The patient moves all extremities. Pulses were equal and symmetric. Neurologic: Cranial nerves II-XII were intact. Sensation was intact to light touch throughout. Motor strength was 5/5 in all four extremities. Deep tendon reflexes were intact in both upper and lower extremities. Psychologic: The patient was oriented to person, place and time. The patient demonstrated appropriate judgement and insight. Progress Results/Orders Reviewed/noted all lab results: Yes Results/Orders Orders - KEVIN MCKAY MD Urinalysis, Cult If Indicated (07/27/24 23:40) Completed Orders - KEVIN MCKAY MD Cbc/Diff (07/27/24 23:40) Lipase (07/27/24 23:40) Ethanol (07/27/24 23:40) MG (07/27/24 23:40) Drug Screen, Urine (07/27/24 23:40) Ondansetron Disint. Tablet (Zofran Odt T (07/27/24 23:40) BMP (07/27/24 23:40) Ondansetron Disint. Tablet (Zofran Odt T (07/28/24 02:12) Medications Received in ER Medications (Trade) Dose Ordered Sig/Lidia Route PRN Reason Start Time Stop Time Status Last Admin Dose Admin (Zofran ODT tablet) 4 mg ONCE ONCE PO 07/27/24 23:40 07/27/24 23:41 DC 07/28/24 00:13 4 MG Vital Signs 07/27/24 07/28/24 07/28/24 23:31 02:06 02:47 Temp 98.0 98.6 Pulse 88 82 Resp 16 18 B/P (MAP) 118/75 116/74 (88) Pulse Ox 99 98 O2 Flow Rate 0 Laboratory Tests Test 07/27/24 23:56 07/28/24 02:32 White Blood Count 14.4 H Red Blood Count 5.21 Hemoglobin 14.1 Hematocrit 42.8 Mean Corpuscular Volume 82.1 Mean Corpuscular Hemoglobin 27.0 Mean Corpuscular Hemoglobin Concent 32.9 L Red Cell Distribution Width 15.2 H Platelet Count 274 Mean Platelet Volume 7.7 Neutrophils (%) (Auto) 87.8 H Lymphocytes (%) (Auto) 5.8 L Monocytes (%) (Auto) 5.8 Eosinophils (%) (Auto) 0.5 Basophils (%) (Auto) 0.1 Neutrophils # (Auto) 12.6 H Lymphocytes # (Auto) 0.8 L Monocytes # (Auto) 0.8 Eosinophils # (Auto) 0.1 Basophils # (Auto) 0.0 CBC Comment Sodium Level 144 Potassium Level 3.7 Chloride Level 107 Carbon Dioxide Level 29.4 Anion Gap 8 Blood Urea Nitrogen 14 Creatinine 0.79 Estimated GFR/1.73 m2 > 90 BUN/Creatinine Ratio 17.7 Glucose Level 76 Calcium Level 9.1 Magnesium Level 2.1 Albumin 4.1 Lipase 28 Chemistry Comments Ethyl Alcohol Level < 10 Urine Comment Urine Opiates Screen Negative Urine Methadone Screen Negative Urine Fentanyl Screen Positive H Urine Barbiturates Screen Negative Urine Phencyclidine Screen Negative Urine Amphetamines Screen Positive Urine Benzodiazepines Screen Negative Urine Cocaine Screen Negative Urine Cannabinoids Screen Positive Drug Screen Comment Re-Evaluation Re-Evaluation : Re-Evaluation: Improved Progress Patient was seen and examined. Patient was given reassurance. Patient received Zofran x2. Patient wanted to sleep but had no signs of active vomiting. Patient denies any sick contacts denies any drugs however his tox screen showed polypharmacy. Patient was then given reassurance prescription for Zofran and discharged home. Continuous environmental monitoring technician interpretation shows normal sinus rhythm heart rate 80s, no ectopy, normal, my interpretation. Pulse oximetry monitor interpretation shows normal oxygenation 98% room air, normal, my interpretation. Medical Decision Making Additional info obtained from: old records Differential Dx:Considerations: Include: Appendicitis, Bowel obstruction, Cholangitis, Cholelithasis, Constipation, Diverticular disease, Esophageal rupture, Esophagitis, Gastritis/PUD, Gastroenteritis, GI hemorrhage, Hernia, Hepatitis, Inflammatory BD, Ischemic bowel, Pancreatitis, Urinary obstruction, Urinary tract infection, Urolithiasis, Other Departure Time of Disposition: 03:11 Disposition: 01 HOME / SELF CARE / HOMELESS Impression: Primary Impression: Viral gastritis Additional Impressions: Vomiting Qualified Codes: R11.2 - Nausea with vomiting, unspecified Polysubstance abuse Condition: Stable Discharge Instructions: Gastritis, Adult Referrals: NO PRIMARY CARE PROVIDER (PCP) Prescriptions ONDANSETRON ODT 4mg tablet (ONDANSETRON ODT) 4 Mg Tab.rapdis 1 TAB PO Q6H PRN PRN for nausea/vomiting for 4 Days, #16 TAB 0 Refills Prov: KEVIN MCKAY MD 07/28/24 Education Educated: Patient Educated regarding: diagnosis, treatment, need for follow up Signature Scribe Signature: Scribed for Kevin Mckay MD by Enedina Swanson . 07/28/24 03:12 Attestation: The note accurately reflects work and decisions made by me.Kevin Mckay MD 07/28/24 03:09 KEVIN MCKAY MD Jul 28, 2024 03:09 ENEDINA TSE Jul 28, 2024 03:12
[2024-07-28] MEDS ORDERED: ONDA-243 PO (03:13)
[2024-07-28 03:24] LABS: BILIRUBIN,URINE NEGATIVE (Neg); CLARITY,URINE CLEAR (Clear); COLOR,URINE YELLOW (Yellow); GLUCOSE, URINE NEGATIVE (Neg); KETONES,URINE 15 mg/dl (Neg); LEUKOCYTE ESTERASE ,URINE NEGATIVE (Neg); OCCULT BLOOD,URINE NEGATIVE (Neg); PH,URINE 6.5 (4.8-8.0); PROTEIN,URINE NEGATIVE (Neg); UROBILINOGEN,URINE 0.2 E.U/dL (0.2-1.0)
[2024-07-28 03:25] LABS: NITRITES, URINE NEGATIVE (Neg); UA COLLECTION TYPE NON-SPECIFIED
[2024-07-28 05:12] VITALS: BP 119/78; PULSE 78; RESP 16; TEMP 98.6; O2SAT 99
== END 2024-07-28 05:13 | disposition home or self-care (01) ==
LOC: ER 23:10
DX: A08.4 Viral intestinal infection, unspecified (principal); F12.90 Cannabis use, unspecified, uncomplicated; F19.10 Other psychoactive substance abuse, uncomplicated; R11.10 Vomiting, unspecified; F17.200 Nicotine dependence, unspecified, uncomplicated; F15.90 Other stimulant use, unspecified, uncomplicated; F10.90 Alcohol use, unspecified, uncomplicated; Y90.9 Presence of alcohol in blood, level not specified; Z79.899 Other long term (current) drug therapy
CPT/HCPCS: 80048; 80305; 80320; 81003; 83690; 83735; 85025; 99283

== ENCOUNTER 2024-07-28 12:16 | Emergency (ER) | payer MEDICAID ==
[~2024-07-28] VITALS: Ht 172.7 cm; Wt 73.4 kg
[~2024-07-28 12:16] MED LIST changes: +ONDA-243 PO
--- NOTE | 2024-07-28 13:02 | Physician Documentation ---
History of Present Illness Chief Complaint: Abdominal Pain Stated Complaint: VOMITING OK to notify your PCP?: Yes Primary Medical Doctor: NONE Source: patient Mode of Arrival: POV Exam Limitations: no limitations HPI This 24-year-old male presents with epigastric pain and nausea onset this morning, patient is actively eating a yogurt with granola in triage, patient reports that despite the nausea and epigastric pains he was able to eat. Patient reports pain started after starting eat his food this morning. The patient was here last night for the same issue. It was drug screen was positive for fentanyl, methamphetamine and marijuana Medication Reconciliation Allergies: Coded Allergies: No Known Allergies (Unverified , 07/28/24) Scheduled Nicotine 21 MG Patch* (Habitrol 21 MG Patch*), 1 PATCH TOP DAILY, (Reported) Scheduled PRN Naloxone HCl (Naloxone HCl), 1 SPRAY XIOMARA Q5MIN PRN for PRN, (Reported) ONDANSETRON ODT 4mg tablet (Ondansetron Odt), 1 TAB PO Q6H PRN PRN for nausea/vomiting Past Medical History Past Medical History: No Pertinent History, *PSYCH* Past Surgical History: no surgical history Alcohol Use: Heavy Drug Use: marijuana, methamphetamine Lives In: Home Physical Exam Vital Signs: Temperature: 97.6, Source: Temporal, Heart Rate: 78, Respiratory Rate: 16, BP: 126/75, Pulse Oximetry: 98, Weight: 73.400 Physical Exam VITALS: Reviewed and as above. GENERAL: Alert, nontoxic appearing, no apparent distress. RESPIRATORY: No increased work of breathing, no respiratory distress, speaking in full clear sentences General Appearance: alert, WD/WN, no apparent distress Respiratory: no respiratory distress Chest: no accessory muscle use Gastrointestinal Very subjective tenderness to palpation of the epigastrium. The remainder of the abdomen is nontender to palpation x4 quadrants. Normoactive bowel sounds x4 quadrants. Negative rigidity, rebound or guarding. Negative McBurney's point tenderness. Negative Bennett's sign. Neurologic: oriented x4, unit control worker II-XII nml as tested Psychiatric: normal mood/affect Skin: normal color, warm/dry Progress Results/Orders Reviewed/noted all lab results: Yes Results/Orders Vital Signs 07/28/24 12:23 Temp 97.6 Pulse 78 Resp 16 B/P (MAP) 126/75 Pulse Ox 98 Medical Decision Making Findings MSE performed in triage and patient returned to ED lobby by nursing staff I reviewed the patient was workup from yesterday. He did have a so with the elevated white count however I suspect this is reactive to methamphetamine, fentanyl abuse. The patient today was placed in a room and asked for food. He was given yogurt which she ate without any obvious difficulty or discomfort. I gave him a GI cocktail after which he states he felt little bit better. I am going to discharge him to the care of himself. I instructed him to start a clear liquid supplement diet but the patient has a little interested in healthy living. Additional Comments Gastritis. Homeless. Malingering. Polysubstance abuse. Nonspecific abdominal pain Departure Disposition: HOME / SELF CARE / HOMELESS Impression: Primary Impression: Epigastric pain Additional Impression: Homeless single person Condition: Stable Discharge Instructions: Gastritis, Adult Additional Instructions: Start a clear liquid supplement diet. Abstain from drugs. Follow up with the [facility] or the [facility] for homeless resources. Return as needed. Referrals: NO PRIMARY CARE PROVIDER (PCP) Signature Scribe Signature: No scribe Attestation: The note accurately reflects work and decisions made by me.Elliott GÓMEZ 07/28/24 15:13 ALISON VIDALES Jul 28, 2024 13:02 ELLIOTT BOOKER Jul 28, 2024 15:14
[2024-07-28] MEDS: LIDOcaine 2% Viscous 15ml cup MM PRN (15:29)
[2024-07-28] MEDS: mag hydrox/Alum hydrox/simeth 30ml oral suspension PO ONE (15:29)
[2024-07-28 15:38] VITALS: BP 102/66; PULSE 88; RESP 18; TEMP 97.6; O2SAT 98
== END 2024-07-28 15:41 | disposition home or self-care (01) ==
LOC: ER 12:17
DX: R10.13 Epigastric pain (principal); Z59.00 Homelessness unspecified; R11.2 Nausea with vomiting, unspecified; F12.90 Cannabis use, unspecified, uncomplicated; F15.90 Other stimulant use, unspecified, uncomplicated
CPT/HCPCS: 99283

== ENCOUNTER 2024-07-30 17:16 | Emergency (ER) | payer MEDICAID ==
[~2024-07-30] VITALS: Ht 175.3 cm; Wt 59.1 kg
[2024-07-30 17:35] VITALS: BP 141/88; PULSE 129; RESP 16; TEMP 99.1; O2SAT 97
--- NOTE | 2024-07-30 17:45 | Physician Documentation ---
History of Present Illness ~ Chief Complaint: Narcotic Withdrawl Stated Complaint: ABD PAIN Time Seen by MD: 17:41 Primary Medical Doctor: NONE HPI Patient is seen today with complaints of nausea vomiting diarrhea and opiate withdrawal patient states his last use of fentanyl was three days ago. Patient is requesting medical clearance to [facility]. Patient denies any current chest pain or shortness of breath, and has no other concern or complaint at this time. Medication Reconciliation Allergies: Coded Allergies: No Known Allergies (Unverified , 07/28/24) Scheduled Buprenorphine Hcl/Naloxone Hcl (Suboxone 8 Mg-2 Mg Sl Film), 1 STRIP SL BID Nicotine 21 MG Patch* (Habitrol 21 MG Patch*), 1 PATCH TOP DAILY, (Reported) Scheduled PRN Naloxone HCl (Naloxone HCl), 1 SPRAY XIOMARA Q5MIN PRN for PRN, (Reported) ONDANSETRON ODT 4mg tablet (Ondansetron Odt), 1 TAB PO Q6H PRN PRN for nausea/vomiting Past Medical History Past Medical History: No Pertinent History, *PSYCH* Past Surgical History: no surgical history Alcohol Use: Heavy Drug Use: marijuana, methamphetamine Lives In: Home Review of Systems Constitutional: Denies: chills, fever, weakness Eyes: Denies: pain, blurred vision ENT: Denies: ear pain, nose pain, throat pain, mouth pain Respiratory: Denies: cough, shortness of breath Cardiovascular: Denies: chest pain, palpitations Gastrointestinal: Denies: abdominal pain, nausea, vomiting Genitourinary: Denies: burning, dysuria Male Genitalia: Denies: penile discharge, testicular pain Neurological: Denies: headache, dizziness Musculoskeletal: Denies: pain, swelling Integumentary: Denies: rash, lesions Allergic/Immunologic: Denies: hives, itching Hematologic/Lymphatic: Denies: no symptoms reported Psychiatric: Denies: depression, anxiety Physical Exam Vital Signs: Temperature: 99.1, Source: Oral, Heart Rate: 129, Respiratory Rate: 16, BP: 141/88, Pulse Oximetry: 97, Weight: 59.100 Oxygen Flow Rate: 0 Physical Exam General: Awake and Alert, no acute distress. HEENT: Conjunctiva pink, Sclera clear, Mucus Membranes moist. Neck: Supple without masses and tenderness. Resp: Unlabored. Lungs clear to auscultation bilaterally. Heart: Regular Rate and rhythm, normal S1 and S2 without murmur, rub or gallop. Abdomen: Soft and non tender no organomegaly Extremities: No cyanosis,clubbing or edema. Skin: Warm and Dry. Progress Results/Orders Results/Orders Orders - ALIA PRIETO Substance Use Navigator (07/30/24 17:46) Completed Orders - ALIA PRIETO Buprenorphine/Naloxone Sl Film (Suboxone (07/30/24 17:41) Buprenorphine/Naloxone Sl Film (Suboxone (07/30/24 18:54) Medications Received in ER Medications (Trade) Dose Ordered Sig/Lidia Route PRN Reason Start Time Stop Time Status Last Admin Dose Admin (Suboxone 8MG-2MG SL film) 1 film ONCE STAT SL 07/30/24 17:41 07/30/24 17:46 DC 07/30/24 18:17 1 FILM (Suboxone 8MG-2MG SL film) 1 film ONCE STAT SL 07/30/24 18:54 07/30/24 18:58 DC 07/30/24 19:03 1 FILM Vital Signs 07/30/24 17:35 Temp 99.1 Pulse 129 Resp 16 B/P (MAP) 141/88 Pulse Ox 97 O2 Flow Rate 0 Medical Decision Making Findings Patient is seen today with complaints of nausea vomiting diarrhea and opiate withdrawal patient states his last use of fentanyl was three days ago. Patient is requesting medical clearance to [facility]. Patient denies any current chest pain or shortness of breath, and has no other concern or complaint at this time. Patient was given a dose of Suboxone 8/2 mg film sublingual and symptoms did improve but patient is still symptomatic. Patient was given another dose of Suboxone 8/2 mg film given patient continued symptoms and cravings. Patient will be discharged and was given a cab ride to [facility]. Patient will return to ED with any worsening, concerning or changing symptoms. Departure Disposition: 01 HOME / SELF CARE / HOMELESS Impression: Primary Impression: Narcotic drug use Additional Impressions: Homeless single person Opiate addiction Qualified Codes: F11.23 - Opioid dependence with withdrawal Condition: Improved Discharge Instructions: Narcotic Withdrawal Additional Instructions: Patient was given a dose of Suboxone 8/2 mg film sublingual and symptoms did improve but patient is still symptomatic. Patient was given another dose of Suboxone 8/2 mg film given patient continued symptoms and cravings. Patient will be discharged and was given a cab ride to [facility]. Patient will return to ED with any worsening, concerning or changing symptoms. Referrals: NO PRIMARY CARE PROVIDER (PCP) Prescriptions Buprenorphine Hcl/Naloxone Hcl (Suboxone 8 Mg-2 Mg Sl Film) 8 Mg-2 Mg Film 1 STRIP SL BID for F11.20 for 7 Days, #14 STRIP Prov: ALIA PRIETO 07/30/24 Signature Scribe Signature: No scribe Attestation: No scribe ALIA PRIETO PAC July 30, 2024 17:45
[2024-07-30] MEDS: buprenorphine/naloxone 8MG-2MG SUBlingual film SL STA ×2 (18:17→19:03)
[2024-07-30] MEDS ORDERED: BUPR1FIL3 SL (19:28)
== END 2024-07-30 19:37 | disposition home or self-care (01) ==
LOC: ER 17:16
DX: F11.23 Opioid dependence with withdrawal (principal); F12.90 Cannabis use, unspecified, uncomplicated; F15.90 Other stimulant use, unspecified, uncomplicated; F10.90 Alcohol use, unspecified, uncomplicated; Y90.9 Presence of alcohol in blood, level not specified; Z79.899 Other long term (current) drug therapy; Z59.00 Homelessness unspecified
CPT/HCPCS: 99283

== ENCOUNTER 2024-08-03 20:06 | Emergency (ER) | payer MEDICAID ==
[~2024-08-03] VITALS: Ht 175.3 cm; Wt 68.0 kg
[~2024-08-03 20:06] MED LIST changes: +BUPR1FIL3 SL
[2024-08-03 20:07] VITALS: TEMP 98.7
[2024-08-03] MEDS: Permethrin Cream 60gm TP ONE (21:27)
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
--- NOTE | 2024-08-03 21:42 | RADIOLOGY REPORT ---
Clinical History LOC Comparison CT HEAD on 01/24/2023, 198 images. Technique: Contiguous axial CT images of the head without intravenous contrast administration. Coron al and sagittal reformation was performed. All CT scans at this medical facility are performed using dose modulation techniques as appropriate t o a performed exam including the following: Automated exposure control was utilized; adjustment of th e mA and/or kV according to patient size; and use of iterative reconstruction technique. All CT studies are reported to the Dose Index Registry of the [employer]. Without Contrast Radiation Dose: CTDI (mGy): 49; DLP (mGy-cm): 907 KAMERON YU, [id number] Findings: Patient motion artifacts mildly degrade the images through the mid head. The brain parenchyma shows otherwise grossly normal bailey-white matter differentiation without any mas s, bleed, edema, or herniation. The sulci, cisterns, and ventricles are intact. No extra-axial flui d collection or skull lesion is present. The imaged portions of the paranasal sinuses and mastoid air cells are clear. Both orbits are grossl y normal. Impression: 1. No gross acute intracranial abnormality. This report was electronically signed by Wale Mcadams MD on 08/03/2024 9:39:59 PM.
--- NOTE | 2024-08-03 21:44 | RADIOLOGY REPORT ---
Clinical History LOC Comparison CT C SPINE on 01/24/2023, 337 images. Technique: Contiguous axial CT images of the cervical spine without intravenous contrast administrati on. Coronal and sagittal reformation was performed. All CT scans at this medical facility are performed using dose modulation techniques as appropriate t o a performed exam including the following: Automated exposure control was utilized; adjustment of th e mA and/or kV according to patient size; and use of iterative reconstruction technique. All CT studies are reported to the Dose Index Registry of the [employer]. Without Contrast Radiation Dose: CTDI (mGy): 19; DLP (mGy-cm): 451 PIPER YUN, [id number] Findings: The cervical vertebrae show normal contour, height, and alignment. No fracture, dislocation, paraver tebral soft tissue mass, or bony destructive lesion is present. C2-C3: The disc space shows normal height. The spinal canal is patent. Both neural foramina are pat ent. C3-C4: The disc space shows normal height. The spinal canal is patent. Both neural foramina are pat ent. C4-C5: The disc space shows normal height. The spinal canal is patent. Both neural foramina are pat ent. C5-C6: The disc space shows normal height. The spinal canal is patent. Both neural foramina are pat ent. C6-C7: The disc space shows normal height. The spinal canal is patent. Both neural foramina are pat ent. C7-T1: The disc space shows normal height. The spinal canal is patent. Both neural foramina are pat ent. Impression: 1. No acute bony abnormality. This report was electronically signed by Wale Mcadams MD on 08/03/2024 9:40:43 PM.
[2024-08-03 22:24] VITALS: BP 122/65; PULSE 94; RESP 16; O2SAT 98
[2024-08-03] MEDS ORDERED: NO HOME MEDS (23:41)
== END 2024-08-03 22:25 ==
LOC: ER 20:06
DX: Z00.8 Encounter for other general examination (principal); F15.20 Other stimulant dependence, uncomplicated; B85.2 Pediculosis, unspecified; R51.9 Headache, unspecified; Z59.00 Homelessness unspecified
CPT/HCPCS: 70450; 72125; 99284; 99285

== ENCOUNTER 2024-08-03 23:08 | Emergency (ER) | payer MEDICAID ==
[~2024-08-03] VITALS: Ht 175.3 cm; Wt 68.0 kg
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
[2024-08-03 23:40] LABS: BASOPHILS % (AUTO) 0.4 % (0-1); EOSINOPHILS # (AUTO) 0.3 X10'3 (0-0.9); EOSINOPHILS % (AUTO) 4.1 % (0-6); HEMOGLOBIN 12.9 g/dl (14.0-17.9); LYMPHOCYTES # (AUTO) 2.4 X10'3 (1.1-4.8); LYMPHOCYTES % (AUTO) 39.7 % (21-51); MEAN CORPUSCULAR HEMOGLOBIN 26.9 PG (27.0-31.0); MEAN CORPUSCULAR HGB CONC 33.1 g/dL (33.0-36.5); MEAN CORPUSCULAR VOLUME 81.2 FL (78-98); MEAN PLATELET VOLUME 7.4 FL (7.4-10.4); MONOCYTES # (AUTO) 0.5 X10'3 (0-0.9); MONOCYTES % (AUTO) 8.4 % (2-12); NEUTROPHILS # (AUTO) 2.9 X10'3 (1.8-7.7); NEUTROPHILS % (AUTO) 47.4 % (42-75); PLATELET COUNT 250 X10'3 (140-440); RED CELL DISTRIBUTION WIDTH 14.9 % (11.5-14.5); WHITE BLOOD COUNT 6.2 X10'3 (4.5-11.0)
[2024-08-03] MEDS ORDERED: NO HOME MEDS (23:41)
[2024-08-04 00:03] LABS: ANION GAP 7 (8-16); BLOOD UREA NITROGEN 17 MG/DL (7-18); BUN/CREATININE RATIO 22.4 (10.0-20.0); CALCIUM 8.3 MG/DL (8.5-10.1); CHLORIDE 107 MMOL/L (99-107); CREATININE 0.76 MG/DL (0.60-1.10); GLUCOSE 102 MG/DL (70-104); POTASSIUM 3.9 MMOL/L (3.5-5.1); SODIUM 142 MMOL/L (135-145); THYROID STIMULATING HORMONE 0.59 ulU/ml (0.34-4.50); TOTAL CARBON DIOXIDE 27.8 MMOL/L (24-32); eCRCL 145 ML/MIN; eGFR > 90 ML/MIN
[2024-08-04 00:14] LABS: ETHANOL < 10 MG/DL (<10)
[2024-08-04 00:33] LABS: BILIRUBIN,URINE NEGATIVE (Neg); CLARITY,URINE CLEAR (Clear); COLOR,URINE YELLOW (Yellow); GLUCOSE, URINE NEGATIVE (Neg); KETONES,URINE TRACE mg/dl (Neg); LEUKOCYTE ESTERASE ,URINE NEGATIVE (Neg); NITRITES, URINE NEGATIVE (Neg); OCCULT BLOOD,URINE LARGE (Neg); PH,URINE 6.5 (4.8-8.0); PROTEIN,URINE NEGATIVE (Neg); UROBILINOGEN,URINE 0.2 E.U/dL (0.2-1.0)
[2024-08-04 00:39] LABS: UA COLLECTION TYPE CLN CATCH MIDSTREAM
[2024-08-04 00:41] LABS: BACTERIA,URINE NONE SEEN /HPF (Neg); RBC,URINE TNTC /HPF (0-2); SQUAMOUS EPITHELIAL CELL,UR NONE SEEN /LPF (FEW); WBC,URINE 0-4 /HPF (0-4)
[2024-08-04 01:09] LABS: URINE AMPHETAMINE SCREEN POSITIVE (Neg); URINE BARBITUATE SCREEN NEGATIVE (Neg); URINE BENZODIAZEPINES SCREEN NEGATIVE (Neg); URINE CANNABINOID SCREEN POSITIVE (Neg); URINE COCAINE SCREEN NEGATIVE (Neg); URINE METHADONE SCREEN NEGATIVE (Neg); URINE OPIATE SCREEN NEGATIVE (Neg); URINE PHENCYCLIDINE SCREEN NEGATIVE (Neg)
[2024-08-04 10:43] VITALS: TEMP 98
[2024-08-04 14:20] VITALS: BP 145/69; PULSE 102; O2SAT 98
[2024-08-04 14:33] VITALS: RESP 18
== END 2024-08-04 14:34 ==
LOC: ER 23:08
DX: R45.851 Suicidal ideations (principal); F15.20 Other stimulant dependence, uncomplicated; F99 Mental disorder, not otherwise specified; F10.90 Alcohol use, unspecified, uncomplicated; F12.90 Cannabis use, unspecified, uncomplicated; Z20.822 Contact with and (suspected) exposure to COVID-19; Y90.0 Blood alcohol level of less than 20 mg/100 ml
CPT/HCPCS: 36415; 80048; 80305; 80320; 81001; 84443; 85025; 87811; 99285

== ENCOUNTER 2024-08-08 04:10 | Emergency (ER) | payer MEDICAID ==
[~2024-08-08] VITALS: Ht 175.3 cm; Wt 58.0 kg
[~2024-08-08 04:10] MED LIST changes: +NO HOME MEDS
[2024-08-08 04:24] VITALS: BP 144/90; PULSE 141; RESP 12; TEMP 98; O2SAT 99
[2024-08-08 05:13] LABS: BILIRUBIN,URINE NEGATIVE (Neg); CLARITY,URINE CLEAR (Clear); COLOR,URINE YELLOW (Yellow); GLUCOSE, URINE NEGATIVE (Neg); KETONES,URINE NEGATIVE (Neg); LEUKOCYTE ESTERASE ,URINE NEGATIVE (Neg); NITRITES, URINE NEGATIVE (Neg); OCCULT BLOOD,URINE NEGATIVE (Neg); PH,URINE 6.5 (4.8-8.0); PROTEIN,URINE 30 mg/dl (Neg); UROBILINOGEN,URINE 0.2 E.U/dL (0.2-1.0)
[2024-08-08 05:14] LABS: UA COLLECTION TYPE NON-SPECIFIED
[2024-08-08 05:24] LABS: BACTERIA,URINE FEW /HPF (Neg); MUCUS STRANDS MODERATE /LPF (Neg); RBC,URINE 0-2 /HPF (0-2); SQUAMOUS EPITHELIAL CELL,UR FEW /LPF (FEW)
== END 2024-08-08 07:24 | disposition left against medical advice (07) ==
LOC: ER 04:10
DX: R10.84 Generalized abdominal pain (principal); R19.7 Diarrhea, unspecified; Z53.21 Procedure and treatment not carried out due to patient leaving prior to being seen by health care provider
CPT/HCPCS: 81001; 87088

== ENCOUNTER 2024-08-08 14:06 | Emergency (ER) | payer MEDICAID | END 2024-08-08 15:11 | disposition left against medical advice (07) | LOC: ER 14:07 | DX: R10.84 Generalized abdominal pain (principal); Z53.21 Procedure and treatment not carried out due to patient leaving prior to being seen by health care provider | CPT/HCPCS: A4620 ==

== ENCOUNTER 2024-08-08 21:01 | Emergency (ER) | payer MEDICAID | END 2024-08-08 23:30 | disposition left against medical advice (07) | LOC: ER 21:02 | DX: Z02.9 Encounter for administrative examinations, unspecified (principal); Z53.21 Procedure and treatment not carried out due to patient leaving prior to being seen by health care provider ==

== ENCOUNTER 2024-08-09 19:47 | Emergency (ER) | payer MEDICAID ==
[~2024-08-09] VITALS: Ht 170.2 cm; Wt 60.0 kg
[~2024-08-09 19:47] MED LIST changes: -BUPR1FIL3 SL; -NALO4SPR22 NAS; -NICO-687 TOP; -ONDA-243 PO
[2024-08-09 19:54] VITALS: BP 127/70; PULSE 100; RESP 16; TEMP 98; O2SAT 100
--- NOTE | 2024-08-09 22:23 | Physician Documentation ---
HPI ~ General Chief Complaint: Medication Request Stated Complaint: MED CLEARANCE Time Seen by MD: 22:23 OK to notify your PCP?: Yes Primary Medical Doctor: NONE Source: patient Mode of Arrival: POV Exam Limitations: no limitations History of Present Illness HPI Comments Sajan is a 24-year-old male presenting to our emergency department for clearance to go to rehab for fentanyl use. denies any fentanyl use today. Denies any HI or SI. Medication Reconciliation Allergies: Coded Allergies: No Known Allergies (Unverified , 08/08/24) Miscellaneous Medications Home Med List (No Home Medications), (Reported) Discontinued Medications Buprenorphine Hcl/Naloxone Hcl (Suboxone 8 Mg-2 Mg Sl Film), 1 STRIP SL BID Discontinued Reason: patient no longer taking Naloxone HCl (Naloxone HCl), 1 SPRAY XIOMARA Q5MIN PRN for PRN, (Reported) Discontinued Reason: patient no longer taking Nicotine 21 MG Patch* (Habitrol 21 MG Patch*), 1 PATCH TOP DAILY, (Reported) Discontinued Reason: patient no longer taking ONDANSETRON ODT 4mg tablet (Ondansetron Odt), 1 TAB PO Q6H PRN PRN for nausea/vomiting Discontinued Reason: patient no longer taking Past Medical History Past Medical History: No Pertinent History, *PSYCH* Past Surgical History: no surgical history Alcohol Use: Heavy Drug Use: marijuana, methamphetamine Lives In: Home Review of Systems All Other Systems at this time: Reviewed and Negative Physical Exam Physical Exam Vital Signs: RN Vital Signs have been reviewed: Yes, Temperature: 98.0, Source: Oral, Heart Rate: 100, Respiratory Rate: 16, BP: 127/70, Pulse Oximetry: 100, Weight: 60.000 Oxygen Flow Rate: 0 Pulse Oximetry Reflects: adequate oxygenation Physical Exam General: Well developed, well nourished, no distress. HEENT: Atraumatic, normal conjunctiva, moist mucous membranes. Neck: Full range of motion, supple. Respiratory: Lungs clear, no respiratory distress. Chest: No accessory muscle use, nontender. Cardiovascular: Regular rate and rhythm. Extremities: Normal range of motion, nontender, normal capillary refill, no deformity. Back: No CVA tenderness. Neurologic: Oriented x4. Psychiatric: Normal mood and affect. Skin: Normal color, warm and dry. No edema, no ecchymosis Progress Results/Orders Results/Orders Vital Signs 08/09/24 19:54 Temp 98.0 Pulse 100 Resp 16 B/P (MAP) 127/70 Pulse Ox 100 O2 Flow Rate 0 Departure Disposition: 01 HOME / SELF CARE / HOMELESS Impression: Primary Impression: General medical exam Condition: Stable Discharge Instructions: Medical Screening Exam Additional Instructions: YOU ARE MEDICALLY CLEARED FOR REHAB. PLEASE REFRAIN FROM USING ILLICIT SUBSTANCES. rETURN HERE FOR ANY NEW OR WORSENING ISSUES. Referrals: NO PRIMARY CARE PROVIDER (PCP) Education Educated: Patient Educated regarding: diagnosis, treatment, prognosis, need for follow up Signature Scribe Signature: . Attestation: Scribed for Linnette Candelario Journeyman Powerhouse Operator by Linnette Ardon NP . 08/09/24 23:34 LINNETTE CANDELARIO MEDICAL LABORATORY SCIENTIST August 09, 2024 22:23
== END 2024-08-09 22:58 | disposition home or self-care (01) ==
LOC: ER 19:48
DX: Z00.8 Encounter for other general examination (principal)
CPT/HCPCS: 99281

== ENCOUNTER 2024-08-11 20:12 | Emergency (ER) | payer MEDICAID ==
[~2024-08-11] VITALS: Ht 177.8 cm; Wt 48.9 kg
[~2024-08-11 20:12] MED LIST changes: +BUPR1FIL3 SL; +NALO4SPR22 NAS; +NICO-687 TOP; +ONDA-243 PO
[2024-08-11 20:38] VITALS: BP 111/65; PULSE 102; RESP 16; O2SAT 100
--- NOTE | 2024-08-11 21:58 | Physician Documentation ---
History of Present Illness ~ Chief Complaint: Medical Clearance Stated Complaint: MED CLEARANCE Time Seen by MD: 21:49 Primary Medical Doctor: NONE HPI Patient presents to the emergency room for medical clearance to go to rehab facility. He abuses crystal meth. Tetanus within 5 years?: No Medication Reconciliation Allergies: Coded Allergies: No Known Allergies (Unverified , 08/08/24) Miscellaneous Medications Home Med List (No Home Medications), (Reported) Past Medical History Past Medical History: No Pertinent History, *PSYCH* Past Surgical History: no surgical history Alcohol Use: Heavy Drug Use: marijuana, methamphetamine Lives In: Home Review of Systems ROS All review of systems negative except as per HPI Physical Exam Vital Signs: Temperature: 98.2, Source: Temporal, Heart Rate: 102, Respiratory Rate: 16, BP: 111/65, Pulse Oximetry: 100, Weight: 48.900 Oxygen Flow Rate: 0 Physical Exam General: Patient is sleeping easily arousable in no acute distress Head: Normocephalic and atraumatic. Eyes: Conjunctival normal. EOMI. PERRL. ENT: Mucous membranes moist. Neck: Supple, trachea is midline. Chest: Clear to auscultation bilaterally without rales, rhonchi, or wheezes. There is no accessory muscle use or retractions. Cardiac: Mild tachycardia and regular without murmurs, gallops, or rubs. Progress Results/Orders Results/Orders Vital Signs 08/11/24 20:38 Temp 98.2 Pulse 102 Resp 16 B/P (MAP) 111/65 Pulse Ox 100 O2 Flow Rate 0 Medical Decision Making Findings Patient presents to the emergency room for medical clearance for rehab facility. Mild tachycardia although patient does endorse methamphetamine abuse. Patient appears comfortable he had not feel he requires emergent labs or imaging. I will clear him for rehab facility Departure Disposition: HOME / SELF CARE / HOMELESS Impression: Primary Impression: Methamphetamine abuse Condition: Fair Discharge Instructions: Medical Screening Exam Additional Instructions: Patient is medically cleared for rehab facility. Good luck Referrals: NO PRIMARY CARE PROVIDER (PCP) Education Educated: Patient Educated regarding: need for follow up Signature Scribe Signature: No scribe Attestation: The note accurately reflects work and decisions made by me.Jose J Cornell MD 08/11/24 21:58 JOSE J CORNELL MD August 11, 2024 21:58
[2024-08-11 21:59] VITALS: TEMP 98.2
== END 2024-08-11 22:02 | disposition home or self-care (01) ==
LOC: ER 20:13
DX: F15.10 Other stimulant abuse, uncomplicated (principal); F12.90 Cannabis use, unspecified, uncomplicated; F10.90 Alcohol use, unspecified, uncomplicated; Y90.9 Presence of alcohol in blood, level not specified
CPT/HCPCS: 99281

== ENCOUNTER 2024-08-13 08:08 | Emergency (ER) | payer MEDICAID ==
[~2024-08-13] VITALS: Ht 175.3 cm; Wt 86.4 kg
[~2024-08-13 08:08] MED LIST changes: -BUPR1FIL3 SL; -NALO4SPR22 NAS; -NICO-687 TOP; -ONDA-243 PO
[2024-08-13 08:13] VITALS: TEMP 98
--- NOTE | 2024-08-13 09:01 | Physician Documentation ---
History of Present Illness ~ Chief Complaint: Suicidal Ideation Stated Complaint: SI Time Seen by MD: 08:53 Primary Medical Doctor: NONE Mode of Arrival: Ambulatory HPI Patient is seen today with complaints of suicide risk. Patient states that he has had plans to kill himself by laying down on the railroad tracks and getting run over today or tomorrow. Patient also states he wants to get into rehab drugs and alcohol. Patient denies any homicidal risk or danger to others in admits to only danger to himself. Patient admits to being homeless. Patient has no new or other concern or complaint at this time. Medication Reconciliation Allergies: Coded Allergies: No Known Allergies (Unverified , 08/08/24) Miscellaneous Medications Home Med List (No Home Medications), (Reported) Past Medical History Past Medical History: No Pertinent History, *PSYCH* Past Surgical History: no surgical history Alcohol Use: Heavy Drug Use: marijuana, methamphetamine Lives In: Home Review of Systems Constitutional: Denies: chills, fever, weakness Eyes: Denies: pain, blurred vision ENT: Denies: ear pain, nose pain, throat pain, mouth pain Respiratory: Denies: cough, shortness of breath Cardiovascular: Denies: chest pain, palpitations Gastrointestinal: Denies: abdominal pain, nausea, vomiting Genitourinary: Denies: burning, dysuria Male Genitalia: Denies: penile discharge, testicular pain Neurological: Denies: headache, dizziness Musculoskeletal: Denies: pain, swelling Integumentary: Denies: rash, lesions Allergic/Immunologic: Denies: hives, itching Hematologic/Lymphatic: Denies: no symptoms reported Psychiatric: Denies: depression, anxiety Physical Exam Vital Signs: Temperature: 98.0, Heart Rate: 110, Respiratory Rate: 16, BP: 116/67, Pulse Oximetry: 98, Weight: 86.360 Oxygen Flow Rate: 0 Physical Exam General: Awake and Alert, no acute distress. HEENT: Conjunctiva pink, Sclera clear, Mucus Membranes moist. Neck: Supple without masses and tenderness. Resp: Unlabored. Lungs clear to auscultation bilaterally. Heart: Regular Rate and rhythm, normal S1 and S2 without murmur, rub or gallop. Abdomen: Soft and non tender no organomegaly Extremities: No cyanosis,clubbing or edema. Skin: Warm and Dry. Progress Results/Orders Results/Orders Orders - ALIA PRIETO PAC Med Rec (08/13/24 08:58) 1799.11 (08/13/24 08:58) Close Observation Level (08/13/24 08:58) Covid19 Binax Poc Result Entry (08/13/24 08:58) Substance Use Navigator (08/13/24 08:58) Regular Diet (08/13/24 Lunch) Completed Orders - ALIA PRIETO Cbc/Diff (08/13/24 08:58) Urinalysis (08/13/24 08:58) Drug Screen, Urine (08/13/24 08:58) Ethanol (08/13/24 08:58) TSH (08/13/24 08:58) BMP (08/13/24 08:58) Vital Signs 08/13/24 08:13 Temp 98.0 Pulse 110 Resp 16 B/P (MAP) 116/67 Pulse Ox 98 O2 Flow Rate 0 Laboratory Tests Test 08/13/24 09:05 08/13/24 09:06 08/13/24 12:04 SARS-CoV-2 Antigen (Rapid) Negative White Blood Count 4.8 Red Blood Count 4.77 Hemoglobin 12.8 L Hematocrit 38.7 L Mean Corpuscular Volume 81.1 Mean Corpuscular Hemoglobin 26.8 L Mean Corpuscular Hemoglobin Concent 33.0 Red Cell Distribution Width 15.0 H Platelet Count 308 Mean Platelet Volume 7.5 Neutrophils (%) (Auto) 57.7 Lymphocytes (%) (Auto) 32.7 Monocytes (%) (Auto) 7.3 Eosinophils (%) (Auto) 1.9 Basophils (%) (Auto) 0.4 Neutrophils # (Auto) 2.7 Lymphocytes # (Auto) 1.6 Monocytes # (Auto) 0.3 Eosinophils # (Auto) 0.1 Basophils # (Auto) 0.0 CBC Comment Sodium Level 143 Potassium Level 4.1 Chloride Level 109 H Carbon Dioxide Level 28.3 Anion Gap 6 L Blood Urea Nitrogen 8 Creatinine 0.65 Estimated GFR/1.73 m2 > 90 BUN/Creatinine Ratio 12.3 Glucose Level 82 Calcium Level 8.7 Albumin 3.3 L Thyroid Stimulating Hormone (TSH) 0.26 L Chemistry Comments Ethyl Alcohol Level < 10 Urine Specimen Description Non-specified Urine Color Yellow Urine Clarity Clear Urine pH 7.0 Urine Specific [place] 1.015 Urine Protein Negative Urine Glucose (UA) Negative Urine Ketones Negative Urine Occult Blood Negative Urine Nitrite Negative Urine Bilirubin Negative Urine Urobilinogen 0.2 Urine Leukocyte Esterase Negative Volume Urine Centrifuged 10 ml Urine Comment Urine Opiates Screen Negative Urine Methadone Screen Negative Urine Fentanyl Screen Negative Urine Barbiturates Screen Negative Urine Phencyclidine Screen Negative Urine Amphetamines Screen Positive Urine Benzodiazepines Screen Negative Urine Cocaine Screen Negative Urine Cannabinoids Screen Positive Drug Screen Comment Medical Decision Making Findings Patient is seen today with complaints of suicide risk. Patient states that he has had plans to kill himself by laying down on the railroad tracks and getting run over today or tomorrow. Patient also states he wants to get into rehab drugs and alcohol. Patient denies any homicidal risk or danger to others in admits to only danger to himself. Patient admits to being homeless. Patient has no new or other concern or complaint at this time. Patient is cleared medically for psychiatric evaluation. Patient was actually cleared by Psychiatry and was deemed to not be a danger to himself or others and was given some food and states he is ready to go home. Patient will return to ED with any worsening, concerning or changing symptoms. Departure Disposition: 30 STILL A PATIENT Impression: Primary Impression: Methamphetamine abuse Additional Impressions: Suicidal ideation Malingering Condition: Improved Discharge Instructions: Psychosis, Depression, Adult Additional Instructions: Patient is cleared medically for psychiatric evaluation. Patient was actually cleared by Psychiatry and was deemed to not be a danger to himself or others and was given some food and states he is ready to go home. Patient will return to ED with any worsening, concerning or changing symptoms. Referrals: NO PRIMARY CARE PROVIDER (PCP) Signature Scribe Signature: No scribe Attestation: No scribe ALIA PRIETO August 13, 2024 09:01
[2024-08-13 09:23] LABS: BASOPHILS % (AUTO) 0.4 % (0-1); EOSINOPHILS # (AUTO) 0.1 X10'3 (0-0.9); EOSINOPHILS % (AUTO) 1.9 % (0-6); HEMATOCRIT 38.7 % (42.0-52.0); HEMOGLOBIN 12.8 g/dl (14.0-17.9); LYMPHOCYTES # (AUTO) 1.6 X10'3 (1.1-4.8); LYMPHOCYTES % (AUTO) 32.7 % (21-51); MEAN CORPUSCULAR HEMOGLOBIN 26.8 PG (27.0-31.0); MEAN CORPUSCULAR VOLUME 81.1 FL (78-98); MEAN PLATELET VOLUME 7.5 FL (7.4-10.4); MONOCYTES # (AUTO) 0.3 X10'3 (0-0.9); MONOCYTES % (AUTO) 7.3 % (2-12); NEUTROPHILS # (AUTO) 2.7 X10'3 (1.8-7.7); NEUTROPHILS % (AUTO) 57.7 % (42-75); PLATELET COUNT 308 X10'3 (140-440); RED BLOOD COUNT 4.77 X10'6 (4.70-6.10); WHITE BLOOD COUNT 4.8 X10'3 (4.5-11.0)
[2024-08-13 09:40] LABS: ALBUMIN 3.3 G/DL (3.4-5.0); ANION GAP 6 (8-16); BLOOD UREA NITROGEN 8 MG/DL (7-18); BUN/CREATININE RATIO 12.3 (10.0-20.0); CALCIUM 8.7 MG/DL (8.5-10.1); CHLORIDE 109 MMOL/L (99-107); CREATININE 0.65 MG/DL (0.60-1.10); ETHANOL < 10 MG/DL (<10); GLUCOSE 82 MG/DL (70-104); POTASSIUM 4.1 MMOL/L (3.5-5.1); SODIUM 143 MMOL/L (135-145); THYROID STIMULATING HORMONE 0.26 ulU/ml (0.34-4.50); TOTAL CARBON DIOXIDE 28.3 MMOL/L (24-32); eCRCL 177 ML/MIN; eGFR > 90 ML/MIN
[2024-08-13 12:41] LABS: URINE AMPHETAMINE SCREEN POSITIVE (Neg); URINE BARBITUATE SCREEN NEGATIVE (Neg); URINE BENZODIAZEPINES SCREEN NEGATIVE (Neg); URINE CANNABINOID SCREEN POSITIVE (Neg); URINE COCAINE SCREEN NEGATIVE (Neg); URINE METHADONE SCREEN NEGATIVE (Neg); URINE OPIATE SCREEN NEGATIVE (Neg); URINE PHENCYCLIDINE SCREEN NEGATIVE (Neg)
[2024-08-13 13:00] LABS: BILIRUBIN,URINE NEGATIVE (Neg); CLARITY,URINE CLEAR (Clear); COLOR,URINE YELLOW (Yellow); GLUCOSE, URINE NEGATIVE (Neg); KETONES,URINE NEGATIVE (Neg); LEUKOCYTE ESTERASE ,URINE NEGATIVE (Neg); NITRITES, URINE NEGATIVE (Neg); OCCULT BLOOD,URINE NEGATIVE (Neg); PROTEIN,URINE NEGATIVE (Neg); UROBILINOGEN,URINE 0.2 E.U/dL (0.2-1.0)
[2024-08-13 13:11] LABS: UA COLLECTION TYPE NON-SPECIFIED
[2024-08-13 17:46] VITALS: BP 120/81; PULSE 65; RESP 16; O2SAT 97
== END 2024-08-13 17:57 | disposition still patient (30) ==
LOC: ER 08:09
DX: F15.10 Other stimulant abuse, uncomplicated (principal); R45.851 Suicidal ideations; Z76.5 Malingerer [conscious simulation]; F12.90 Cannabis use, unspecified, uncomplicated; F10.90 Alcohol use, unspecified, uncomplicated; Z59.00 Homelessness unspecified; Z20.822 Contact with and (suspected) exposure to COVID-19; Y90.9 Presence of alcohol in blood, level not specified
CPT/HCPCS: 36415; 80048; 80305; 80320; 81003; 84443; 85025; 87811; 99284

== ENCOUNTER 2024-08-15 10:40 | Emergency (ER) | payer MEDICAID ==
[~2024-08-15] VITALS: Ht 175.3 cm; Wt 86.0 kg
[2024-08-15 10:50] VITALS: TEMP 98.4
--- NOTE | 2024-08-15 11:28 | ELECTROCARDIOGRAPH REPORT ---
[facility] Test Date: 2024-08-15 Test Time: 11:25:36 Pat Name: KAMERON YU Department: EMERGENCY ROOM Patient ID: [facility]-[id number] Room: Gender: M [employer] Specialist: : [id number] Requested By: DEIDRE BONNER Order Number: [id number] Reading MD: Dr. Kevin Guerrier Measurements Intervals [place] Rate: 158 P: 81 NM: 92 QRS: 74 QRSD: 88 T: -59 QT: 307 QTc: 498 Interpretive Statements Sinus tachycardia LAE, consider biatrial enlargement RSR' in V1 or V2, probably normal variant Repol abnrm suggests ischemia, inferior leads Prolonged QT interval Electronically Signed On 08-19-2024 21:46:[address] Kevin Guerrier Please click the below link to view image of tracing.
--- NOTE | 2024-08-15 12:39 | Physician Documentation ---
History of Present Illness ~ Chief Complaint: See Chief Complaint Stated Complaint: SI Time Seen by MD: 12:38 Primary Medical Doctor: NONE HPI 24-year-old male presenting for medical screening for detox. He reports last using meth 2 days ago. He would like to go into treatment Tetanus within 5 years?: No Medication Reconciliation Allergies: Coded Allergies: No Known Allergies (Unverified , 08/08/24) Miscellaneous Medications Home Med List (No Home Medications), (Reported) Past Medical History Past Medical History: No Pertinent History, *PSYCH* Past Surgical History: no surgical history Alcohol Use: Heavy Drug Use: marijuana, methamphetamine Lives In: Home Review of Systems All Other Systems at this time: Reviewed and Negative Cardiovascular: Reports: chest pain Physical Exam Vital Signs: Temperature: 98.4, Source: Oral, Heart Rate: 150, Respiratory Rate: 18, BP: 145/89, Pulse Oximetry: 98, Weight: 86.000 Physical Exam Nontoxic Pulmonary clear to auscultation Cardiac no murmur Abdomen is soft nontender Progress Progress Note Reassess patient 3:50 p.m. his heart rate has much improved he is feeling better. He has eaten a sandwich drinking plenty of water had plenty of urinary output and no longer has any chest pain. His heart rate is in the 90s. Medic ally cleared for rehab Results/Orders Reviewed/noted all lab results: Yes Results/Orders Orders - DEIDRE BONNER MD Chest,Single View (08/15/24 12:51) Completed Orders - DEIDRE BONNER MD Electrocardiogram (08/15/24 ) Ringers Solution, Lacted (Lactated Ringe (08/15/24 12:40) BMP (08/15/24 12:41) Cbc/Diff (08/15/24 12:41) Lorazepam Tablet (Ativan Tablet) (08/15/24 12:45) Troponin (Single) (08/15/24 12:46) Labetalol Inj. (Trandate 20 Mg/4ml Syrin (08/15/24 12:50) Chest,Single View (08/15/24 12:51) Labetalol Inj. (Trandate 20 Mg/4ml Syrin (08/15/24 14:10) Drug Screen, Urine (08/15/24 14:10) Ethanol (08/15/24 13:00) Medications Received in ER Medications (Trade) Dose Ordered Sig/Lidia Route PRN Reason Start Time Stop Time Status Last Admin Dose Admin Lactated Ringer's 1,000 ml @ 1,000 mls/hr ONCE ONCE IV 08/15/24 12:40 08/15/24 13:39 DC 08/15/24 14:11 1,000 MLS/HR (Ativan tablet) 1 mg ONCE ONCE PO 08/15/24 12:45 08/15/24 12:46 DC 08/15/24 14:05 1 MG (Trandate 20 mg/ 4ml syringe) 10 mg ONCE ONCE IV 08/15/24 12:50 08/15/24 12:51 DC 08/15/24 14:05 10 MG (Trandate 20 mg/ 4ml syringe) 20 mg ONCE ONCE IV 08/15/24 14:10 08/15/24 14:15 DC 08/15/24 14:23 20 MG Vital Signs 08/15/24 08/15/24 08/15/24 10:50 12:30 14:23 Temp 98.4 Pulse 150 102 Resp 18 16 B/P (MAP) 145/89 140/91 (107) Pulse Ox 98 100 O2 Flow Rate 0 Laboratory Tests Test 08/15/24 13:00 08/15/24 14:45 White Blood Count 9.7 Red Blood Count 4.90 Hemoglobin 13.3 L Hematocrit 39.9 L Mean Corpuscular Volume 81.4 Mean Corpuscular Hemoglobin 27.2 Mean Corpuscular Hemoglobin Concent 33.4 Red Cell Distribution Width 15.1 H Platelet Count 295 Mean Platelet Volume 7.5 Neutrophils (%) (Auto) 79.5 H Lymphocytes (%) (Auto) 15.3 L Monocytes (%) (Auto) 4.9 Eosinophils (%) (Auto) 0.1 Basophils (%) (Auto) 0.2 Neutrophils # (Auto) 7.7 Lymphocytes # (Auto) 1.5 Monocytes # (Auto) 0.5 Eosinophils # (Auto) 0.0 Basophils # (Auto) 0.0 CBC Comment Sodium Level 142 Potassium Level 4.1 Chloride Level 110 H Carbon Dioxide Level 27.6 Anion Gap 4 L Blood Urea Nitrogen 9 Creatinine 0.70 Estimated GFR/1.73 m2 > 90 BUN/Creatinine Ratio 12.9 Glucose Level 93 Calcium Level 8.4 L Troponin I High Sensitivity 5 Albumin 3.4 Chemistry Comments Ethyl Alcohol Level < 10 Urine Opiates Screen Negative Urine Methadone Screen Negative Urine Fentanyl Screen Negative Urine Barbiturates Screen Negative Urine Phencyclidine Screen Negative Urine Amphetamines Screen Positive Urine Benzodiazepines Screen Negative Urine Cocaine Screen Negative Urine Cannabinoids Screen Positive Drug Screen Comment EKG/XRAY/CT/US/VASC/MRI EKG : Additional Comment EKG independently interpreted by myself time 11:25 a.m. indication chest pain sinus tachycardia rate 158 normal axis normal intervals no ST-T abnormalities Medical Decision Making Differential Dx:Considerations: Intoxication - ETOH, Intoxication - other drug, Sub. Abuse -continuous Departure Disposition: HOME / SELF CARE / HOMELESS Impression: Primary Impression: Methamphetamine abuse Additional Instructions: This patient has been seen and evaluated in the emergency department in his medically cleared for substance abuse treatment program Referrals: NO PRIMARY CARE PROVIDER (PCP) Critical Care Note Total Time (mins): 30 Critical Care Note The very real possibility of a deterioration of this patient's condition required the highest level of my preparedness for sudden, emergent intervention. I provided critical care services, which included medication orders, frequent reevaluations of the patient's condition and response to treatment, ordering and reviewing test results, and discussing the case with various consultants. Exclud es time spent performing separately billable procedures. The critical care time associated with the care of the patient was 30 minutes in the acute management of a sinus tachycardia requiring intervention Signature Scribe Signature: na Attestation: DEIDRE Lay MD August 15, 2024 12:39
[2024-08-15] MEDS: ringers solution, lacted 1,000 ML IV ONE (13:00)
[2024-08-15 13:13] LABS: BASOPHILS % (AUTO) 0.2 % (0-1); EOSINOPHILS % (AUTO) 0.1 % (0-6); HEMATOCRIT 39.9 % (42.0-52.0); HEMOGLOBIN 13.3 g/dl (14.0-17.9); LYMPHOCYTES # (AUTO) 1.5 X10'3 (1.1-4.8); LYMPHOCYTES % (AUTO) 15.3 % (21-51); MEAN CORPUSCULAR HEMOGLOBIN 27.2 PG (27.0-31.0); MEAN CORPUSCULAR HGB CONC 33.4 g/dL (33.0-36.5); MEAN CORPUSCULAR VOLUME 81.4 FL (78-98); MEAN PLATELET VOLUME 7.5 FL (7.4-10.4); MONOCYTES # (AUTO) 0.5 X10'3 (0-0.9); MONOCYTES % (AUTO) 4.9 % (2-12); NEUTROPHILS # (AUTO) 7.7 X10'3 (1.8-7.7); NEUTROPHILS % (AUTO) 79.5 % (42-75); PLATELET COUNT 295 X10'3 (140-440); RED CELL DISTRIBUTION WIDTH 15.1 % (11.5-14.5); WHITE BLOOD COUNT 9.7 X10'3 (4.5-11.0)
[2024-08-15 13:22] LABS: ALBUMIN 3.4 G/DL (3.4-5.0); ANION GAP 4 (8-16); BLOOD UREA NITROGEN 9 MG/DL (7-18); BUN/CREATININE RATIO 12.9 (10.0-20.0); CALCIUM 8.4 MG/DL (8.5-10.1); CHLORIDE 110 MMOL/L (99-107); GLUCOSE 93 MG/DL (70-104); POTASSIUM 4.1 MMOL/L (3.5-5.1); SODIUM 142 MMOL/L (135-145); TOTAL CARBON DIOXIDE 27.6 MMOL/L (24-32); eCRCL 164 ML/MIN; eGFR > 90 ML/MIN
--- NOTE | 2024-08-15 13:26 | RADIOLOGY REPORT ---
CHEST RADIOGRAPH Indication: chest pain Technique: Single frontal view of the chest was obtained Comparison: DI CHEST,SINGLE VIEW on DOS: 05/15/23 FINDINGS: Lines and Tubes: None Lungs: No focal consolidation. Pleura: No effusion. No pneumothorax. Cardiomediastinal contours: Unremarkable Bones: No acute osseous abnormality. IMPRESSION: 1. No acute cardiopulmonary disease. Unchanged from prior study.
[2024-08-15] MEDS: labetalol 20mg/4ml (5mg/ml) syringe IV ONE ×2 (14:05→14:23)
[2024-08-15] MEDS: LORazepam 1 MG tablet PO ONE (14:05)
[2024-08-15 14:37] LABS: ETHANOL < 10 MG/DL (<10)
[2024-08-15 15:28] LABS: URINE AMPHETAMINE SCREEN POSITIVE (Neg); URINE BARBITUATE SCREEN NEGATIVE (Neg); URINE BENZODIAZEPINES SCREEN NEGATIVE (Neg); URINE CANNABINOID SCREEN POSITIVE (Neg); URINE COCAINE SCREEN NEGATIVE (Neg); URINE METHADONE SCREEN NEGATIVE (Neg); URINE OPIATE SCREEN NEGATIVE (Neg); URINE PHENCYCLIDINE SCREEN NEGATIVE (Neg)
[2024-08-15 17:08] VITALS: BP 149/92; PULSE 102; RESP 16; O2SAT 99
== END 2024-08-15 17:19 | disposition home or self-care (01) ==
LOC: ER 10:40
DX: F15.10 Other stimulant abuse, uncomplicated (principal); F12.90 Cannabis use, unspecified, uncomplicated; F10.90 Alcohol use, unspecified, uncomplicated; Z79.899 Other long term (current) drug therapy; Y90.9 Presence of alcohol in blood, level not specified
CPT/HCPCS: 36415; 71045; 80048; 80305; 80320; 84484; 85025; 93005; 96361; 96374; 99285; J3490; J7030; J7120; 99291

== ENCOUNTER 2024-08-15 20:50 | Emergency (ER) | payer MEDICAID ==
[~2024-08-15] VITALS: Ht 175.3 cm; Wt 72.7 kg
[2024-08-15 21:00] VITALS: BP 148/89; PULSE 96; RESP 18; TEMP 98.1; O2SAT 99
--- NOTE | 2024-08-15 22:13 | Physician Documentation ---
History of Present Illness ~ General Chief Complaint: Abdominal Pain Stated Complaint: ABDOM PAIN Time Seen by MD: 21:24 OK to notify your PCP?: Yes Primary Medical Doctor: NONE Source: patient Mode of Arrival: POV Exam Limitations: no limitations History of Present Illness Initial Comments Sajan is a 24-year-old male who is well known to our emergency department, presenting for the 2nd time today and requesting a labetalol injection to "make him feel better". He was seen earlier today and received an abdominal pain wo rkup which was negative as well as labetalol to help lower his heart rate. He admits to using methamphetamine. He denies any abdominal pain, vomiting or diarrhea, shortness of breath or chest pain at this time. He is requesting a sandwich and some water. He denies any HI or SI. Medication Reconciliation Allergies: Coded Allergies: No Known Allergies (Unverified , 08/15/24) Miscellaneous Medications Home Med List (No Home Medications), (Reported) Past Medical History Past Medical History: No Pertinent History, *PSYCH* Past Surgical History: no surgical history Alcohol Use: Heavy Drug Use: marijuana, methamphetamine Lives In: Home Review of Systems All Other Systems at this time: Reviewed and Negative Physical Exam Physical Exam Vital Signs: RN Vital Signs have been reviewed: Yes, Temperature: 98.1, Source: Oral, Heart Rate: 96, Respiratory Rate: 18, BP: 148/89, Pulse Oximetry: 99, Weight: 72.730 Pulse Oximetry Reflects: adequate oxygenation Physical Exam General: Alert, no apparent distress. HEENT: PERRL, EOMI, no injection, moist mucous membranes. Neck: Full range of motion. Respiratory: Lungs clear, no respiratory distress. Chest: No accessory muscle use. Cardiovascular: Regular rate and rhythm, no murmurs. Gastrointestinal: Soft, nontender, nondistended. Bowels sounds present. Extremities: Normal range of motion, no deformity. Neurologic: Oriented x4. Psychiatric: Normal mood and affect. Skin: Normal color, warm and dry. No edema, no ecchymosis. Progress Results/Orders Reviewed/noted all lab results: Yes Results/Orders Vital Signs 08/15/24 21:00 Temp 98.1 Pulse 96 Resp 18 B/P (MAP) 148/89 Pulse Ox 99 Medical Decision Making Additional info obtained from: old records Findings Sajan is a 24-year-old male who is requesting labetalol to make him feel better, but this is not indicated as his heart rate is normal. He is also requesting some food and water which was provided. He has no medical complaints at this time. He reports he would like to go into rehab for his methamphetamine use. He has been cleared for rehab. He has been educated to stop using illicit substances. He should return back here for any new or worsening symptoms. He denies any HI or SI. Differential Diagnosis Meth psychosis, suicidal ideation, homicidal ideation, hallucinations Departure Disposition: HOME / SELF CARE / HOMELESS Impression: Primary Impression: Dehydration Condition: Stable Discharge Instructions: Dehydration, Adult Additional Instructions: You have been medically cleared to attend rehab. You have also been given large glass of water and a snack. Please follow up with her primary care provider in 3 days and return back here for any new or worsening symptoms Referrals: NO PRIMARY CARE PROVIDER (PCP) Education Educated: Patient Educated regarding: diagnosis, treatment, prognosis, need for follow up Signature Scribe Signature: . Attestation: Scribed for Linnette Candelario Coin Machine Collector by Linnette Ardon NP . 08/16/24 01:16 LINNETTE CANDELARIO August 15, 2024 22:13
== END 2024-08-15 22:25 | disposition home or self-care (01) ==
LOC: ER 20:50
DX: E86.0 Dehydration (principal); R10.84 Generalized abdominal pain; F12.90 Cannabis use, unspecified, uncomplicated; F15.90 Other stimulant use, unspecified, uncomplicated; F10.90 Alcohol use, unspecified, uncomplicated; Y90.9 Presence of alcohol in blood, level not specified
CPT/HCPCS: 99281

== ENCOUNTER 2024-08-17 14:43 | Emergency (ER) | payer MEDICAID | END 2024-08-17 15:27 | disposition left against medical advice (07) | LOC: ER 14:43 | DX: Z02.9 Encounter for administrative examinations, unspecified (principal); Z53.21 Procedure and treatment not carried out due to patient leaving prior to being seen by health care provider ==

== ENCOUNTER 2024-08-17 18:03 | Emergency (ER) | payer MEDICAID ==
[~2024-08-17] VITALS: Ht 172.7 cm; Wt 68.2 kg
[2024-08-17 18:06] VITALS: BP 118/86; PULSE 97; RESP 18; TEMP 97.1; O2SAT 99
--- NOTE | 2024-08-17 18:15 | Physician Documentation ---
History of Present Illness ~ General Chief Complaint: See Chief Complaint Stated Complaint: MED CLEARANCE/WANTS TO GET INTO A REHAB Time Seen by MD: 18:08 OK to notify your PCP?: Yes Primary Medical Doctor: NONE Source: patient Mode of Arrival: POV Exam Limitations: no limitations History of Present Illness Initial Comments Sajan is a 24-year-old male requesting medical clearance for rehab. He denies HI or SI Last meth use was 2 days ago. He has no physical medical complaints. Medication Reconciliation Allergies: Coded Allergies: No Known Allergies (Unverified , 08/17/24) Miscellaneous Medications Home Med List (No Home Medications), (Reported) Past Medical History Past Medical History: No Pertinent History, *PSYCH* Past Surgical History: no surgical history Alcohol Use: Heavy Drug Use: marijuana, methamphetamine Lives In: Home Review of Systems All Other Systems at this time: Reviewed and Negative Physical Exam Physical Exam Vital Signs: RN Vital Signs have been reviewed: Yes, Temperature: 97.1, Source: Temporal, Heart Rate: 97, Respiratory Rate: 18, BP: 118/86, Pulse Oximetry: 99, Weight: 68.180 Pulse Oximetry Reflects: adequate oxygenation Physical Exam General: Alert, no apparent distress. Respiratory: Lungs clear, no respiratory distress. Chest: No accessory muscle use. Cardiovascular: Regular rate and rhythm, no murmurs. Extremities: Normal range of motion, no deformity. Neurologic: Oriented x4. Psychiatric: Normal mood and affect. Skin: Normal color, warm and dry. No edema, no ecchymosis. Progress Results/Orders Results/Orders Vital Signs 08/17/24 18:06 Temp 97.1 Pulse 97 Resp 18 B/P (MAP) 118/86 Pulse Ox 99 Medical Decision Making Additional info obtained from: old records Findings Denies a 24-year-old male who is well known to our department for medical clearance to go to rehab. His last meth use was 2 days ago and he has no medical complaints at this time. He denies HI or SI. He has been discharged with clearance to go to rehab and we spoke about it and he plans to go tomorrow morning. He should follow up with his primary care provider or [facility] in the next 3 days. He should come back here for any new or worsening symptoms. Differential Diagnosis Meth psychosis, SI, homelessness Departure Disposition: HOME / SELF CARE / HOMELESS Impression: Primary Impression: General medical exam Condition: Stable Additional Instructions: You have been medically cleared for rehab. Please go to rehab as planned tomorrow. Please refrain from using illicit substances such as methamphetamine. Follow up with her primary care provider in the next 3 days or [facility]. And return back here for any new or worsening symptoms. Referrals: NO PRIMARY CARE PROVIDER (PCP) Education Educated: Patient Educated regarding: diagnosis, treatment, prognosis, need for follow up Signature Scribe Signature: . Attestation: Scribed for Linnette Candelario Watermaster by Linnette Ardon NP . 08/17/24 18:56 LINNETTE CANDELARIO SHOWER ROOM ATTENDANT August 17, 2024 18:15
== END 2024-08-17 18:36 | disposition home or self-care (01) ==
LOC: ER 18:04
DX: Z02.9 Encounter for administrative examinations, unspecified (principal); F12.90 Cannabis use, unspecified, uncomplicated; F15.90 Other stimulant use, unspecified, uncomplicated; F10.90 Alcohol use, unspecified, uncomplicated; Y90.9 Presence of alcohol in blood, level not specified
CPT/HCPCS: 99281

== ENCOUNTER 2024-08-18 00:35 | Emergency (ER) | payer MEDICAID ==
[~2024-08-18] VITALS: Ht 175.3 cm; Wt 63.6 kg
[2024-08-18 00:47] VITALS: BP 134/90; PULSE 92; RESP 16; O2SAT 99
--- NOTE | 2024-08-18 02:30 | Physician Documentation ---
History of Present Illness ~ General Chief Complaint: General Stated Complaint: ABDOMINAL PAIN Time Seen by MD: 02:27 Primary Medical Doctor: NONE History of Present Illness Initial Comments Patient presents to the emergency room as you states he was feeling sick however he is feeling better now. Was seen here yesterday for similar complaint. Medication Reconciliation Allergies: Coded Allergies: No Known Allergies (Unverified , 08/17/24) Miscellaneous Medications Home Med List (No Home Medications), (Reported) Past Medical History Past Medical History: No Pertinent History, *PSYCH* Past Surgical History: no surgical history Alcohol Use: Heavy Drug Use: marijuana, methamphetamine Lives In: Home Review of Systems ROS All review of systems negative except as per HPI Physical Exam Physical Exam Vital Signs: Temperature: 97.7, Source: Temporal, Heart Rate: 92, Respiratory Rate: 16, BP: 134/90, Pulse Oximetry: 99, Weight: 63.640 Physical Exam General: Patient is sleeping, easily aroused in no acute distress Head: Normocephalic and atraumatic. Eyes: Conjunctival normal. EOMI. PERRL. ENT: Mucous membranes moist. Neck: Supple, trachea is midline. Chest: Clear to auscultation bilaterally without rales, rhonchi, or wheezes. There is no accessory muscle use or retractions. Cardiac: RRR without murmurs, gallops, or rubs. Abd: Soft, nondistended, nontender, with normoactive bowel sounds. No guarding, rebound, or rigidity. Progress Results/Orders Results/Orders Vital Signs 08/18/24 00:47 Temp 97.7 Pulse 92 Resp 16 B/P (MAP) 134/90 Pulse Ox 99 Medical Decision Making Findings Patient presented to the emergency room for evaluation as he was feeling ill however by the time he was able to see patient he was feeling much better and I do not feel emergent labs or imaging is necessary. Departure Disposition: 01 HOME / SELF CARE / HOMELESS Impression: Primary Impression: General medical exam Condition: Stable Discharge Instructions: General Discharge Instructions Referrals: NO PRIMARY CARE PROVIDER (PCP) Signature Scribe Signature: No scribe Attestation: The note accurately reflects work and decisions made by me.Jose J Cornell MD 08/18/24 02:30 JOSE J CORNELL MD August 18, 2024 02:30
[2024-08-18 02:34] VITALS: TEMP 97.7
== END 2024-08-18 02:36 | disposition home or self-care (01) ==
LOC: ER 00:36
DX: R10.84 Generalized abdominal pain (principal); F12.90 Cannabis use, unspecified, uncomplicated; F15.90 Other stimulant use, unspecified, uncomplicated; F10.90 Alcohol use, unspecified, uncomplicated; Y90.9 Presence of alcohol in blood, level not specified
CPT/HCPCS: 99281

== ENCOUNTER 2024-08-18 20:37 | Emergency (ER) | payer MEDICAID ==
[~2024-08-18] VITALS: Ht 175.3 cm; Wt 59.9 kg
[2024-08-18 20:40] VITALS: BP 121/60; PULSE 87; RESP 16; O2SAT 98
--- NOTE | 2024-08-18 20:56 | Physician Documentation ---
History of Present Illness ~ Chief Complaint: Suicidal Ideation Stated Complaint: SI Time Seen by MD: 20:51 Primary Medical Doctor: NONE HPI Patient presents to the emergency room for evaluation of possible suicidal ideation. Upon further questioning he is not actually suicidal but endorses thoughts of feeling messed up . When asked if he has a plan he states he was going to kill himself with some needle stabbings. Medication Reconciliation Allergies: Coded Allergies: No Known Allergies (Unverified , 08/17/24) Miscellaneous Medications Home Med List (No Home Medications), (Reported) Past Medical History Past Medical History: No Pertinent History, *PSYCH* Past Surgical History: no surgical history Alcohol Use: Heavy Drug Use: marijuana, methamphetamine Lives In: Home Review of Systems ROS All review of systems negative except as per HPI Physical Exam Vital Signs: Temperature: 98.4, Source: Oral, Heart Rate: 87, Respiratory Rate: 16, BP: 121/60, Pulse Oximetry: 98, Weight: 59.900 Oxygen Flow Rate: 0 Physical Exam General: Patient is awake, alert, oriented x4 in no acute distres Head: Normocephalic and atraumatic. Eyes: Conjunctival normal. EOMI. PERRL. ENT: Mucous membranes moist. Neck: Supple, trachea is midline. Chest: Clear to auscultation bilaterally without rales, rhonchi, or wheezes. There is no accessory muscle use or retractions. Cardiac: RRR without murmurs, gallops, or rubs. Psych: Poor eye contact, avoidant, manipulative Progress Results/Orders Results/Orders Vital Signs 08/18/24 20:40 Temp 98.4 Pulse 87 Resp 16 B/P (MAP) 121/60 Pulse Ox 98 O2 Flow Rate 0 Medical Decision Making Findings Patient presents to the emergency room in usual fashion. Although he uses the term suicide loosely he does not have a real plan and does state that that he is not actually suicidal at this time. I do not believe he is gravely disabled. Differential Dx:Considerations: Include: Alcohol abuse, Anxiety, Bipolar disorder, Conversion disorder, Depression, Personality disorder, Schizophrenia, Substance abuse, Suicidal Departure Disposition: 01 HOME / SELF CARE / HOMELESS Impression: Primary Impression: Homelessness Condition: Fair Discharge Instructions: Suicidal Feelings: How to Help Yourself Additional Instructions: Follow up with [facility] Referrals: NO PRIMARY CARE PROVIDER (PCP) Education Educated: Patient Educated regarding: need for follow up Signature Scribe Signature: No scribe Attestation: The note accurately reflects work and decisions made by me.Jose J Cornell MD 08/18/24 20:56 JOSE J CORNELL MD August 18, 2024 20:56
[2024-08-18 21:05] VITALS: TEMP 98.4
== END 2024-08-18 21:09 | disposition home or self-care (01) ==
LOC: ER 20:38
DX: Z00.8 Encounter for other general examination (principal); Z59.00 Homelessness unspecified; F12.90 Cannabis use, unspecified, uncomplicated; F15.90 Other stimulant use, unspecified, uncomplicated
CPT/HCPCS: 99281

== ENCOUNTER 2024-08-19 09:57 | Emergency (ER) | payer MEDICAID ==
[~2024-08-19] VITALS: Ht 172.7 cm; Wt 63.6 kg
[2024-08-19 10:03] VITALS: BP 131/73; PULSE 116; RESP 18; TEMP 97.8; O2SAT 97
== END 2024-08-19 12:03 | disposition left against medical advice (07) ==
LOC: ER 09:58
DX: Z02.9 Encounter for administrative examinations, unspecified (principal); Z53.21 Procedure and treatment not carried out due to patient leaving prior to being seen by health care provider

== ENCOUNTER 2024-09-14 19:04 | Emergency (ER) | payer MEDICAID ==
[~2024-09-14] VITALS: Ht 175.3 cm; Wt 63.1 kg
[2024-09-14 19:31] LABS: BASOPHILS % (AUTO) 0.2 % (0-1); EOSINOPHILS # (AUTO) 0.2 X10'3 (0-0.9); EOSINOPHILS % (AUTO) 2.3 % (0-6); HEMATOCRIT 36.5 % (42.0-52.0); HEMOGLOBIN 12.1 g/dl (14.0-17.9); LYMPHOCYTES # (AUTO) 1.8 X10'3 (1.1-4.8); MEAN CORPUSCULAR HEMOGLOBIN 27.4 PG (27.0-31.0); MEAN CORPUSCULAR HGB CONC 33.2 g/dL (33.0-36.5); MEAN CORPUSCULAR VOLUME 82.6 FL (78-98); MEAN PLATELET VOLUME 7.8 FL (7.4-10.4); MONOCYTES # (AUTO) 0.6 X10'3 (0-0.9); MONOCYTES % (AUTO) 7.6 % (2-12); NEUTROPHILS # (AUTO) 4.9 X10'3 (1.8-7.7); NEUTROPHILS % (AUTO) 65.9 % (42-75); PLATELET COUNT 253 X10'3 (140-440); RED BLOOD COUNT 4.43 X10'6 (4.70-6.10); RED CELL DISTRIBUTION WIDTH 15.5 % (11.5-14.5); WHITE BLOOD COUNT 7.4 X10'3 (4.5-11.0)
[2024-09-14 19:54] LABS: BILIRUBIN,URINE NEGATIVE (Neg); CLARITY,URINE CLEAR (Clear); GLUCOSE, URINE NEGATIVE (Neg); KETONES,URINE NEGATIVE (Neg); LEUKOCYTE ESTERASE ,URINE NEGATIVE (Neg); NITRITES, URINE NEGATIVE (Neg); OCCULT BLOOD,URINE TRACE-INTACT (Neg); PROTEIN,URINE TRACE mg/dl (Neg); UROBILINOGEN,URINE 0.2 E.U/dL (0.2-1.0)
[2024-09-14 19:54] LABS: ALBUMIN 3.7 G/DL (3.4-5.0); ANION GAP 10 (8-16); BLOOD UREA NITROGEN 20 MG/DL (7-18); BUN/CREATININE RATIO 21.5 (10.0-20.0); CHLORIDE 109 MMOL/L (99-107); CREATININE 0.93 MG/DL (0.60-1.10); ETHANOL < 10 MG/DL (<10); GLUCOSE 126 MG/DL (70-104); POTASSIUM 3.6 MMOL/L (3.5-5.1); SODIUM 146 MMOL/L (135-145); THYROID STIMULATING HORMONE 0.35 ulU/ml (0.34-4.50); TOTAL CARBON DIOXIDE 26.6 MMOL/L (24-32); eCRCL 110 ML/MIN; eGFR > 90 ML/MIN
[2024-09-14 19:55] LABS: COLOR,URINE STRAW (Yellow); UA COLLECTION TYPE VOIDED
[2024-09-14 19:59] LABS: SQUAMOUS EPITHELIAL CELL,UR MODERATE /LPF (FEW)
[2024-09-14 20:00] LABS: MUCUS STRANDS MODERATE /LPF (Neg)
[2024-09-14 20:02] LABS: BACTERIA,URINE NONE SEEN /HPF (Neg)
[2024-09-14 20:12] LABS: URINE AMPHETAMINE SCREEN POSITIVE (Neg); URINE BARBITUATE SCREEN NEGATIVE (Neg); URINE BENZODIAZEPINES SCREEN NEGATIVE (Neg); URINE CANNABINOID SCREEN POSITIVE (Neg); URINE COCAINE SCREEN NEGATIVE (Neg); URINE METHADONE SCREEN NEGATIVE (Neg); URINE OPIATE SCREEN NEGATIVE (Neg); URINE PHENCYCLIDINE SCREEN NEGATIVE (Neg)
[2024-09-14] MEDS ORDERED: OLAN15TA97 PO (21:12)
[2024-09-14] MEDS ORDERED: CLON0.1T PO (21:12)
[2024-09-14] MEDS: OLANZapine 5mg rapidly disint. tablet PO STA (21:24)
--- NOTE | 2024-09-14 21:36 | Physician Documentation ---
History of Present Illness ~ Chief Complaint: Mental Health Eval Stated Complaint: SI Time Seen by MD: 20:58 Primary Medical Doctor: NONE Source: patient Mode of Arrival: Ambulatory Exam Limitations: no limitations HPI Chief Complaint: Suicidal ideations Caveat: Poor historian Independent Historians: None History of Present Illness: Patient is a 24-year-old man who comes in complaining of having suicidal ideations and thinking of jumping in front of a train. Patient was just released from nursing home either today or yesterday. Patient states that he last used meth yesterday. Patient states that he feels sick. Patient complains of some nausea and abdominal pain. Patient denies any fever. Patient is however a poor historian. Review of systems: All systems were reviewed and are negative except for what is indicated in the history of present illness. Past Medical History: Polysubstance abuse Past Surgical History: Unknown Social History: Polysubstance abuse, marijuana use, tobacco use, alcohol use, methamphetamine use Medications: Reviewed as documented Nursing Notes Allergies: Reviewed as documented in Nursing Notes Medication Reconciliation Allergies: Coded Allergies: No Known Allergies (Unverified , 08/17/24) Scheduled Olanzapine (Olanzapine), 1 TAB PO HS, (Reported) Scheduled PRN Clonidine HCl (Clonidine HCl), 1 TAB PO BID PRN for anxiety, (Reported) Miscellaneous Medications Home Med List (No Home Medications), (Reported) Past Medical History Past Medical History: No Pertinent History, *PSYCH* Past Surgical History: no surgical history Alcohol Use: Heavy Drug Use: marijuana, methamphetamine Lives In: Home Review of Systems All Other Systems at this time: Reviewed and Negative ROS Patient denies any other acute symptoms other than above. All other systems are negative Physical Exam Vital Signs: RN Vital Signs have been reviewed: Yes, Temperature: 98.4, Source: Oral, Heart Rate: 112, Respiratory Rate: 17, BP: 124/70, Pulse Oximetry: 98, Weight: 63.140 Oxygen Flow Rate: 0 Pulse Oximetry Reflects: adequate oxygenation Physical Exam General Appearance: MILD DISTRESS, PATIENT IS RESTLESS AND TWEAKING HEENT: Normal OP, moist oral mucosa, PERRL, EOMI Neck: supple, normal ROM, trachea midline Pulmonary: No respiratory distress, CTA, BS equal Cardiac: TACHYCARDIC, REGULAR RHYTHM, no murmur, rub or gallop, GI: nondistended, soft, nontender, normal bowel sounds, no guarding, no rebound Extremities: normal ROM, no swelling, non-tender Skin: intact, dry, warm, no rashes Neuro: AAOx3, speech is clear, no focal motor weakness Psych: RESTLESS AND AGITATED, TWEAKING, FAIR EYE CONTACT, no apparent hallucination, SHORT PRESSURED SPEECH Progress Results/Orders Results/Orders Orders - YELITZA JOSEPH MD Med Rec (09/14/24 19:16) Close Observation Level (09/14/24 19:16) Covid19 Binax Poc Result Entry (09/14/24 19:16) Substance Use Navigator (09/14/24 19:16) Regular Diet (09/15/24 Breakfast) Completed Orders - YELITZA JOSEPH MD Cbc/Diff (09/14/24 19:16) Drug Screen, Urine (09/14/24 19:16) Ethanol (09/14/24 19:16) TSH (09/14/24 19:16) BMP (09/14/24 19:16) Ua With Microscopic (09/14/24 19:29) Olanzapine Disint. Tablet (Zyprexa Zydis (09/14/24 21:12) Vital Signs 09/14/24 19:07 Temp 98.4 Pulse 112 Resp 17 B/P (MAP) 124/70 Pulse Ox 98 O2 Flow Rate 0 Laboratory Tests Test 09/14/24 19:21 09/14/24 19:29 White Blood Count 7.4 Red Blood Count 4.43 L Hemoglobin 12.1 L Hematocrit 36.5 L Mean Corpuscular Volume 82.6 Mean Corpuscular Hemoglobin 27.4 Mean Corpuscular Hemoglobin Concent 33.2 Red Cell Distribution Width 15.5 H Platelet Count 253 Mean Platelet Volume 7.8 Neutrophils (%) (Auto) 65.9 Lymphocytes (%) (Auto) 24.0 Monocytes (%) (Auto) 7.6 Eosinophils (%) (Auto) 2.3 Basophils (%) (Auto) 0.2 Neutrophils # (Auto) 4.9 Lymphocytes # (Auto) 1.8 Monocytes # (Auto) 0.6 Eosinophils # (Auto) 0.2 Basophils # (Auto) 0.0 CBC Comment Sodium Level 146 H Potassium Level 3.6 Chloride Level 109 H Carbon Dioxide Level 26.6 Anion Gap 10 Blood Urea Nitrogen 20 H Creatinine 0.93 Estimated GFR/1.73 m2 > 90 BUN/Creatinine Ratio 21.5 H Glucose Level 126 H Calcium Level 9.0 Albumin 3.7 Thyroid Stimulating Hormone (TSH) 0.35 Chemistry Comments Ethyl Alcohol Level < 10 SARS-CoV-2 Antigen (Rapid) Negative Urine Specimen Description Voided Urine Color Straw Urine Clarity Clear Urine pH 6.0 Urine Specific [place] >=1.030 Urine Protein Trace Urine Glucose (UA) Negative Urine Ketones Negative Urine Occult Blood Trace-intact Urine Nitrite Negative Urine Bilirubin Negative Urine Urobilinogen 0.2 Urine Leukocyte Esterase Negative Urine RBC 3-10 Urine WBC 5-10 H Urine Squamous Epithelial Cells Moderate Urine Bacteria None seen Urine Mucus Moderate Volume Urine Centrifuged 10 ml Urine Comment Urine Opiates Screen Negative Urine Methadone Screen Negative Urine Fentanyl Screen Negative Urine Barbiturates Screen Negative Urine Phencyclidine Screen Negative Urine Amphetamines Screen Positive Urine Benzodiazepines Screen Negative Urine Cocaine Screen Negative Urine Cannabinoids Screen Positive Drug Screen Comment Medical Decision Making Findings Differential diagnosis includes but is not limited to: Schizophrenia, schizoaffective disorder, meth and do psychosis, suicidal ideations, depression, anxiety, polysubstance abuse Laboratory data independent interpretation: CBC: Mild anemia with a hemoglobin of 12.1 CMP: Unremarkable Toxicology: Positive for meth, negative for alcohol or Serology: Negative for COVID Urinalysis: Contaminated specimen Emergency department course/medical decision-making: Patient presents with complaints of suicidal ideation. Patient has been using methamphetamine. The patient is medically cleared and stable for psychiatric consultation. Once the patient comes down off his meth I suspect he will be stable for discharge. 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
[2024-09-14] MEDS ORDERED: GABA300C PO (21:37)
[2024-09-15] MEDS ORDERED: cloNIDine 0.1 mg tablet PO PRN (06:05)
[2024-09-15] MEDS: gabapentin 300mg capsule PO SCH (08:17)
[2024-09-15 10:46] VITALS: BP 104/48; PULSE 80; RESP 16; TEMP 97.7; O2SAT 100
[2024-09-15] MEDS ORDERED: OLANZAPINE 5 MG TABLET PO SCH (21:00)
== END 2024-09-15 11:56 | disposition home or self-care (01) ==
LOC: ER 19:04
DX: R45.851 Suicidal ideations (principal); F15.10 Other stimulant abuse, uncomplicated; F24 Shared psychotic disorder; F12.10 Cannabis abuse, uncomplicated; R11.0 Nausea; R10.9 Unspecified abdominal pain; Z20.822 Contact with and (suspected) exposure to COVID-19
CPT/HCPCS: 36415; 80048; 80305; 80320; 81001; 84443; 85025; 87811; 99281; 99284

== ENCOUNTER 2024-09-18 22:48 | Emergency (ER) | payer MEDICAID ==
[~2024-09-18] VITALS: Ht 175.3 cm; Wt 75.0 kg
[~2024-09-18 22:48] MED LIST changes: +CLON0.1T PO; +GABA300C PO; -NO HOME MEDS; +OLAN15TA97 PO
[2024-09-18 22:57] VITALS: BP 144/87; PULSE 101; RESP 18; TEMP 98.5; O2SAT 99
--- NOTE | 2024-09-19 00:03 | Physician Documentation ---
History of Present Illness ~ Chief Complaint: See Chief Complaint Stated Complaint: SI Time Seen by MD: 23:16 Primary Medical Doctor: NONE HPI Patient is seen today with very scattered and no specific complaints. Patient states he is hungry and homeless and does not have a place to stay. Patient also went into the bathroom for about 20 minutes and refused to come out and when he did come out he had blood running down his antecubital fossa in the left side. Patient admits to methamphetamine use. Patient denies any current chest pain or shortness of breath or abdominal pain or nausea, vomiting, diarrhea. Tetanus within 5 years?: No (patient unable to state) Medication Reconciliation Allergies: Coded Allergies: No Known Allergies (Unverified , 08/17/24) Scheduled Gabapentin (Neurontin), 1 CAP PO TID, (Reported) Olanzapine (Olanzapine), 1 TAB PO HS, (Reported) Scheduled PRN Clonidine HCl (Clonidine HCl), 1 TAB PO BID PRN for anxiety, (Reported) Discontinued Medications Home Med List (No Home Medications), (Reported) Discontinued Reason: Other Past Medical History Past Medical History: No Pertinent History, *PSYCH* Past Surgical History: no surgical history Alcohol Use: Heavy Drug Use: marijuana, methamphetamine Lives In: Home Review of Systems Constitutional: Denies: chills, fever, weakness Eyes: Denies: pain, blurred vision ENT: Denies: ear pain, nose pain, throat pain, mouth pain Respiratory: Denies: cough, shortness of breath Cardiovascular: Denies: chest pain, palpitations Gastrointestinal: Denies: abdominal pain, nausea, vomiting Genitourinary: Denies: burning, dysuria Male Genitalia: Denies: penile discharge, testicular pain Neurological: Denies: headache, dizziness Musculoskeletal: Denies: pain, swelling Integumentary: Denies: rash, lesions Allergic/Immunologic: Denies: hives, itching Hematologic/Lymphatic: Denies: no symptoms reported Psychiatric: Denies: depression, anxiety Physical Exam Vital Signs: Temperature: 98.5, Source: Oral, Heart Rate: 101, Respiratory Rate: 18, BP: 144/87, Pulse Oximetry: 99, Weight: 75.000 Physical Exam General: Awake and Alert, no acute distress. HEENT: Conjunctiva pink, Sclera clear, Mucus Membranes moist. Neck: Supple without masses and tenderness. Resp: Unlabored. Lungs clear to auscultation bilaterally. Heart: Regular Rate and rhythm, normal S1 and S2 without murmur, rub or gallop. Abdomen: Soft and non tender no organomegaly Extremities: No cyanosis,clubbing or edema. Skin: Patient on exam does have blood running down his left antecubital fossa from vena puncture recently. Progress Results/Orders Results/Orders Vital Signs 09/18/24 22:57 Temp 98.5 Pulse 101 Resp 18 B/P (MAP) 144/87 Pulse Ox 99 Medical Decision Making Findings Patient is seen today with very scattered and no specific complaints. Patient states he is hungry and homeless and does not have a place to stay. Patient also went into the bathroom for about 20 minutes and refused to come out and when he did come out he had blood running down his antecubital fossa in the left side. Patient admits to methamphetamine use. Patient denies any current chest pain or shortness of breath or abdominal pain or nausea, vomiting, diarrhea. Patient was found to be shooting up IV drugs in the bathroom. Patient was strongly advised to get checked into drug rehab center. Patient is medically cleared to check into rehab. Patient will return to ED with any worsening, concerning or changing symptoms. Departure Disposition: 01 HOME / SELF CARE / HOMELESS Impression: Primary Impression: Methamphetamine addiction Additional Impression: Methamphetamine abuse Condition: Stable Discharge Instructions: Methamphetamine Tablets Additional Instructions: Patient was found to be shooting up IV drugs in the bathroom. Patient was strongly advised to get checked into drug rehab center. Patient is medically cleared to check into rehab. Patient will return to ED with any worsening, concerning or changing symptoms. Referrals: NO PRIMARY CARE PROVIDER (PCP) Signature Scribe Signature: No scribe Attestation: No scribe ALIA PRIETO Sep 19, 2024 00:03
== END 2024-09-19 00:10 | disposition home or self-care (01) ==
LOC: ER 22:50
DX: F15.20 Other stimulant dependence, uncomplicated (principal); F12.90 Cannabis use, unspecified, uncomplicated; F10.90 Alcohol use, unspecified, uncomplicated; Z59.00 Homelessness unspecified; Z79.899 Other long term (current) drug therapy; Y90.9 Presence of alcohol in blood, level not specified
CPT/HCPCS: 99281; 99282

== ENCOUNTER 2024-09-20 15:28 | Emergency (ER) | payer MEDICAID ==
[~2024-09-20] VITALS: Ht 175.3 cm; Wt 53.6 kg
--- NOTE | 2024-09-20 15:46 | Physician Documentation ---
History of Present Illness ~ Chief Complaint: Mental Health Eval Stated Complaint: "FEELING SICK" Time Seen by MD: 16:04 Primary Medical Doctor: NONE HPI 24-year-old male patient presents to the ED after ingesting methamphetamine today and developing suicide ideations stating that he wants to jump in front of a train. Patient reports that he has a attempted similar things in the past. He states that he wants to get some help and that he has a history of schizophrenia in his supposed to be on medication but has not been on any medication for quite some time. He reports that he has been using methamphetamines every day. Medication Reconciliation Allergies: Coded Allergies: No Known Allergies (Unverified , 08/17/24) Scheduled Gabapentin (Neurontin), 1 CAP PO TID, (Reported) Olanzapine (Olanzapine), 1 TAB PO HS, (Reported) Scheduled PRN Clonidine HCl (Clonidine HCl), 1 TAB PO BID PRN for anxiety, (Reported) Discontinued Medications Home Med List (No Home Medications), (Reported) Discontinued Reason: Other Past Medical History Past Medical History: No Pertinent History, *PSYCH* Past Surgical History: no surgical history Alcohol Use: Heavy Drug Use: marijuana, methamphetamine Lives In: Home Review of Systems All Other Systems at this time: Reviewed and Negative Physical Exam Vital Signs: Temperature: 98.6, Source: Temporal, Heart Rate: 105, Respiratory Rate: 16, BP: 125/80, Pulse Oximetry: 98, Weight: 53.600 Physical Exam I have reviewed the triage vitals. CONST: Well developed and well nourished. In no acute distress HENT: Head Atraumatic EYES: Pupils are equal, round and reactive to light. Normal conjunctiva NECK: Normal range of motion. Supple. CARDIO: Normal rate and regular rhythm. No murmurs, rubs, or gallops. S1, S2. PULM/CHEST: No respiratory distress. Lungs clear to auscultation. No wheeze ABD: Soft and nontender. Nondistended. Bowel sounds normal. No guarding. : Exam deferred MSK: No edema. No deformity. NEURO: Alert and oriented to person, place and time. Moving all extremities SKIN: Warm and dry. PSYCH: Normal mood and affect. Good eye contact. Endorses suicidal ideations. Denies hallucinations at this time. Progress Results/Orders Results/Orders Orders - NANDO FRANCISCO MD Med Rec (09/20/24 16:04) 1799.11 (09/20/24 16:04) Close Observation Level (09/20/24 16:04) Covid19 Binax Poc Result Entry (09/20/24 16:04) Regular Diet (09/20/24 Dinner) Completed Orders - NANDO FRANCISCO MD Cbc/Diff (09/20/24 16:04) Urinalysis (09/20/24 16:04) Drug Screen, Urine (09/20/24 16:04) Ethanol (09/20/24 16:04) TSH (09/20/24 16:04) BMP (09/20/24 16:04) Olanzapine Tablet (Zyprexa Tablet) (09/20/24 16:10) Olanzapine Tablet (Zyprexa Tablet) (09/20/24 16:10) Free T4 (09/20/24 17:22) Vital Signs 09/20/24 09/20/24 09/20/24 09/21/24 15:41 16:33 20:00 05:33 Temp 98.6 98.1 Pulse 105 74 Resp 16 16 12 18 B/P (MAP) 125/80 119/62 (81) Pulse Ox 98 97 09/21/24 06:55 Resp 12 B/P (MAP) Laboratory Tests Test 09/20/24 16:20 09/20/24 17:22 Urine Specimen Description Cln catch midstream Urine Color Straw Urine Clarity Clear Urine pH 6.0 Urine Specific [place] <=1.005 Urine Protein Negative Urine Glucose (UA) Negative Urine Ketones Negative Urine Occult Blood Negative Urine Nitrite Negative Urine Bilirubin Negative Urine Urobilinogen 0.2 Urine Leukocyte Esterase Negative Volume Urine Centrifuged 10 ml Urine Comment Urine Opiates Screen Negative Urine Methadone Screen Negative Urine Fentanyl Screen Positive H Urine Barbiturates Screen Negative Urine Phencyclidine Screen Negative Urine Amphetamines Screen Positive Urine Benzodiazepines Screen Negative Urine Cocaine Screen Negative Urine Cannabinoids Screen Positive Drug Screen Comment SARS-CoV-2 Antigen (Rapid) Negative White Blood Count 6.9 Red Blood Count 4.37 L Hemoglobin 12.2 L Hematocrit 36.1 L Mean Corpuscular Volume 82.6 Mean Corpuscular Hemoglobin 27.9 Mean Corpuscular Hemoglobin Concent 33.8 Red Cell Distribution Width 14.9 H Platelet Count 273 Mean Platelet Volume 7.8 Neutrophils (%) (Auto) 66.0 Lymphocytes (%) (Auto) 24.1 Monocytes (%) (Auto) 7.6 Eosinophils (%) (Auto) 1.7 Basophils (%) (Auto) 0.6 Neutrophils # (Auto) 4.5 Lymphocytes # (Auto) 1.7 Monocytes # (Auto) 0.5 Eosinophils # (Auto) 0.1 Basophils # (Auto) 0.0 CBC Comment Sodium Level 141 Potassium Level 3.6 Chloride Level 104 Carbon Dioxide Level 27.7 Anion Gap 9 Blood Urea Nitrogen 10 Creatinine 0.75 Estimated GFR/1.73 m2 > 90 BUN/Creatinine Ratio 13.3 Glucose Level 99 Calcium Level 8.9 Albumin 3.5 Thyroid Stimulating Hormone (TSH) 0.30 L Free Thyroxine 0.98 Chemistry Comments Ethyl Alcohol Level < 10 Medical Decision Making Findings Patient presented to the emergency room with suicidal ideation as per HPI. Labs reviewed and there was no evidence of major pathologic derangements. 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 Follow up closely with [facility]. Follow up with rehabilitation services. Return to the ED with any acutely worsening symptoms Referrals: NO PRIMARY CARE PROVIDER (PCP) Signature Scribe Signature: No scribe Attestation: The note accurately reflects work and decisions made by me.Raad Cornell MD 09/20/24 20:09 DAVID LOGAN NP Sep 20, 2024 15:46 NANDO FRANCISCO MD Sep 20, 2024 16:35 RAAD CORNELL MD Sep 20, 2024 20:09
[2024-09-20] MEDS ORDERED: OLANZapine 2.5MG tablet PO SCH (16:10)
[2024-09-20 16:32] LABS: BILIRUBIN,URINE NEGATIVE (Neg); CLARITY,URINE CLEAR (Clear); COLOR,URINE STRAW (Yellow); GLUCOSE, URINE NEGATIVE (Neg); KETONES,URINE NEGATIVE (Neg); LEUKOCYTE ESTERASE ,URINE NEGATIVE (Neg); NITRITES, URINE NEGATIVE (Neg); OCCULT BLOOD,URINE NEGATIVE (Neg); PROTEIN,URINE NEGATIVE (Neg); UROBILINOGEN,URINE 0.2 E.U/dL (0.2-1.0)
[2024-09-20 16:34] LABS: UA COLLECTION TYPE CLN CATCH MIDSTREAM
[2024-09-20 16:45] LABS: URINE AMPHETAMINE SCREEN POSITIVE (Neg); URINE BARBITUATE SCREEN NEGATIVE (Neg); URINE BENZODIAZEPINES SCREEN NEGATIVE (Neg); URINE CANNABINOID SCREEN POSITIVE (Neg); URINE COCAINE SCREEN NEGATIVE (Neg); URINE METHADONE SCREEN NEGATIVE (Neg); URINE OPIATE SCREEN NEGATIVE (Neg); URINE PHENCYCLIDINE SCREEN NEGATIVE (Neg)
[2024-09-20] MEDS: olanzapine 10mg tablet PO ONE (17:19)
[2024-09-20 17:39] LABS: BASOPHILS % (AUTO) 0.6 % (0-1); EOSINOPHILS # (AUTO) 0.1 X10'3 (0-0.9); EOSINOPHILS % (AUTO) 1.7 % (0-6); HEMATOCRIT 36.1 % (42.0-52.0); HEMOGLOBIN 12.2 g/dl (14.0-17.9); LYMPHOCYTES # (AUTO) 1.7 X10'3 (1.1-4.8); LYMPHOCYTES % (AUTO) 24.1 % (21-51); MEAN CORPUSCULAR HEMOGLOBIN 27.9 PG (27.0-31.0); MEAN CORPUSCULAR HGB CONC 33.8 g/dL (33.0-36.5); MEAN CORPUSCULAR VOLUME 82.6 FL (78-98); MEAN PLATELET VOLUME 7.8 FL (7.4-10.4); MONOCYTES # (AUTO) 0.5 X10'3 (0-0.9); MONOCYTES % (AUTO) 7.6 % (2-12); NEUTROPHILS # (AUTO) 4.5 X10'3 (1.8-7.7); PLATELET COUNT 273 X10'3 (140-440); RED BLOOD COUNT 4.37 X10'6 (4.70-6.10); RED CELL DISTRIBUTION WIDTH 14.9 % (11.5-14.5); WHITE BLOOD COUNT 6.9 X10'3 (4.5-11.0)
[2024-09-20 18:01] LABS: ALBUMIN 3.5 G/DL (3.4-5.0); ANION GAP 9 (8-16); BLOOD UREA NITROGEN 10 MG/DL (7-18); BUN/CREATININE RATIO 13.3 (10.0-20.0); CALCIUM 8.9 MG/DL (8.5-10.1); CHLORIDE 104 MMOL/L (99-107); CREATININE 0.75 MG/DL (0.60-1.10); GLUCOSE 99 MG/DL (70-104); POTASSIUM 3.6 MMOL/L (3.5-5.1); SODIUM 141 MMOL/L (135-145); TOTAL CARBON DIOXIDE 27.7 MMOL/L (24-32); eCRCL 116 ML/MIN; eGFR > 90 ML/MIN
[2024-09-20 18:04] LABS: ETHANOL < 10 MG/DL (<10)
[2024-09-20] MEDS ORDERED: cloNIDine 0.1 mg tablet PO PRN (20:15)
[2024-09-20] MEDS: gabapentin 300mg capsule PO SCH (20:19)
[2024-09-20 20:40] LABS: FREE T4 (FREE THYROXINE) 0.98 NG/DL (0.73-1.40)
[2024-09-21 15:48] VITALS: BP 119/62; PULSE 74; RESP 18; TEMP 98.1; O2SAT 97
[2024-09-21] MEDS ORDERED: OLANZAPINE 5 MG TABLET PO SCH (21:00)
== END 2024-09-21 16:03 | disposition home or self-care (01) ==
LOC: ER 15:29
DX: R45.851 Suicidal ideations (principal); F15.20 Other stimulant dependence, uncomplicated; F20.9 Schizophrenia, unspecified; F12.90 Cannabis use, unspecified, uncomplicated; Z20.822 Contact with and (suspected) exposure to COVID-19; Z79.899 Other long term (current) drug therapy
CPT/HCPCS: 36415; 80048; 80305; 80320; 81003; 84439; 84443; 85025; 87811; 99284; 99285

== ENCOUNTER 2024-09-21 17:40 | Emergency (ER) | payer MEDICAID ==
[~2024-09-21] VITALS: Ht 170.2 cm; Wt 53.6 kg
[2024-09-21 17:48] VITALS: BP 124/78; PULSE 100; RESP 18; O2SAT 98
--- NOTE | 2024-09-21 18:25 | Physician Documentation ---
History of Present Illness ~ General Chief Complaint: See Chief Complaint Stated Complaint: "JUST TRIED TO KILL MYSELF ON THE TRAIN TRACKS" Time Seen by MD: 18:28 Primary Medical Doctor: NONE History of Present Illness Initial Comments This is a 24-year-old male with history of methamphetamine abuse well-known to the emergency department who presents back to the emergency department after recently being released off of a mental health hold by [facility], patient is requesting transfer to a mental health facility for rehab off of methamphetamine. Patient reported on check-in that he was having suicidal ideation however on review of patient's discharge note dated this morning along with discussion with [facility] practitioner patient is well- known to use report of suicidal ideation as a manipulation tactic and has been evaluated not have self-harm behaviors by [facility]. Medication Reconciliation Allergies: Coded Allergies: No Known Allergies (Unverified , 09/21/24) Scheduled Gabapentin (Neurontin), 1 CAP PO TID, (Reported) Olanzapine (Olanzapine), 1 TAB PO HS, (Reported) Scheduled PRN Clonidine HCl (Clonidine HCl), 1 TAB PO BID PRN for anxiety, (Reported) Discontinued Medications Home Med List (No Home Medications), (Reported) Discontinued Reason: Other Past Medical History Past Medical History: No Pertinent History, *PSYCH* Past Surgical History: no surgical history Alcohol Use: Heavy Drug Use: marijuana, methamphetamine Lives In: Home Review of Systems ROS As stated above in the HPI, otherwise all systems are reviewed and negative. Physical Exam Physical Exam Vital Signs: Temperature: 98.2, Source: Temporal, Heart Rate: 100, Respiratory Rate: 18, BP: 124/78, Pulse Oximetry: 98, Weight: 53.600 Oxygen Flow Rate: 0 Physical Exam VITALS: Reviewed and as above. GENERAL: Alert and oriented, disheveled appearing, nontoxic appearing, no appare nt distress. RESPIRATORY: No increased work of breathing, no respiratory distress, speaking in full clear sentences PSYCH: Normal mood and affect, no agitation Progress Results/Orders Results/Orders Vital Signs 09/21/24 09/21/24 17:48 19:30 Temp 98.2 98.2 Pulse 100 Resp 18 B/P (MAP) 124/78 Pulse Ox 98 O2 Flow Rate 0 Medical Decision Making Findings This is a 24-year-old male who presented back to the emergency department requesting transfer to a psychiatric facility after being released from a mental health hold earlier today, patient is unhoused and has history of stating suicidal ideation in order to stay in the hospital setting opposed to homeless penitentiary, I discussed patient thoroughly with [facility] provider who saw him earlier today and reviewed [facility] providers visit note and discharge information for the patient. Per review of records patient has history of methamphetamine abuse and many of his stressors are related to drug use and homelessness which patient has been provided many resources many times on previous visits though is unwilling to follow through with, per [facility] evaluation patient is not a threat to himself or others and though patient makes statements of suicidal ideation he does not have a history of self-harm behaviors. As patient does not meet criteria for mental health hold he will be discharged to follow up with previously provided resources for substance abuse rehabilitation. I discussed plan with patient and though he was upset by the plan he did not have significant objections, patient did state that he would return to the emergency department should he feel unsafe again. Differential Diagnosis Suicidal ideation, homicidal ideation, substance abuse, methamphetamine induced psychosis, homelessness, hungry, Departure Disposition: 01 HOME / SELF CARE / HOMELESS Impression: Primary Impression: Malingering Condition: Improved Additional Instructions: Follow up with your previously provided referrals for substance use rehab. Please follow up with your primary care provider in the next few days. Please return to the emergency department for any new or worsening concerning symptoms. Referrals: NO PRIMARY CARE PROVIDER (PCP) Education Educated: Patient Educated regarding: diagnosis, treatment, prognosis, need for follow up Signature Scribe Signature: No scribe Attestation: The note accurately reflects work and decisions made by me.YASH Mcdonald 09/21/24 22:12 ALISON VIDALES Sep 21, 2024 18:25
[2024-09-21 19:30] VITALS: TEMP 98.2
== END 2024-09-21 19:32 | disposition home or self-care (01) ==
LOC: ER 17:41
DX: Z76.5 Malingerer [conscious simulation] (principal); F12.90 Cannabis use, unspecified, uncomplicated; F15.90 Other stimulant use, unspecified, uncomplicated; Z79.899 Other long term (current) drug therapy
CPT/HCPCS: 99281; 99282

== ENCOUNTER 2024-10-03 03:50 | Emergency (ER) | payer MEDICAID ==
[2024-10-05] MEDS ORDERED: SULF1TAB49 PO (03:06)
== END 2024-10-03 05:25 | disposition left against medical advice (07) ==
LOC: ER 03:51
DX: R69 Illness, unspecified (principal); Z53.21 Procedure and treatment not carried out due to patient leaving prior to being seen by health care provider

== ENCOUNTER 2024-10-04 20:00 | Emergency (ER) | payer MEDICAID ==
[~2024-10-04] VITALS: Ht 172.7 cm; Wt 50.5 kg
[2024-10-04 20:33] VITALS: PULSE 87; RESP 15; O2SAT 100
--- NOTE | 2024-10-04 23:45 | Physician Documentation ---
History of Present Illness ~ General Chief Complaint: See Chief Complaint Stated Complaint: SUSAN HANLEY Time Seen by MD: 21:24 Primary Medical Doctor: NONE Source: patient, RN/MD History of Present Illness Initial Comments Patient is seen today with complaints of anxiety after he states he got kicked out of the [facility] after doing meth today. Patient denies any chest pain or shortness of breath or abdominal pain or nausea, vomiting, diarrhea. Patient has no other concern or complaint at this time. Medication Reconciliation Allergies: Coded Allergies: No Known Allergies (Unverified , 10/04/24) Scheduled Gabapentin (Neurontin), 1 CAP PO TID, (Reported) Olanzapine (Olanzapine), 1 TAB PO HS, (Reported) Scheduled PRN Clonidine HCl (Clonidine HCl), 1 TAB PO BID PRN for anxiety, (Reported) Past Medical History Past Medical History: No Pertinent History, *PSYCH* Past Surgical History: no surgical history Smoking Status: Unknown if ever smoked Alcohol Use: Heavy Drug Use: marijuana, methamphetamine Lives In: Home Review of Systems Constitutional: Denies: chills, fever, weakness Eyes: Denies: pain, blurred vision ENT: Denies: ear pain, nose pain, throat pain, mouth pain Respiratory: Denies: cough, shortness of breath Cardiovascular: Denies: chest pain, palpitations Gastrointestinal: Denies: abdominal pain, nausea, vomiting Genitourinary: Denies: burning, dysuria Male Genitalia: Denies: penile discharge, testicular pain Neurological: Denies: headache, dizziness Musculoskeletal: Denies: pain, swelling Integumentary: Denies: rash, lesions Allergic/Immunologic: Denies: hives, itching Hematologic/Lymphatic: Denies: no symptoms reported Psychiatric: Denies: depression, anxiety Physical Exam Physical Exam Vital Signs: Heart Rate: 87, Respiratory Rate: 15, Pulse Oximetry: 100, Weight: 50.550 Physical Exam General: Awake and Alert, no acute distress. HEENT: Conjunctiva pink, Sclera clear, Mucus Membranes moist. Neck: Supple without masses and tenderness. Resp: Unlabored. Lungs clear to auscultation bilaterally. Heart: Regular Rate and rhythm, normal S1 and S2 without murmur, rub or gallop. Abdomen: Soft and non tender no organomegaly Extremities: No cyanosis,clubbing or edema. Skin: Warm and Dry. Progress Results/Orders Results/Orders Vital Signs 10/04/24 20:33 Pulse 87 Resp 15 Pulse Ox 100 Medical Decision Making Findings Patient is seen today with complaints of anxiety after he states he got kicked out of the [facility] after doing meth today. Patient denies any chest pain or shortness of breath or abdominal pain or nausea, vomiting, diarrhea. Patient has no other concern or complaint at this time. I did discuss with the patient breathing techniques for managing anxiety, patient left prior to administration of any medication or prescriptions being sent to patient pharmacy. Patient will follow up with primary care for further eval and treatment or return to ED with any worsening, concerning or changing symptoms. Departure Disposition: LEFT AWOL/ELOPED Impression: Primary Impression: Anxiety Condition: Improved Additional Instructions: I did discuss with the patient breathing techniques for managing anxiety, patient left prior to administration of any medication or prescriptions being sent to patient pharmacy. Patient will follow up with primary care for further eval and treatment or return to ED with any worsening, concerning or changing symptoms. Referrals: NO PRIMARY CARE PROVIDER (PCP) Signature Scribe Signature: No scribe Attestation: No scribe ALIA PRIETO PAC Oct 04, 2024 23:45
[2024-10-05] MEDS ORDERED: SULF1TAB49 PO (03:06)
== END 2024-10-04 22:03 | disposition left against medical advice (07) ==
LOC: ER 20:00
DX: F41.9 Anxiety disorder, unspecified (principal); F12.90 Cannabis use, unspecified, uncomplicated
CPT/HCPCS: 99282

== ENCOUNTER 2024-10-06 13:27 | Emergency (ER) | payer MEDICAID ==
[~2024-10-06] VITALS: Ht 175.3 cm; Wt 50.5 kg
[~2024-10-06 13:27] MED LIST changes: +SULF1TAB49 PO
[2024-10-06 13:33] VITALS: BP 145/70; PULSE 137; RESP 17; O2SAT 99
--- NOTE | 2024-10-06 16:37 | Physician Documentation ---
History of Present Illness ~ General Chief Complaint: General Stated Complaint: "I DON'T FEEL GOOD" Time Seen by MD: 14:54 Primary Medical Doctor: NONE History of Present Illness Initial Comments Patient is seen today without any significant complaints. Patient states he is addicted to methamphetamines and wants to get into [facility]. Patient states his 1st use of methamphetamines was when he was 13 years old. Patient denies any current chest pain or shortness of breath or abdominal pain or nausea, vomiting, diarrhea. Patient has no other concern or complaint at this time. Medication Reconciliation Allergies: Coded Allergies: No Known Allergies (Unverified , 10/05/24) Scheduled Gabapentin (Neurontin), 1 CAP PO TID, (Reported) Olanzapine (Olanzapine), 1 TAB PO HS, (Reported) Sulfamethoxazole/Trimethoprim (Bactrim Ds Tablet), 1 TAB PO Q12H Scheduled PRN Clonidine HCl (Clonidine HCl), 1 TAB PO BID PRN for anxiety, (Reported) Past Medical History Past Medical History: No Pertinent History, *PSYCH* Past Surgical History: no surgical history Alcohol Use: Heavy Drug Use: marijuana, methamphetamine Lives In: Home Review of Systems Constitutional: Denies: chills, fever, weakness Eyes: Denies: pain, blurred vision ENT: Denies: ear pain, nose pain, throat pain, mouth pain Respiratory: Denies: cough, shortness of breath Cardiovascular: Denies: chest pain, palpitations Gastrointestinal: Denies: abdominal pain, nausea, vomiting Genitourinary: Denies: burning, dysuria Male Genitalia: Denies: penile discharge, testicular pain Neurological: Denies: headache, dizziness Musculoskeletal: Denies: pain, swelling Integumentary: Denies: rash, lesions Allergic/Immunologic: Denies: hives, itching Hematologic/Lymphatic: Denies: no symptoms reported Psychiatric: Denies: depression, anxiety Physical Exam Physical Exam Vital Signs: Temperature: 98.7, Source: Temporal, Heart Rate: 137, Respiratory Rate: 17, BP: 145/70, Pulse Oximetry: 99, Weight: 50.550 Oxygen Flow Rate: 0 Physical Exam General: Awake and Alert, no acute distress. HEENT: Patient has very dilated pupils currently. Conjunctiva pink, Sclera clear, Mucus Membranes moist. Neck: Supple without masses and tenderness. Resp: Unlabored. Lungs clear to auscultation bilaterally. Heart: Regular Rate and rhythm, normal S1 and S2 without murmur, rub or gallop. Abdomen: Soft and non tender no organomegaly Extremities: No cyanosis,clubbing or edema. Skin: Warm and Dry. Progress Results/Orders Results/Orders Vital Signs 10/06/24 13:33 Temp 98.7 Pulse 137 Resp 17 B/P (MAP) 145/70 Pulse Ox 99 O2 Flow Rate 0 Medical Decision Making Findings Patient is seen today without any significant complaints. Patient states he is addicted to methamphetamines and wants to get into [facility]. Patient states his 1st use of methamphetamines was when he was 13 years old. Patient denies any current chest pain or shortness of breath or abdominal pain or nausea, vomiting, diarrhea. Patient has no other concern or complaint at this time. Patient was given a drink of water and will be discharged from the ED and is medically cleared to enter recovery program at [facility]. Patient will return to ED with any worsening, concerning or changing symptoms. Departure Disposition: 01 HOME / SELF CARE / HOMELESS Impression: Primary Impression: General medical exam Additional Impression: Methamphetamine addiction Condition: Stable Additional Instructions: Patient was given a drink of water and will be discharged from the ED and is medically cleared to enter recovery program at [facility]. Patient will return to ED with any worsening, concerning or changing symptoms. Referrals: NO PRIMARY CARE PROVIDER (PCP) Signature Scribe Signature: No scribe Attestation: No scribe ALIA PRIETO PAC Oct 06, 2024 16:37
[2024-10-06 16:52] VITALS: TEMP 98.7
== END 2024-10-06 16:53 | disposition home or self-care (01) ==
LOC: ER 13:28
DX: F15.20 Other stimulant dependence, uncomplicated (principal); F12.90 Cannabis use, unspecified, uncomplicated; F10.90 Alcohol use, unspecified, uncomplicated; Y90.9 Presence of alcohol in blood, level not specified; Z79.899 Other long term (current) drug therapy
CPT/HCPCS: 99282

== ENCOUNTER 2024-10-08 19:07 | Emergency (ER) | payer MEDICAID ==
[~2024-10-08] VITALS: Ht 175.3 cm; Wt 54.5 kg
[2024-10-08 19:21] VITALS: BP 117/56; PULSE 88; RESP 22; TEMP 98.1; O2SAT 98
--- NOTE | 2024-10-08 19:32 | Physician Documentation ---
History of Present Illness ~ Chief Complaint: Mental Health Eval Stated Complaint: MH Time Seen by MD: 19:28 Primary Medical Doctor: NONE HPI This 24-year-old male well known to this ED presents today covered in what appears to be dirt.. He states that he purposely rolled and dirt today.. He is also complaining of suicide ideation without a plan.. Patient is homeless. This is a reoccurring complaint for the patient. Has been evaluated repeatedly for psychiatric illness and ultimately discharged for behavioral reasons Medication Reconciliation Allergies: Coded Allergies: No Known Allergies (Unverified , 10/08/24) Scheduled Gabapentin (Neurontin), 1 CAP PO TID, (Reported) Olanzapine (Olanzapine), 1 TAB PO HS, (Reported) Sulfamethoxazole/Trimethoprim (Bactrim Ds Tablet), 1 TAB PO Q12H Scheduled PRN Clonidine HCl (Clonidine HCl), 1 TAB PO BID PRN for anxiety, (Reported) Past Medical History Past Medical History: No Pertinent History, *PSYCH* Past Surgical History: no surgical history Alcohol Use: Heavy Drug Use: marijuana, methamphetamine Lives In: Home Review of Systems All Other Systems at this time: Reviewed and Negative ROS As stated above in the HPI, otherwise all systems are reviewed and negative. Physical Exam Vital Signs: Temperature: 98.1, Source: Temporal, Heart Rate: 88, Respiratory Rate: 22, BP: 117/56, Pulse Oximetry: 98, Weight: 54.500 Oxygen Flow Rate: 0 Physical Exam General: Alert, no apparent distress. Covered in dirt from head to toe Neurologic: Oriented x4. Psychiatric: Normal mood and affect. Skin: Normal color, warm and dry. No edema, no ecchymosis. Progress Results/Orders Results/Orders Vital Signs 10/08/24 19:21 Temp 98.1 Pulse 88 Resp 22 B/P (MAP) 117/56 Pulse Ox 98 O2 Flow Rate 0 Medical Decision Making Findings He will not see this patient has meeting criteria for suicide ideation. Told him that I would treat him for his soil presentation with wet wipes and towels to improve his hygiene. He said that he would appreciate that. I explained that he needs to follow up with the outpatient setting. He does not currently meet criteria for further evaluation by [facility].. He has been provided all the necessary resources to pursue his mental health Differential Dx:Considerations: Include: Alcohol abuse, Anxiety, Bipolar disorder, Conversion disorder, Depression, Encephaloathy, Homicidal, Panic disorder, Personality disorder, Schizophrenia, Substance abuse, Suicidal, Other Departure Disposition: 01 HOME / SELF CARE / HOMELESS Impression: Primary Impression: Mental disorder Additional Impression: Polysubstance abuse Discharge Instructions: Suicidal Feelings: How to Help Yourself Referrals: NO PRIMARY CARE PROVIDER (PCP) Signature Scribe Signature: r Attestation: Scribed for Clarence Logan Np by Clarence Ardon NP . 10/08/24 22:57 CLARENCE LOGAN NP Oct 08, 2024 19:32
== END 2024-10-08 19:46 | disposition home or self-care (01) ==
LOC: ER 19:08
DX: F19.10 Other psychoactive substance abuse, uncomplicated (principal); F99 Mental disorder, not otherwise specified; F12.90 Cannabis use, unspecified, uncomplicated; F15.90 Other stimulant use, unspecified, uncomplicated; F10.90 Alcohol use, unspecified, uncomplicated; Z59.00 Homelessness unspecified; Z79.899 Other long term (current) drug therapy; Y90.9 Presence of alcohol in blood, level not specified
CPT/HCPCS: 99282

== ENCOUNTER 2024-10-09 19:43 | Emergency (ER) | payer MEDICAID ==
[~2024-10-09] VITALS: Ht 175.3 cm; Wt 60.0 kg
[2024-10-09 20:51] VITALS: BP 131/77; PULSE 100; RESP 16; TEMP 98.3; O2SAT 98
--- NOTE | 2024-10-09 21:10 | Physician Documentation ---
History of Present Illness ~ Chief Complaint: Leg Pain Stated Complaint: ABDOMINAL PAIN Time Seen by MD: 21:01 Primary Medical Doctor: NONE HPI 24-year-old male complaining of bilateral foot pain. Patient is undomiciled and desires a change of socks. Patient does have to walk everywhere in his shoes are quite worn. Tetanus witin 5 years: Yes Medication Reconciliation Allergies: Coded Allergies: No Known Allergies (Unverified , 10/09/24) Scheduled Gabapentin (Neurontin), 1 CAP PO TID, (Reported) Olanzapine (Olanzapine), 1 TAB PO HS, (Reported) Sulfamethoxazole/Trimethoprim (Bactrim Ds Tablet), 1 TAB PO Q12H Scheduled PRN Clonidine HCl (Clonidine HCl), 1 TAB PO BID PRN for anxiety, (Reported) Past Medical History Past Medical History: No Pertinent History, *PSYCH* Past Surgical History: no surgical history Alcohol Use: Heavy Drug Use: marijuana, methamphetamine Lives In: Home Review of Systems All Other Systems at this time: Reviewed and Negative Physical Exam Vital Signs: RN Vital Signs have been reviewed: Yes, Temperature: 98.3, Heart Rate: 100, Respiratory Rate: 16, BP: 131/77, Pulse Oximetry: 98, Weight: 60.000 Oxygen Flow Rate: 0 Physical Exam General: Alert, no apparent distress. Respiratory: Lungs clear, no respiratory distress. Chest: No accessory muscle use. Cardiovascular: Rapid but regular rate and rhythm, no murmurs. Extremities: Normal range of motion, no deformity. Neurologic: Oriented x4. Psychiatric: Normal mood and affect. Skin: Normal color, warm and dry. No edema, no ecchymosis. Progress Results/Orders Results/Orders Vital Signs 10/09/24 20:51 Temp 98.3 Pulse 100 Resp 16 B/P (MAP) 131/77 Pulse Ox 98 O2 Flow Rate 0 Medical Decision Making Findings No obvious signs of infection unkept wearing 2 different very worn shoes. Patient desires from hospital socks stating that his feet her. Patient has been walking all over town today. Patient denies any fever chest pain or shortness of breath. Departure Time of Disposition: 21:08 Disposition: 01 HOME / SELF CARE / HOMELESS Impression: Primary Impression: Homelessness Additional Impression: General medical exam Condition: Stable Discharge Instructions: [facility] for Routine Care of Injuries, [id number] Additional Instructions: Stent stay well hydrated. Follow up with primary care, urgent care, [facility]. Monitor for any new or worsening symptoms or signs of infection feel free to return to the ER Referrals: NO PRIMARY CARE PROVIDER (PCP) Education Educated: Patient Educated regarding: diagnosis, treatment, need for follow up Signature Scribe Signature: No scribe Attestation: The note accurately reflects work and decisions made by me.Lilli BERRIOS 10/09/24 21:09 LILLI SORIANO NP Oct 09, 2024 21:10
== END 2024-10-09 21:25 | disposition home or self-care (01) ==
LOC: ER 19:44
DX: M79.671 Pain in right foot (principal); M79.672 Pain in left foot; F12.90 Cannabis use, unspecified, uncomplicated; F15.90 Other stimulant use, unspecified, uncomplicated; F10.90 Alcohol use, unspecified, uncomplicated; Z59.00 Homelessness unspecified; Z79.899 Other long term (current) drug therapy; Y90.9 Presence of alcohol in blood, level not specified
CPT/HCPCS: 99282

== ENCOUNTER 2024-10-10 11:42 | Emergency (ER) | payer MEDICAID ==
[~2024-10-10] VITALS: Ht 175.3 cm; Wt 60.0 kg
--- NOTE | 2024-10-10 12:35 | Physician Documentation ---
History of Present Illness ~ Chief Complaint: Narcotic Withdrawl Stated Complaint: WITHDRAWALS Time Seen by MD: 12:33 Primary Medical Doctor: NONE HPI 24-year-old male who is well known to this hospital presenting with altered mental status secondary to likely substance abuse. Patient is a heavy methamphetamine user and has had multiple visits for similar reasons in the past. He presents agitated and can not provide a clear history. He is very jittery and states that he is very itchy. Medication Reconciliation Allergies: Coded Allergies: No Known Allergies (Unverified , 10/09/24) Scheduled Gabapentin (Neurontin), 1 CAP PO TID, (Reported) Olanzapine (Olanzapine), 1 TAB PO HS, (Reported) Sulfamethoxazole/Trimethoprim (Bactrim Ds Tablet), 1 TAB PO Q12H Scheduled PRN Clonidine HCl (Clonidine HCl), 1 TAB PO BID PRN for anxiety, (Reported) Past Medical History Past Medical History: No Pertinent History, *PSYCH* Past Surgical History: no surgical history Alcohol Use: Heavy Drug Use: marijuana, methamphetamine Lives In: Home Physical Exam Vital Signs: Temperature: 98.2, Source: Oral, Heart Rate: 120, Respiratory Rate: 20, BP: 132/74, Pulse Oximetry: 99, Weight: 60.000 Physical Exam I have reviewed the triage vitals. CONST: Unkempt, disheveled, malodorous HENT: Head Atraumatic EYES: Pupils are equal, round and reactive to light. Normal conjunctiva NECK: Normal range of motion. Supple. CARDIO: Normal rate and regular rhythm. No murmurs, rubs, or gallops. S1, S2. PULM/CHEST: No respiratory distress. Lungs clear to auscultation. No wheeze ABD: Soft and nontender. Nondistended. Bowel sounds normal. No guarding. : Exam deferred MSK: No edema. No deformity. NEURO: Intoxicated SKIN: Warm and dry. PSYCH: Agitated Progress Results/Orders Results/Orders Completed Orders - NANDO FRANCISCO MD Haloperidol Lact. (Haldol) (10/10/24 12:35) Diphenhydramine Inj (Benadryl Inj.) (10/10/24 12:35) Diazepam Inj (Valium Inj) (10/10/24 12:40) Vital Signs 7/03/2510/10/24 10/10/24 10/10/24 11:46 12:39 12:40 16:31 Temp 98.2 98.2 98.2 Pulse 120 113 102 Resp 20 18 18 16 B/P (MAP) 132/74 136/78 (97) 128/82 (97) Pulse Ox 99 99 97 O2 Flow Rate 0 0 10/10/24 16:32 Temp 98.2 Pulse 102 Resp 16 B/P (MAP) 128/82 Pulse Ox 97 Medical Decision Making Additional Information 24-year-old male with a history of methamphetamine abuse along with other polysubstance abuse presenting with methamphetamine intoxication. Patient was agitated and required sedation with Haldol, Benadryl and Valium. The patient then slept comfortably in the ED until his mental status cleared. We reiterated and emphasized the patient the importance of abstaining from further substance abuse and seeking rehabilitation and treatment immediately. Unfortunately the patient is a frequent visitor with similar issues to the emergency department and it appears that he is unwilling to make any changes. Nonetheless, this was once again advised to the patient. He will be discharged home with instructions to follow up with mental health, primary care and substance abuse treatment. Return to the ED with any acutely worsening symptoms. 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 I highly recommend that you follow up with mental health as well as with a treatment facility for treatment of your significant and serious drug abuse problem. Return to the ED with any acutely worsening symptoms. Referrals: NO PRIMARY CARE PROVIDER (PCP) Signature Scribe Signature: 1 Attestation: 1 NANDO FRANCISCO MD Oct 10, 2024 12:35
[2024-10-10] MEDS: haloperidol lactate 5mg/ml inj IM ONE (13:08)
[2024-10-10] MEDS: diazepam inj 5 MG/ML inj. IM ONE (13:08)
[2024-10-10 16:32] VITALS: BP 128/82; PULSE 102; RESP 16; TEMP 98.2; O2SAT 97
== END 2024-10-10 16:35 | disposition home or self-care (01) ==
LOC: ER 11:43
DX: F15.20 Other stimulant dependence, uncomplicated (principal)
CPT/HCPCS: 96372; 99284; J1200; J1630; J3360

== ENCOUNTER 2024-10-12 17:26 | Emergency (ER) | payer MEDICAID ==
[~2024-10-12] VITALS: Ht 175.3 cm; Wt 72.7 kg
[2024-10-12] MEDS ORDERED: ONDA-243 PO (17:46)
--- NOTE | 2024-10-12 17:46 | Physician Documentation ---
History of Present Illness ~ Chief Complaint: Nausea Stated Complaint: SICK Time Seen by MD: 17:34 Primary Medical Doctor: NONE HPI 24-year-old male presents to the ED with a complaint of nausea x3 days. States he also has been using methamphetamine.. Denies any other associated symptoms including abdominal pain diarrhea chest pain vomiting. Denies any fevers Medication Reconciliation Allergies: Coded Allergies: No Known Allergies (Unverified , 10/12/24) Scheduled Gabapentin (Neurontin), 1 CAP PO TID, (Reported) Olanzapine (Olanzapine), 1 TAB PO HS, (Reported) Sulfamethoxazole/Trimethoprim (Bactrim Ds Tablet), 1 TAB PO Q12H Scheduled PRN Clonidine HCl (Clonidine HCl), 1 TAB PO BID PRN for anxiety, (Reported) ONDANSETRON ODT 4mg tablet (Ondansetron Odt), 1 TAB PO Q6H PRN PRN for nausea/vomiting Past Medical History Past Medical History: No Pertinent History, *PSYCH* Past Surgical History: no surgical history Alcohol Use: Heavy Drug Use: marijuana, methamphetamine Lives In: Home Review of Systems All Other Systems at this time: Reviewed and Negative ROS As stated above in the HPI, otherwise all systems are reviewed and negative. Physical Exam Vital Signs: Temperature: 97.5, Source: Temporal, Heart Rate: 120, Respiratory Rate: 18, BP: 121/84, Pulse Oximetry: 99, Weight: 72.730 Oxygen Flow Rate: 0 Physical Exam General: Alert, no apparent distress. Gastrointestinal: Soft, nontender, nondistended. Bowels sounds present. Neurologic: Oriented x4. Psychiatric: Normal mood and affect. Skin: Normal color, warm and dry. No edema, no ecchymosis. Progress Results/Orders Results/Orders Completed Orders - CLARENCE LOGAN NP Ondansetron Disint. Tablet (Zofran Odt T (10/12/24 17:35) Vital Signs 10/12/24 17:30 Temp 97.5 Pulse 120 Resp 18 B/P (MAP) 121/84 Pulse Ox 99 O2 Flow Rate 0 Medical Decision Making Findings He is a patient for nausea gave him his 1st dose of Zofran in the ED. I also sent nausea medicine to his pharmacy.. He is it is not present acutely ill or show any signs of being toxic or in severe pain. At this time I am going to send him his meds and advised him to follow up with outpatient setting Diff Dx GI Bleed:Consideration: Include: AE fistula, Angiodysplasia, Bleeding diathesis, Blood loss anemia, Carcinoma, Diverticulosis, Diverticulitis, Esophageal varicies, Esophagitis, Gastritis, Gastroenteritis, Inflammatory BD, Talia-Soria syndrome, Meckel's diverticulum, PUD, Other Departure Disposition: HOME / SELF CARE / HOMELESS Impression: Primary Impression: Nausea Discharge Instructions: Nausea and Vomiting, Adult, [id number] Referrals: NO PRIMARY CARE PROVIDER (PCP) Prescriptions ONDANSETRON ODT 4mg tablet (ONDANSETRON ODT) 4 Mg Tab.rapdis 1 TAB PO Q6H PRN PRN for nausea/vomiting for 4 Days, #16 TAB 0 Refills Prov: CLARENCE LOGAN NP 10/12/24 Signature Scribe Signature: d Attestation: Scribed for Clarence Logan Instrumental Musician by Clarence Ardon NP . 10/12/24 18:08 CLARENCE LOGAN NP Oct 12, 2024 17:46
[2024-10-12] MEDS: ondansetron 4mg rapidly disintigrating tab PO ONE (18:54)
[2024-10-12 18:58] VITALS: BP 125/61; PULSE 118; RESP 16; TEMP 98.3; O2SAT 98
== END 2024-10-12 18:55 | disposition home or self-care (01) ==
LOC: ER 17:27
DX: R11.0 Nausea (principal); F12.90 Cannabis use, unspecified, uncomplicated; F15.90 Other stimulant use, unspecified, uncomplicated; F10.90 Alcohol use, unspecified, uncomplicated; Z79.899 Other long term (current) drug therapy; Y90.9 Presence of alcohol in blood, level not specified
CPT/HCPCS: 99283

== ENCOUNTER 2024-10-17 01:44 | Emergency (ER) | payer MEDICAID ==
[~2024-10-17] VITALS: Ht 175.3 cm; Wt 58.0 kg
[~2024-10-17 01:44] MED LIST changes: +ONDA-243 PO; -SULF1TAB49 PO
[2024-10-17 01:59] VITALS: BP 109/58; PULSE 78; TEMP 98.6; O2SAT 99
[2024-10-17 02:02] VITALS: RESP 16
--- NOTE | 2024-10-17 02:08 | Physician Documentation ---
History of Present Illness ~ Chief Complaint: Nausea Stated Complaint: FEELING SICK Time Seen by MD: 02:02 Primary Medical Doctor: NONE Source: patient Mode of Arrival: Ambulatory Exam Limitations: no limitations HPI Chief Complaint: Nausea Caveat: None Independent Historians: None History of Present Illness: Patient is a 24-year-old man who has frequent emergency department visits. Patient is homeless. Patient is complaining of nausea and requesting something for his stomach. Patient denies any vomiting. Patient then asked if he can have a sandwich. Patient denies any abdominal pain. Patient denies any other associated symptoms. Review of systems: All systems were reviewed and are negative except for what is indicated in the history of present illness. Past Medical History: Polysubstance abuse Past Surgical History: Noncontributory Social History: Fentanyl use, methamphetamine use, marijuana use Medications: Reviewed as documented Nursing Notes Allergies: Reviewed as documented in Nursing Notes Medication Reconciliation Allergies: Coded Allergies: No Known Allergies (Unverified , 10/12/24) Scheduled Gabapentin (Neurontin), 1 CAP PO TID, (Reported) Olanzapine (Olanzapine), 1 TAB PO HS, (Reported) Scheduled PRN Clonidine HCl (Clonidine HCl), 1 TAB PO BID PRN for anxiety, (Reported) ONDANSETRON ODT 4mg tablet (Ondansetron Odt), 1 TAB PO Q6H PRN PRN for nausea/vomiting Discontinued Medications Sulfamethoxazole/Trimethoprim (Bactrim Ds Tablet), 1 TAB PO Q12H Discontinued Reason: Auto Discontinued Past Medical History Past Medical History: No Pertinent History, *PSYCH* Past Surgical History: no surgical history Alcohol Use: Heavy Drug Use: marijuana, methamphetamine Lives In: Home Review of Systems All Other Systems at this time: Reviewed and Negative ROS Patient denies any other acute symptoms other than above. All other systems are negative Physical Exam Vital Signs: RN Vital Signs have been reviewed: Yes, Temperature: 98.6, Source: Temporal, Heart Rate: 78, Respiratory Rate: 16, BP: 109/58, Pulse Oximetry: 99, Weight: 58.000 Oxygen Flow Rate: 0 Pulse Oximetry Reflects: adequate oxygenation Physical Exam General Appearance: No distress, appears fatigued, very disheveled, poor hygiene HEENT: Normal OP, moist oral mucosa, PERRL, EOMI, tattoos on face Neck: supple, normal ROM, trachea midline Pulmonary: No respiratory distress, CTA, BS equal Cardiac: RRR, no murmur, rub or gallop, GI: nondistended, soft, nontender, normal bowel sounds, no guarding, no rebound Extremities: normal ROM, no swelling, non-tender Skin: intact, dry, warm, no rashes Neuro: AAOx3, speech is clear, no focal motor weakness Psych: normal affect, good eye contact, no apparent hallucination, normal speech Progress Results/Orders Results/Orders Orders - YELITZA JOSEPH MD Ondansetron Disint. Tablet (Zofran Odt T (10/17/24 02:05) Vital Signs 10/17/24 01:59 Temp 98.6 Pulse 78 Resp 16 B/P (MAP) 109/58 Pulse Ox 99 O2 Flow Rate 0 Medical Decision Making Findings Differential diagnosis includes but is not limited to: Food poisoning, subst ance abuse Emergency department course/medical decision-making: Patient is a 24-year-old man who presents complaining of nausea but at the same time requesting for something to eat. Patient will be given 4 mg of Zofran. Patient's physical exam is unremarkable. There was no indication for lab work or imaging. Patient is stable for discharge. Departure Time of Disposition: 02:04 Disposition: 01 HOME / SELF CARE / HOMELESS Impression: Primary Impression: Nausea Condition: Improved Discharge Instructions: Nausea, Adult, [id number] Education Educated: Patient Educated regarding: diagnosis, treatment, need for follow up Signature Scribe Signature: No scribe Attestation: No scribe YELITZA JOSEPH MD Oct 17, 2024 02:08
[2024-10-17] MEDS: ondansetron 4mg rapidly disintigrating tab PO ONE (02:11)
== END 2024-10-17 02:17 | disposition home or self-care (01) ==
LOC: ER 01:44
DX: R11.0 Nausea (principal); F12.90 Cannabis use, unspecified, uncomplicated; F15.90 Other stimulant use, unspecified, uncomplicated; F11.90 Opioid use, unspecified, uncomplicated; Z79.899 Other long term (current) drug therapy
CPT/HCPCS: 99283

== ENCOUNTER 2024-10-17 13:06 | Emergency (ER) | payer MEDICAID ==
[~2024-10-17] VITALS: Ht 175.3 cm; Wt 47.8 kg
--- NOTE | 2024-10-17 14:17 | Physician Documentation ---
History of Present Illness ~ Chief Complaint: Medical Clearance Stated Complaint: "NOT REALLY FEELING GOOD" Time Seen by MD: 13:17 Primary Medical Doctor: NONE Source: patient Mode of Arrival: Ambulatory Exam Limitations: no limitations HPI 24-year-old homeless gentleman has extensive drug use is just needing to get out of the heat he was using manipulation to say that he was suicidal but later states that he just needs some water and a change of socks. A place to sit for a minute. Patient has no acute concerns Tetanus within 5 years?: Yes (Didnt ask) Medication Reconciliation Allergies: Coded Allergies: No Known Allergies (Unverified , 10/12/24) Scheduled Gabapentin (Neurontin), 1 CAP PO TID, (Reported) Olanzapine (Olanzapine), 1 TAB PO HS, (Reported) Scheduled PRN Clonidine HCl (Clonidine HCl), 1 TAB PO BID PRN for anxiety, (Reported) ONDANSETRON ODT 4mg tablet (Ondansetron Odt), 1 TAB PO Q6H PRN PRN for nausea/vomiting Discontinued Medications Sulfamethoxazole/Trimethoprim (Bactrim Ds Tablet), 1 TAB PO Q12H Discontinued Reason: Auto Discontinued Past Medical History Past Medical History: No Pertinent History, *PSYCH* Past Surgical History: no surgical history Alcohol Use: Heavy Drug Use: marijuana, methamphetamine Lives In: Home Review of Systems All Other Systems at this time: Reviewed and Negative Physical Exam Vital Signs: RN Vital Signs have been reviewed: Yes, Temperature: 97.9, Source: Temporal, Heart Rate: 106, Respiratory Rate: 16, BP: 108/72, Pulse Oximetry: 99, Weight: 47.800 General Appearance: alert, WD/WN, no apparent distress Head: no evidence of injury Face: normal Respiratory: lungs clear, normal breath sounds, no respiratory distress Chest: no accessory muscle use, chest non-tender Cardiovascular: normal peripheral pulses, regular rate, rhythm, no edema Progress Results/Orders Results/Orders Vital Signs 10/17/24 13:07 Temp 97.9 Pulse 106 Resp 16 B/P (MAP) 108/72 Pulse Ox 99 Medical Decision Making Findings Discussed community resources including drug use water given and socks given as he does come in quite a bit with blisters and infections to his feet. Patient was discharged with general medical exam Departure Time of Disposition: 14:16 Disposition: 01 HOME / SELF CARE / HOMELESS Impression: Primary Impression: General medical exam Condition: Stable Discharge Instructions: Medical Screening Exam Referrals: NO PRIMARY CARE PROVIDER (PCP) Education Educated: Patient Educated regarding: diagnosis, treatment, need for follow up Signature Scribe Signature: No scribe Attestation: The note accurately reflects work and decisions made by me.Lilli BERRIOS 10/17/24 14:16 LILLI SORIANO NP Oct 17, 2024 14:16
[2024-10-17 15:18] VITALS: BP 108/72; PULSE 106; RESP 16; TEMP 97.9; O2SAT 99
== END 2024-10-17 15:20 | disposition home or self-care (01) ==
LOC: ER 13:07
DX: Z00.00 Encounter for general adult medical examination without abnormal findings (principal); F12.90 Cannabis use, unspecified, uncomplicated; F15.90 Other stimulant use, unspecified, uncomplicated; F10.90 Alcohol use, unspecified, uncomplicated; Z59.00 Homelessness unspecified; Z79.899 Other long term (current) drug therapy; Y90.9 Presence of alcohol in blood, level not specified
CPT/HCPCS: 99282

== ENCOUNTER 2024-10-18 08:24 | Emergency (ER) | payer MEDICAID ==
[~2024-10-18] VITALS: Ht 175.3 cm; Wt 58.0 kg
[2024-10-18 08:26] VITALS: BP 127/76; PULSE 110; RESP 16; TEMP 97.3; O2SAT 100
--- NOTE | 2024-10-18 10:34 | Physician Documentation ---
History of Present Illness ~ General Chief Complaint: See Chief Complaint Stated Complaint: FEELS LIKE SUFFOCATING Time Seen by MD: 10:26 Primary Medical Doctor: NONE History of Present Illness Initial Comments reports not feeling well all week, no abdominal pain. +nausea no vomiting Medication Reconciliation Allergies: Coded Allergies: No Known Allergies (Unverified , 10/12/24) Scheduled Gabapentin (Neurontin), 1 CAP PO TID, (Reported) Olanzapine (Olanzapine), 1 TAB PO HS, (Reported) Scheduled PRN Clonidine HCl (Clonidine HCl), 1 TAB PO BID PRN for anxiety, (Reported) ONDANSETRON ODT 4mg tablet (Ondansetron Odt), 1 TAB PO Q6H PRN PRN for nausea/vomiting Discontinued Medications Sulfamethoxazole/Trimethoprim (Bactrim Ds Tablet), 1 TAB PO Q12H Discontinued Reason: Auto Discontinued Past Medical History Past Medical History: No Pertinent History, *PSYCH* Past Surgical History: no surgical history Alcohol Use: Heavy Drug Use: marijuana, methamphetamine Lives In: Home Review of Systems All Other Systems at this time: Reviewed and Negative Constitutional: Denies: fever Physical Exam Physical Exam Vital Signs: Temperature: 97.3, Heart Rate: 110, Respiratory Rate: 16, BP: 127/76, Pulse Oximetry: 100, Weight: 58.000 Oxygen Flow Rate: 0 Physical Exam well appearing no distress awake alert oriented head atraumatic abd soft non tender lungs ctab skin pwd Progress Progress Note barriers to care: Substance use disorder Results/Orders Results/Orders Completed Orders - DEIDRE BONNER MD Ondansetron Disint. Tablet (Zofran Odt T (10/18/24 10:35) Medications Received in ER Medications (Trade) Dose Ordered Sig/Lidia Route PRN Reason Start Time Stop Time Status Last Admin Dose Admin (Zofran ODT tablet) 4 mg ONCE ONCE PO 10/18/24 10:35 10/18/24 10:37 DC 10/18/24 10:41 4 MG Vital Signs 10/18/24 08:26 Temp 97.3 Pulse 110 Resp 16 B/P (MAP) 127/76 Pulse Ox 100 O2 Flow Rate 0 Medical Decision Making Additional info obtained from: old records Findings 06/23 d/c summary Differential Diagnosis gastroenteritis, gastritis other cause of nausea and vomiting Departure Disposition: 01 HOME / SELF CARE / HOMELESS Impression: Primary Impression: Substance abuse Additional Impression: Homelessness Additional Impression Text vitals and exam normal. Frequent visitor secondary to homelessness and román. Referrals: NO PRIMARY CARE PROVIDER (PCP) Signature Scribe Signature: na Attestation: DEIDRE Lay MD Oct 18, 2024 10:34
[2024-10-18] MEDS: ondansetron 4mg rapidly disintigrating tab PO ONE (10:41)
== END 2024-10-18 10:46 | disposition home or self-care (01) ==
LOC: ER 08:25
DX: F19.10 Other psychoactive substance abuse, uncomplicated (principal); Z59.00 Homelessness unspecified; F12.90 Cannabis use, unspecified, uncomplicated; F15.90 Other stimulant use, unspecified, uncomplicated
CPT/HCPCS: 99283

== ENCOUNTER 2024-10-19 00:40 | Emergency (ER) | payer MEDICAID ==
[~2024-10-19] VITALS: Ht 175.3 cm; Wt 72.7 kg
[2024-10-19 00:45] VITALS: BP 133/81; PULSE 101; TEMP 97.6; O2SAT 98
--- NOTE | 2024-10-19 01:32 | Physician Documentation ---
History of Present Illness ~ General Chief Complaint: Mental Health Eval Stated Complaint: MEDICATION REQUEST Time Seen by MD: 01:00 OK to notify your PCP?: Yes Primary Medical Doctor: NONE History of Present Illness Initial Comments 24 year old male reports he is having withdrawal symptoms to fentanyl including body aches, diarrhea, cravings. Initially reported depression and suicidal ideation in triage but denies SI and any specific suicide plan to me. Medication Reconciliation Allergies: Coded Allergies: No Known Allergies (Unverified , 10/12/24) Scheduled Gabapentin (Neurontin), 1 CAP PO TID, (Reported) Olanzapine (Olanzapine), 1 TAB PO HS, (Reported) Scheduled PRN Clonidine HCl (Clonidine HCl), 1 TAB PO BID PRN for anxiety, (Reported) ONDANSETRON ODT 4mg tablet (Ondansetron Odt), 1 TAB PO Q6H PRN PRN for nausea/vomiting Discontinued Medications Sulfamethoxazole/Trimethoprim (Bactrim Ds Tablet), 1 TAB PO Q12H Discontinued Reason: Auto Discontinued Past Medical History Past Medical History: No Pertinent History, *PSYCH* Past Surgical History: no surgical history Alcohol Use: Heavy Drug Use: marijuana, methamphetamine Lives In: Home Review of Systems All Other Systems at this time: Reviewed and Negative Physical Exam Physical Exam Vital Signs: RN Vital Signs have been reviewed: Yes, Temperature: 97.6, Source: Oral, Heart Rate: 101, Respiratory Rate: 16, BP: 133/81, Pulse Oximetry: 98, Weight: 72.730 Oxygen Flow Rate: 0 Physical Exam HEENT: PERRL, moist oral mucosa, EOMI Pulmonary: No respiratory distress Cardiac: RRR, no murmur, rub or gallop MSK: no deformity Skin: w/d/i, no rash Neuro: alert, nonfocal Psych: normal affect Progress Results/Orders Results/Orders Completed Orders - LOWELL GREENE MD Ondansetron Disint. Tablet (Zofran Odt T (10/19/24 01:30) Ketorolac Trometh 30mg/Ml Vial (Toradol (10/19/24 01:30) Loperamide Capsule (Imodium Capsule) (10/19/24 01:30) Clonidine Tablet (Catapres Tablet) (10/19/24 01:30) Medications Received in ER Medications (Trade) Dose Ordered Sig/Lidia Route PRN Reason Start Time Stop Time Status Last Admin Dose Admin (Zofran ODT tablet) 4 mg ONCE ONCE PO 10/19/24 01:30 10/19/24 01:32 DC 10/19/24 01:43 4 MG (Toradol inj. 30mg/ml) 30 mg ONCE ONCE IM 10/19/24 01:30 10/19/24 01:32 DC 10/19/24 01:43 30 MG (Imodium capsule) 2 mg ONCE ONCE PO 10/19/24 01:30 10/19/24 01:32 DC 10/19/24 01:43 2 MG (Catapres tablet) 0.1 mg ONCE ONCE PO 10/19/24 01:30 10/19/24 01:32 DC 10/19/24 01:43 0.1 MG Vital Signs 10/19/24 10/19/24 00:45 01:43 Temp 97.6 Pulse 101 Resp 16 16 B/P (MAP) 133/81 Pulse Ox 98 O2 Flow Rate 0 Medical Decision Making Findings 24 year old male with opioid withdrawal symptoms. Will provide medications and return precautions. Differential Diagnosis Ddx = substance abuse/intoxication, substance withdrawal, malignering Departure Disposition: HOME / SELF CARE / HOMELESS Impression: Primary Impression: Opioid withdrawal Condition: Stable Discharge Instructions: Opioid Withdrawal Referrals: NO PRIMARY CARE PROVIDER (PCP) Education Educated: Patient Educated regarding: diagnosis, treatment, prognosis, need for follow up Signature Scribe Signature: . Attestation: . LOWELL GREENE MD Oct 19, 2024 01:32
[2024-10-19 01:43] VITALS: RESP 16
[2024-10-19] MEDS: ketorolac trometh 30MG/ML vial 30 MG/ML VIAL IM ONE (01:43)
[2024-10-19] MEDS: loperamide 2mg capsule PO ONE (01:43)
[2024-10-19] MEDS: ondansetron 4mg rapidly disintigrating tab PO ONE (01:43)
== END 2024-10-19 01:53 | disposition home or self-care (01) ==
LOC: ER 00:41
DX: F11.23 Opioid dependence with withdrawal (principal); F32.A Depression, unspecified; R45.851 Suicidal ideations; F12.90 Cannabis use, unspecified, uncomplicated; F15.90 Other stimulant use, unspecified, uncomplicated; F10.90 Alcohol use, unspecified, uncomplicated; Y90.9 Presence of alcohol in blood, level not specified
CPT/HCPCS: 96372; 99284; J1885

== ENCOUNTER 2024-10-25 17:36 | Emergency (ER) | payer MEDICAID ==
[~2024-10-25] VITALS: Ht 175.3 cm; Wt 57.1 kg
[2024-10-25] MEDS: ondansetron 4mg rapidly disintigrating tab PO ONE (18:07)
[2024-10-25 18:12] LABS: MEAN PLATELET VOLUME 8.0 FL (7.4-10.4); RED CELL DISTRIBUTION WIDTH 14.7 % (11.5-14.5)
[2024-10-25 18:19] LABS: CREATININE 0.94 MG/DL (0.60-1.10); TOTAL CARBON DIOXIDE 24.4 MMOL/L (24-32); eCRCL 99 ML/MIN; eGFR > 90 ML/MIN
--- NOTE | 2024-10-25 18:42 | Physician Documentation ---
History of Present Illness Chief Complaint: Nausea Stated Complaint: "I FEEL SICK TO MY STOMACH" Time Seen by MD: 18:41 OK to notify your PCP?: Yes Primary Medical Doctor: NONE Source: patient, RN/MD, RN notes reviewed, old records Mode of Arrival: Ambulatory Exam Limitations: no limitations HPI This patient is a 24 y/o male who presents to ED for medical clearance and information on detox facility. Patient states he uses alcohol, methamphetamine, and Fentanyl. He states he is feeling anxious and also nauseated. He has not contacted a rehab program, and states he has not yet tried to use Suboxone. Patient states he last used Fentanyl a few hours prior to arrival. Patient denies any other associated symptoms at this time. Patient denies any other alleviating or exacerbating factors. Medication Reconciliation Allergies: Coded Allergies: No Known Allergies (Unverified , 10/25/24) Scheduled Buprenorphine Hcl/Naloxone Hcl (Suboxone 8 Mg-2 Mg Sl Film), 1 STRIP SL DAILY Gabapentin (Neurontin), 1 CAP PO TID, (Reported) Olanzapine (Olanzapine), 1 TAB PO HS, (Reported) Scheduled PRN Clonidine HCl (Clonidine HCl), 1 TAB PO BID PRN for anxiety, (Reported) ONDANSETRON ODT 4mg tablet (Ondansetron Odt), 1 TAB PO Q6H PRN PRN for nause a/vomiting ONDANSETRON ODT 4mg tablet (Ondansetron Odt), 1 TAB PO Q6H PRN PRN for nausea/vomiting Past Medical History Past Medical History: No Pertinent History, *PSYCH* Past Surgical History: no surgical history Smoking Status: Never smoker Alcohol Use: Heavy Drug Use: marijuana, methamphetamine Lives In: Home Review of Systems All Other Systems at this time: Reviewed and Negative Constitutional: Reports: see HPI Physical Exam Vital Signs: RN Vital Signs have been reviewed: Yes, Temperature: 98.3, Source: Temporal, Heart Rate: 130, Respiratory Rate: 22, BP: 126/92, Pulse Oximetry: 100, Weight: 57.150 Oxygen Flow Rate: 0 Physical Exam General: Disheveled. Otherwise the patient is well developed, well nourished, nontoxic appearing and is in no acute distress. Skin: [place], warm and dry with no rashes. HEENT: Head was normocephalic and atraumatic. Eyes - pupils equal, round, reactive to light and accommodation. Extraocular movements were intact. Conjunctivae were nonicteric. The mouth and oropharynx were clear with moist mucous membranes. There were no pharyngeal exudates or erythema. Neck: Supple and nontender. There was no jugular venous distention, lymphadenopathy, thyromegaly or masses. Chest: Clear to auscultation bilaterally without wheezes, rales or rhonchi. No accessory muscle use. No dullness to percussion. Heart: Rate regular and rhythmic. S1, S2. No murmurs. Palpation of the chest wall was normal. No rubs or thrills. Abdomen: Soft, nontender and nondistended. Positive bowel sounds. No guarding or rebound. No hepatosplenomegaly or palpable masses. Extremities: No cyanosis, clubbing or edema. The patient moves all extremities. Pulses were equal and symmetric. Neurologic: Motor and sensation grossly intact. A & O x4. Psychologic: The patient was oriented to person, place and time. Progress Progress Note RECORD REVIEW: Patient last seen here on 09/19/2024 for opiate withdrawal. Results/Orders Reviewed/noted all lab results: Yes Results/Orders Medications Received in ER Medications (Trade) Dose Ordered Sig/Lidia Route PRN Reason Start Time Stop Time Status Last Admin Dose Admin (Zofran ODT tablet) 4 mg ONCE ONCE PO 10/25/24 17:55 10/25/24 17:56 DC 10/25/24 18:07 4 MG Vital Signs 10/25/24 10/25/24 17:40 18:04 Temp 98.3 Pulse 130 Resp 22 B/P (MAP) 126/92 Pulse Ox 100 O2 Flow Rate 0 Laboratory Tests Test 10/25/24 17:56 White Blood Count 8.5 Red Blood Count 5.02 Hemoglobin 13.8 L Hematocrit 41.7 L Mean Corpuscular Volume 83.1 Mean Corpuscular Hemoglobin 27.6 Mean Corpuscular Hemoglobin Concent 33.2 Red Cell Distribution Width 14.7 H Platelet Count 284 Mean Platelet Volume 8.0 Neutrophils (%) (Auto) 78.0 H Lymphocytes (%) (Auto) 16.7 L Monocytes (%) (Auto) 4.9 Eosinophils (%) (Auto) 0.3 Basophils (%) (Auto) 0.1 Neutrophils # (Auto) 6.6 Lymphocytes # (Auto) 1.4 Monocytes # (Auto) 0.4 Eosinophils # (Auto) 0.0 Basophils # (Auto) 0.0 CBC Comment Sodium Level 139 Potassium Level 3.5 Chloride Level 104 Carbon Dioxide Level 24.4 Anion Gap 11 Blood Urea Nitrogen 13 Creatinine 0.94 Estimated GFR/1.73 m2 > 90 BUN/Creatinine Ratio 13.8 Glucose Level 165 H Calcium Level 9.3 Total Bilirubin 0.3 Aspartate Amino Transf (AST/SGOT) 22 Alanine Aminotransferase (ALT/SGPT) 20 Alkaline Phosphatase 93 Total Protein 7.5 Albumin 3.7 Globulin 3.8 Albumin/Globulin Ratio 1.0 L Lipase 36 Chemistry Comments Re-Evaluation Re-Evaluation : Re-Evaluation: Unchanged Progress Patient was seen and examined given reassurance. Patient was offered medical clearance to detox facility. Patient is hemodynamically stable and because he just used I can not give him any Suboxone. Referral was given to our substance abuse counselor. Patient received medical clearance and was discharged home. Patient is polite and trying to improve his life at this time. Unfortunately patient does not have a phone. Patient received a card from our facility for substance abuse. But also I showed him how to [facility] in [place] which can be done at the library. Patient received a prescription for Zofran but also Suboxone for the morning. Did not want to precipitate any withdrawal symptoms since the patient states he just used. He understands that he can not take him till tomorrow afternoon. Patient was given reassurance and wished good luck at a facility. If he has any other symptoms that are medical he can return to the ER for re-evaluation. Medical Decision Making Additional info obtained from: old records Differential Dx:Considerations: Include: Other Departure Time of Disposition: 19:00 Disposition: 01 HOME / SELF CARE / HOMELESS Impression: Primary Impression: Encounter for medical screening examination Additional Impression: Polysubstance abuse Condition: Stable Discharge Instructions: Substance Use Disorder Additional Instructions: PATIENT IS MEDICALLY CLEARED FOR EMPIRE RECOVERY, OR DETOX PROGRAM OF HIS CHOICE. I have sent in a prescription for Suboxone to your pharmacy. Please do not take within 24 hours of using, or you will experience withdrawals. I have also included Zofran to help with any nausea. Please use the resources included in your paperwork to help find and contact a detox program. I have also included the card of Mary Kay Roa, who is our substance use coordinator and may be able to further help you. Referrals: NO PRIMARY CARE PROVIDER (PCP) Prescriptions Buprenorphine Hcl/Naloxone Hcl (Suboxone 8 Mg-2 Mg Sl Film) 8 Mg-2 Mg Film 1 STRIP SL DAILY for 30 Days, #30 STRIP Prov: KEVIN MCKAY MD 10/25/24 ONDANSETRON ODT 4mg tablet (ONDANSETRON ODT) 4 Mg Tab.rapdis 1 TAB PO Q6H PRN PRN for nausea/vomiting for 4 Days, #16 TAB 0 Refills Prov: KEVIN MCKAY MD 10/25/24 Education Educated: Patient Educated regarding: diagnosis Signature Scribe Signature: Scribed for Kevin Mckay MD by Asuncion Baker . 10/25/24 19:01 Attestation: The note accurately reflects work and decisions made by me.Kevin Mckay MD 10/25/24 18:42 KVEIN MCKAY MD Oct 25, 2024 18:42
[2024-10-25] MEDS ORDERED: BUPR1FIL3 SL (18:54)
[2024-10-25] MEDS ORDERED: ONDA-243 PO (18:54)
[2024-10-25 19:41] VITALS: BP 135/86; PULSE 124; RESP 18; TEMP 98.3; O2SAT 100
== END 2024-10-25 19:45 | disposition home or self-care (01) ==
LOC: ER 17:37
DX: F19.10 Other psychoactive substance abuse, uncomplicated (principal); R11.0 Nausea; F12.90 Cannabis use, unspecified, uncomplicated; Z79.899 Other long term (current) drug therapy
CPT/HCPCS: 36415; 80053; 83690; 85025; 99283

== ENCOUNTER 2024-11-06 22:55 | Emergency (ER) | payer MEDICAID ==
[~2024-11-06] VITALS: Ht 175.3 cm; Wt 60.0 kg
[~2024-11-06 22:55] MED LIST changes: +BUPR1FIL3 SL
[2024-11-06 23:21] VITALS: BP 124/68; PULSE 91; RESP 20; TEMP 98.2; O2SAT 99
--- NOTE | 2024-11-06 23:33 | Physician Documentation ---
History of Present Illness ~ Stated Complaint: SI Time Seen by MD: 23:30 Primary Medical Doctor: [facility] Patient well known to the ER for multitude of complaints presents initially saying that he is having suicide ideation. When further probed on whether or not he has a plan or what his reasoning is for having suicide ideation he changes his stance and states he would be happy which is having a sandwich. He says" I do not have suicide ideation" Day of Onset: Nov 06, 2024 Medication Reconciliation Allergies: Coded Allergies: No Known Allergies (Unverified , 10/25/24) Scheduled Buprenorphine Hcl/Naloxone Hcl (Suboxone 8 Mg-2 Mg Sl Film), 1 STRIP SL DAILY Gabapentin (Neurontin), 1 CAP PO TID, (Reported) Olanzapine (Olanzapine), 1 TAB PO HS, (Reported) Scheduled PRN Clonidine HCl (Clonidine HCl), 1 TAB PO BID PRN for anxiety, (Reported) ONDANSETRON ODT 4mg tablet (Ondansetron Odt), 1 TAB PO Q6H PRN PRN for nausea/vomiting ONDANSETRON ODT 4mg tablet (Ondansetron Odt), 1 TAB PO Q6H PRN PRN for nausea/vomiting Past Medical History Past Medical History: No Pertinent History, *PSYCH* Past Surgical History: no surgical history Alcohol Use: Heavy Drug Use: marijuana, methamphetamine Lives In: Home Review of Systems All Other Systems at this time: Reviewed and Negative Physical Exam Physical Exam General: Alert, no apparent distress. Respiratory: Lungs clear, no respiratory distress. Psychiatric: Normal mood and affect. Progress Results/Orders Results/Orders Vital Signs 11/06/24 23:21 Temp 98.2 Pulse 91 Resp 20 B/P (MAP) 124/68 Pulse Ox 99 O2 Flow Rate 0 Medical Decision Making Findings Patient was provided clothing food and a blanket.. He states that he changes tune regarding in his initial complaint because he is hungry does not have any intention to harm himself and will follow up with the [facility] for further medical care Differential Dx:Considerations: Include: Alcohol abuse, Anxiety, Bipolar disorder, Conversion disorder, Depression, Encephaloathy, Homicidal, Panic disorder, Personality disorder, Schizophrenia, Substance abuse, Suicidal, Other Departure Disposition: 01 HOME / SELF CARE / HOMELESS Impression: Primary Impression: Homeless single person Condition: Stable Discharge Instructions: Food Insecurity Information Referrals: NO PRIMARY CARE PROVIDER (PCP) Education Educated: Patient Educated regarding: diagnosis Signature Scribe Signature: h Attestation: Scribed for David Logan Subscription Crew Leader by David Ardon NP . 11/06/24 23:33 DAVID LOGAN NP Nov 06, 2024 23:33
== END 2024-11-06 23:41 | disposition home or self-care (01) ==
LOC: ER 22:55
DX: R45.851 Suicidal ideations (principal); Z59.00 Homelessness unspecified; F12.90 Cannabis use, unspecified, uncomplicated; F15.90 Other stimulant use, unspecified, uncomplicated
CPT/HCPCS: 99282

== ENCOUNTER 2024-11-08 17:39 | Emergency (ER) | payer MEDICAID ==
[~2024-11-08] VITALS: Ht 177.8 cm; Wt 74.0 kg
[2024-11-08 18:05] LABS: MEAN PLATELET VOLUME 7.9 FL (7.4-10.4); RED CELL DISTRIBUTION WIDTH 14.4 % (11.5-14.5)
--- NOTE | 2024-11-08 18:06 | Physician Documentation ---
History of Present Illness Chief Complaint: Abdominal Pain Stated Complaint: FLANK PAIN OK to notify your PCP?: Yes Primary Medical Doctor: NONE Source: patient Mode of Arrival: POV Exam Limitations: no limitations HPI 24-year-old male presents with umbilical abdominal pain for the past week. He is also having some nausea but denies any vomiting or diarrhea. He is actively eating a piece of cake while in triage in his able to tolerate well. He thinks there maybe something wrong with his liver which is causing his pain but has never had his liver checked out before. Last dose of methamphetamine was today, denies any alcohol use. Medication Reconciliation Allergies: Coded Allergies: No Known Allergies (Unverified , 10/25/24) Scheduled Buprenorphine Hcl/Naloxone Hcl (Suboxone 8 Mg-2 Mg Sl Film), 1 STRIP SL DAILY Gabapentin (Neurontin), 1 CAP PO TID, (Reported) Olanzapine (Olanzapine), 1 TAB PO HS, (Reported) Scheduled PRN Clonidine HCl (Clonidine HCl), 1 TAB PO BID PRN for anxiety, (Reported) ONDANSETRON ODT 4mg tablet (Ondansetron Odt), 1 TAB PO Q6H PRN PRN for nausea/vomiting ONDANSETRON ODT 4mg tablet (Ondansetron Odt), 1 TAB PO Q6H PRN PRN for nausea/vomiting Past Medical History Past Medical History: No Pertinent History, *PSYCH* Past Surgical History: no surgical history Alcohol Use: Heavy Drug Use: marijuana, methamphetamine Lives In: Home Review of Systems All Other Systems at this time: Reviewed and Negative Physical Exam Vital Signs: RN Vital Signs have been reviewed: Yes, Temperature: 98.7, Source: Temporal, Heart Rate: 125, Respiratory Rate: 18, BP: 111/72, Pulse Oximetry: 98, Weight: 74.000 Oxygen Flow Rate: 0 Pulse Oximetry Reflects: adequate oxygenation Physical Exam General: Alert, no distress. HEENT: No injection, moist mucous membranes. Neck: Full range of motion. Respiratory: No respiratory distress, equal chest rise and fall. Chest: No accessory muscle use. Cardiovascular: Regular rate and rhythm. Gastrointestinal: Nondistended. Extremities: Normal range of motion, no deformity. Neurologic: Oriented x4. Psychiatric: Normal mood and affect. Skin: Normal color, warm and dry. Progress Results/Orders Results/Orders Vital Signs 11/08/24 17:42 Temp 98.7 Pulse 125 Resp 18 B/P (MAP) 111/72 Pulse Ox 98 O2 Flow Rate 0 Laboratory Tests Test 11/08/24 17:53 CBC Comment Chemistry Comments Medical Decision Making Findings Abdominal exam without peritoneal signs. No evidence of acute abdomen at this time. Well appearing. Given work up, low suspicion for acute hepatobiliary disease (including acute cholecystitis or cholangitis), acute pancreatitis (neg lipase), PUD (including gastric perforation), acute infectious processes (pneumonia, hepatitis, pyelonephritis), acute appendicitis, vascular catastrophe, bowel obstruction, viscus perforation, or testicular torsion, diverticulitis. Presentation not consistent with other acute, emergent causes of abdominal pain at this time. We will follow up with the primary care provider or return to the emergency department if he has any worsening of his current symptoms or any additional concerning symptoms i.e. fevers nausea vomiting diarrhea increased pain. Differential Dx:Considerations: Include: AAA, Angina/ND, Aortic dissection, Appendicitis, Bowel obstruction, Cholangitis, Cholelithasis, Constipation, Diverticular disease, Esophageal rupture, Esophagitis, Gastritis/PUD, Gastroenteritis, GI hemorrhage, Hernia, Hepatitis, Inflammatory BD, Ischemic bowel, Pancreatitis, Porphyria, Testicular torsion, Trauma, intraabdominal, Urinary obstruction, Urinary tract infection, Urolithiasis, Other Departure Disposition: 01 HOME / SELF CARE / HOMELESS Impression: Primary Impression: Abdominal pain Condition: Stable Discharge Instructions: Abdominal Pain, Adult, [id number] Additional Instructions: Abdominal exam without peritoneal signs. No evidence of acute abdomen at this time. Well appearing. Given work up, low suspicion for acute hepatobiliary disease (including acute cholecystitis or cholangitis), acute pancreatitis (neg lipase), PUD (including gastric perforation), acute infectious processes (pneumonia, hepatitis, pyelonephritis), acute appendicitis, vascular catastrophe, bowel obstruction, viscus perforation, or testicular torsion, diverticulitis. Presentation not consistent with other acute, emergent causes of abdominal pain at this time. We will follow up with the primary care provider or return to the emergency department if he has any worsening of his current symptoms or any additional concerning symptoms i.e. fevers nausea vomiting diarrhea increased pain. Referrals: NO PRIMARY CARE PROVIDER (PCP) Education Educated: Patient Educated regarding: diagnosis, treatment, need for follow up Additional Comment Medical Screen Exam This patient recieved a medical screening examination. After reviewing the individual's medical complaints with presenting symptoms and performing an appropriate physical examination, it was determined that no immediate life- threatening emergency medical condition is present. This individual is also not a women having contractions. Signature Scribe Signature: AScribed for Marjorie Sanon by YASH Navarro . 11/08/24 22:50 Attestation: Scribed for Marjorie Sanon Mock Up Maker by YASH Navarro . 11/08/24 22:51 ALTAF FOSTER Nov 08, 2024 18:06 MARJORIE SANON Nov 08, 2024 22:51
[2024-11-08 18:20] LABS: CREATININE 0.79 MG/DL (0.60-1.10); TOTAL CARBON DIOXIDE 25.1 MMOL/L (24-32); eCRCL 150 ML/MIN; eGFR > 90 ML/MIN
[2024-11-08 19:46] VITALS: BP 126/71; PULSE 99; RESP 16; TEMP 98.3; O2SAT 99
== END 2024-11-08 23:08 | disposition home or self-care (01) ==
LOC: ER 17:39
DX: R10.33 Periumbilical pain (principal); R11.0 Nausea; F12.90 Cannabis use, unspecified, uncomplicated; F15.90 Other stimulant use, unspecified, uncomplicated; F10.90 Alcohol use, unspecified, uncomplicated; Z79.899 Other long term (current) drug therapy; Y90.9 Presence of alcohol in blood, level not specified
CPT/HCPCS: 36415; 80053; 83690; 85025; 99283

== ENCOUNTER 2024-11-09 08:50 | Emergency (ER) | payer MEDICAID ==
[2024-11-09 08:54] VITALS: BP 136/79; PULSE 126; RESP 17; TEMP 97.1; O2SAT 97
--- NOTE | 2024-11-09 08:57 | Physician Documentation ---
History of Present Illness ~ Chief Complaint: Medical Clearance Stated Complaint: MEDICAL CLEARANCE Time Seen by MD: 08:54 Primary Medical Doctor: NONE HPI 24-year-old male requesting medical clearance for chronic fentanyl and methamphetamine use. Tetanus within 5 years?: Yes (2023) Medication Reconciliation Allergies: Coded Allergies: No Known Allergies (Unverified , 11/09/24) Scheduled Buprenorphine Hcl/Naloxone Hcl (Suboxone 8 Mg-2 Mg Sl Film), 1 STRIP SL DAILY Gabapentin (Neurontin), 1 CAP PO TID, (Reported) Olanzapine (Olanzapine), 1 TAB PO HS, (Reported) Scheduled PRN Clonidine HCl (Clonidine HCl), 1 TAB PO BID PRN for anxiety, (Reported) ONDANSETRON ODT 4mg tablet (Ondansetron Odt), 1 TAB PO Q6H PRN PRN for nausea/vomiting ONDANSETRON ODT 4mg tablet (Ondansetron Odt), 1 TAB PO Q6H PRN PRN for nausea/vomiting Past Medical History Past Medical History: No Pertinent History, *PSYCH* Past Surgical History: no surgical history Alcohol Use: Heavy Drug Use: marijuana, methamphetamine Lives In: Home Review of Systems All Other Systems at this time: Reviewed and Negative ROS As stated above in the HPI, otherwise all systems are reviewed and negative. Physical Exam Physical Exam General: Alert, no apparent distress. Respiratory: Lungs clear, no respiratory distress. Cardiovascular: Regular rate and rhythm, no murmurs. Gastrointestinal: Soft, nontender, nondistended. Bowels sounds present. Neurologic: Oriented x4. Psychiatric: Normal mood and affect. Skin: Normal color, warm and dry. No edema, no ecchymosis. Progress Results/Orders Results/Orders Completed Orders - CLARENCE LOGAN NP Clonidine Tablet (Catapres Tablet) (11/09/24 09:00) Vital Signs 11/09/24 08:54 Temp 97.1 Pulse 126 Resp 17 B/P (MAP) 136/79 Pulse Ox 97 Medical Decision Making Findings medically cleared for rehab Differential Dx:Considerations: Include: Intoxication-Alcohol, Intoxication- Other drug, Personality disorder, Substance abuse disorder, Acute delirium, Closed head injury, Cervical spine injury, Skull fracture, Fracture(s), Abrasion, Contusion, Foreign body, Hematoma, Laceration, Alcohol withdrawl syndrom, Encephalopathy, Hepatitis, Medically stable, Other Departure Impression: Primary Impression: Polysubstance abuse Discharge Instructions: Medical Screening Exam Additional Instructions: medically cleared for inpatient rehab and recovery Referrals: NO PRIMARY CARE PROVIDER (PCP) Signature Scribe Signature: r Attestation: Scribed for Emergency,Department by Clarence Ardon NP . 11/09/24 08:55 CLARENCE LOGAN NP Nov 09, 2024 08:57
== END 2024-11-09 09:07 | disposition home or self-care (01) ==
LOC: ER 08:50
DX: F19.10 Other psychoactive substance abuse, uncomplicated (principal)
CPT/HCPCS: 99282

== ENCOUNTER 2024-11-09 20:11 | Emergency (ER) | payer MEDICAID ==
[~2024-11-09] VITALS: Ht 175.3 cm; Wt 57.3 kg
[2024-11-09 20:17] VITALS: BP 139/90; PULSE 126; RESP 16; O2SAT 99
--- NOTE | 2024-11-09 21:47 | Physician Documentation ---
History of Present Illness ~ Chief Complaint: Suicidal Ideation Stated Complaint: SI Time Seen by MD: 20:48 Primary Medical Doctor: NONE HPI Patient presents to the emergency room for evaluation of suicidal ideation. No plan. Medication Reconciliation Allergies: Coded Allergies: No Known Allergies (Unverified , 11/09/24) Scheduled Buprenorphine Hcl/Naloxone Hcl (Suboxone 8 Mg-2 Mg Sl Film), 1 STRIP SL DAILY Gabapentin (Neurontin), 1 CAP PO TID, (Reported) Olanzapine (Olanzapine), 1 TAB PO HS, (Reported) Scheduled PRN Clonidine HCl (Clonidine HCl), 1 TAB PO BID PRN for anxiety, (Reported) ONDANSETRON ODT 4mg tablet (Ondansetron Odt), 1 TAB PO Q6H PRN PRN for nausea/vomiting ONDANSETRON ODT 4mg tablet (Ondansetron Odt), 1 TAB PO Q6H PRN PRN for nausea/vomiting Past Medical History Past Medical History: No Pertinent History, *PSYCH* Past Surgical History: no surgical history Alcohol Use: Heavy Drug Use: marijuana, methamphetamine Lives In: Home Review of Systems ROS All review of systems negative except as per HPI Physical Exam Vital Signs: Temperature: 97.5, Heart Rate: 126, Respiratory Rate: 16, BP: 139/90, Pulse Oximetry: 99, Weight: 57.300 Oxygen Flow Rate: 0 Physical Exam General: Patient is awake, alert, oriented x4 in no acute distress Head: Normocephalic and atraumatic. Eyes: Conjunctival normal. EOMI. PERRL. ENT: Mucous membranes moist. Neck: Supple, trachea is midline. Chest: Clear to auscultation bilaterally without rales, rhonchi, or wheezes. There is no accessory muscle use or retractions. Cardiac: RRR without murmurs, gallops, or rubs. Psych: Cooperative, good eye contact, suicidal Progress Results/Orders Results/Orders Orders - JOSE J CORNELL MD Urinalysis (11/09/24 21:40) Drug Screen, Urine (11/09/24 21:40) Med Rec (11/09/24 21:40) 1799.11 (11/09/24 21:40) Close Observation Level (11/09/24 21:40) Covid19 Binax Poc Result Entry (11/09/24 21:40) Substance Use Navigator (11/09/24 21:40) Regular Diet (11/10/24 Breakfast) Completed Orders - JOSE J CORNELL MD Cbc/Diff (11/09/24 21:40) Ethanol (11/09/24 21:40) TSH (11/09/24 21:40) BMP (11/09/24 21:40) Vital Signs 11/09/24 20:17 Temp 97.5 Pulse 126 Resp 16 B/P (MAP) 139/90 Pulse Ox 99 O2 Flow Rate 0 Laboratory Tests Test 11/09/24 21:47 White Blood Count 6.8 Red Blood Count 4.77 Hemoglobin 13.2 L Hematocrit 39.3 L Mean Corpuscular Volume 82.4 Mean Corpuscular Hemoglobin 27.7 Mean Corpuscular Hemoglobin Concent 33.6 Red Cell Distribution Width 14.5 Platelet Count 307 Mean Platelet Volume 7.4 Neutrophils (%) (Auto) 65.1 Lymphocytes (%) (Auto) 27.4 Monocytes (%) (Auto) 6.6 Eosinophils (%) (Auto) 0.6 Basophils (%) (Auto) 0.3 Neutrophils # (Auto) 4.4 Lymphocytes # (Auto) 1.9 Monocytes # (Auto) 0.5 Eosinophils # (Auto) 0.0 Basophils # (Auto) 0.0 CBC Comment Sodium Level 143 Potassium Level 4.0 Chloride Level 109 H Carbon Dioxide Level 25.9 Anion Gap 8 Blood Urea Nitrogen 11 Creatinine 0.68 Estimated GFR/1.73 m2 > 90 BUN/Creatinine Ratio 16.2 Glucose Level 119 H Calcium Level 9.1 Albumin 3.5 Thyroid Stimulating Hormone (TSH) 0.83 Chemistry Comments Ethyl Alcohol Level < 10 Medical Decision Making Findings Patient presents to the emergency room endorsing suicidal ideation. Labs reviewed and that has no evidence of major pathologic derangements. Patient is medically cleared for mental health evaluation Departure Disposition: 30 STILL A PATIENT Impression: Primary Impression: Suicidal ideation Condition: Guarded Discharge Instructions: Suicidal Feelings: How to Help Yourself Referrals: NO PRIMARY CARE PROVIDER (PCP) Signature Scribe Signature: No scribe Attestation: The note accurately reflects work and decisions made by me.Jose J Cornell MD 11/09/24 22:43 JOSE J CORNELL MD Nov 09, 2024 21:47
[2024-11-09 21:55] LABS: MEAN PLATELET VOLUME 7.4 FL (7.4-10.4); RED CELL DISTRIBUTION WIDTH 14.5 % (11.5-14.5)
[2024-11-09 22:19] LABS: CREATININE 0.68 MG/DL (0.60-1.10); TOTAL CARBON DIOXIDE 25.9 MMOL/L (24-32); eCRCL 137 ML/MIN; eGFR > 90 ML/MIN
[2024-11-09 22:27] LABS: ETHANOL < 10 MG/DL (<10)
[2024-11-10 00:46] LABS: LEUKOCYTE ESTERASE ,URINE NEGATIVE (Neg); NITRITES, URINE NEGATIVE (Neg); OCCULT BLOOD,URINE NEGATIVE (Neg)
[2024-11-10 00:47] LABS: UA COLLECTION TYPE CLN CATCH MIDSTREAM
[2024-11-10 00:51] LABS: SQUAMOUS EPITHELIAL CELL,UR FEW /LPF (FEW)
[2024-11-10 00:52] LABS: MUCUS STRANDS MANY /LPF (Neg)
[2024-11-10 00:53] LABS: AMORPHOUS URATES 1+
[2024-11-10 01:03] LABS: URINE AMPHETAMINE SCREEN POSITIVE (Neg); URINE BARBITUATE SCREEN NEGATIVE (Neg); URINE BENZODIAZEPINES SCREEN NEGATIVE (Neg); URINE CANNABINOID SCREEN POSITIVE (Neg); URINE COCAINE SCREEN NEGATIVE (Neg); URINE METHADONE SCREEN NEGATIVE (Neg); URINE OPIATE SCREEN NEGATIVE (Neg); URINE PHENCYCLIDINE SCREEN NEGATIVE (Neg)
[2024-11-10 01:50] VITALS: TEMP 97.5
== END 2024-11-10 02:12 | disposition still patient (30) ==
LOC: ER 20:11
DX: R45.851 Suicidal ideations (principal); Z20.822 Contact with and (suspected) exposure to COVID-19; Z79.899 Other long term (current) drug therapy
CPT/HCPCS: 36415; 80048; 80305; 80320; 81001; 84443; 85025; 87811; 99285

== ENCOUNTER 2024-11-14 16:46 | Emergency (ER) | payer MEDICAID ==
[~2024-11-14] VITALS: Ht 175.3 cm; Wt 56.0 kg
[2024-11-14 17:02] VITALS: BP 128/80; PULSE 88; RESP 16; TEMP 98.7; O2SAT 99
[2024-11-14 19:00] LABS: CREATININE 0.89 MG/DL (0.60-1.10); TOTAL CARBON DIOXIDE 27.0 MMOL/L (24-32); eCRCL 102 ML/MIN; eGFR > 90 ML/MIN
[2024-11-14 19:41] LABS: MEAN PLATELET VOLUME 8.6 FL (7.4-10.4); RED CELL DISTRIBUTION WIDTH 13.9 % (11.5-14.5)
== END 2024-11-14 20:10 | disposition left against medical advice (07) ==
LOC: ER 16:47
DX: R11.10 Vomiting, unspecified (principal); Z53.21 Procedure and treatment not carried out due to patient leaving prior to being seen by health care provider
CPT/HCPCS: 36415; 80053; 83690; 85025

== ENCOUNTER 2024-11-21 13:31 | Emergency (ER) | payer MEDICAID ==
[~2024-11-21] VITALS: Ht 175.3 cm; Wt 53.5 kg
[2024-11-21 13:36] VITALS: TEMP 97.8
--- NOTE | 2024-11-21 14:51 | Physician Documentation ---
History of Present Illness ~ Chief Complaint: Nausea Stated Complaint: NAUSEA Time Seen by MD: 14:32 Primary Medical Doctor: NONE Mode of Arrival: POV, Ambulatory Exam Limitations: no limitations HPI Patient presents secondary to feeling anxious after using methamphetamine today. He states he thinks he is withdrawing. Denies nausea or vomiting currently. When asked about nausea he states not yet. Last use fentanyl couple of days ago. He is homeless. He states that he has not drank water or ate food today. Medication Reconciliation Allergies: Coded Allergies: No Known Allergies (Unverified , 11/09/24) Scheduled Buprenorphine Hcl/Naloxone Hcl (Suboxone 8 Mg-2 Mg Sl Film), 1 STRIP SL DAILY Gabapentin (Neurontin), 1 CAP PO TID, (Reported) Olanzapine (Olanzapine), 1 TAB PO HS, (Reported) Scheduled PRN Clonidine HCl (Clonidine HCl), 1 TAB PO BID PRN for anxiety, (Reported) ONDANSETRON ODT 4mg tablet (Ondansetron Odt), 1 TAB PO Q6H PRN PRN for nausea/vomiting Past Medical History Past Medical History: No Pertinent History, *PSYCH* Past Surgical History: no surgical history Alcohol Use: Heavy Drug Use: marijuana, methamphetamine, other (Fentanyl) Lives In: Homeless Occupation: unemployed Review of Systems ROS Patient denies chest pain or pressure. Denies shortness or breath. Denies dizziness lightheadedness or syncope. Denies nausea or vomiting. Denies abdominal pain. Was asked, but otherwise denies all other review of systems. Physical Exam Vital Signs: RN Vital Signs have been reviewed: Yes, Temperature: 97.8, Source: Temporal, Heart Rate: 120, Respiratory Rate: 16, BP: 122/77, Pulse Oximetry: 99, Weight: 53.500 Oxygen Flow Rate: 0 Pulse Oximetry Reflects: adequate oxygenation Physical Exam General: Awake, alert, oriented. Speaking in full sentences. Shaking his legs continuously during evaluation. Neck: Supple. Normal range of motion. No JVD Respiratory: Lungs are clear to auscultation bilaterally. No respiratory distress. Chest: Normal shape and size. No accessory muscle use. Cardiovascular: Regular rate and rhythm. S1-S2. No murmur, gallop, rub. Gastrointestinal: Abdomen is soft. Nontender to palpation. Bowel sounds present. Extremities: No lower extremity edema, cyanosis or clubbing. Neurologic: Alert and oriented x4. Nonfocal Psychiatric: Anxious appearing. Skin: Normal color. Warm and dry. Progress Results/Orders Results/Orders Vital Signs 11/21/24 11/21/24 11/21/24 11/21/24 13:36 14:20 14:21 14:58 Temp 97.8 Pulse 136 120 106 Resp 18 18 16 20 B/P (MAP) 135/80 122/77 (92) 127/77 Pulse Ox 97 99 98 O2 Flow Rate 0 0 Medical Decision Making Findings Patient initially presented with complaints of nausea however when asked he denies nausea or vomiting. He states he is anxious and is withdrawing from methamphetamine however he last used methamphetamine today. There are no acute medical conditions at this time. There is no clinical suspicion for intra- abdominal trauma. He has not currently nauseated and has not vomited. States he has not ate today. Discussed with nursing. He we will be provided with food and water. He will also be provided with Narcan as he uses fentanyl. He was encouraged to quit using drugs. The case was discussed with the attending physician, Adina. The plan of care, diagnostic evaluation and medical decision making were discussed. The attending physician was available for consultation, where the diagnostic findings as well as the eventual disposition. Departure Time of Disposition: 14:49 Disposition: 01 HOME / SELF CARE / HOMELESS Impression: Primary Impression: Methamphetamine abuse Additional Impression: Anxiety Discharge Instructions: Methamphetamines Use Disorder Additional Instructions: Highly recommend that you quit using drugs. Given that you state use fentanyl I have given you some Narcan. Of course I recommend that you quit using. You may keep the Narcan on you in use as needed in case of overdose. Please stay well hydrated. Referrals: NO PRIMARY CARE PROVIDER (PCP) Education Educated: Patient Educated regarding: diagnosis, treatment, need for follow up Signature Scribe Signature: No scribe Attestation: The note accurately reflects work and decisions made by me.Lety Ardon NP 11/21/24 14:51 LETY FONTANEZ NP Nov 21, 2024 14:51
[2024-11-21 14:58] VITALS: BP 127/77; PULSE 106; RESP 20; O2SAT 98
== END 2024-11-21 15:01 | disposition home or self-care (01) ==
LOC: ER 13:31
DX: F15.10 Other stimulant abuse, uncomplicated (principal); F41.9 Anxiety disorder, unspecified; F12.90 Cannabis use, unspecified, uncomplicated
CPT/HCPCS: 99282

== ENCOUNTER 2024-11-26 00:46 | Emergency (ER) | payer MEDICAID ==
[~2024-11-26] VITALS: Ht 175.3 cm; Wt 72.7 kg
[~2024-11-26 00:46] MED LIST changes: -BUPR1FIL3 SL
[2024-11-26 01:12] VITALS: BP 133/87; PULSE 86; RESP 18; O2SAT 99
[2024-11-26 01:57] VITALS: TEMP 98.6
--- NOTE | 2024-11-26 01:59 | Physician Documentation ---
History of Present Illness ~ General Chief Complaint: See Chief Complaint Stated Complaint: STOMACH PAIN Time Seen by MD: 01:56 Primary Medical Doctor: NONE History of Present Illness Initial Comments Patient presents in usual fashion asking for food and clothing. Incidentally he does state he has abdominal pain Medication Reconciliation Allergies: Coded Allergies: No Known Allergies (Unverified , 11/09/24) Scheduled Gabapentin (Neurontin), 1 CAP PO TID, (Reported) Olanzapine (Olanzapine), 1 TAB PO HS, (Reported) Scheduled PRN Clonidine HCl (Clonidine HCl), 1 TAB PO BID PRN for anxiety, (Reported) ONDANSETRON ODT 4mg tablet (Ondansetron Odt), 1 TAB PO Q6H PRN PRN for nausea/vomiting Discontinued Medications Buprenorphine Hcl/Naloxone Hcl (Suboxone 8 Mg-2 Mg Sl Film), 1 STRIP SL DAILY Discontinued Reason: Auto Discontinued Past Medical History Past Medical History: No Pertinent History, *PSYCH* Past Surgical History: no surgical history Smoking Status: Current every day smoker Alcohol Use: Heavy Drug Use: marijuana, methamphetamine, other Lives In: Homeless Occupation: unemployed Review of Systems ROS All review of systems negative except as per HPI Physical Exam Physical Exam Vital Signs: Temperature: 98.6, Heart Rate: 86, Respiratory Rate: 18, BP: 133/87, Pulse Oximetry: 99, Weight: 72.720 Oxygen Flow Rate: 0 Physical Exam General: Patient is awake, alert, oriented x4 in no acute distress , homeless appearing Head: Normocephalic and atraumatic. Eyes: Conjunctival normal. EOMI. PERRL. ENT: Mucous membranes moist. Neck: Supple, trachea is midline. Chest: Clear to auscultation bilaterally without rales, rhonchi, or wheezes. There is no accessory muscle use or retractions. Cardiac: RRR without murmurs, gallops, or rubs. Abd: Soft, nondistended, nontender, with normoactive bowel sounds. No guarding, rebound, or rigidity. Progress Results/Orders Results/Orders Vital Signs 11/26/24 01:12 Temp 98.6 Pulse 86 Resp 18 B/P (MAP) 133/87 Pulse Ox 99 O2 Flow Rate 0 Medical Decision Making Findings Patient presents to the emergency room requesting food and clothing that has per HPI. Although he does endorse abdominal pain he appears comfortable and after given food is eating ravenous laying and he had not feel he requires emergent labs or imaging at this time given his reassuring physical exam and vitals. Departure Disposition: HOME / SELF CARE / HOMELESS Impression: Primary Impression: Abdominal pain Condition: Stable Discharge Instructions: Abdominal Pain, Adult, [id number] Referrals: NO PRIMARY CARE PROVIDER (PCP) Education Educated: Patient Educated regarding: diagnosis, treatment, need for follow up Signature Scribe Signature: No scribe Attestation: The note accurately reflects work and decisions made by me.Jose J Cornell MD 11/26/24 01:59 JOSE J CORNELL MD Nov 26, 2024 01:59
== END 2024-11-26 02:00 | disposition home or self-care (01) ==
LOC: ER 00:47
DX: R10.9 Unspecified abdominal pain (principal); F12.90 Cannabis use, unspecified, uncomplicated; F17.200 Nicotine dependence, unspecified, uncomplicated; F15.90 Other stimulant use, unspecified, uncomplicated; F10.90 Alcohol use, unspecified, uncomplicated; Z59.00 Homelessness unspecified; Y90.9 Presence of alcohol in blood, level not specified
CPT/HCPCS: 99282

== ENCOUNTER → 2024-12-13 | Emergency (ER) | payer MEDICAID ==
[~2024-12-13] VITALS: Ht 175.3 cm; Wt 72.7 kg
[2024-12-13 02:31] VITALS: BP 132/62; PULSE 62; RESP 16; TEMP 97; O2SAT 94
== END | disposition left against medical advice (07) ==
LOC: ER 01:52
DX: Z00.00 Encounter for general adult medical examination without abnormal findings (principal); Z53.21 Procedure and treatment not carried out due to patient leaving prior to being seen by health care provider

== ENCOUNTER 2024-12-16 17:49 | Emergency (ER) | payer MEDICAID ==
[~2024-12-16] VITALS: Ht 182.9 cm; Wt 61.0 kg
[2024-12-16 18:07] VITALS: BP 147/97; PULSE 106; RESP 20; TEMP 98; O2SAT 99
[2024-12-17] MEDS ORDERED: HYDR50TA65 PO (07:14)
== END 2024-12-16 21:31 | disposition left against medical advice (07) ==
LOC: ER 17:49
DX: M25.572 Pain in left ankle and joints of left foot (principal); Z53.21 Procedure and treatment not carried out due to patient leaving prior to being seen by health care provider; X50.1XXA Overexertion from prolonged static or awkward postures, initial encounter; Y93.89 Activity, other specified; Y92.89 Other specified places as the place of occurrence of the external cause; Y99.8 Other external cause status

== ENCOUNTER 2024-12-17 05:59 | Emergency (ER) | payer MEDICAID ==
[~2024-12-17] VITALS: Ht 170.2 cm; Wt 72.7 kg
[2024-12-17 06:06] VITALS: BP 122/68; PULSE 76; RESP 16; O2SAT 97
--- NOTE | 2024-12-17 06:58 | Physician Documentation ---
History of Present Illness General Chief Complaint: See Chief Complaint Stated Complaint: I JUST FEEL SICK Time Seen by MD: 06:58 Primary Medical Doctor: NONE History of Present Illness Initial Comments The patient is a 24-year-old male well known to the emergency room staff presents with anxiety. Patient states he used fentanyl several hours ago he is requesting medication for anxiety as well as treatment resources for his methamphetamine and fentanyl abuse. Patient denies any nausea vomiting or diarrhea patient's symptoms are mild to moderate persistent. Medication Reconciliation Allergies: Coded Allergies: No Known Allergies (Unverified , 11/09/24) Scheduled Gabapentin (Neurontin), 1 CAP PO TID, (Reported) Hydroxyzine HCl (Hydroxyzine HCl), 1 TAB PO Q8H Olanzapine (Olanzapine), 1 TAB PO HS, (Reported) Scheduled PRN Clonidine HCl (Clonidine HCl), 1 TAB PO BID PRN for anxiety, (Reported) ONDANSETRON ODT 4mg tablet (Ondansetron Odt), 1 TAB PO Q6H PRN PRN for nausea/vomiting Past Medical History Past Medical History: No Pertinent History, *PSYCH* Past Surgical History: no surgical history Alcohol Use: Heavy Drug Use: marijuana, methamphetamine, other Lives In: Homeless Occupation: unemployed Review of Systems All Other Systems at this time: Reviewed and Negative Physical Exam Physical Exam Vital Signs: Temperature: 97.2, Heart Rate: 76, Respiratory Rate: 16, BP: 122/68, Pulse Oximetry: 97, Weight: 72.700 Oxygen Flow Rate: 0 Physical Exam VITALS: Reviewed and as above. GENERAL: Alert, no apparent distress. Poor hygiene HEENT: Normocephalic, atraumatic, PERRL, EOMI, dry mucosa, no erythema RESPIRATORY: Lungs clear, normal breath sounds, no respiratory distress. CHEST: No accessory muscle use, no retractions CV: Regular rate, rhythm, no edema, no murmur, No: JVD GI: Soft, non-tender, bowels sounds present, no rebound, guarding, or rigidity BACK: No CVA tenderness, or swelling MUSCULOSKELETAL: No deformities, no edema SKIN: Warm and dry, no rash NEURO: Oriented x4, No motor or sensory deficit PSYCH: Normal mood and affect, no agitation Progress Results/Orders Results/Orders Vital Signs 12/17/24 12/17/24 06:06 07:21 Temp 97.2 97.2 Pulse 76 Resp 16 B/P (MAP) 122/68 Pulse Ox 97 O2 Flow Rate 0 Medical Decision Making Findings The patient with homelessness and polysubstance abuse requesting something for anxiety, the patient is well-appearing in no distress. Vital signs have been reviewed. Patient's pulse oximetry was interpreted as normal and adequate. The patient's previous hospitalizations have been reviewed. The patient will be receiving a prescription for hydroxyzine patient has been advised to follow up as an outpatient with [facility] the patient will be discharged. Prior hospitalizations were reviewed Departure Time of Disposition: 07:10 Disposition: 01 HOME / SELF CARE / HOMELESS Impression: Primary Impression: Anxiety Referrals: NO PRIMARY CARE PROVIDER (PCP) [facility] Prescriptions Hydroxyzine HCl (Hydroxyzine HCl) 50 Mg Tablet 1 TAB PO Q8H for anxiety for 30 Days, #90 TAB 0 Refills Prov: ESTHER HELMS MD 12/17/24 Signature Scribe Signature: no scribe Attestation: The note accurately reflects work and decisions made by me.Esther Helms MD 12/17/24 15:30 ESTHER HELMS MD Dec 17, 2024 06:58
[2024-12-17] MEDS ORDERED: HYDR50TA65 PO (07:14)
[2024-12-17 07:21] VITALS: TEMP 97.2
== END 2024-12-17 07:22 | disposition home or self-care (01) ==
LOC: ER 06:00
DX: F41.9 Anxiety disorder, unspecified (principal); F12.90 Cannabis use, unspecified, uncomplicated; F15.90 Other stimulant use, unspecified, uncomplicated; Z56.0 Unemployment, unspecified; Z59.00 Homelessness unspecified; Z79.899 Other long term (current) drug therapy
CPT/HCPCS: 99281

== ENCOUNTER 2024-12-19 18:19 | Emergency (ER) | payer MEDICAID ==
[~2024-12-19] VITALS: Ht 167.6 cm; Wt 60.0 kg
--- NOTE | 2024-12-19 19:11 | Physician Documentation ---
History of Present Illness General Chief Complaint: Overdose Stated Complaint: VOMITING Time Seen by MD: 18:55 Primary Medical Doctor: NONE Mode of Arrival: EMS, Stretcher History of Present Illness Initial Comments 24-year-old male well known to our emergency department staff brought in after was found unresponsive in the field. Bystanders had administered two rounds of Narcan. EMS administered another two rounds of Narcan as well as Zofran as the patient became arousable after the 4th dose of Narcan and started to vomit. Patient admits to heroin use. Medication Reconciliation Allergies: Coded Allergies: No Known Allergies (Unverified , 11/09/24) Scheduled Gabapentin (Neurontin), 1 CAP PO TID, (Reported) Hydroxyzine HCl (Hydroxyzine HCl), 1 TAB PO Q8H Olanzapine (Olanzapine), 1 TAB PO HS, (Reported) Scheduled PRN Clonidine HCl (Clonidine HCl), 1 TAB PO BID PRN for anxiety, (Reported) ONDANSETRON ODT 4mg tablet (Ondansetron Odt), 1 TAB PO Q6H PRN PRN for nausea/vomiting Past Medical History Past Medical History: No Pertinent History, *PSYCH* Past Surgical History: no surgical history Alcohol Use: Heavy Drug Use: marijuana, methamphetamine, other Lives In: Homeless Occupation: unemployed Review of Systems All Other Systems at this time: Reviewed and Negative Physical Exam Physical Exam Vital Signs: Temperature: 97.5, Source: Oral, Heart Rate: 91, Respiratory Rate: 12, BP: 113/68, Pulse Oximetry: 100, Weight: 60.000 Oxygen Flow Rate: 2.0 Physical Exam VITALS: Reviewed and as above. GENERAL: Somnolent but arousable poor hygiene HEENT: Normocephalic, atraumatic, PERRL, EOMI, dry mucosa, no erythema RESPIRATORY: Lungs clear, normal breath sounds, no respiratory distress. CHEST: No accessory muscle use, no retractions CV: Regular rate, rhythm, no edema, no murmur, No: JVD GI: Soft, non-tender, bowels sounds present, no rebound, guarding, or rigidity BACK: No CVA tenderness, or swelling MUSCULOSKELETAL: No deformities, no edema SKIN: Warm and dry, no rash NEURO: Oriented x4, No motor or sensory deficit PSYCH: Normal mood and affect, no agitation Progress Results/Orders Results/Orders Vital Signs 12/19/24 12/19/24 12/19/24 12/19/24 18:26 18:49 18:56 20:00 Temp 97.5 97.5 97.5 Pulse 68 91 88 Resp 10 10 12 12 B/P (MAP) 113/71 113/68 (83) 112/62 (79) Pulse Ox 98 100 100 O2 Flow Rate 3.0 2.0 0 12/19/24 22:03 Temp 97.5 Pulse 90 Resp 12 B/P (MAP) 114/74 (87) Pulse Ox 100 O2 Flow Rate 0 Medical Decision Making Findings The patient is a 24-year-old male who responded to Narcan after a known opiate ingestion. The patient was observed for several hours in the emergency department with no recurrence of his toxidrome. The patient's pulse oximetry was interpreted as normal and adequate in his night monitor was interpreted as a sinus rhythm. The patient's previous hospitalizations were reviewed. The patient will be discharged with instructions to avoid opioid use and return if he develops any worsening of his symptoms. Departure Time of Disposition: 21:13 Disposition: 01 HOME / SELF CARE / HOMELESS Impression: Primary Impression: Overdose of fentanyl Discharge Instructions: Opioid Overdose Referrals: NO PRIMARY CARE PROVIDER (PCP) Signature Scribe Signature: No scribe Attestation: The note accurately reflects work and decisions made by me.Esther Helms MD 12/20/24 05:33 ESTHER HELMS MD Dec 19, 2024 19:11
[2024-12-19 22:03] VITALS: BP 114/74; PULSE 90; RESP 12; TEMP 97.5; O2SAT 100
== END 2024-12-19 22:06 | disposition home or self-care (01) ==
LOC: ER 18:19
DX: T40.411A Poisoning by fentanyl or fentanyl analogs, accidental (unintentional), initial encounter (principal); F11.90 Opioid use, unspecified, uncomplicated; F12.90 Cannabis use, unspecified, uncomplicated; F15.90 Other stimulant use, unspecified, uncomplicated
CPT/HCPCS: 99283; A4615

== ENCOUNTER → 2024-12-19 | Emergency (ER) | payer MEDICAID ==
[~2024-12-19] VITALS: Ht 175.3 cm; Wt 55.9 kg
[~2024-12-19] MED LIST changes: +HYDR50TA65 PO
[2024-12-19 12:25] VITALS: BP 123/71; PULSE 96; RESP 18; TEMP 98.6; O2SAT 99
--- NOTE | 2024-12-19 12:31 | Physician Documentation ---
History of Present Illness ~ General Chief Complaint: See Chief Complaint Stated Complaint: GENERAL Time Seen by MD: 12:28 OK to notify your PCP?: Yes Primary Medical Doctor: NONE Source: patient Mode of Arrival: POV Exam Limitations: no limitations History of Present Illness Initial Comments 24-year-old male presents requesting some food. He denies having any medical complaints. Food was provided in triage. Medication Reconciliation Allergies: Coded Allergies: No Known Allergies (Unverified , 11/09/24) Scheduled Gabapentin (Neurontin), 1 CAP PO TID, (Reported) Hydroxyzine HCl (Hydroxyzine HCl), 1 TAB PO Q8H Olanzapine (Olanzapine), 1 TAB PO HS, (Reported) Scheduled PRN Clonidine HCl (Clonidine HCl), 1 TAB PO BID PRN for anxiety, (Reported) ONDANSETRON ODT 4mg tablet (Ondansetron Odt), 1 TAB PO Q6H PRN PRN for nausea/vomiting Past Medical History Past Medical History: No Pertinent History, *PSYCH* Past Surgical History: no surgical history Alcohol Use: Heavy Drug Use: marijuana, methamphetamine, other Lives In: Homeless Occupation: unemployed Review of Systems All Other Systems at this time: Reviewed and Negative Physical Exam Physical Exam Vital Signs: RN Vital Signs have been reviewed: Yes, Temperature: 98.6, Source: Oral, Heart Rate: 96, Respiratory Rate: 18, BP: 123/71, Pulse Oximetry: 99, Weight: 55.910 Pulse Oximetry Reflects: adequate oxygenation Physical Exam General: Alert, no distress. HEENT: No injection, moist mucous membranes. Neck: Full range of motion. Respiratory: No respiratory distress, equal chest rise and fall. Chest: No accessory muscle use. Cardiovascular: No cyanosis. Gastrointestinal: Nondistended. Extremities: Normal range of motion, no deformity. Neurologic: Oriented x4. Psychiatric: Normal mood and affect. Skin: Normal color, warm and dry. Progress Results/Orders Results/Orders Vital Signs 12/19/24 12:25 Temp 98.6 Pulse 96 Resp 18 B/P (MAP) 123/71 Pulse Ox 99 Medical Decision Making Findings Patient eloped after MSE exam. Departure Disposition: LEFT AWOL/ELOPED Impression: Primary Impression: Eloped from emergency department Referrals: NO PRIMARY CARE PROVIDER (PCP) Additional Comment Medical Screen Exam This patient recieved a medical screening examination. After reviewing the individual's medical complaints with presenting symptoms and performing an ap propriate physical examination, it was determined that no immediate life- threatening emergency medical condition is present. This individual is also not a women having contractions. Signature Scribe Signature: . Attestation: Scribed for Linnette Candelario by Linnette Ardon NP . 12/19/24 12:31 Parts of this note were created using [employer] voice recognition software program. While efforts were made to correct any mistakes made by this voice recognition software program, nonsensical phrases may remain in this note. In addition, there may be errors and syntax, grammar, content and spelling. LINNETTE CANDELARIO [facility] Dec 19, 2024 12:31
== END | disposition left against medical advice (07) ==
LOC: ER 12:16
DX: Z00.8 Encounter for other general examination (principal); F12.90 Cannabis use, unspecified, uncomplicated; F15.90 Other stimulant use, unspecified, uncomplicated
CPT/HCPCS: 99281

== ENCOUNTER 2024-12-20 16:17 | Emergency (ER) | payer MEDICAID ==
[~2024-12-20] VITALS: Ht 175.3 cm; Wt 55.0 kg
--- NOTE | 2024-12-20 21:04 | Physician Documentation ---
History of Present Illness ~ Chief Complaint: Mental Health Eval Stated Complaint: SI Time Seen by MD: 20:53 Primary Medical Doctor: NONE HPI 24-year-old male returns to the emergency department. This is his 3rd visit in the last 24 hours. He has seen and evaluated on each prior visit for behavioral health issues. Continues to deny SI or HI at this time yet states that he is anxious. Relates his anxiety to be primarily situational and that he is missing his Xanax. He is followed in seeing [facility] and received his prescriptions from there. A appears only mildly anxious. Reports that he is grateful for the food that has received an reports that if he can receive some anxiolytic medication and he would follow up with [facility] tomorrow. His speech is clear non rushed thoughts her congruent. He is apologetic for his repeated visits to in the emergency department. He wonders if he may need a 5150 despite denying SI or HI. Medication Reconciliation Allergies: Coded Allergies: No Known Allergies (Unverified , 11/09/24) Scheduled Gabapentin (Neurontin), 1 CAP PO TID, (Reported) Hydroxyzine HCl (Hydroxyzine HCl), 1 TAB PO Q8H Olanzapine (Olanzapine), 1 TAB PO HS, (Reported) Scheduled PRN Clonidine HCl (Clonidine HCl), 1 TAB PO BID PRN for anxiety, (Reported) ONDANSETRON ODT 4mg tablet (Ondansetron Odt), 1 TAB PO Q6H PRN PRN for nausea/vomiting Past Medical History Past Medical History: No Pertinent History, *PSYCH*, Anxiety, Psychosis Past Surgical History: no surgical history Alcohol Use: Heavy Drug Use: marijuana, methamphetamine, other Lives In: Homeless Occupation: unemployed Review of Systems All Other Systems at this time: Reviewed and Negative Psychiatric: Reports: anxiety, hopeless; Denies: depression, suicidal, leonard ucinations Physical Exam Vital Signs: Temperature: 99.0, Source: Oral, Heart Rate: 111, Respiratory Rate: 14, BP: 129/87, Pulse Oximetry: 98, Weight: 55.000 General Appearance: alert, mild distress, other (Non disheveled) EENT: PERRL/EOMI Head: normal inspection Neck: non-tender Respiratory: lungs clear, normal breath sounds Chest: no accessory muscle use Cardiovascular: normal peripheral pulses Neurologic: oriented x4, 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, memory intact, oriented to time, oriented to person, oriented to place, oriented to events Appearance/Memory/Insight: appropriate appearance Behavior/Eye contact/Speech: cooperative; No increased rate of speech, No uncooperative Thought/Hallucinations: normal thought pattern; No: no apparent hallucination, phobic, rambling conversation Affect: appropriate, anxious Skin: warm/dry; No: rash Progress Results/Orders Results/Orders Completed Orders - MAEGAN MARTINEZ Hydroxyzine Tablet (Atarax Tablet) (12/20/24 20:55) Alprazolam Tablet (Xanax Tablet) (12/20/24 20:55) Vital Signs 12/20/24 12/20/24 12/20/24 16:36 20:40 21:28 Temp 99.0 98.6 Pulse 111 110 Resp 18 14 16 B/P (MAP) 129/87 125/82 Pulse Ox 98 99 Medical Decision Making Differential Diagnosis 24-year-old male with repeated visits to the emergency department for behavioral health issues. Well known to the department with multiple visits. No clear indication to have patient further screen for consideration of 5150. Shared decision-making with the patient has received one time dose of Xanax 0.25 along with hydroxyzine. Patient very willing to follow up with [facility] tomorrow for medication screening and evaluation. Prescription for hydroxyzine sent to do with his pharmacy of choice. He is discharged in the emergency department steady gait while oriented. Upon re-evaluation patient continues to deny SI or HI. Again his pleased that he received a meal. Again he is apologetic for bead in the emergency department. Departure Disposition: HOME / SELF CARE / HOMELESS Impression: Primary Impression: Anxiety Condition: Stable Discharge Instructions: Medical Screening Exam, Psychosis Additional Instructions: Tonight in the emergency department you received a one time dosing medication for anxiety. Please presents to [facility] tomorrow for medication review and medical screening. Referrals: NO PRIMARY CARE PROVIDER (PCP) Education Educated: Patient Educated regarding: diagnosis, treatment Signature Scribe Signature: . Attestation: MAEGAN JHA Dec 20, 2024 21:04
[2024-12-20] MEDS: ALPRAZolam 0.25mg tablet PO ONE (21:24)
[2024-12-20 21:28] VITALS: BP 125/82; PULSE 110; RESP 16; TEMP 98.6; O2SAT 99
== END 2024-12-20 21:30 | disposition home or self-care (01) ==
LOC: ER 16:17
DX: F41.9 Anxiety disorder, unspecified (principal); F12.90 Cannabis use, unspecified, uncomplicated; F15.90 Other stimulant use, unspecified, uncomplicated; Z56.0 Unemployment, unspecified; Z79.899 Other long term (current) drug therapy; Z59.00 Homelessness unspecified
CPT/HCPCS: 99283; Q0177

== ENCOUNTER 2024-12-23 15:37 | Emergency (ER) | payer MEDICAID ==
[~2024-12-23] VITALS: Ht 175.3 cm; Wt 77.3 kg
[2024-12-23 15:40] VITALS: BP 111/68; PULSE 124; RESP 18; TEMP 97.5; O2SAT 99
--- NOTE | 2024-12-23 16:15 | Physician Documentation ---
History of Present Illness General Chief Complaint: Nausea Stated Complaint: GENERAL ILLNESS Time Seen by MD: 15:58 Primary Medical Doctor: NONE History of Present Illness Initial Comments 24-year-old male unsheltered well known to the emergency department presents with request for medication for nausea. He has drinking soda without vomiting. Otherwise presents well appearing requesting food resources. Seen in the emergency department 24 hours ago and was given antiemetic yet no prescription. No vomiting or diarrhea, fever reported. Medication Reconciliation Allergies: Coded Allergies: No Known Allergies (Unverified , 11/09/24) Scheduled Gabapentin (Neurontin), 1 CAP PO TID, (Reported) Hydroxyzine HCl (Hydroxyzine HCl), 1 TAB PO Q8H Hydroxyzine Hcl* (Atarax*), 1 TAB PO Q8H Olanzapine (Olanzapine), 1 TAB PO HS, (Reported) Scheduled PRN Clonidine HCl (Clonidine HCl), 1 TAB PO BID PRN for anxiety, (Reported) ONDANSETRON ODT 4mg tablet (Ondansetron Odt), 1 TAB PO Q6H PRN PRN for nausea/vomiting Past Medical History Past Medical History: No Pertinent History, *PSYCH*, Anxiety, Psychosis Past Surgical History: no surgical history Alcohol Use: Heavy Drug Use: marijuana, methamphetamine, other Lives In: Homeless Occupation: unemployed Review of Systems All Other Systems at this time: Reviewed and Negative GI: Reports: nausea; Denies: abdominal pain, vomiting, diarrhea Psychiatric Behavior health issues Physical Exam Physical Exam Vital Signs: Temperature: 97.5, Source: Temporal, Heart Rate: 124, Respiratory Rate: 18, BP: 111/68, Pulse Oximetry: 99, Weight: 77.270 Oxygen Flow Rate: 0 General Appearance: alert, WD/WN, mild distress Head: normal inspection Face: normal inspection Pupils/EOM/Fundus: PERRLA Neck: non-tender Respiratory: lungs clear Chest: no accessory muscle use Cardiovascular: normal peripheral pulses Gastrointestinal: normal palpation Neurologic: oriented x4 Motor / Sensory: no motor deficit Psychiatric: normal mood/affect Skin: normal color Progress Results/Orders Results/Orders Completed Orders - MAEGAN MARTINEZ PAC Ondansetron Disint. Tablet (Zofran Odt T (12/23/24 16:10) Vital Signs 12/23/24 15:40 Temp 97.5 Pulse 124 Resp 18 B/P (MAP) 111/68 Pulse Ox 99 O2 Flow Rate 0 Medical Decision Making Differential Diagnosis Food insecurities addressed with sandwich, nausea addressed with the Zofran and prescription for Hydroxyzine forwarded to pharmacy. All other resources addressed. Patient's safely discharged in the emergency department without clinical suspicion for infectious or inflammatory bowel disorders. Departure Disposition: HOME / SELF CARE / HOMELESS Impression: Primary Impression: Unsheltered homelessness Additional Impressions: Nausea Food security Additional Instructions: Please begin medications as directed. Please follow up with local [facility] and return as needed. Thank you for visiting emergency department [facility]. Referrals: NO PRIMARY CARE PROVIDER (PCP) Prescriptions Hydroxyzine Hcl* (Atarax*) 25 Mg Tablet 1 TAB PO Q8H for anxiety for 10 Days, #30 TAB Prov: MAEGAN MARTINEZ PAC 12/23/24 Education Educated: Patient Educated regarding: diagnosis, treatment Signature Scribe Signature: . Attestation: . MAEGAN MARTINEZ PAC Dec 23, 2024 16:15
[2024-12-23] MEDS ORDERED: HYDR-3686 PO (16:19)
[2024-12-23] MEDS: ondansetron 4mg rapidly disintigrating tab PO ONE (16:27)
== END 2024-12-23 16:30 | disposition home or self-care (01) ==
LOC: ER 15:38
DX: R11.0 Nausea (principal); F12.90 Cannabis use, unspecified, uncomplicated; F15.90 Other stimulant use, unspecified, uncomplicated; F19.90 Other psychoactive substance use, unspecified, uncomplicated; Z59.02 Unsheltered homelessness; Z79.899 Other long term (current) drug therapy; Z56.0 Unemployment, unspecified; Z59.00 Homelessness unspecified
CPT/HCPCS: 99283

== ENCOUNTER 2024-12-24 14:32 | Emergency (ER) | payer MEDICAID ==
[~2024-12-24] VITALS: Ht 177.8 cm; Wt 59.1 kg
[~2024-12-24 14:32] MED LIST changes: +HYDR-3686 PO
[2024-12-24 15:24] VITALS: BP 110/71; PULSE 100; RESP 20; TEMP 98.2; O2SAT 99
--- NOTE | 2024-12-24 15:51 | Physician Documentation ---
History of Present Illness ~ Chief Complaint: Anxiety Stated Complaint: "FEELING SICK" Time Seen by MD: 15:28 Primary Medical Doctor: NONE HPI This is a 24-year-old un-housed male with a history of anxiety and methamphetamine abuse who presents reporting anxiety, patient reports that he was seen yesterday for the same though did not pharmacy picking technician his anxiety prescription as he believes he lost the prescription. Patient is well known to this emergency department where he has been seen multiple times recently. Review of records indicate patient had a prescription electronically sent a pharmacy yesterday. Medication Reconciliation Allergies: Coded Allergies: No Known Allergies (Unverified , 12/24/24) Scheduled Gabapentin (Neurontin), 1 CAP PO TID, (Reported) Hydroxyzine HCl (Hydroxyzine HCl), 1 TAB PO Q8H Hydroxyzine Hcl* (Atarax*), 1 TAB PO Q8H Olanzapine (Olanzapine), 1 TAB PO HS, (Reported) Scheduled PRN Clonidine HCl (Clonidine HCl), 1 TAB PO BID PRN for anxiety, (Reported) ONDANSETRON ODT 4mg tablet (Ondansetron Odt), 1 TAB PO Q6H PRN PRN for nausea/vomiting Past Medical History Past Medical History: No Pertinent History, *PSYCH*, Anxiety, Psychosis Past Surgical History: no surgical history Alcohol Use: Heavy Drug Use: marijuana, methamphetamine, other Lives In: Homeless Occupation: unemployed Review of Systems ROS As stated above in the HPI, otherwise all systems are reviewed and negative. Physical Exam Vital Signs: Temperature: 98.2, Source: Temporal, Heart Rate: 100, Respiratory Rate: 20, BP: 110/71, Pulse Oximetry: 99, Weight: 59.090 Oxygen Flow Rate: 0 Physical Exam VITALS: Reviewed and as above. GENERAL: Alert, nontoxic appearing, no apparent distress. RESPIRATORY: No increased work of breathing, no respiratory distress, speaking in full clear sentences PSYCH: Anxious appearing, sitting no HI or SI Progress Results/Orders Results/Orders Orders - ALISON VIDALES Substance Use Navigator (12/24/24 15:52) Completed Orders - ALISON VIDALES Lorazepam Tablet (Ativan Tablet) (12/24/24 15:30) Vital Signs 12/24/24 15:24 Temp 98.2 Pulse 100 Resp 20 B/P (MAP) 110/71 Pulse Ox 99 O2 Flow Rate 0 Medical Decision Making Findings This 24-year-old on housed male with a history of anxiety and methamphetamine abuse who is very well known to this emergency department presented reporting anxiety though has been seen for the same the day before and prescribed hydroxyzine which he did not pharmacy picking technician his prescription for, review of records indicate patient had the prescription for the medication electronically sent to his preferred pharmacy though patient believes he was provided a written prescription therefore did patient provided a dose of medications for anxiety and discharged to pharmacy picking technician her previously prescribed medications. Patient is otherwise well-appearing reporting no other acute symptoms or concerns and is appropriate for outpatient follow up. Patient instructed to follow up with [facility] or a mental health provider for long-term management of anxiety. Patient verbalized understanding of discharge instructions. Differential Dx:Considerations: Include: Alcohol abuse, Anxiety, Bipolar disorder, Conversion disorder, Homicidal, Panic disorder, Personality disorder, Schizophrenia, Substance abuse, Suicidal Departure Time of Disposition: 15:49 Disposition: 01 HOME / SELF CARE / HOMELESS Impression: Primary Impression: Anxiety Condition: Improved Discharge Instructions: Methamphetamines Use Disorder, Panic Attack Additional Instructions: Your anxiety may be related to methamphetamine abuse, please follow up with our substance use navigator which I have placed a referral for. Please use the previously prescribed hydroxyzine for anxiety, your prescription was electronically sent to your preferred pharmacy yesterday. If you have daily anxiety you may need to be on a medication for generalized anxiety, you will ne ed to see a primary care provider or mental health provider for this. Please follow up with your primary care provider or [facility] in the next few days. Please return to the emergency department for any new or worsening concerning symptoms. Referrals: NO PRIMARY CARE PROVIDER (PCP) Education Educated: Patient Educated regarding: diagnosis, treatment, prognosis, need for follow up Signature Scribe Signature: No scribe Attestation: The note accurately reflects work and decisions made by me.YASH Mcdonald 12/25/24 11:08 ALISON VIDALES Dec 24, 2024 15:51
== END 2024-12-24 18:35 | disposition left against medical advice (07) ==
LOC: ER 14:32
DX: F41.9 Anxiety disorder, unspecified (principal); F12.90 Cannabis use, unspecified, uncomplicated; F15.90 Other stimulant use, unspecified, uncomplicated
CPT/HCPCS: 99281; 99282

== ENCOUNTER 2024-12-25 23:29 | Emergency (ER) | payer MEDICAID ==
[~2024-12-25] VITALS: Ht 175.3 cm; Wt 80.0 kg
[2024-12-25 23:53] VITALS: BP 120/68; PULSE 84; RESP 18; TEMP 98; O2SAT 99
== END 2024-12-26 00:08 | disposition left against medical advice (07) ==
LOC: ER 23:30
DX: R05.9 Cough, unspecified (principal); J00 Acute nasopharyngitis [common cold]; R09.81 Nasal congestion; Z53.21 Procedure and treatment not carried out due to patient leaving prior to being seen by health care provider

== ENCOUNTER 2024-12-30 00:13 | Emergency (ER) | payer MEDICAID ==
--- NOTE | 2024-12-30 00:43 | Physician Documentation ---
History of Present Illness ~ Chief Complaint: Mental Health Eval Stated Complaint: ABDOMINAL PAIN Time Seen by MD: 00:43 Primary Medical Doctor: NONE HPI Patient presents to the emergency room requesting a sandwich. No other complaints at this time Medication Reconciliation Allergies: Coded Allergies: No Known Allergies (Unverified , 12/24/24) Scheduled Gabapentin (Neurontin), 1 CAP PO TID, (Reported) Hydroxyzine HCl (Hydroxyzine HCl), 1 TAB PO Q8H Hydroxyzine Hcl* (Atarax*), 1 TAB PO Q8H Olanzapine (Olanzapine), 1 TAB PO HS, (Reported) Scheduled PRN Clonidine HCl (Clonidine HCl), 1 TAB PO BID PRN for anxiety, (Reported) ONDANSETRON ODT 4mg tablet (Ondansetron Odt), 1 TAB PO Q6H PRN PRN for nausea/vomiting Past Medical History Past Medical History: No Pertinent History, *PSYCH*, Anxiety, Psychosis Past Surgical History: no surgical history Alcohol Use: Heavy Drug Use: marijuana, methamphetamine, other Lives In: Homeless Occupation: unemployed Review of Systems ROS All review of systems negative except as per HPI Physical Exam Vital Signs: Temperature: 98.0, Heart Rate: 89, Respiratory Rate: 16, BP: 136/93, Pulse Oximetry: 99 Oxygen Flow Rate: 0 Physical Exam General: Patient is awake, alert, oriented x4 in no acute distress Head: Normocephalic and atraumatic. Eyes: Conjunctival normal. EOMI. PERRL. ENT: Mucous membranes moist. Neck: Supple, trachea is midline. Chest: Clear to auscultation bilaterally without rales, rhonchi, or wheezes. There is no accessory muscle use or retractions. Cardiac: RRR without murmurs, gallops, or rubs. Psych: Cooperative, poor eye contact, unusual affect Progress Results/Orders Results/Orders Orders - JOSE J CORNELL MD Cbc/Diff (12/30/24 00:24) CMP (12/30/24 00:24) Urinalysis (12/30/24 00:24) Drug Screen, Urine (12/30/24 00:24) Ethanol (12/30/24 00:24) TSH (12/30/24 00:24) Covid19 Binax Poc Result Entry (12/30/24 00:24) Vital Signs 10/1/25 00:16 Temp 98.0 Pulse 89 Resp 16 B/P (MAP) 136/93 Pulse Ox 99 O2 Flow Rate 0 Medical Decision Making Findings Patient presents to the emergency room requesting sandwich. He is well known to the emergency room. He has been given food. During my exam he has not voiced any concerns regarding SI/HI. Departure Disposition: HOME / SELF CARE / HOMELESS Impression: Primary Impression: General medical exam Condition: Stable Discharge Instructions: Medical Screening Exam Referrals: NO PRIMARY CARE PROVIDER (PCP) Signature Scribe Signature: No scribe Attestation: The note accurately reflects work and decisions made by me.Jose J Cornell MD 12/30/24 00:45 JOSE J CORNELL MD Dec 30, 2024 00:43
[2024-12-30 00:52] VITALS: BP 134/90; PULSE 86; RESP 18; TEMP 98.6; O2SAT 99
== END 2024-12-30 01:16 | disposition home or self-care (01) ==
LOC: ER 00:13
DX: Z00.00 Encounter for general adult medical examination without abnormal findings (principal); F41.9 Anxiety disorder, unspecified; F12.90 Cannabis use, unspecified, uncomplicated; F15.90 Other stimulant use, unspecified, uncomplicated; F10.90 Alcohol use, unspecified, uncomplicated; Z79.899 Other long term (current) drug therapy; Z56.0 Unemployment, unspecified; Z59.02 Unsheltered homelessness; Y90.9 Presence of alcohol in blood, level not specified
CPT/HCPCS: 99282

== ENCOUNTER 2025-01-01 21:35 | Emergency (ER) | payer MEDICAID ==
[~2025-01-01] VITALS: Ht 172.7 cm; Wt 70.0 kg
--- NOTE | 2025-01-02 00:59 | Physician Documentation ---
History of Present Illness ~ General Chief Complaint: Multiple Medical Complaints Stated Complaint: STOMACH ACHE Time Seen by MD: 22:13 Primary Medical Doctor: NONE History of Present Illness Initial Comments This is a 24-year-old male who is well known to this emergency department who presents initially reporting stomach pain however on triage reports he checked in just to get a pitcher of water and use the bathroom, patient left triage immediately after entering the room and went to the bathroom before cardiovascular specialist was able to obtain vital signs and due to the length of time he was in the bathroom security had to unlock the door, I was present with security when the door was unlocked open patient was found to be in the emergency department bathroom apparently utilizing injection drugs with a syringe found in his hand, patient confirmed that he was only looking for water to drink and requested a sandwich. Patient reported no other acute symptoms or concerns. Patient was told he would be provided a picture water and a sandwich if available, after this he requested Ativan. Medication Reconciliation Allergies: Coded Allergies: No Known Allergies (Unverified , 12/24/24) Scheduled Gabapentin (Neurontin), 1 CAP PO TID, (Reported) Hydroxyzine HCl (Hydroxyzine HCl), 1 TAB PO Q8H Hydroxyzine Hcl* (Atarax*), 1 TAB PO Q8H Olanzapine (Olanzapine), 1 TAB PO HS, (Reported) Scheduled PRN Clonidine HCl (Clonidine HCl), 1 TAB PO BID PRN for anxiety, (Reported) ONDANSETRON ODT 4mg tablet (Ondansetron Odt), 1 TAB PO Q6H PRN PRN for nausea/vomiting Past Medical History Past Medical History: No Pertinent History, *PSYCH*, Anxiety, Psychosis Past Surgical History: no surgical history Smoking Status: Unknown if ever smoked Alcohol Use: Heavy Drug Use: marijuana, methamphetamine, other Lives In: Homeless Occupation: unemployed Review of Systems ROS As stated above in the HPI, otherwise all systems are reviewed and negative. Physical Exam Physical Exam Vital Signs: Weight: 70.000 Physical Exam VITALS: Patient refusing vitals GENERAL: Alert, nontoxic appearing, no apparent distress. RESPIRATORY: No increased work of breathing, no respiratory distress, speaking in full clear sentences Medical Decision Making Findings This 24-year-old otherwise well male presented to the emergency department initially reporting stomach pain however after entering triage room informed staff he was only presenting to the emergency department for water and a sandwich, patient had left triage room and refused vital signs, patient immediately went to ED restroom where after some time security unlocked the door, I was present to witnessed patient utilizing syringe for suspected IV drug use. Patient reported no acute symptoms or concerns and verified only present to obtain food and water, patient provided water and food. As patient had no acute concern and is otherwise well-appearing he is appropriate for discharge. Patient left ED lobby before discharge instructions. Differential Diagnosis Drug seeking, hungry, homeless, malingering abdominal pain, diarrhea, vomiting, bowel obstruction, GERD, substance abuse Departure Disposition: HOME / SELF CARE / HOMELESS Impression: Primary Impression: Malingering Additional Impressions: Homelessness Polysubstance abuse Food security Referrals: NO PRIMARY CARE PROVIDER (PCP) Signature Scribe Signature: No Scribe Attestation: The note accurately reflects work and decisions made by me.YASH Mcdonald 01/02/25 11:56 ALISON VIDALES Jan 02, 2025 00:59
== END 2025-01-01 22:15 | disposition left against medical advice (07) ==
LOC: ER 21:35
DX: R10.9 Unspecified abdominal pain (principal); Z76.5 Malingerer [conscious simulation]; F19.10 Other psychoactive substance abuse, uncomplicated; F12.90 Cannabis use, unspecified, uncomplicated; Z59.00 Homelessness unspecified; Z79.899 Other long term (current) drug therapy
CPT/HCPCS: 99281

== ENCOUNTER 2025-01-02 19:03 | Emergency (ER) | payer MEDICAID ==
[~2025-01-02] VITALS: Ht 172.7 cm; Wt 62.0 kg
[2025-01-02 19:20] VITALS: BP 132/81; PULSE 116; RESP 18; TEMP 98; O2SAT 98
--- NOTE | 2025-01-02 19:41 | Physician Documentation ---
History of Present Illness ~ Chief Complaint: Overdose Stated Complaint: ALOC Time Seen by MD: 19:34 Primary Medical Doctor: NONE Source: patient, EMS Mode of Arrival: EMS Exam Limitations: no limitations HPI 24-year-old male brought in by EMS due to heavy meth use. A bystanders noted patient and called EMS Medication Reconciliation Allergies: Coded Allergies: No Known Allergies (Unverified , 12/24/24) Scheduled Gabapentin (Neurontin), 1 CAP PO TID, (Reported) Hydroxyzine HCl (Hydroxyzine HCl), 1 TAB PO Q8H Hydroxyzine Hcl* (Atarax*), 1 TAB PO Q8H Olanzapine (Olanzapine), 1 TAB PO HS, (Reported) Scheduled PRN Clonidine HCl (Clonidine HCl), 1 TAB PO BID PRN for anxiety, (Reported) ONDANSETRON ODT 4mg tablet (Ondansetron Odt), 1 TAB PO Q6H PRN PRN for nausea/vomiting Past Medical History Past Medical History: No Pertinent History, *PSYCH*, Anxiety, Psychosis Past Surgical History: no surgical history Alcohol Use: Heavy Drug Use: marijuana, methamphetamine, other Lives In: Homeless Occupation: unemployed Review of Systems All Other Systems at this time: Reviewed and Negative Unable to obtain complete ROS: altered mental status Physical Exam Vital Signs: RN Vital Signs have been reviewed: Yes, Temperature: 98.0, Heart Rate: 116, Respiratory Rate: 18, BP: 132/81, Pulse Oximetry: 98, Weight: 62.000 Physical Exam General: No obvious distress patient is will respond to his name does answers simple questions does appear under the influence of methamphetamine HEENT: moist mucous membranes. Neck: Full range of motion. Respiratory: No respiratory distress Chest: No accessory muscle use. Cardiovascular: Appears well perfused Neurologic: Under the influence of illicit drugs Psychiatric: Normal mood and affect. Skin: Normal color, warm and dry. No edema, no ecchymosis. Progress Results/Orders Results/Orders Vital Signs 01/02/25 19:20 Temp 98.0 Pulse 116 Resp 18 B/P (MAP) 132/81 Pulse Ox 98 Medical Decision Making Additional info obtained from: old records Findings Patient a known active meth user brought in by EMS due to an bystanders notification. Patient will respond to name answer simple questions vital signs in route are stable. Patient states he is hungry sandwich and what given. Patient was discharged after eating and being able to ambulate by himself Differential Dx:Considerations: Include: Alcohol abuse, Delirium, Drug Overdose-Accidental, Drug Overdose-Intentional, Encephalopathy, Schizophrenia, Substance abuse Departure Time of Disposition: 20:30 Disposition: HOME / SELF CARE / HOMELESS Impression: Primary Impression: Methamphetamine abuse Additional Impression: Homelessness Discharge Instructions: Overdose, Adult Additional Instructions: Follow up with [facility]. Instructions and resources provided for drug use. Referrals: NO PRIMARY CARE PROVIDER (PCP) Education Educated: Patient Educated regarding: diagnosis, treatment, need for follow up Signature Scribe Signature: No scribe Attestation: The note accurately reflects work and decisions made by me.Lilli BERRIOS 01/02/25 19:41 LILLI SORIANO NP Jan 02, 2025 19:40
== END 2025-01-02 20:36 | disposition home or self-care (01) ==
LOC: ER 19:03
DX: F15.10 Other stimulant abuse, uncomplicated (principal); Z59.00 Homelessness unspecified
CPT/HCPCS: 99283

== ENCOUNTER 2025-01-04 16:37 | Emergency (ER) | payer MEDICAID ==
[~2025-01-04] VITALS: Ht 162.6 cm; Wt 63.6 kg
[~2025-01-04 16:37] MED LIST changes: -HYDR-3686 PO
[2025-01-04 16:38] VITALS: BP 130/72; PULSE 125; RESP 18; TEMP 98.5; O2SAT 98
--- NOTE | 2025-01-04 17:00 | Physician Documentation ---
History of Present Illness ~ Chief Complaint: Mental Health Eval Stated Complaint: SI Time Seen by MD: 16:45 Primary Medical Doctor: NONE HPI 44-year-old male well known to the ED presents stating he has a anxiety and would like a sandwich. The adds that he has suicide ideation but does not have a plan this is a typical approach that he uses one coming to the ED.. Does not present any acute distress and is comparable to his previous visits. I offered anxiety meds and a sandwich and he stated that now he does not have a suicidal ideation and he is just hungry Day of Onset: Jan 04, 2025 Medication Reconciliation Allergies: Coded Allergies: No Known Allergies (Unverified , 01/04/25) Scheduled Gabapentin (Neurontin), 1 CAP PO TID, (Reported) Hydroxyzine HCl (Hydroxyzine HCl), 1 TAB PO Q8H Olanzapine (Olanzapine), 1 TAB PO HS, (Reported) Scheduled PRN Clonidine HCl (Clonidine HCl), 1 TAB PO BID PRN for anxiety, (Reported) ONDANSETRON ODT 4mg tablet (Ondansetron Odt), 1 TAB PO Q6H PRN PRN for nausea/vomiting Discontinued Medications Hydroxyzine Hcl* (Atarax*), 1 TAB PO Q8H Discontinued Reason: Auto Discontinued Past Medical History Past Medical History: No Pertinent History, *PSYCH*, Anxiety, Psychosis Past Surgical History: no surgical history Alcohol Use: Heavy Drug Use: marijuana, methamphetamine, other Lives In: Homeless Occupation: unemployed Review of Systems All Other Systems at this time: Reviewed and Negative ROS As stated above in the HPI, otherwise all systems are reviewed and negative. Physical Exam Vital Signs: Temperature: 98.5, Source: Temporal, Heart Rate: 125, Respiratory Rate: 18, BP: 130/72, Pulse Oximetry: 98, Weight: 63.640 Oxygen Flow Rate: 0 Physical Exam General: Alert, no apparent distress. HEENT: PERRL, EOMI, no injection, moist mucous membranes. Neck: Full range of motion. Respiratory: Lungs clear, no respiratory distress. Chest: No accessory muscle use. Cardiovascular: Regular rate and rhythm, no murmurs. Gastrointestinal: Soft, nontender, nondistended. Bowels sounds present. Extremities: Normal range of motion, no deformity. Neurologic: Oriented x4. Psychiatric: Normal mood and affect. Skin: Normal color, warm and dry. No edema, no ecchymosis. Progress Results/Orders Results/Orders Orders - CLARENCE LOGAN NP General Nursing Order (01/04/25 ) Completed Orders - CLARENCE LOGAN NP Hydroxyzine Tablet (Atarax Tablet) (01/04/25 16:55) Vital Signs 01/04/25 16:38 Temp 98.5 Pulse 125 Resp 18 B/P (MAP) 130/72 Pulse Ox 98 O2 Flow Rate 0 Medical Decision Making Findings Anxiety medication provided along with nourishment. Patient will be discharged after orders are completed. I did not see any need for further evaluation at this time Differential Dx:Considerations: Include: Alcohol abuse, Anxiety, Bipolar disorder, Conversion disorder, Depression, Encephaloathy, Homicidal, Panic disorder, Personality disorder, Schizophrenia, Substance abuse, Suicidal, Other Departure Disposition: 01 HOME / SELF CARE / HOMELESS Impression: Primary Impression: Anxiety Referrals: NO PRIMARY CARE PROVIDER (PCP) Education Educated: Patient Educated regarding: diagnosis Signature Scribe Signature: f Attestation: Scribed for Clarence Logan [employer] by Clarence Ardon NP . 01/04/25 23:05 CLARENCE LOGAN NP Jan 04, 2025 17:00
== END 2025-01-04 18:11 | disposition home or self-care (01) ==
LOC: ER 16:37
DX: F41.9 Anxiety disorder, unspecified (principal)
CPT/HCPCS: 99282

== ENCOUNTER 2025-01-05 00:32 | Emergency (ER) | payer MEDICAID ==
[~2025-01-05] VITALS: Ht 162.6 cm; Wt 64.0 kg
[2025-01-05 00:40] VITALS: BP 128/86; PULSE 114; TEMP 98; O2SAT 98
--- NOTE | 2025-01-05 02:05 | Physician Documentation ---
History of Present Illness ~ Chief Complaint: Anxiety Stated Complaint: SEE CHIEF COMPLAINT Time Seen by MD: 01:54 Primary Medical Doctor: LEONIDES HPI Patient is here for anxiety. He has a history of chronic anxiety. He is not suicidal or homicidal ideas no other complaints or concerns. Medication Reconciliation Allergies: Coded Allergies: No Known Allergies (Unverified , 01/04/25) Scheduled Gabapentin (Neurontin), 1 CAP PO TID, (Reported) Hydroxyzine HCl (Hydroxyzine HCl), 1 TAB PO Q8H Olanzapine (Olanzapine), 1 TAB PO HS, (Reported) Scheduled PRN Clonidine HCl (Clonidine HCl), 1 TAB PO BID PRN for anxiety, (Reported) ONDANSETRON ODT 4mg tablet (Ondansetron Odt), 1 TAB PO Q6H PRN PRN for nausea/vomiting Discontinued Medications Hydroxyzine Hcl* (Atarax*), 1 TAB PO Q8H Discontinued Reason: Auto Discontinued Past Medical History Past Medical History: No Pertinent History, *PSYCH*, Anxiety, Psychosis Past Surgical History: no surgical history Alcohol Use: Heavy Drug Use: marijuana, methamphetamine, other Lives In: Homeless Occupation: unemployed Physical Exam Vital Signs: Temperature: 98.0, Heart Rate: 114, Respiratory Rate: 16, BP: 128/86, Pulse Oximetry: 98, Weight: 64.000 Oxygen Flow Rate: 0 Physical Exam General: Awake and Alert, no acute distress. Disheveled HEENT: Conjunctiva pink, Sclera clear, Neck: Supple Resp: Unlabored. Heart: Good perfusion Abdomen: Nondistended Extremities: No cyanosis,clubbing or edema. Skin: Warm and Dry. Neuro: no focal deficits Progress Results/Orders Results/Orders Vital Signs 01/05/25 00:40 Temp 98.0 Pulse 114 Resp 16 B/P (MAP) 128/86 Pulse Ox 98 O2 Flow Rate 0 Medical Decision Making Findings Patient is here for anxiety he was given diphenhydramine and one lorazepam. Departure Disposition: HOME / SELF CARE / HOMELESS Impression: Primary Impression: Anxiety Condition: Stable Discharge Instructions: Panic Attack Referrals: NO PRIMARY CARE PROVIDER (PCP) Education Educated: Patient Educated regarding: diagnosis, treatment, prognosis, need for follow up Signature Scribe Signature: no scribe Attestation: no scribe TYLER PATRICIO MD Jan 05, 2025 02:05
[2025-01-05 02:23] VITALS: RESP 19
== END 2025-01-05 02:25 | disposition home or self-care (01) ==
LOC: ER 00:33
DX: F41.9 Anxiety disorder, unspecified (principal); F12.90 Cannabis use, unspecified, uncomplicated; F10.90 Alcohol use, unspecified, uncomplicated; F15.90 Other stimulant use, unspecified, uncomplicated; Y90.9 Presence of alcohol in blood, level not specified
CPT/HCPCS: 99282; Q0163

== ENCOUNTER 2025-01-05 12:35 | Emergency (ER) | payer MEDICAID ==
[~2025-01-05] VITALS: Ht 177.8 cm; Wt 56.4 kg
[2025-01-05 12:42] VITALS: BP 124/78; PULSE 120; RESP 18; TEMP 98.5; O2SAT 99
--- NOTE | 2025-01-05 15:02 | Physician Documentation ---
History of Present Illness ~ Chief Complaint: Anxiety Stated Complaint: ANXIETY Time Seen by MD: 12:54 OK to notify your PCP?: Yes Primary Medical Doctor: NONE Source: patient, RN/MD HPI Patient is seen today with complaints of anxiety. Patient states he used methamphetamines earlier today. Patient denies any chest pain or shortness of breath or abdominal pain or nausea, vomiting, diarrhea or fever or chills and has no other concern or complaint at this time. Medication Reconciliation Allergies: Coded Allergies: No Known Allergies (Unverified , 01/04/25) Scheduled Gabapentin (Neurontin), 1 CAP PO TID, (Reported) Hydroxyzine HCl (Hydroxyzine HCl), 1 TAB PO Q8H Olanzapine (Olanzapine), 1 TAB PO HS, (Reported) Scheduled PRN Clonidine HCl (Clonidine HCl), 1 TAB PO BID PRN for anxiety, (Reported) ONDANSETRON ODT 4mg tablet (Ondansetron Odt), 1 TAB PO Q6H PRN PRN for nausea/vomiting Discontinued Medications Hydroxyzine Hcl* (Atarax*), 1 TAB PO Q8H Discontinued Reason: Auto Discontinued Past Medical History Past Medical History: No Pertinent History, *PSYCH*, Anxiety, Psychosis Past Surgical History: no surgical history Alcohol Use: Heavy Drug Use: marijuana, methamphetamine, other Lives In: Homeless Occupation: unemployed Review of Systems Constitutional: Denies: chills, fever, weakness Eyes: Denies: pain, blurred vision ENT: Denies: ear pain, nose pain, throat pain, mouth pain Respiratory: Denies: cough, shortness of breath Cardiovascular: Denies: chest pain, palpitations Gastrointestinal: Denies: abdominal pain, nausea, vomiting Genitourinary: Denies: burning, dysuria Male Genitalia: Denies: penile discharge, testicular pain Neurological: Denies: headache, dizziness Musculoskeletal: Denies: pain, swelling Integumentary: Denies: rash, lesions Allergic/Immunologic: Denies: hives, itching Hematologic/Lymphatic: Denies: no symptoms reported Psychiatric: Denies: depression, anxiety Physical Exam Vital Signs: Temperature: 98.5, Source: Temporal, Heart Rate: 120, Respiratory Rate: 18, BP: 124/78, Pulse Oximetry: 99, Weight: 56.360 Oxygen Flow Rate: 0 Physical Exam General: Awake and Alert, no acute distress. HEENT: Conjunctiva pink, Sclera clear, Mucus Membranes moist. Neck: Supple without masses and tenderness. Resp: Unlabored. Lungs clear to auscultation bilaterally. Heart: Regular Rate and rhythm, normal S1 and S2 without murmur, rub or gallop. Abdomen: Soft and non tender no organomegaly Extremities: No cyanosis,clubbing or edema. Skin: Warm and Dry. Progress Results/Orders Results/Orders Vital Signs 01/05/25 12:42 Temp 98.5 Pulse 120 Resp 18 B/P (MAP) 124/78 Pulse Ox 99 O2 Flow Rate 0 Medical Decision Making Findings Patient is seen today with complaints of anxiety. Patient states he used methamphetamines earlier today. Patient denies any chest pain or shortness of breath or abdominal pain or nausea, vomiting, diarrhea or fever or chills and has no other concern or complaint at this time. Patient unfortunately eloped and left prior to further eval and treatment. Patient will return to ED with any worsening, concerning or changing symptoms. Departure Disposition: 01 HOME / SELF CARE / HOMELESS Impression: Primary Impression: Anxiety Condition: Stable Discharge Instructions: Emotional Crisis Additional Instructions: Patient unfortunately eloped and left prior to further eval and treatment. Patient will return to ED with any worsening, concerning or changing symptoms. Referrals: NO PRIMARY CARE PROVIDER (PCP) Signature Scribe Signature: No scribe Attestation: No scribe ALIA PRIETO PAC Jan 05, 2025 15:02
== END 2025-01-05 18:17 | disposition home or self-care (01) ==
LOC: ER 12:36
DX: F41.9 Anxiety disorder, unspecified (principal)
CPT/HCPCS: 99282

== ENCOUNTER 2025-01-05 19:09 | Emergency (ER) | payer MEDICAID ==
[~2025-01-05] VITALS: Ht 177.8 cm; Wt 56.0 kg
[~2025-01-05 19:09] MED LIST changes: +HYDR-3686 PO
--- NOTE | 2025-01-05 20:20 | Physician Documentation ---
HPI ~ General Chief Complaint: Medication Request Stated Complaint: ANXIETY Time Seen by MD: 19:33 Primary Medical Doctor: NONE History of Present Illness HPI Comments This is a 24-year-old male with a history of methamphetamine abuse who presents reporting feeling of anxiety after using methamphetamine earlier today. Medication Reconciliation Allergies: Coded Allergies: No Known Allergies (Unverified , 01/04/25) Scheduled Gabapentin (Neurontin), 1 CAP PO TID, (Reported) Hydroxyzine HCl (Hydroxyzine HCl), 1 TAB PO Q8H Olanzapine (Olanzapine), 1 TAB PO HS, (Reported) Scheduled PRN Clonidine HCl (Clonidine HCl), 1 TAB PO BID PRN for anxiety, (Reported) ONDANSETRON ODT 4mg tablet (Ondansetron Odt), 1 TAB PO Q6H PRN PRN for nausea/vomiting Discontinued Medications Hydroxyzine Hcl* (Atarax*), 1 TAB PO Q8H Discontinued Reason: Auto Discontinued Past Medical History Past Medical History: No Pertinent History, *PSYCH*, Anxiety, Psychosis Past Surgical History: no surgical history Alcohol Use: Heavy Drug Use: marijuana, methamphetamine, other Lives In: Homeless Occupation: unemployed Review of Systems ROS As stated above in the HPI, otherwise all systems are reviewed and negative. Physical Exam Physical Exam Vital Signs: Temperature: 98.0, Heart Rate: 120, Respiratory Rate: 18, BP: 160/95, Pulse Oximetry: 98, Weight: 56.000 Oxygen Flow Rate: 0 Physical Exam VITALS: Reviewed and as above. GENERAL: Disheveled. Alert, nontoxic appearing, no apparent distress. RESPIRATORY: No increased work of breathing, no respiratory distress, speaking in full clear sentences NEURO: GCS 15 PSYCH: Normal mood and affect Progress Results/Orders Results/Orders Orders - ALISON VIDALES Substance Use Navigator (01/05/25 21:37) Completed Orders - ALISON VIDALES Hydroxyzine Tablet (Atarax Tablet) (01/05/25 20:20) Vital Signs 01/05/25 01/05/25 19:25 20:37 Temp 98.0 98.0 Pulse 120 124 Resp 18 16 B/P (MAP) 160/95 157/107 Pulse Ox 98 98 O2 Flow Rate 0 Medical Decision Making Findings This 24-year-old male with a history of polysubstance abuse including methamphetamine abuse who is well known to the emergency department presented requesting medication for anxiety, patient reported methamphetamine abuse prior to arrival at hospital, patient is mildly anxious appearing though otherwise at baseline. Anxiety likely related to recent methamphetamine use. Patient is otherwise well-appearing and reporting no other physical symptoms or concerns. Given patient's past history of drug seeking behavior he will be medicated with Atarax and discharged. Patient provided return to care precautions, follow up instructions, and home care instructions to include stopping methamphetamine use. Patient verbalized understanding of discharge instructions. Differential Dx:Considerations: Include: Adverse circumstances, Economic, Psychosocial, Medical services unavail., Medication refill, Other (Malingering, drug-seeking behavior, anxiety, intoxication, methamphetamine abuse) Departure Time of Disposition: 20:18 Impression: Primary Impression: Methamphetamine abuse Additional Impression: Anxiety Condition: Improved Additional Instructions: Stop using methamphetamine. Your anxiety is related to your methamphetamine abuse. The substance use navigator will reach out. Please follow up with your primary care provider or [facility] in the next few days. Please return to the emergency department for any new or worsening concerning symptoms. Referrals: NO PRIMARY CARE PROVIDER (PCP) Education Educated: Patient Educated regarding: diagnosis, treatment, prognosis, need for follow up Signature Scribe Signature: No scribe Attestation: The note accurately reflects work and decisions made by me.YASH Mcdonald 01/06/25 11:23 ALISON VIDALES Jan 05, 2025 20:20
[2025-01-05 20:37] VITALS: BP 157/107; PULSE 124; RESP 16; TEMP 98; O2SAT 98
== END 2025-01-05 20:38 | disposition home or self-care (01) ==
LOC: ER 19:09
DX: F15.10 Other stimulant abuse, uncomplicated (principal); F41.9 Anxiety disorder, unspecified
CPT/HCPCS: 99283; Q0177

== ENCOUNTER 2025-01-06 02:51 | Emergency (ER) | payer MEDICAID ==
[~2025-01-06] VITALS: Ht 177.8 cm; Wt 56.0 kg
[~2025-01-06 02:51] MED LIST changes: -HYDR-3686 PO
[2025-01-06 02:59] VITALS: BP 114/87; PULSE 85; RESP 16; TEMP 98; O2SAT 99
== END 2025-01-06 04:07 | disposition left against medical advice (07) ==
LOC: ER 02:51
DX: R10.9 Unspecified abdominal pain (principal)
CPT/HCPCS: 99281

== ENCOUNTER 2025-01-10 14:58 | Emergency (ER) | payer MEDICAID ==
[~2025-01-10] VITALS: Ht 175.3 cm; Wt 59.1 kg
[2025-01-10 15:06] VITALS: BP 103/83; PULSE 130; RESP 20; TEMP 96.9; O2SAT 99
--- NOTE | 2025-01-10 16:54 | Physician Documentation ---
History of Present Illness ~ Chief Complaint: Mental Health Eval Stated Complaint: SI Time Seen by MD: 15:12 Primary Medical Doctor: NONE Source: patient Mode of Arrival: POV Exam Limitations: no limitations HPI Complaining of suicidal ideation to nursing. 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 When asked he states he is feeling suicidal suicidal. He states he is hungry and needs to sleep. He denies any deviation from his usual state of mental health. When asked, he stated he would feel better if he had a sandwich and a nap and would not want to harm himself. Medication Reconciliation Allergies: Coded Allergies: No Known Allergies (Unverified , 01/10/25) Scheduled Gabapentin (Neurontin), 1 CAP PO TID, (Reported) Hydroxyzine HCl (Hydroxyzine HCl), 1 TAB PO Q8H Olanzapine (Olanzapine), 1 TAB PO HS, (Reported) Scheduled PRN Clonidine HCl (Clonidine HCl), 1 TAB PO BID PRN for anxiety, (Reported) ONDANSETRON ODT 4mg tablet (Ondansetron Odt), 1 TAB PO Q6H PRN PRN for nausea/vomiting Discontinued Medications Hydroxyzine Hcl* (Atarax*), 1 TAB PO Q8H Discontinued Reason: Auto Discontinued Past Medical History Past Medical History: No Pertinent History, *PSYCH*, Anxiety, Psychosis Past Surgical History: no surgical history Alcohol Use: Heavy Drug Use: marijuana, methamphetamine, other Lives In: Homeless Occupation: unemployed Review of Systems ROS Review of systems negative except documented in HPI. Physical Exam Vital Signs: RN Vital Signs have been reviewed: Yes, Temperature: 96.9, Source: Temporal, Heart Rate: 130, Respiratory Rate: 20, BP: 103/83, Pulse Oximetry: 99, Weight: 59.100 Oxygen Flow Rate: 0 Pulse Oximetry Reflects: adequate oxygenation Physical Exam General: Awake, alert, oriented. Skin is dirty Neck: Supple. Normal range of motion. No JVD Respiratory: Lungs are clear to auscultation bilaterally. No respiratory distress. Chest: Normal shape and size. No accessory muscle use. Cardiovascular: Regular rate and rhythm. S1-S2. No murmur, gallop, rub. Neurologic: Alert and oriented x4. Nonfocal Psychiatric: Normal affect. He was sleeping soundly in the [place] on arrival. Skin: Skin is dirty. Progress Results/Orders Results/Orders Vital Signs 01/10/25 15:06 Temp 96.9 Pulse 130 Resp 20 B/P (MAP) 103/83 Pulse Ox 99 O2 Flow Rate 0 Medical Decision Making Findings Patient initially presenting for suicidal ideation. When asked he states he is hungry and wants to sleep. He has been seen multiple times for similar complaints. Given some time to rest and given food. Discharged in stable condition. Departure Time of Disposition: 17:43 Disposition: 01 HOME / SELF CARE / HOMELESS Impression: Primary Impression: Malingering Additional Impression: Substance abuse Condition: Stable Discharge Instructions: Medical Screening Exam Referrals: NO PRIMARY CARE PROVIDER (PCP) Education Educated: Patient Educated regarding: diagnosis, treatment, need for follow up Signature Scribe Signature: No scribed Attestation: The note accurately reflects work and decisions made by me.Lety Fontanez - TERRIE 01/10/25 21:38 This note was created with the assistance of voice recognition software whereby errors in grammar, syntax, and/or spelling may have occurred despite active proofreading efforts by the author. Please do not hesitate to contact the provider for clarification or for questions regarding the content of this document. LETY FONTANEZ NP Jan 10, 2025 16:54
== END 2025-01-10 17:47 | disposition home or self-care (01) ==
LOC: ER 14:58
DX: Z76.5 Malingerer [conscious simulation] (principal); F15.90 Other stimulant use, unspecified, uncomplicated; F12.90 Cannabis use, unspecified, uncomplicated; F10.90 Alcohol use, unspecified, uncomplicated; Y90.9 Presence of alcohol in blood, level not specified
CPT/HCPCS: 99282; 99283

== ENCOUNTER 2025-01-11 21:12 | Emergency (ER) | payer MEDICAID ==
[~2025-01-11] VITALS: Ht 175.3 cm; Wt 60.0 kg
--- NOTE | 2025-01-11 21:44 | Physician Documentation ---
History of Present Illness ~ Chief Complaint: Nausea Stated Complaint: SICK Time Seen by MD: 21:41 Primary Medical Doctor: NONE HPI Is a 24-year-old male that reports to the emergency department for nausea. Patient like some p.o. Zofran. Patient denies any other symptoms at this time. Medication Reconciliation Allergies: Coded Allergies: No Known Allergies (Unverified , 01/10/25) Scheduled Gabapentin (Neurontin), 1 CAP PO TID, (Reported) Hydroxyzine HCl (Hydroxyzine HCl), 1 TAB PO Q8H Olanzapine (Olanzapine), 1 TAB PO HS, (Reported) Scheduled PRN Clonidine HCl (Clonidine HCl), 1 TAB PO BID PRN for anxiety, (Reported) ONDANSETRON ODT 4mg tablet (Ondansetron Odt), 1 TAB PO Q6H PRN PRN for nausea/vomiting Past Medical History Past Medical History: No Pertinent History, *PSYCH*, Anxiety, Psychosis Past Surgical History: no surgical history Alcohol Use: Heavy Drug Use: marijuana, methamphetamine, other Lives In: Homeless Occupation: unemployed Review of Systems ROS As stated above in the HPI, otherwise all systems are reviewed and negative. Physical Exam Vital Signs: Temperature: 97.7, Heart Rate: 122, Respiratory Rate: 16, BP: 134/93, Pulse Oximetry: 100, Weight: 60.000 Oxygen Flow Rate: 0 Physical Exam VITALS: Reviewed and as above. GENERAL: Alert, no apparent distress. HEENT: Normocephalic, atraumatic, PERRL, EOMI, dry mucosa, no erythema RESPIRATORY: Lungs clear, normal breath sounds, no respiratory distress. CHEST: No accessory muscle use, no retractions CV: Regular rate, rhythm, no edema, no murmur, No: JVD GI: Soft, non-tender, bowels sounds present, no rebound, guarding, or rigidity BACK: No CVA tenderness, or swelling MUSCULOSKELETAL No deformities, no edema SKIN: Warm and dry, no rash NEURO: Oriented x4, No motor or sensory deficit PSYCH: Normal mood and affect, no agitation Progress Results/Orders Results/Orders Orders - PARUL SANON REMOTE RECRUITER Ondansetron Disint. Tablet (Zofran Odt T (01/11/25 21:50) Vital Signs 01/11/25 21:17 Temp 97.7 Pulse 122 Resp 16 B/P (MAP) 134/93 Pulse Ox 100 O2 Flow Rate 0 Medical Decision Making Additional info obtained from: other Findings The patient is a 24-year-old male that presents to the emergency department for nausea. Patient has requested p.o. Zofran. Patient denies any other symptoms at this time. Patient denies any abdominal pain fever chills diarrhea or any other symptoms at this time. With his primary care provider. Patient will return to the emergency room with any worsening of his current symptoms or any additional concerning symptoms that we discussed here today. Diff Dx GI Bleed:Consideration: Include: AE fistula, Angiodysplasia, Bleeding diathesis, Blood loss anemia, Carcinoma, Diverticulosis, Diverticulitis, Esophageal varicies, Esophagitis, Gastritis, Gastroenteritis, Inflammatory BD, Talia-Soria syndrome, Meckel's diverticulum, PUD, Other Diff Dx Pain:Considerations: Include: AAA, Angina/NM, Aortic dissection, Appendicitis, Bowel obstruction, Cholangitis, Cholecystitis, Cholelithasis, Constipation, Diverticular disease, Esophageal rupture, Esophagitis, Gastritis, Gastroenteritis, GI hemorrhage, Hepatitis, Hernia, Inflammatory BD, Ischemic bowel, Mass, Pancreatitis, Porphyria, PUD, Testicular torsion, Trauma, intraabdominal, Urinary obstruction, Urinary tract infection, Urolithiasis, Other Diff Dx N/V/D:Considerations: Include: Appendicitis, Bowel obstruction, Dehydration, DKA, Diarrhea - bacterial, Diarrhea - parasitic, Diarrhea - viral, Diverticulitis, Diverticulosis, Drug toxicity, Electrolyte imbalance, Food poisoning, Gastroenteritis, GE reflux, GI bleed, Hepatitis, Hernia, Hypovolemia, Hypotension, Inflammatory BD, Impaction, Malnutrition, Pancreatitis, PUD, Renal failure, Urinary obstruction, UTI, Urolithiasis, Other Diff Dx Rectal:Considerations: Include: Fissure, Fistula, Foreign body, Impaction, Perirectal abscess, Prostatitis, Rectal prolapse, Subcutaneous abscess, Thrombosed hemorrhoid, Ulcer, UTI, Other Departure Disposition: 01 HOME / SELF CARE / HOMELESS Impression: Primary Impression: Nausea Condition: Stable Discharge Instructions: Nausea, Adult, [id number] Additional Instructions: The patient is a 24-year-old male that presents to the emergency department for nausea. Patient has requested p.o. Zofran. Patient denies any other symptoms at this time. Patient denies any abdominal pain fever chills diarrhea or any other symptoms at this time. With his primary care provider. Patient will return to the emergency room with any worsening of his current symptoms or any additional concerning symptoms that we discussed here today. Referrals: NO PRIMARY CARE PROVIDER (PCP) Education Educated: Patient Educated regarding: diagnosis, treatment, need for follow up Signature Scribe Signature: A Attestation: Scribed for Parul Sanon by YASH Navarro . 01/11/25 21:52 PARUL SANON Jan 11, 2025 21:44
[2025-01-11] MEDS: ondansetron 4mg rapidly disintigrating tab PO ONE (21:53)
[2025-01-11 21:56] VITALS: BP 130/90; PULSE 120; RESP 18; TEMP 98.6; O2SAT 99
== END 2025-01-11 22:00 | disposition home or self-care (01) ==
LOC: ER 21:12
DX: R11.0 Nausea (principal); F41.9 Anxiety disorder, unspecified; F32.A Depression, unspecified; F12.90 Cannabis use, unspecified, uncomplicated; F15.90 Other stimulant use, unspecified, uncomplicated; F10.90 Alcohol use, unspecified, uncomplicated; Y90.9 Presence of alcohol in blood, level not specified
CPT/HCPCS: 99283

== ENCOUNTER 2025-01-12 05:20 | Emergency (ER) | payer MEDICAID ==
[~2025-01-12] VITALS: Ht 175.3 cm; Wt 56.5 kg
--- NOTE | 2025-01-12 07:38 | Physician Documentation ---
History of Present Illness ~ Chief Complaint: Anxiety Stated Complaint: ANXIOUS Time Seen by MD: 07:26 OK to notify your PCP?: Yes Primary Medical Doctor: NONE Source: patient Mode of Arrival: Ambulatory Exam Limitations: other (Chronic neurological changes secondary to chronic methamphetamine use) HPI Chief Complaint: Wanting some medication to help him calm down Caveat: Patient has chronic neurological changes secondary to chronic drug use Independent Historians: None History of Present Illness: Patient is a 24-year-old man who has had 26 emergency department visits in the last 14 days. On January 05 he was seen 8 times. Patient is homeless and uses intravenous methamphetamine along with the other drugs. Patient comes in complaining of anxiety and wanting something to help calm him down. Patient is slow to answer questions. Patient's mental status appears to be at baseline. Patient was last seen yesterday. Patient can not seem to come up with any new or acute symptoms. Patient at one point said he was suicidal but can not come up with any plan. Patient does not seem to complain of any acute symptoms of other than his anxiety. Review of systems: All systems were reviewed and are negative except for what is indicated in the history of present illness. Past Medical History: Polysubstance abuse Past Surgical History: Noncontributory Social History: Fentanyl use, methamphetamine use, marijuana use, alcohol use, tobacco use, IV drug use Medications: Reviewed as documented Nursing Notes Allergies: Reviewed as documented in Nursing Notes Medication Reconciliation Allergies: Coded Allergies: No Known Allergies (Unverified , 01/10/25) Scheduled Gabapentin (Neurontin), 1 CAP PO TID, (Reported) Hydroxyzine HCl (Hydroxyzine HCl), 1 TAB PO Q8H Olanzapine (Olanzapine), 1 TAB PO HS, (Reported) Scheduled PRN Clonidine HCl (Clonidine HCl), 1 TAB PO BID PRN for anxiety, (Reported) ONDANSETRON ODT 4mg tablet (Ondansetron Odt), 1 TAB PO Q6H PRN PRN for nausea/vomiting Past Medical History Past Medical History: No Pertinent History, *PSYCH*, Anxiety, Psychosis Past Surgical History: no surgical history Alcohol Use: Heavy Drug Use: marijuana, methamphetamine, other Lives In: Homeless Occupation: unemployed Review of Systems All Other Systems at this time: Reviewed and Negative ROS Patient denies any other acute symptoms other than above. All other systems are negative Physical Exam Vital Signs: RN Vital Signs have been reviewed: Yes, Temperature: 98.0, Heart Rate: 122, Respiratory Rate: 16, BP: 149/97, Pulse Oximetry: 98, Weight: 56.500 Oxygen Flow Rate: 0 Pulse Oximetry Reflects: adequate oxygenation Physical Exam General Appearance: No distress HEENT: Normal OP, moist oral mucosa, PERRL, EOMI Neck: supple, normal ROM, trachea midline Pulmonary: No respiratory distress, CTA, BS equal Cardiac: Tachycardic, regular rhythm, no murmur, rub or gallop, GI: nondistended, soft, nontender, normal bowel sounds, no guarding, no rebound Extremities: normal ROM, no swelling, non-tender, EVIDENCE OF IV DRUG ABUSE OVER THE ANTECUBITAL FOSSA BILATERALLY. PRESENCE OF SCAR TISSUE. NO FLUCTUANCE OR ERYTHEMA. Skin: intact, dry, warm, no rashes Neuro: AAOx3, speech is clear, no focal motor weakness Psych: FLAT AFFECT, good eye contact, no apparent hallucination, SPEECH IS CLEAR AND SLOW. PATIENT'S THOUGHT PROCESS APPEARS TO BE ALSO SLOW AND DISORGANIZED. Progress Results/Orders Results/Orders Vital Signs 01/12/25 05:25 Temp 98.0 Pulse 122 Resp 16 B/P (MAP) 149/97 Pulse Ox 98 O2 Flow Rate 0 Medical Decision Making Additional info obtained from: old records Findings Differential diagnosis includes but is not limited to: Polysubstance abuse, IV drug abuse, malingering Emergency department course/medical decision-making: Patient is a 24-year-old man who is homeless and uses IV methamphetamine. Patient is mildly tachycardic. However he appears well hydrated. He is in no distress. Physical exam is consistent with IV drug abuse. He does not appear septic. He is afebrile. Patient does not appear to have any new or acute sym ptoms. Patient will use methamphetamine and then come into the emergency department requesting something to counteract the anxiety at cause is. Patient does not require any lab work or imaging. There was no evidence of a medical or surgical emergency. Patient has mild tachycardia secondary to his methamphetamine use. Patient is stable for discharge. PATIENT IS THOUGHT TO BE LOW RISK FOR SUICIDE. PATIENT IS NOT THOUGHT TO BE ACTUALLY SUICIDAL BUT LOOKING FOR POTENTIAL REASONS TO STAY IN THE EMERGENCY DEPARTMENT. THERE WAS NO EVIDENCE OF A MEDICAL OR SURGICAL EMERGENCY. PATIENT IS STABLE FOR DISCHARGE. Differential Dx:Considerations: Include: Other (See above) Departure Time of Disposition: 07:42 Disposition: 01 HOME / SELF CARE / HOMELESS Impression: Primary Impression: Polysubstance abuse Additional Impression: Anxiety Condition: Stable Discharge Instructions: Methamphetamines Use Disorder Additional Instructions: FOLLOW UP AT THE [facility] FOUR YOUR MEDICAL CARE NEEDED RECOMMEND YOU STOP USING METHAMPHETAMINE. Referrals: [facility] Education Educated: Patient Educated regarding: diagnosis, treatment Signature Scribe Signature: NO SCRIBE Attestation: NO SCRIBE YELITZA JOSEPH MD Jan 12, 2025 07:38
[2025-01-12 07:55] VITALS: BP 140/102; PULSE 94; RESP 18; TEMP 98; O2SAT 100
== END 2025-01-12 08:06 | disposition home or self-care (01) ==
LOC: ER 05:21
DX: F19.10 Other psychoactive substance abuse, uncomplicated (principal); F41.9 Anxiety disorder, unspecified; F15.90 Other stimulant use, unspecified, uncomplicated; F12.90 Cannabis use, unspecified, uncomplicated; Z59.00 Homelessness unspecified; Z79.899 Other long term (current) drug therapy; Z56.0 Unemployment, unspecified
CPT/HCPCS: 99282

== ENCOUNTER 2025-01-14 01:36 | Emergency (ER) | payer MEDICAID ==
[~2025-01-14] VITALS: Ht 175.3 cm; Wt 68.0 kg
[2025-01-14 01:51] VITALS: BP 132/65; PULSE 102; RESP 15; TEMP 97.6; O2SAT 99
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
== END 2025-01-14 02:40 | disposition home or self-care (01) ==
LOC: ER 01:37
DX: Z00.00 Encounter for general adult medical examination without abnormal findings (principal)
CPT/HCPCS: 99282

== ENCOUNTER 2025-01-17 23:45 | Emergency (ER) | payer MEDICAID ==
[~2025-01-17] VITALS: Ht 175.3 cm; Wt 80.0 kg
[2025-01-18] MEDS ORDERED: CLIN-214 PO (00:22)
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
[2025-01-18 00:45] VITALS: BP 134/86; PULSE 91; RESP 18; TEMP 98.3; O2SAT 99
== END 2025-01-18 01:02 | disposition home or self-care (01) ==
LOC: ER 23:46
DX: S40.812D Abrasion of left upper arm, subsequent encounter (principal); F41.9 Anxiety disorder, unspecified; F12.90 Cannabis use, unspecified, uncomplicated; F15.90 Other stimulant use, unspecified, uncomplicated; F19.90 Other psychoactive substance use, unspecified, uncomplicated; Z59.00 Homelessness unspecified; Z56.0 Unemployment, unspecified; X58.XXXD Exposure to other specified factors, subsequent encounter
CPT/HCPCS: 99283

== ENCOUNTER 2025-01-18 23:29 | Emergency (ER) | payer MEDICAID ==
[~2025-01-18] VITALS: Ht 170.2 cm; Wt 56.9 kg
[~2025-01-18 23:29] MED LIST changes: +CLIN-214 PO
[2025-01-18 23:35] VITALS: BP 143/93; PULSE 106; RESP 16; TEMP 97.2; O2SAT 94
== END 2025-01-19 03:58 | disposition left against medical advice (07) ==
LOC: ER 23:30
DX: R11.0 Nausea (principal); Z53.21 Procedure and treatment not carried out due to patient leaving prior to being seen by health care provider
CPT/HCPCS: 99281

== ENCOUNTER 2025-01-23 12:20 | Emergency (ER) | payer MEDICAID ==
[~2025-01-23] VITALS: Ht 175.3 cm; Wt 57.2 kg
[2025-01-23 12:38] VITALS: BP 128/86; PULSE 66; RESP 18; TEMP 97.7; O2SAT 98
--- NOTE | 2025-01-23 13:20 | Physician Documentation ---
History of Present Illness ~ Chief Complaint: Mental Health Eval Stated Complaint: SI Time Seen by MD: 12:40 OK to notify your PCP?: Yes Primary Medical Doctor: NONE Source: patient Mode of Arrival: POV Exam Limitations: no limitations HPI 24 y/o male with c/o "I think I will be safer if I stay here." Patient reports he has thoughts of harming himself but has no plan. He reports that the reason he has these thoughts is because he is cold and wet. He has no prior suicidal attempts. Medication Reconciliation Allergies: Coded Allergies: No Known Allergies (Unverified , 01/23/25) Scheduled Clindamycin HCl (Clindamycin HCl CAPSULE), 2 CAP PO TID Gabapentin (Neurontin), 1 CAP PO TID, (Reported) Hydroxyzine HCl (Hydroxyzine HCl), 1 TAB PO Q8H Olanzapine (Olanzapine), 1 TAB PO HS, (Reported) Scheduled PRN Clonidine HCl (Clonidine HCl), 1 TAB PO BID PRN for anxiety, (Reported) ONDANSETRON ODT 4mg tablet (Ondansetron Odt), 1 TAB PO Q6H PRN PRN for nausea/vomiting Past Medical History Past Medical History: No Pertinent History, *PSYCH*, Anxiety, Psychosis Past Surgical History: no surgical history Alcohol Use: Heavy Drug Use: marijuana, methamphetamine, other Lives In: Homeless Occupation: unemployed Review of Systems All Other Systems at this time: Reviewed and Negative Physical Exam Vital Signs: Temperature: 97.7, Source: Temporal, Heart Rate: 66, Respiratory Rate: 18, BP: 128/86, Pulse Oximetry: 98, Weight: 57.200 Oxygen Flow Rate: 0 Physical Exam General Appearance: Alert, WD/WN. NAD. HEENT: NCAT, PERRL, EOMI. Neck: Supple, trachea midline. Cardiovascular: RRR. No m/r/g. Lungs: CTAB. Breathing unlabored Extremities: Normal inspection. No edema. Skin: Warm/dry, normal color Neurological: Alert and oriented x4, normal gait. Psychiatric: Affect congruent with mood. Progress Results/Orders Results/Orders Vital Signs 01/23/25 12:38 Temp 97.7 Pulse 66 Resp 18 B/P (MAP) 128/86 Pulse Ox 98 O2 Flow Rate 0 Medical Decision Making Additional information obtaine: old records Findings n/a Differential Dx:Considerations: Include: Alcohol abuse, Anxiety, Bipolar disorder, Conversion disorder, Depression, Encephaloathy, Homicidal, Panic disorder, Personality disorder, Schizophrenia, Substance abuse, Suicidal, Other Differential Diagnosis Patient has no active suicidal ideations, he has no plan. We discussed how coming to the ER when you were cold and wet is not an appropriate use of the ER which patient seemed to understand and agree with. I explained that if he is having active suicidal ideations then this is an appropriate reason to come to the ER, we reviewed the difference between thoughts of feeling that he would be safer if he stayed in ER vs. having a plan for suicide with thoughts of suicide. Departure Time of Disposition: 13:18 Disposition: 01 HOME / SELF CARE / HOMELESS Impression: Primary Impression: Depression Qualified Codes: F32.2 - Major depressive disorder, single episode, severe without psychotic features Additional Impression: Passive suicidal ideations Condition: Stable Discharge Instructions: Medical Screening Exam Additional Instructions: RETURN TO ER IF ACTIVE SUICIDAL IDEATIONS OR ANY OTHER URGENT OR EMERGENT SYMPTOMS RECOMMEND F/U WITH PRIMARY CARE PROVIDER FOR TREATMENT OF YOUR DEPRESSION Referrals: NO PRIMARY CARE PROVIDER (PCP) Education Educated: Patient Educated regarding: diagnosis, treatment, need for follow up Signature Scribe Signature: X Attestation: TALYA BARROS Jan 23, 2025 13:20
== END 2025-01-23 12:52 | disposition home or self-care (01) ==
LOC: ER 12:20
DX: F32.A Depression, unspecified (principal); R45.851 Suicidal ideations; F10.90 Alcohol use, unspecified, uncomplicated; F15.90 Other stimulant use, unspecified, uncomplicated; F12.90 Cannabis use, unspecified, uncomplicated; F19.90 Other psychoactive substance use, unspecified, uncomplicated; Y90.9 Presence of alcohol in blood, level not specified; Z79.899 Other long term (current) drug therapy; Z56.0 Unemployment, unspecified; Z59.00 Homelessness unspecified
CPT/HCPCS: 99282

== ENCOUNTER 2025-01-24 15:22 | Emergency (ER) | payer MEDICAID ==
[~2025-01-24] VITALS: Ht 175.3 cm; Wt 57.9 kg
[2025-01-24 15:22] VITALS: BP 149/103; PULSE 112; RESP 16; TEMP 98; O2SAT 100
--- NOTE | 2025-01-24 16:42 | Physician Documentation ---
History of Present Illness ~ Chief Complaint: Anxiety Stated Complaint: ANXIETY Time Seen by MD: 15:37 OK to notify your PCP?: Yes Primary Medical Doctor: NONE Source: patient Mode of Arrival: POV Exam Limitations: no limitations HPI 24-year-old male who is here due to anxiety. He is a regular methamphetamine user and states he last used yesterday. He is wondering if he can get some medication for anxiety. No cp, sob, palpitations, dizziness. Medication Reconciliation Allergies: Coded Allergies: No Known Allergies (Unverified , 01/23/25) Scheduled Clindamycin HCl (Clindamycin HCl CAPSULE), 2 CAP PO TID Gabapentin (Neurontin), 1 CAP PO TID, (Reported) Hydroxyzine HCl (Hydroxyzine HCl), 1 TAB PO Q8H Olanzapine (Olanzapine), 1 TAB PO HS, (Reported) Scheduled PRN Clonidine HCl (Clonidine HCl), 1 TAB PO BID PRN for anxiety, (Reported) ONDANSETRON ODT 4mg tablet (Ondansetron Odt), 1 TAB PO Q6H PRN PRN for nausea/vomiting Past Medical History Past Medical History: No Pertinent History, *PSYCH*, Anxiety, Psychosis Past Surgical History: no surgical history Alcohol Use: Heavy Drug Use: marijuana, methamphetamine, other Lives In: Homeless Occupation: unemployed Review of Systems All Other Systems at this time: Reviewed and Negative Physical Exam Vital Signs: Temperature: 98.0, Source: Temporal, Heart Rate: 112, Respiratory Rate: 16, BP: 149/103, Pulse Oximetry: 100, Weight: 57.900 Oxygen Flow Rate: 0 Physical Exam General Appearance: Alert, WD/WN. NAD. HEENT: NCAT, PERRL, EOMI. Neck: Supple, trachea midline. Cardiovascular: RRR. No m/r/g. Lungs: CTAB. Breathing unlabored Extremities: Normal inspection. No edema. Skin: Warm/dry, normal color Neurological: Alert and oriented x4, normal gait. Psychiatric: Affect congruent with mood. Progress Results/Orders Results/Orders Completed Orders - TALYA CLARK Diphenhydramine Capsule (Benadryl Capsul (01/24/25 15:40) Medications Received in ER Medications (Trade) Dose Ordered Sig/Lidia Route PRN Reason Start Time Stop Time Status Last Admin Dose Admin (Benadryl capsule) 25 mg ONCE ONCE PO 01/24/25 15:40 01/24/25 15:41 DC 01/24/25 15:45 25 MG Vital Signs 01/24/25 15:22 Temp 98.0 Pulse 112 Resp 16 B/P (MAP) 149/103 Pulse Ox 100 O2 Flow Rate 0 Medical Decision Making Additional information obtaine: N/A Findings n/a Differential Dx:Considerations: Include: Alcohol abuse, Anxiety, Bipolar disorder, Conversion disorder, Depression, Encephaloathy, Homicidal, Panic disorder, Personality disorder, Schizophrenia, Substance abuse, Suicidal, Other Departure Time of Disposition: 16:42 Disposition: 01 HOME / SELF CARE / HOMELESS Impression: Primary Impression: Anxiety Additional Impression: Methamphetamine abuse Condition: Stable Additional Instructions: Stimulant medications like methamphetamines can cause anxiety. It does not make sense that you are using stimulants and then we are giving you medications that are the opposite of stimulants to treat your anxiety I strongly encourage you to think about your illicit drug use and how this affects you on numerous levels not just anxiety. We treated your anxiety here today with Benadryl. Follow up with your primary care provider Referrals: NO PRIMARY CARE PROVIDER (PCP) Education Educated: Patient Educated regarding: diagnosis, treatment, need for follow up Signature Scribe Signature: x Attestation: TALYA Coker Jan 24, 2025 16:42
== END 2025-01-24 15:49 | disposition home or self-care (01) ==
LOC: ER 15:22
DX: F41.9 Anxiety disorder, unspecified (principal); F15.10 Other stimulant abuse, uncomplicated
CPT/HCPCS: 99282; Q0163

== ENCOUNTER 2025-01-25 19:09 | Emergency (ER) | payer MEDICAID ==
[~2025-01-25] VITALS: Ht 175.3 cm; Wt 60.9 kg
[2025-01-25 21:42] LABS: MEAN PLATELET VOLUME 7.4 FL (7.4-10.4); RED CELL DISTRIBUTION WIDTH 15.1 % (11.5-14.5)
[2025-01-25 21:59] LABS: CREATININE 0.63 MG/DL (0.60-1.10); TOTAL CARBON DIOXIDE 27.7 MMOL/L (24-32); eCRCL 157 ML/MIN; eGFR > 90 ML/MIN
[2025-01-25 22:02] LABS: ETHANOL < 10 MG/DL (<10)
--- NOTE | 2025-01-26 01:22 | Physician Documentation ---
History of Present Illness ~ Chief Complaint: Medical Clearance Stated Complaint: SI Time Seen by MD: 19:50 Primary Medical Doctor: NONE Mode of Arrival: POV HPI Mr. Gerber is a 24 y/o male who presents with c/o warning to harm himself. When asked what is going on, he doesn't provide many answers but just say's he needs to take a break. He does not state if he has a plan. Also does not report if he has usd any illegal/illicit drugs. Denies recent trauma. No report of hallucinations. Tetanus within 5 years?: Yes Medication Reconciliation Allergies: Coded Allergies: No Known Allergies (Unverified , 01/23/25) Scheduled Clindamycin HCl (Clindamycin HCl CAPSULE), 2 CAP PO TID Gabapentin (Neurontin), 1 CAP PO TID, (Reported) Hydroxyzine HCl (Hydroxyzine HCl), 1 TAB PO Q8H Olanzapine (Olanzapine), 1 TAB PO HS, (Reported) Scheduled PRN Clonidine HCl (Clonidine HCl), 1 TAB PO BID PRN for anxiety, (Reported) ONDANSETRON ODT 4mg tablet (Ondansetron Odt), 1 TAB PO Q6H PRN PRN for n ausea/vomiting Past Medical History Past Medical History: No Pertinent History, *PSYCH*, Anxiety, Psychosis Past Surgical History: no surgical history Smoking Status: Current every day smoker Alcohol Use: Heavy Drug Use: marijuana, methamphetamine, other Lives In: Homeless Occupation: unemployed Review of Systems All Other Systems at this time: Reviewed and Negative Physical Exam Vital Signs: RN Vital Signs have been reviewed: Yes, Temperature: 97.2, Source: Temporal, Heart Rate: 106, Respiratory Rate: 16, BP: 119/70, Pulse Oximetry: 98, Weight: 60.900 Oxygen Flow Rate: 0 Physical Exam GEN: Alert and oriented and in NAD. HEENT: NC/AT. PERRLA. No scleral icterus. MMM. No oral lesions. NECK: Supple. No JVD. CHEST: RRR. No M/G/T. LUNGS: CTA B. No W/R/R. ABD: Soft. NTND. + BS. No rebounding or guarding. BACK: No CVA TTP. EXT: No c/c/e. NEURO: Alert and oriented x 4. Cooperative. Sensorimotor intact x 4 extremities. Progress Results/Orders Results/Orders Orders - JANEE GOLDBERG MD Urinalysis (01/25/25 20:47) Drug Screen, Urine (01/25/25 20:47) Med Rec (01/25/25 20:47) Close Observation Level (01/25/25 20:47) Covid19 Binax Poc Result Entry (01/25/25 20:47) Regular Diet (01/26/25 Breakfast) 1799.11 (01/25/25 ) Completed Orders - JANEE GOLDBERG MD Cbc/Diff (01/25/25 20:47) Ethanol (01/25/25 20:47) TSH (01/25/25 20:47) BMP (01/25/25 20:47) Vital Signs 01/25/25 01/25/25 01/25/25 19:38 20:23 23:30 Temp 97.2 Pulse 106 Resp 14 16 B/P (MAP) 119/70 Pulse Ox 98 O2 Flow Rate 0 Laboratory Tests Test 01/25/25 21:00 01/25/25 21:10 SARS-CoV-2 Antigen (Rapid) Negative White Blood Count 7.3 Red Blood Count 4.62 L Hemoglobin 12.4 L Hematocrit 38.1 L Mean Corpuscular Volume 82.5 Mean Corpuscular Hemoglobin 26.8 L Mean Corpuscular Hemoglobin Concent 32.5 L Red Cell Distribution Width 15.1 H Platelet Count 301 Mean Platelet Volume 7.4 Neutrophils (%) (Auto) 61.9 Lymphocytes (%) (Auto) 26.7 Monocytes (%) (Auto) 6.6 Eosinophils (%) (Auto) 4.3 Basophils (%) (Auto) 0.5 Neutrophils # (Auto) 4.5 Lymphocytes # (Auto) 2.0 Monocytes # (Auto) 0.5 Eosinophils # (Auto) 0.3 Basophils # (Auto) 0.0 CBC Comment Sodium Level 145 Potassium Level 3.9 Chloride Level 110 H Carbon Dioxide Level 27.7 Anion Gap 7 L Blood Urea Nitrogen 16 Creatinine 0.63 Estimated GFR/1.73 m2 > 90 BUN/Creatinine Ratio 25.4 H Glucose Level 108 H Calcium Level 9.0 Albumin 3.3 L Thyroid Stimulating Hormone (TSH) 0.36 Chemistry Comments Ethyl Alcohol Level < 10 Medical Decision Making Additional information obtaine: N/A Findings While here in the ED, he remained hemodynamically normal with ABC's intact and in NAD. He is afebrile and nontoxic. Neuro exam nonfocal. He has been cooperative. He is medically clear for Psych eval. Differential Dx:Considerations: Include: Intoxication-Alcohol, Intoxication- Other drug, Personality disorder, Substance abuse disorder, Acute delirium, Alcohol withdrawl syndrom, Encephalopathy, Hepatitis, Medically stable Departure [facility]: [facility] Impression: Primary Impression: Suicidal ideations Referrals: NO PRIMARY CARE PROVIDER (PCP) Education Educated: Patient Educated regarding: diagnosis, treatment ACF Form Admit Criteria Met or Not Met: YES Signature Scribe Signature: N/A Attestation: N/A JANEE GOLDBERG MD Jan 26, 2025 01:22
[2025-01-26] MEDS ORDERED: NO HOME MEDS (03:56)
[2025-01-26 05:44] VITALS: BP 122/72; PULSE 89; TEMP 98.6; O2SAT 98
[2025-01-26 08:56] VITALS: RESP 12
[2025-01-26] MEDS ORDERED: HYDR-3686 PO (20:25)
== END 2025-01-26 09:04 | disposition home or self-care (01) ==
LOC: ER 19:09
DX: R45.851 Suicidal ideations (principal); F41.9 Anxiety disorder, unspecified; F12.90 Cannabis use, unspecified, uncomplicated; F17.200 Nicotine dependence, unspecified, uncomplicated; F15.90 Other stimulant use, unspecified, uncomplicated; F19.90 Other psychoactive substance use, unspecified, uncomplicated; F10.90 Alcohol use, unspecified, uncomplicated; Z59.00 Homelessness unspecified; Z79.899 Other long term (current) drug therapy; Z56.0 Unemployment, unspecified; Y90.9 Presence of alcohol in blood, level not specified; Z20.822 Contact with and (suspected) exposure to COVID-19
CPT/HCPCS: 36415; 80048; 80320; 84443; 85025; 87811; 99284

== ENCOUNTER 2025-01-29 12:21 | Emergency (ER) | payer MEDICAID ==
[~2025-01-29] VITALS: Ht 175.3 cm; Wt 58.4 kg
[~2025-01-29 12:21] MED LIST changes: -CLIN-214 PO; -CLON0.1T PO; -GABA300C PO; +HYDR-3686 PO; -HYDR50TA65 PO; +NO HOME MEDS; -OLAN15TA97 PO; -ONDA-243 PO
[2025-01-29 12:24] VITALS: BP 130/79; PULSE 125; RESP 16; TEMP 98.7; O2SAT 100
[2025-01-29] MEDS ORDERED: ondansetron 4mg rapidly disintigrating tab PO ONE (12:40)
--- NOTE | 2025-01-29 12:41 | Physician Documentation ---
History of Present Illness ~ General Chief Complaint: General Stated Complaint: NAUSEA Time Seen by MD: 12:39 Primary Medical Doctor: NONE History of Present Illness Initial Comments This is a 24-year-old male who presents to the emergency department due to nausea and anxiety. He reports that he did some drugs today. He admits this includes use of methamphetamine. He denies vomiting, fevers, chest pain, shortness of breath. Medication Reconciliation Allergies: Coded Allergies: No Known Allergies (Unverified , 01/29/25) Scheduled Hydroxyzine Hcl (Atarax), 1 TAB PO Q12H Miscellaneous Medications Home Med List (No Home Medications), (Reported) Discontinued Medications Clindamycin HCl (Clindamycin HCl CAPSULE), 2 CAP PO TID Discontinued Reason: patient no longer taking Clonidine HCl (Clonidine HCl), 1 TAB PO BID PRN for anxiety, (Reported) Discontinued Reason: patient no longer taking Gabapentin (Neurontin), 1 CAP PO TID, (Reported) Discontinued Reason: patient no longer taking Home Med List (No Home Medications), (Reported) Discontinued Reason: patient no longer taking Hydroxyzine HCl (Hydroxyzine HCl), 1 TAB PO Q8H Discontinued Reason: patient no longer taking ONDANSETRON ODT 4mg tablet (Ondansetron Odt), 1 TAB PO Q6H PRN PRN for nausea/vomiting Discontinued Reason: patient no longer taking Olanzapine (Olanzapine), 1 TAB PO HS, (Reported) Discontinued Reason: patient no longer taking Past Medical History Past Medical History: No Pertinent History, *PSYCH*, Anxiety, Psychosis Past Surgical History: no surgical history Alcohol Use: Heavy Drug Use: marijuana, methamphetamine, other Lives In: Homeless Occupation: unemployed Review of Systems ROS As stated above in the HPI, otherwise all systems are reviewed and negative. Physical Exam Physical Exam Vital Signs: Temperature: 98.7, Source: Oral, Heart Rate: 125, Respiratory Rate: 16, BP: 130/79, Pulse Oximetry: 100, Weight: 58.400 Oxygen Flow Rate: 0 Physical Exam General: Alert, no apparent distress. Disheveled appearance. Neck: Full range of motion. Respiratory: Lungs clear, no respiratory distress. Chest: No accessory muscle use. Cardiovascular: Regular rate and rhythm, no murmurs. Tachycardic. Gastrointestinal: Soft, nontender, nondistended. Bowels sounds present. Extremities: Normal range of motion, no deformity. Neurologic: Oriented x4. Psychiatric: Normal mood and affect. Skin: Normal color, warm and dry. No edema, no ecchymosis. Progress Results/Orders Results/Orders Completed Orders - ELMER PAGAN NP Ondansetron Disint. Tablet (Zofran Odt T (01/29/25 12:40) Vital Signs 01/29/25 12:24 Temp 98.7 Pulse 125 Resp 16 B/P (MAP) 130/79 Pulse Ox 100 O2 Flow Rate 0 Medical Decision Making Additional information obtaine: old records Findings Most recent visit to this facility 01/26/25 for anxiety. Differential Diagnosis Most Likely Diagnoses: Methamphetamine intoxication is the most likely cause of nausea, anxiety, and mild tachycardia in a young adult with recent use. Methamphetamine acutely increases catecholamine release, leading to sympathomimetic symptoms such as tachycardia, anxiety, and gastrointestinal upset. [1-2] Anxiety or panic attack may be precipitated by stimulant use and can present with similar symptoms, including tachycardia and nausea. [3] Dehydration is common in stimulant users due to increased activity and poor oral intake, and can contribute to tachycardia and nausea. [2] Electrolyte disturbance (e.g., hypokalemia) may result from poor nutrition, vomiting, or dehydration, and can present with tachycardia and nonspecific symptoms. [4] Methamphetamine withdrawal is less likely acutely but can present with anxiety and nausea if the patient is in the early withdrawal phase. [1] Acute viral gastroenteritis should be considered if nausea is prominent, though the absence of diarrhea or fever makes this less likely.[5] Most Important Not to Miss Diagnoses: Acute coronary syndrome (methamphetamine-induced myocardial ischemia): Methamphetamine can cause myocardial ischemia even in young adults. The [employer] recommends considering stimulant-induced ischemia in patients with tachycardia and chest symptoms. Rule out with ECG, troponin, and clinical assessment.[6] Serotonin syndrome: If there is co-ingestion of serotonergic agents, serotonin syndrome may present with anxiety, tachycardia, and nausea. Choi findings include clonus, hyperreflexia, and diaphoresis. Rule out with focused neurologic exam and medication history.[7] Departure Time of Disposition: 13:13 Disposition: 01 HOME / SELF CARE / HOMELESS Impression: Primary Impression: General medical exam Additional Impression: Nausea Condition: Stable Discharge Instructions: General Discharge Instructions, Nausea, Adult Additional Instructions: Patient left prior to receiving discharge instructions. Referrals: NO PRIMARY CARE PROVIDER (PCP) Education Educated: Patient Educated regarding: diagnosis, treatment, prognosis, need for follow up Signature Scribe Signature: x Attestation: The note accurately reflects work and decisions made by me.Elmer Ardon NP 01/29/25 12:41 ELMER PAGAN NP Jan 29, 2025 12:41
[2025-01-29] MEDS ORDERED: NALO4SPR BOTHNARES (19:02)
== END 2025-01-29 13:58 | disposition left against medical advice (07) ==
LOC: ER 12:22
DX: Z00.00 Encounter for general adult medical examination without abnormal findings (principal); R11.0 Nausea; F41.9 Anxiety disorder, unspecified; Z79.899 Other long term (current) drug therapy
CPT/HCPCS: 99282

== ENCOUNTER 2025-01-29 15:54 | Emergency (ER) | payer MEDICAID ==
[~2025-01-29] VITALS: Ht 175.3 cm; Wt 58.7 kg
--- NOTE | 2025-01-29 16:07 | Physician Documentation ---
History of Present Illness ~ General Stated Complaint: SICK Primary Medical Doctor: NONE History of Present Illness Initial Comments This is a patient who presents due to symptoms of illness. Was in this ER earlier today but left prior to treatment. Medication Reconciliation Allergies: Coded Allergies: No Known Allergies (Unverified , 01/31/25) Scheduled Hydroxyzine Hcl (Atarax), 1 TAB PO Q12H Naloxone HCl (Narcan), 1 SPRAYS BOTHNARES ONCE Miscellaneous Medications Home Med List (No Home Medications), (Reported) Past Medical History Past Medical History: No Pertinent History, *PSYCH*, Anxiety, Psychosis Past Surgical History: no surgical history Alcohol Use: Heavy Drug Use: marijuana, methamphetamine, other Lives In: Homeless Occupation: unemployed Review of Systems ROS As stated above in the HPI, otherwise all systems are reviewed and negative. Medical Decision Making Additional information obtaine: N/A Findings - Differential Diagnosis - Departure Disposition: 07 LEFT AWOL/ELOPED Impression: Primary Impression: General medical exam Referrals: NO PRIMARY CARE PROVIDER (PCP) Signature Scribe Signature: x Attestation: The note accurately reflects work and decisions made by me.Elmer Ardon NP 01/29/25 16:08 ELMER PAGAN NP Jan 29, 2025 16:07 NANDO FRANCISCO MD Feb 07, 2025 13:53
[2025-01-29 16:20] VITALS: BP 132/78; PULSE 121; RESP 18; TEMP 98.4; O2SAT 99
[2025-01-29] MEDS ORDERED: NALO4SPR BOTHNARES (19:02)
== END 2025-01-29 17:31 | disposition left against medical advice (07) ==
LOC: ER 15:55
DX: Z00.00 Encounter for general adult medical examination without abnormal findings (principal); F41.9 Anxiety disorder, unspecified; F12.90 Cannabis use, unspecified, uncomplicated; F15.90 Other stimulant use, unspecified, uncomplicated; F19.90 Other psychoactive substance use, unspecified, uncomplicated; Z59.00 Homelessness unspecified; Z56.0 Unemployment, unspecified
CPT/HCPCS: 99281

== ENCOUNTER 2025-01-29 18:48 | Emergency (ER) | payer MEDICAID ==
[~2025-01-29] VITALS: Ht 175.3 cm; Wt 68.2 kg
--- NOTE | 2025-01-29 18:54 | Physician Documentation ---
History of Present Illness ~ Stated Complaint: OVERDOSE Time Seen by MD: 18:53 Primary Medical Doctor: NONE HPI 24-year-old male, well known to this emergency department for frequent visits due to homelessness and secondary gain, who is also a substance user, who presents with an overdose. The patient was actually seen in the emergency department and discharged from the property about 1 hour ago. He tells me he went and smoked some fentanyl. EMS found him unresponsive just down the street from the hospital. They did give him 1 dose of intranasal Narcan and he woke up. Here now in the ED, he denies any symptoms or concerns. He states he is hungry. No trouble breathing. He states that he smoked fentanyl but denies any IV drug use. Denies intentional overdose. He denies any other acute concerns. Repeatedly asks for food Medication Reconciliation Allergies: Coded Allergies: No Known Allergies (Unverified , 01/29/25) Scheduled Hydroxyzine Hcl (Atarax), 1 TAB PO Q12H Naloxone HCl (Narcan), 1 SPRAYS BOTHNARES ONCE Miscellaneous Medications Home Med List (No Home Medications), (Reported) Discontinued Medications Clindamycin HCl (Clindamycin HCl CAPSULE), 2 CAP PO TID Discontinued Reason: patient no longer taking Clonidine HCl (Clonidine HCl), 1 TAB PO BID PRN for anxiety, (Reported) Discontinued Reason: patient no longer taking Gabapentin (Neurontin), 1 CAP PO TID, (Reported) Discontinued Reason: patient no longer taking Home Med List (No Home Medications), (Reported) Discontinued Reason: patient no longer taking Hydroxyzine HCl (Hydroxyzine HCl), 1 TAB PO Q8H Discontinued Reason: patient no longer taking ONDANSETRON ODT 4mg tablet (Ondansetron Odt), 1 TAB PO Q6H PRN PRN for nausea/vomiting Discontinued Reason: patient no longer taking Olanzapine (Olanzapine), 1 TAB PO HS, (Reported) Discontinued Reason: patient no longer taking Past Medical History Past Medical History: No Pertinent History, *PSYCH*, Anxiety, Psychosis Past Surgical History: no surgical history Alcohol Use: Heavy Drug Use: marijuana, methamphetamine, other Lives In: Homeless Occupation: unemployed Review of Systems All Other Systems at this time: Reviewed and Negative Physical Exam Physical Exam General: This is a disheveled thin young man HEENT: Atraumatic, oropharynx appears dry Heart: Mild tachycardic, appears regular Lungs: normal work of breathing, normal oxygen saturation on room air Extremities: No significant traumatic findings Neuro: Alert and oriented Psychiatric: Calm and cooperative with exam, does not appear particularly intoxicated Progress Results/Orders Results/Orders Orders - MAEGAN CORRAL MD General Nursing Order (01/29/25 ) Vital Signs 01/29/25 01/29/25 01/29/25 01/29/25 18:51 19:17 19:17 21:00 Temp 97.9 97.9 Pulse 97 99 78 Resp 18 18 18 16 B/P (MAP) 109/68 107/60 (76) 119/51 Pulse Ox 100 100 99 Re-Evaluation Re-Evaluation : Progress The patient is observed for 2 hours during which time he had no further respiratory depression or other signs of an acute emergency. He will be discharged Medical Decision Making Additional information obtaine: old records Findings Reviewed previous ER visit Differential Dx:Considerations: Include: Alcohol abuse, Anxiety, Drug Overdose- Accidental, Drug Overdose-Intentional Additional Comment The patient presents with a fentanyl overdose, which appears unintentional. He received 1 dose of Narcan from EMS. He is currently asymptomatic and has no signs of respiratory depression. He will be observed for 2 hours, and if he has no further respiratory depression or other worsening symptoms and he will be discharged with a prescription for Narcan. Departure Time of Disposition: 21:00 Disposition: 01 HOME / SELF CARE / HOMELESS Impression: Primary Impression: Overdose of fentanyl Condition: Improved Referrals: NO PRIMARY CARE PROVIDER (PCP) Prescriptions Naloxone HCl (Narcan) 4 Mg/Actuation [place] 1 SPRAYS BOTHNARES ONCE for 14 Days, #1 EA 0 Refills Prov: MAEGAN CORRAL MD 01/29/25 Education Educated: Patient Educated regarding: diagnosis, need for follow up Signature Scribe Signature: na Attestation: MAEGAN Dupont MD Jan 29, 2025 18:54
[2025-01-29] MEDS ORDERED: NALO4SPR BOTHNARES (19:02)
[2025-01-29 21:00] VITALS: BP 119/51; PULSE 78; RESP 16; TEMP 97.9; O2SAT 99
== END 2025-01-29 21:26 | disposition home or self-care (01) ==
LOC: ER 18:49
DX: T40.411A Poisoning by fentanyl or fentanyl analogs, accidental (unintentional), initial encounter (principal); F17.200 Nicotine dependence, unspecified, uncomplicated; F11.90 Opioid use, unspecified, uncomplicated; F12.90 Cannabis use, unspecified, uncomplicated; F15.90 Other stimulant use, unspecified, uncomplicated; F19.90 Other psychoactive substance use, unspecified, uncomplicated; F41.9 Anxiety disorder, unspecified; Z59.00 Homelessness unspecified; Z79.899 Other long term (current) drug therapy; Y92.89 Other specified places as the place of occurrence of the external cause; Z56.0 Unemployment, unspecified
CPT/HCPCS: 99283

== ENCOUNTER 2025-01-31 13:53 | Emergency (ER) | payer MEDICAID ==
[~2025-01-31] VITALS: Ht 175.3 cm; Wt 58.0 kg
[~2025-01-31 13:53] MED LIST changes: +NALO4SPR BOTHNARES
[2025-01-31 14:24] LABS: MEAN PLATELET VOLUME 7.6 FL (7.4-10.4); RED CELL DISTRIBUTION WIDTH 15.1 % (11.5-14.5)
--- NOTE | 2025-01-31 14:26 | Physician Documentation ---
History of Present Illness Chief Complaint: Abdominal Pain Stated Complaint: SICK Time Seen by MD: 14:08 OK to notify your PCP?: Yes Primary Medical Doctor: NONE Source: patient Mode of Arrival: POV Exam Limitations: no limitations HPI 24-year-old male who is here with chief complaint abdominal pain which he states started today. States he has not eaten today and thinks his pain is hunger pains. No nausea, vomiting, diarrhea, constipation, fever, chills, chest pain, sob. Medication Reconciliation Allergies: Coded Allergies: No Known Allergies (Unverified , 01/31/25) Scheduled Hydroxyzine Hcl (Atarax), 1 TAB PO Q12H Naloxone HCl (Narcan), 1 SPRAYS BOTHNARES ONCE Miscellaneous Medications Home Med List (No Home Medications), (Reported) Discontinued Medications Clindamycin HCl (Clindamycin HCl CAPSULE), 2 CAP PO TID Discontinued Reason: patient no longer taking Clonidine HCl (Clonidine HCl), 1 TAB PO BID PRN for anxiety, (Reported) Discontinued Reason: patient no longer taking Gabapentin (Neurontin), 1 CAP PO TID, (Reported) Discontinued Reason: patient no longer taking Home Med List (No Home Medications), (Reported) Discontinued Reason: patient no longer taking Hydroxyzine HCl (Hydroxyzine HCl), 1 TAB PO Q8H Discontinued Reason: patient no longer taking ONDANSETRON ODT 4mg tablet (Ondansetron Odt), 1 TAB PO Q6H PRN PRN for miki sea/vomiting Discontinued Reason: patient no longer taking Olanzapine (Olanzapine), 1 TAB PO HS, (Reported) Discontinued Reason: patient no longer taking Past Medical History Past Medical History: No Pertinent History, *PSYCH*, Anxiety, Psychosis Past Surgical History: no surgical history Alcohol Use: Heavy Drug Use: marijuana, methamphetamine, other Lives In: Homeless Occupation: unemployed Review of Systems All Other Systems at this time: Reviewed and Negative Physical Exam Vital Signs: Temperature: 97.2, Source: Temporal, Heart Rate: 97, Respiratory Rate: 12, BP: 124/88, Pulse Oximetry: 100, Weight: 58.000 Oxygen Flow Rate: 0 Physical Exam GENERAL: Alert, no acute distress. HEENT: NCAT, EOMI, PERRL, normal oropharynx, moist oral mucosa. NECK: Supple, trachea midline. CARDIAC: Regular rate and rhythm, no murmurs, rubs, or gallops. RESPIRATORY: Equal breath sounds, clear to auscultation bilaterally, no respiratory distress. GASTROINTESTINAL: Non distended, soft, nontender, No guarding or rebound. MUSCULOSKELETAL: Normal range of motion, nontender, no swelling. Normal gait. NEUROLOGICAL: Awake, alert, and oriented x 3. SKIN: Warm/dry, no pallor, no rash. PSYCH: Alert and appropriate. Affect congruent with mood. Speech is clear. Good eye contact. Progress Results/Orders Reviewed/noted all lab results: Yes Results/Orders Vital Signs 01/31/25 01/31/25 13:57 14:23 Temp 97.2 Pulse 100 97 Resp 18 12 B/P (MAP) 142/83 124/88 (100) Pulse Ox 100 O2 Flow Rate 0 Laboratory Tests Test 01/31/25 14:10 CBC Comment Chemistry Comments Re-Evaluation Re-Evaluation : Re-Evaluation: Improved Progress PAIN IMPROVED AFTER GIVING PATIENT A SANDWICH Medical Decision Making Additional information obtaine: N/A Findings N/A Differential Dx:Considerations: Angina/IA, Aortic dissection, Appendicitis, Bowel obstruction, Cholelithasis, Constipation, Diverticular disease, Esophageal rupture, Esophagitis, Gastritis/PUD, Gastroenteritis, GI hemorrhage, Hernia, Hepatitis, Ischemic bowel, Trauma, intraabdominal, Urinary obstruction, Urinary tract infection, Urolithiasis Departure Time of Disposition: 14:51 Disposition: 01 HOME / SELF CARE / HOMELESS Impression: Primary Impression: Hunger pain Qualified Codes: T73.0XXA - Starvation, initial encounter Additional Impression: Homelessness Condition: Stable Discharge Instructions: Abdominal Pain (Nonspecific) Additional Instructions: YOUR PAIN SEEMED TO BE RELATED TO HUNGER PAINS YOUR LABS ARE NORMAL WE GAVE YOU A SANDWICH IF VOMITING, FEVER, CHILLS, OR WORSENING OF SYMPTOMS RETURN TO ER Referrals: NO PRIMARY CARE PROVIDER (PCP) Education Educated: Patient Educated regarding: diagnosis, treatment, need for follow up Signature Scribe Signature: X Attestation: TALYA BARROS Jan 31, 2025 14:26
[2025-01-31 14:34] LABS: CREATININE 0.76 MG/DL (0.60-1.10); TOTAL CARBON DIOXIDE 30.1 MMOL/L (24-32); eCRCL 124 ML/MIN; eGFR > 90 ML/MIN
[2025-01-31 14:43] LABS: LEUKOCYTE ESTERASE ,URINE NEGATIVE (Neg); NITRITES, URINE NEGATIVE (Neg); OCCULT BLOOD,URINE NEGATIVE (Neg)
[2025-01-31 14:46] LABS: UA COLLECTION TYPE CLN CATCH MIDSTREAM
[2025-01-31 14:48] VITALS: BP 110/66; PULSE 96; RESP 13; TEMP 97.2; O2SAT 98
== END 2025-01-31 14:54 | disposition home or self-care (01) ==
LOC: ER 13:53
DX: T73.0XXA Starvation, initial encounter (principal); R10.9 Unspecified abdominal pain; F12.90 Cannabis use, unspecified, uncomplicated; F15.90 Other stimulant use, unspecified, uncomplicated; F19.90 Other psychoactive substance use, unspecified, uncomplicated; F41.9 Anxiety disorder, unspecified; Z79.899 Other long term (current) drug therapy; Z59.00 Homelessness unspecified; Z56.0 Unemployment, unspecified
CPT/HCPCS: 36415; 80053; 81003; 83690; 85025; 99283

== ENCOUNTER 2025-01-31 22:04 | Emergency (ER) | payer MEDICAID ==
[~2025-01-31] VITALS: Ht 175.3 cm; Wt 58.0 kg
--- NOTE | 2025-01-31 23:23 | Physician Documentation ---
History of Present Illness ~ General Chief Complaint: See Chief Complaint Stated Complaint: SICK Time Seen by MD: 23:22 Primary Medical Doctor: NONE History of Present Illness Initial Comments 24-year-old male, history of homelessness, well known to this emergency department for frequent visits, presenting with anxiety When I speak to the patient, he can not really provide a specific complaint today when asked him how we can help him today, he tells me he is feeling anxious. He tells me that hydroxyzine does not help and he wants a stronger anxiety medication. When I told him that we do not give out strong anxiety medications in the emergency department, he then told me that I guess I just feel kind of sick. He can not specify any other specific symptoms. He did ask for a sandwich. Medication Reconciliation Allergies: Coded Allergies: No Known Allergies (Unverified , 01/31/25) Scheduled Hydroxyzine Hcl (Atarax), 1 TAB PO Q12H Naloxone HCl (Narcan), 1 SPRAYS BOTHNARES ONCE Miscellaneous Medications Home Med List (No Home Medications), (Reported) Discontinued Medications Clindamycin HCl (Clindamycin HCl CAPSULE), 2 CAP PO TID Discontinued Reason: patient no longer taking Clonidine HCl (Clonidine HCl), 1 TAB PO BID PRN for anxiety, (Reported) Discontinued Reason: patient no longer taking Gabapentin (Neurontin), 1 CAP PO TID, (Reported) Discontinued Reason: patient no longer taking Home Med List (No Home Medications), (Reported) Discontinued Reason: patient no longer taking Hydroxyzine HCl (Hydroxyzine HCl), 1 TAB PO Q8H Discontinued Reason: patient no longer taking ONDANSETRON ODT 4mg tablet (Ondansetron Odt), 1 TAB PO Q6H PRN PRN for nausea/vomiting Discontinued Reason: patient no longer taking Olanzapine (Olanzapine), 1 TAB PO HS, (Reported) Discontinued Reason: patient no longer taking Past Medical History Past Medical History: No Pertinent History, *PSYCH*, Anxiety, Psychosis Past Surgical History: no surgical history Alcohol Use: Heavy Drug Use: marijuana, methamphetamine, other Lives In: Homeless Occupation: unemployed Review of Systems Psychiatric: Reports: anxiety; Denies: suicidal Physical Exam Physical Exam Vital Signs: Temperature: 98.2, Heart Rate: 98, Respiratory Rate: 16, BP: 144/98, Pulse Oximetry: 100, Weight: 58.000 Oxygen Flow Rate: 0 Physical Exam General: This is a thin disheveled appearing young man, not in distress HEENT: Atraumatic, oropharynx is moist Heart: Mild tachycardic, appears regular Lungs: normal work of breathing, normal oxygen saturation on room air Neuro: Alert and oriented Psychiatric: Appears slightly anxious, and is fidgety Progress Results/Orders Results/Orders Vital Signs 01/31/25 01/31/25 22:09 23:30 Temp 98.2 98.6 Pulse 98 90 Resp 16 16 B/P (MAP) 144/98 140/92 Pulse Ox 100 99 O2 Flow Rate 0 Medical Decision Making Additional information obtaine: old records Findings Reviewed previous ER visits Differential Diagnosis Anxiety, homelessness, secondary gain, substance use Assessment The patient presents with vague symptoms, and is well known to this emergency d epartment for frequent ER visits for the same. He has no evidence of an acute medical or surgical emergency at this time. He will be discharged. Departure Time of Disposition: 23:23 Disposition: 01 HOME / SELF CARE / HOMELESS Impression: Primary Impression: Unsheltered homelessness Condition: Stable Referrals: NO PRIMARY CARE PROVIDER (PCP) Education Educated: Patient Educated regarding: diagnosis Signature Scribe Signature: na Attestation: MAEGAN Dupont MD Jan 31, 2025 23:23
[2025-01-31 23:30] VITALS: BP 140/92; PULSE 90; RESP 16; TEMP 98.6; O2SAT 99
== END 2025-01-31 23:31 | disposition home or self-care (01) ==
LOC: ER 22:05
DX: F41.9 Anxiety disorder, unspecified (principal); F12.90 Cannabis use, unspecified, uncomplicated; F15.90 Other stimulant use, unspecified, uncomplicated; F19.90 Other psychoactive substance use, unspecified, uncomplicated; Z59.02 Unsheltered homelessness; Z79.899 Other long term (current) drug therapy; Z56.0 Unemployment, unspecified
CPT/HCPCS: 99282

== ENCOUNTER 2025-02-03 06:50 | Emergency (ER) | payer MEDICAID ==
[~2025-02-03] VITALS: Ht 170.2 cm; Wt 57.2 kg
[2025-02-03 06:52] VITALS: BP 132/77; PULSE 68; RESP 16; TEMP 98.3; O2SAT 99
--- NOTE | 2025-02-03 07:29 | Physician Documentation ---
History of Present Illness General Chief Complaint: See Chief Complaint Stated Complaint: MULTIPLE COMPLAINTS Time Seen by MD: 07:24 Primary Medical Doctor: NONE History of Present Illness Initial Comments This is a 24-year-old male very well known to this emergency department, with a numerous visits just this month, presents today because his called in hungry. He did not answer any questions regarding somatic complaints. He is a very reluctant historian. He does not answer social history questions either, however he is known to be homeless and security did discover a meth pipe in his possession. Medication Reconciliation Allergies: Coded Allergies: No Known Allergies (Unverified , 01/31/25) Scheduled Hydroxyzine Hcl (Atarax), 1 TAB PO Q12H Naloxone HCl (Narcan), 1 SPRAYS BOTHNARES ONCE Miscellaneous Medications Home Med List (No Home Medications), (Reported) Past Medical History Past Medical History: No Pertinent History, *PSYCH*, Anxiety, Psychosis Past Surgical History: no surgical history Alcohol Use: Heavy Drug Use: marijuana, methamphetamine, other Lives In: Homeless Occupation: unemployed Review of Systems ROS He does not answer any medical questions. Physical Exam Physical Exam Vital Signs: Temperature: 98.3, Source: Oral, Heart Rate: 68, Respiratory Rate: 16, BP: 132/77, Pulse Oximetry: 99, Weight: 57.200 Oxygen Flow Rate: 0 Physical Exam Physical examination: GENERAL: Awake, alert, oriented, GCS 15, no apparent distress, non-toxic appearing, answers selected questions, follows commands appropriately. Obvious stigmata of homelessness. HEENT: Atraumatic, normocephalic, pupils equal, extraocular muscles intact Active gross movements, sclerae anicteric, mucus membranes moist, no stridor. NECK: Midline, no JVD CARDIOVASCULAR: Good skin perfusion without evidence of pallor, mottling. PULMONARY: Nonlabored, symmetric chest rise, no audible wheezing, no accessory muscle use, no respiratory distress, speaking in full sentences. GASTROINTESTINAL: Not distended. NEUROLOGIC: Lucid with normal mental status. Normal facial symmetry. Moves all extremities symmetrically and with purpose. No truncal ataxia. Speech is fluid without evidence of dysarthria or aphasia, no focal deficits appreciated. EXTREMITIES: Acute deformities Skin: warm, dry PSYCHIATRIC: Flat affect, questionable inside, poor concentration Progress Results/Orders Results/Orders Vital Signs 02/03/25 06:52 Temp 98.3 Pulse 68 Resp 16 B/P (MAP) 132/77 Pulse Ox 99 O2 Flow Rate 0 Medical Decision Making Additional information obtaine: old records, other (Record review) Findings Facility Status: ED Holds, [facility] process The plan was discussed with the patient, who demonstrates clear understanding of the plan and is in agreement with the plan unless otherwise noted in the chart. All questions have been answered, all concerns were addressed unless otherwise documented. I was available throughout their ED stay for frequent reassessment and questions. Differential Diagnoses (considered and possible or likely): [Hunger, homelessness, methamphetamine intoxication, exposure to elements] ??Differential Diagnoses (considered and unlikely, not requiring evaluation currently): [Does not answer questions of medical nature, but does not appear to be in any distress] MDM Data Please see [facility] for the following: Independent Historians and external Records Review. Historian: [Patient] Independent Historians: ?[Record review] Medication Management: [Reviewed medication list] Social History and determinants: [Reviewed] Please see the body of the note for the following: Any independent interpretations of ECG, imaging studies. All vitals signs/haemodynamics, ordered tests were independently reviewed and interpreted by myself. Nursing triage complaint and vitals reviewed, additional nursing notes were reviewed as available and I agree unless otherwise noted or documented in contradiction in the chart Vital Signs: Independently reviewed Labs: Independently interpreted Imaging: Independently interpreted Old Medical Records: Independently reviewed, see [facility] for relevant summary and information Pulse Oximetry: [98%] interpreted as [normal on room air] by me Additionally notably showing: [Hemodynamically stable] Tests considered but not ordered include: [Hematologic workup and imaging has been considered but does not appear to be necessary given clinical nature of diagnosis] Social Determinants of Health Impact: Patient was evaluated in [facility], or [facility] [place] access to healthcare due to below par ratio of patient to medical providers. [] Comorbid Conditions Impacting Present Evaluation and Care/Treatment: [Methamphetamine abuse] Management Discussions with other Healthcare Providers: [None] Treatment and Disposition Medication Management (Given or considered): []. See EMR for details Consideration for Hospitalization/Escalation/Deescalation of Care: Admission for observation has been considered, [however the patient is able to tolerate p.o., their symptoms are controlled, they are able to rely on oral medications, and their chief complaint/diagnosis can be managed on outpatient basis.] ?ED Course:?[Patient was provided with a sandwich in the blanket. On reassessment he feels much better.] ?Shared decision making:?[Patient is hemodynamically stable for discharge home with follow with their primary care provider. [ ] Specific and cautious return precautions provided and discussed with full understanding. Any incidental findings were also discussed and follow up recommendations given. [] All questions answered. Patient/family were able to verbalize back return precautions. Patient/family agree to plan. Copies of imaging and laboratory studies were provided.] Code status:?FULL Please see the full Electronic Medical Record for full details of nursing documentation, medications list, other records of complete past medical history and conditions, vital signs, laboratory studies, and any radiologic study interpretations by radiologists. Portions of this note were completed using [employer] dictation software and as a result there may exist minor errors in spelling. I have reviewed elements of past family and social history and agree as included in note. Differential Diagnosis See the body of main note Departure Disposition: 01 HOME / SELF CARE / HOMELESS Impression: Primary Impression: Hungry Additional Impressions: Methamphetamine abuse Homelessness Condition: Improved Discharge Instructions: Medical Screening Exam Referrals: NO PRIMARY CARE PROVIDER (PCP) Signature Scribe Signature: No scribe Attestation: Date: Feb 03, 2025 Time: 07:29 This note accurately reflects clinical decisions, work performed by myself, Dwayne Das, DWAYNE BAKER DO Feb 03, 2025 07:29
== END 2025-02-03 07:50 | disposition home or self-care (01) ==
LOC: ER 06:51
DX: F15.10 Other stimulant abuse, uncomplicated (principal); F12.90 Cannabis use, unspecified, uncomplicated; F19.90 Other psychoactive substance use, unspecified, uncomplicated; F41.9 Anxiety disorder, unspecified; Z59.00 Homelessness unspecified; Z79.899 Other long term (current) drug therapy; Z56.0 Unemployment, unspecified
CPT/HCPCS: 99282

== ENCOUNTER 2025-02-06 22:03 | Emergency (ER) | payer MEDICAID ==
[~2025-02-06] VITALS: Ht 175.3 cm; Wt 86.4 kg
--- NOTE | 2025-02-06 22:20 | Physician Documentation ---
History of Present Illness ~ Chief Complaint: Nausea Stated Complaint: SICK Time Seen by MD: 22:15 OK to notify your PCP?: Yes Primary Medical Doctor: NONE Source: patient Mode of Arrival: POV Exam Limitations: no limitations HPI Reports feeling nauseous and requesting a blanket and a sandwich. He denies any vomiting. He denies any abdominal pain. He denies any diarrhea. Medication Reconciliation Allergies: Coded Allergies: No Known Allergies (Unverified , 01/31/25) Scheduled Hydroxyzine Hcl (Atarax), 1 TAB PO Q12H Naloxone HCl (Narcan), 1 SPRAYS BOTHNARES ONCE Miscellaneous Medications Home Med List (No Home Medications), (Reported) Past Medical History Past Medical History: No Pertinent History, *PSYCH*, Anxiety, Psychosis Past Surgical History: no surgical history Alcohol Use: Heavy Drug Use: marijuana, methamphetamine, other Lives In: Homeless Occupation: unemployed Review of Systems All Other Systems at this time: Reviewed and Negative Physical Exam Vital Signs: RN Vital Signs have been reviewed: Yes, Temperature: 97.7, Source: Oral, Heart Rate: 108, Respiratory Rate: 16, BP: 130/96, Pulse Oximetry: 100, Weight: 86.360 Pulse Oximetry Reflects: adequate oxygenation Physical Exam General: Alert, no distress. HEENT: No injection, moist mucous membranes. Neck: Full range of motion. Respiratory: No respiratory distress, equal chest rise and fall. Chest: No accessory muscle use. Cardiovascular: Regular rate and rhythm. Gastrointestinal: Nondistended. Extremities: Normal range of motion, no deformity. Neurologic: Oriented x4. Psychiatric: Normal mood and affect. Skin: Normal color, warm and dry. Progress Results/Orders Reviewed/noted all lab results: Yes Results/Orders Orders - LINNETTE CANDELARIO FOUNDRY OPERATOR Ondansetron Disint. Tablet (Zofran Odt T (02/06/25 22:15) Vital Signs 02/06/25 22:11 Temp 97.7 Pulse 108 Resp 16 B/P (MAP) 130/96 Pulse Ox 100 Medical Decision Making Additional information obtaine: old records Findings He presents today for nausea, blanket and a sandwich. We provided him with a blanket and a sandwich and some Zofran for his nausea. He denies having any abdominal pain or any other GI symptoms. He reports that he will be getting on a bus here soon to leave to [place]. Was given discharge instructions as well as follow up instructions. Diff Dx GI Bleed:Consideration: Include: Diverticulitis, Gastritis, Gastroenteritis Diff Dx Pain:Considerations: Include: Cholecystitis, Cholelithasis Diff Dx N/V/D:Considerations: Include: Appendicitis, DKA, Diverticulosis, Hepatitis, Malnutrition Diff Dx Rectal:Considerations: Include: Other Departure Disposition: HOME / SELF CARE / HOMELESS Impression: Primary Impression: Nausea Additional Impressions: Homelessness Hungry Condition: Stable Discharge Instructions: Nausea and Vomiting, Adult, [id number] Referrals: NO PRIMARY CARE PROVIDER (PCP) Education Educated: Patient Educated regarding: diagnosis, treatment, prognosis, need for follow up Additional Comment Medical Screen Exam This patient recieved a medical screening examination. After reviewing the individual's medical complaints with presenting symptoms and performing an appropriate physical examination, it was determined that no immediate life- threatening emergency medical condition is present. This individual is also not a women having contractions. Signature Scribe Signature: . Attestation: Scribed for Linnette Candelario Construction Controller by Linnette Ardon NP . 02/06/25 22:18 Parts of this note were created using [employer] voice recognition software program. While efforts were made to correct any mistakes made by this voice recognition software program, nonsensical phrases may remain in this note. In addition, there may be errors and syntax, grammar, content and spelling. LINNETTE CANDELARIOP Feb 06, 2025 22:19
[2025-02-06] MEDS: ondansetron 4mg rapidly disintigrating tab PO ONE (22:28)
[2025-02-06 22:36] VITALS: BP 130/84; PULSE 100; RESP 14; TEMP 97.7; O2SAT 96
== END 2025-02-06 22:38 | disposition home or self-care (01) ==
LOC: ER 22:03
DX: R11.0 Nausea (principal); F12.90 Cannabis use, unspecified, uncomplicated; F15.90 Other stimulant use, unspecified, uncomplicated; F19.90 Other psychoactive substance use, unspecified, uncomplicated; Z79.899 Other long term (current) drug therapy; Z59.00 Homelessness unspecified; Z56.0 Unemployment, unspecified
CPT/HCPCS: 99283

== ENCOUNTER 2025-02-08 14:05 | Emergency (ER) | payer MEDICAID ==
[~2025-02-08] VITALS: Ht 175.3 cm; Wt 59.9 kg
[2025-02-08 14:16] VITALS: BP 109/67; PULSE 100; RESP 16; TEMP 97; O2SAT 99
--- NOTE | 2025-02-08 14:28 | Physician Documentation ---
History of Present Illness ~ Chief Complaint: Nausea Stated Complaint: NAUSEA Time Seen by MD: 14:17 Primary Medical Doctor: NONE HPI This is a 24-year-old un-housed male who presents reporting feeling of nausea, patient reports he believes due to not eating for the last 24 hours and is requesting food. Patient reports no abdominal pain, and reports no other acute symptoms or concerns including no vomiting or diarrhea. Patient additionally requests refill of prescription of hydroxyzine for anxiety. Medication Reconciliation Allergies: Coded Allergies: No Known Allergies (Unverified , 02/08/25) Scheduled Hydroxyzine Hcl (Atarax), 1 TAB PO Q12H Hydroxyzine Hcl (Atarax), 1 TAB PO Q8H Naloxone HCl (Narcan), 1 SPRAYS BOTHNARES ONCE Scheduled PRN ONDANSETRON ODT 4mg tablet (Ondansetron Odt), 1 TAB PO Q6H PRN PRN for nausea/vomiting Miscellaneous Medications Home Med List (No Home Medications), (Reported) Past Medical History Past Medical History: No Pertinent History, *PSYCH*, Anxiety, Psychosis Past Surgical History: no surgical history Alcohol Use: Heavy Drug Use: marijuana, methamphetamine, other Lives In: Homeless Occupation: unemployed Review of Systems ROS As stated above in the HPI, otherwise all systems are reviewed and negative. Physical Exam Vital Signs: Temperature: 97.0, Source: Temporal, Heart Rate: 100, Respiratory Rate: 16, BP: 109/67, Pulse Oximetry: 99, Weight: 59.900 Oxygen Flow Rate: 0 Physical Exam VITALS: Reviewed and as above. GENERAL: Alert, nontoxic appearing, no apparent distress. RESPIRATORY: No increased work of breathing, no respiratory distress, speaking in full clear sentences Progress Results/Orders Results/Orders Vital Signs 02/08/25 14:16 Temp 97.0 Pulse 100 Resp 16 B/P (MAP) 109/67 Pulse Ox 99 O2 Flow Rate 0 Medical Decision Making Additional information obtaine: old records Findings This 24-year-old on housed male is well known to the emergency department presenting requesting food as he has not eaten in 24 hours and is feeling nauseous, patient reports no other acute medical concerns or symptoms. Additionally requesting refill of hydroxyzine for anxiety. As patient is otherwise well and reports nausea due to not eating for 24 hours he will be provided food in the emergency department and additionally after shared decision-making discharged with short prescription for Zofran and refill of hydroxyzine. Patient is hemodynamically stable and otherwise well with a benign physical exam, patient appropriate for discharge. Diff Dx GI Bleed:Consideration: Unlikely: AE fistula, Angiodysplasia, Bleeding diathesis, Blood loss anemia, Carcinoma, Diverticulosis, Diverticulitis, Esophageal varicies, Esophagitis, Gastritis, Gastroenteritis, Inflammatory BD, Talia-Soria syndrome, Meckel's diverticulum, PUD, Other Diff Dx Pain:Considerations: Unlikely: AAA, Angina/PA, Aortic dissection, Appendicitis, Bowel obstruction, Cholangitis, Cholecystitis, Cholelithasis, Constipation, Diverticular disease, Esophageal rupture, Esophagitis, Gastritis, Gastroenteritis, GI hemorrhage, Hepatitis, Hernia, Inflammatory BD, Ischemic bowel, Mass, Pancreatitis, Porphyria, PUD, Testicular torsion, Trauma, intraabdominal, Urinary obstruction, Urinary tract infection, Urolithiasis, Other Diff Dx N/V/D:Considerations: Include: Appendicitis, Bowel obstruction, Dehydration, Food poisoning, Gastroenteritis, GE reflux, Inflammatory BD, PUD Diff Dx Rectal:Considerations: Unlikely: Fissure, Fistula, Foreign body, Impaction, Perirectal abscess, Prostatitis, Rectal prolapse, Subcutaneous abscess, Thrombosed hemorrhoid, Ulcer, UTI, Other Departure Time of Disposition: 14:27 Disposition: HOME / SELF CARE / HOMELESS Impression: Primary Impression: Nausea Additional Impressions: Hungry Qualified Codes: T73.0XXA - Starvation, initial encounter Homelessness Condition: Improved Discharge Instructions: Nausea and Vomiting, Adult, [id number] Additional Instructions: Please use the use Zofran for any continued nausea or vomiting. Use your prescribed Atarax as needed as prescribed for anxiety. Please follow up with your primary care provider in the next few days. Please return to the emergency department for any new or worsening concerning symptoms. Contact the [place] to provide your self access to food. Referrals: NO PRIMARY CARE PROVIDER (PCP) Prescriptions ONDANSETRON ODT 4mg tablet (ONDANSETRON ODT) 4 Mg Tab.rapdis 1 TAB PO Q6H PRN PRN for nausea/vomiting for 4 Days, #16 TAB 0 Refills Prov: ALISON VIDALES PHYSIOTHERAPY ASSISTANT 02/08/25 Hydroxyzine Hcl (Atarax) 25 Mg Tablet 1 TAB PO Q8H for anxiety for 10 Days, #30 TAB 0 Refills Prov: ALISON VIDALES 02/08/25 Education Educated: Patient Educated regarding: diagnosis, treatment, prognosis, need for follow up Signature Scribe Signature: No scribe Attestation: The note accurately reflects work and decisions made by me.YASH Mcdonald 02/09/25 00:18 ALISON VIDALES Feb 08, 2025 14:28
[2025-02-08] MEDS ORDERED: ONDA-243 PO (14:31)
[2025-02-08] MEDS ORDERED: HYDR-3686 PO (14:31)
== END 2025-02-08 14:57 | disposition home or self-care (01) ==
LOC: ER 14:06
DX: R11.0 Nausea (principal); T73.0XXA Starvation, initial encounter; F41.9 Anxiety disorder, unspecified; F12.90 Cannabis use, unspecified, uncomplicated; F15.90 Other stimulant use, unspecified, uncomplicated; F19.90 Other psychoactive substance use, unspecified, uncomplicated; Z59.00 Homelessness unspecified; Z79.899 Other long term (current) drug therapy; Z56.0 Unemployment, unspecified
CPT/HCPCS: 99283

== ENCOUNTER 2025-02-10 10:28 | Emergency (ER) | payer MEDICAID ==
[~2025-02-10] VITALS: Ht 175.3 cm; Wt 58.4 kg
[~2025-02-10 10:28] MED LIST changes: +ONDA-243 PO
[2025-02-10 10:31] VITALS: BP 136/77; PULSE 112; RESP 20; TEMP 97; O2SAT 100
--- NOTE | 2025-02-10 11:01 | Physician Documentation ---
History of Present Illness ~ Chief Complaint: Anxiety Stated Complaint: "FEELING SICK" Time Seen by MD: 10:55 Primary Medical Doctor: NONE HPI 24-year-old male presents to the ED requesting anxiety meds. States that he continues to use methamphetamine. He has any HI or SI. Denies any chest pain Day of Onset: Feb 10, 2025 Medication Reconciliation Allergies: Coded Allergies: No Known Allergies (Unverified , 02/10/25) Scheduled Hydroxyzine Hcl (Atarax), 1 TAB PO Q12H Hydroxyzine Hcl (Atarax), 1 TAB PO Q8H Naloxone HCl (Narcan), 1 SPRAYS BOTHNARES ONCE Scheduled PRN ONDANSETRON ODT 4mg tablet (Ondansetron Odt), 1 TAB PO Q6H PRN PRN for nausea/vomiting Miscellaneous Medications Home Med List (No Home Medications), (Reported) Past Medical History Past Medical History: No Pertinent History, *PSYCH*, Anxiety, Psychosis Past Surgical History: no surgical history Alcohol Use: Heavy Drug Use: marijuana, methamphetamine, other Lives In: Homeless Occupation: unemployed Review of Systems All Other Systems at this time: Reviewed and Negative ROS As stated above in the HPI, otherwise all systems are reviewed and negative. Physical Exam Vital Signs: Temperature: 97.0, Heart Rate: 112, Respiratory Rate: 20, BP: 136/77, Pulse Oximetry: 100, Weight: 58.400 Oxygen Flow Rate: 0 Physical Exam General: Alert, no apparent distress. HEENT: PERRL, EOMI, no injection, moist mucous membranes. Neck: Full range of motion. Respiratory: Lungs clear, no respiratory distress. Chest: No accessory muscle use. Cardiovascular: Regular rate and rhythm, no murmurs. Gastrointestinal: Soft, nontender, nondistended. Bowels sounds present. Extremities: Normal range of motion, no deformity. Neurologic: Oriented x4. Psychiatric: Normal mood and affect. Skin: Normal color, warm and dry. No edema, no ecchymosis. Progress Results/Orders Results/Orders Vital Signs 02/10/25 10:31 Temp 97.0 Pulse 112 Resp 20 B/P (MAP) 136/77 Pulse Ox 100 O2 Flow Rate 0 Medical Decision Making Additional information obtaine: N/A Findings I advised the patient that the quickest with a leave from his anxiety may be achieved by stopping using methamphetamine. At this time I do not feel it is prudent to medicate the patient until he is able to make the appropriate decisions in stopping recreational methamphetamine use Differential Dx:Considerations: Include: Alcohol abuse, Substance abuse Departure Disposition: HOME / SELF CARE / HOMELESS Impression: Primary Impression: Anxiety Additional Impression: Methamphetamine addiction Condition: Stable Referrals: NO PRIMARY CARE PROVIDER (PCP) Signature Scribe Signature: fg Attestation: Scribed for Clarence Logan Radiologic Technology Program Director by Clarence Ardon NP . 02/10/25 18:17 CLARENCE LOGAN NP Feb 10, 2025 11:01
== END 2025-02-10 11:19 | disposition home or self-care (01) ==
LOC: ER 10:28
DX: F41.9 Anxiety disorder, unspecified (principal); F15.20 Other stimulant dependence, uncomplicated; F12.90 Cannabis use, unspecified, uncomplicated; F19.90 Other psychoactive substance use, unspecified, uncomplicated; Z79.899 Other long term (current) drug therapy; Z59.00 Homelessness unspecified; Z56.0 Unemployment, unspecified
CPT/HCPCS: 99282

== ENCOUNTER 2025-02-11 16:37 | Emergency (ER) | payer MEDICAID ==
--- NOTE | 2025-02-11 16:47 | Physician Documentation ---
History of Present Illness ~ General Stated Complaint: " I FEEL SICK" Time Seen by MD: 16:40 Primary Medical Doctor: NONE History of Present Illness Initial Comments Patient well known to the ER states he is hungry and wants a sandwich denies any other emergent symptoms Medication Reconciliation Allergies: Coded Allergies: No Known Allergies (Unverified , 02/10/25) Scheduled Hydroxyzine Hcl (Atarax), 1 TAB PO Q12H Hydroxyzine Hcl (Atarax), 1 TAB PO Q8H Naloxone HCl (Narcan), 1 SPRAYS BOTHNARES ONCE Scheduled PRN ONDANSETRON ODT 4mg tablet (Ondansetron Odt), 1 TAB PO Q6H PRN PRN for nausea/vomiting Miscellaneous Medications Home Med List (No Home Medications), (Reported) Past Medical History Past Medical History: No Pertinent History, *PSYCH*, Anxiety, Psychosis Past Surgical History: no surgical history Alcohol Use: Heavy Drug Use: marijuana, methamphetamine, other Lives In: Homeless Occupation: unemployed Review of Systems All Other Systems at this time: Reviewed and Negative ROS As stated above in the HPI, otherwise all systems are reviewed and negative. Physical Exam Physical Exam Physical Exam General: Alert, no apparent distress. Respiratory: Lungs clear, no respiratory distress. Cardiovascular: Regular rate and rhythm, no murmurs. Gastrointestinal: Soft, nontender, nondistended. Bowels sounds present. Neurologic: Oriented x4. Psychiatric: Normal mood and affect. Skin: Normal color, warm and dry. No edema, no ecchymosis. Medical Decision Making Additional information obtaine: old records Findings Nourishment provided, and discharged Differential Diagnosis r Departure Disposition: HOME / SELF CARE / HOMELESS Impression: Primary Impression: Unsheltered homelessness Condition: Stable Referrals: NO PRIMARY CARE PROVIDER (PCP) Signature Scribe Signature: t Attestation: Scribed for Clarence Logan Research Physician by Clarence Ardon NP . 02/11/25 16:47 CLARENCE LOGAN NP Feb 11, 2025 16:47
== END 2025-02-11 17:12 | disposition left against medical advice (07) ==
LOC: ER 16:37
DX: Z00.00 Encounter for general adult medical examination without abnormal findings (principal); Z59.02 Unsheltered homelessness
CPT/HCPCS: 99282

== ENCOUNTER 2025-02-17 21:43 | Emergency (ER) | payer MEDICAID ==
[~2025-02-17] VITALS: Ht 175.3 cm; Wt 54.5 kg
[2025-02-17 22:00] VITALS: BP 116/72; PULSE 62; RESP 12; O2SAT 95
--- NOTE | 2025-02-17 22:38 | Physician Documentation ---
History of Present Illness ~ Chief Complaint: See Chief Complaint Stated Complaint: SUSAN HANLEY Time Seen by MD: 22:31 Primary Medical Doctor: NONE HPI 24-year-old male well known to the ED presents stating his feet hurt. States he has been walking a lot in using methamphetamine today. Denies any acute injury states it is cold outside Day of Onset: Feb 17, 2025 Tetanus witin 5 years: No Medication Reconciliation Allergies: Coded Allergies: No Known Allergies (Unverified , 02/17/25) Scheduled Hydroxyzine Hcl (Atarax), 1 TAB PO Q12H Hydroxyzine Hcl (Atarax), 1 TAB PO Q8H Hydroxyzine Hcl (Atarax), 1 TAB PO Q8H Naloxone HCl (Narcan), 1 SPRAYS BOTHNARES ONCE Scheduled PRN ONDANSETRON ODT 4mg tablet (Ondansetron Odt), 1 TAB PO Q6H PRN PRN for nausea/vomiting Miscellaneous Medications Home Med List (No Home Medications), (Reported) Past Medical History Past Medical History: No Pertinent History, *PSYCH*, Anxiety, Psychosis Past Surgical History: no surgical history Alcohol Use: Heavy Drug Use: marijuana, methamphetamine, other Lives In: Homeless Occupation: unemployed Review of Systems All Other Systems at this time: Reviewed and Negative ROS As stated above in the HPI, otherwise all systems are reviewed and negative. Constitutional: Reports: no symptoms reported Physical Exam Vital Signs: Temperature: 97.0, Source: Temporal, Heart Rate: 62, Respiratory Rate: 12, BP: 116/72, Pulse Oximetry: 95, Weight: 54.500 Physical Exam General: Alert, no apparent distress. Respiratory: Lungs clear, no respiratory distress. Cardiovascular: Regular rate and rhythm, no murmurs. Gastrointestinal: Soft, nontender, nondistended. Bowels sounds present. Extremities: Normal range of motion, no deformity. Neurologic: Oriented x4. Psychiatric: Normal mood and affect. Skin: Normal color, warm and dry. No edema, no ecchymosis. Progress Results/Orders Results/Orders Vital Signs 02/17/25 02/17/25 22:00 22:42 Temp 97.0 97.0 Pulse 62 Resp 12 B/P (MAP) 116/72 Pulse Ox 95 Medical Decision Making Additional information obtaine: old records Findings Provide the patient with a set of fresh socks and discharged him from the [facility] Diff Dx:Considerations: Unlikely: Abrasion, Contusion, Fracture, Hematoma, Laceration, Malunion, Neurovascular injury, Open fracture, Sprain, Ulcer, Other Knee Diff Dx:Considerations: Unlikely: Abrasion, Arthritis, Contusion, DJD, Fracture-femur, Fracture-fibula, Fracture-patella, Fracture-tibia, Gout, Hematoma, Laceration, Meniscus injury, Neurovascular injury, Open fracture, Rheumatoid arthritis, Septic, Sprain, Sprain-MCL, Sprain-LCL, Sprain-ACL, Sprain-PCL, Other Ankle Diff Dx:Considerations: Unlikely: Abrasion, Arthritis, Contusion, DJD, Fracture-metatarsal, Fracture-fibula, Fracture-tarsal, Fracture-tibia, Gout, Hematoma, Laceration, Malunion, Neurovascular injury, Nonunion, Open fracture, Osteomyelitis, Rheumatoid arthritis, Sprain, Septic, Ulcer, Other Foot Diff Dx:Considerations: Include: Abrasion, Arthritis, Cellulitis, Contusion, Dislocation, DJD, Fracture-metatarsal, Fracture-phalynx, Fracture- tarsal, Gout, Hematoma, Ingrown toenail, Laceration, Malunion, Neurovascular injury, Open fracture, Paronychia, Puncture, Rheumatoid, Sprain, Septic, Subungual hematoma, Ulcer, Other Toe Diff Dx:Considerations: Unlikely: Abrasion, Cellulitis, Contusion, Dislocation, Felon, Fracture, Hematoma, Laceration, Neurovascular injury, Open fracture, Paronychia, Subungual hematoma, Other Departure Disposition: 01 HOME / SELF CARE / HOMELESS Impression: Primary Impression: Visit for wound check Additional Impression: Unsheltered homelessness Condition: Improved Referrals: NO PRIMARY CARE PROVIDER (PCP) Signature Scribe Signature: t6 Attestation: Scribed for Clarence Logan Np by Clarence Ardon NP . 02/17/25 23:01 CLARENCE LOGAN NP Feb 17, 2025 22:38
[2025-02-17 22:42] VITALS: TEMP 97
== END 2025-02-17 22:44 | disposition home or self-care (01) ==
LOC: ER 21:44
DX: F15.90 Other stimulant use, unspecified, uncomplicated (principal); Z48.00 Encounter for change or removal of nonsurgical wound dressing; Z59.02 Unsheltered homelessness
CPT/HCPCS: 99282

== ENCOUNTER 2025-02-18 22:47 | Emergency (ER) | payer MEDICAID ==
[~2025-02-18] VITALS: Ht 175.3 cm; Wt 59.0 kg
[2025-02-18 22:53] VITALS: BP 149/89; PULSE 89; RESP 16; O2SAT 98
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
[2025-02-18 23:15] VITALS: TEMP 98.3
== END 2025-02-18 23:20 | disposition home or self-care (01) ==
LOC: ER 22:47
DX: F19.10 Other psychoactive substance abuse, uncomplicated (principal); Z59.02 Unsheltered homelessness
CPT/HCPCS: 99282

== ENCOUNTER 2025-02-20 17:03 | Emergency (ER) | payer MEDICAID ==
[~2025-02-20] VITALS: Ht 175.3 cm; Wt 60.2 kg
[2025-02-20 17:24] VITALS: BP 157/100; PULSE 123; RESP 16; TEMP 98.2; O2SAT 97
[2025-02-20] MEDS ORDERED: DOXY100C43 PO (17:33)
[2025-02-20] MEDS ORDERED: NALO4SPR BOTHNARES (17:34)
--- NOTE | 2025-02-20 17:34 | Physician Documentation ---
History of Present Illness ~ Chief Complaint: Abscess Stated Complaint: RASH Time Seen by MD: 17:32 Primary Medical Doctor: NONE HPI 24-year-old male who presents to the emergency department for evaluation of bilateral upper extremity abscesses. Patient has a known history of IV drug use. Has a single open draining abscess to each antecubital fossa that is less than a half a cm. No lymphangitis no restricted range of motion. Tetanus Within 5 Years: No Medication Reconciliation Allergies: Coded Allergies: No Known Allergies (Unverified , 02/20/25) Scheduled Doxycycline Monohydrate (Doxycycline Monohydrate), 100 MG PO BID Hydroxyzine Hcl (Atarax), 1 TAB PO Q12H Hydroxyzine Hcl (Atarax), 1 TAB PO Q8H Hydroxyzine Hcl (Atarax), 1 TAB PO Q8H Naloxone HCl (Narcan), 1 SPRAYS BOTHNARES ONCE Naloxone HCl (Narcan), 1 SPRAYS BOTHNARES ONCE Scheduled PRN ONDANSETRON ODT 4mg tablet (Ondansetron Odt), 1 TAB PO Q6H PRN PRN for nausea/vomiting Miscellaneous Medications Home Med List (No Home Medications), (Reported) Past Medical History Past Medical History: No Pertinent History, *PSYCH*, Anxiety, Psychosis Past Surgical History: no surgical history Alcohol Use: Heavy Drug Use: marijuana, methamphetamine, other Lives In: Homeless Occupation: unemployed Review of Systems All Other Systems at this time: Reviewed and Negative Constitutional: Reports: see HPI Physical Exam Vital Signs: RN Vital Signs have been reviewed: Yes, Temperature: 98.2, Source: Oral, Heart Rate: 123, Respiratory Rate: 16, BP: 157/100, Pulse Oximetry: 97, Weight: 60.200 Oxygen Flow Rate: 0 General Appearance: alert, WD/WN, mild distress EENT: normal ENT inspection Neck: normal inspection Respiratory: no respiratory distress Chest: no accessory muscle use Gastrointestinal: non-tender Skin: other (Single less than 0.5 cm open draining abscess to each antecubital fossa without erythema or lymphangitis) Neurologic: oriented x4 Lymphatic: normal inspection Psychiatric: other (Blunted affect) Progress Results/Orders Results/Orders Vital Signs 02/20/25 17:24 Temp 98.2 Pulse 123 Resp 16 B/P (MAP) 157/100 Pulse Ox 97 O2 Flow Rate 0 Medical Decision Making Additional information obtaine: N/A Findings Examination history consistent with recent IV DA use. No indication for incision and drainage in his abscesses are less than half a cm and open. We will begin doxycycline and recommend warm moist soaks. Differential Dx:Considerations: Include: Abscess, Bacteremia, Cellulitis, Erysipelas, Hidrademitis suppurativa, Impetigo, Lymphangitis, Septicemia Departure Disposition: HOME / SELF CARE / HOMELESS Impression: Primary Impression: Wound abscess Additional Impression: IVDU (intravenous drug user) Condition: Stable Discharge Instructions: Abscess, Care After Additional Instructions: Please avoid IV drug use. Begin antibiotic and do warm moist soaks. Referrals: NO PRIMARY CARE PROVIDER (PCP) Prescriptions Naloxone HCl (Narcan) 4 Mg/Actuation [place] 1 SPRAYS BOTHNARES ONCE for 14 Days, #1 EA 0 Refills Prov: MAEGAN MARTINEZ 02/20/25 Doxycycline Monohydrate (Doxycycline Monohydrate) 100 Mg Capsule 100 MG PO BID, #20 CAP may sub doxycycline hyclate or azithromycin z-pack as prescribed Prov: MAEGAN MARTINEZ 02/20/25 Education Educated: Patient Educated regarding: diagnosis, treatment, prognosis, need for follow up Signature Scribe Signature: . Attestation: . MAEGAN MARTINEZ Feb 20, 2025 17:34
== END 2025-02-20 17:52 | disposition home or self-care (01) ==
LOC: ER 17:03
DX: L02.413 Cutaneous abscess of right upper limb (principal); L02.414 Cutaneous abscess of left upper limb; F19.90 Other psychoactive substance use, unspecified, uncomplicated; F12.90 Cannabis use, unspecified, uncomplicated; F15.90 Other stimulant use, unspecified, uncomplicated; F41.9 Anxiety disorder, unspecified; Z59.00 Homelessness unspecified; Z56.0 Unemployment, unspecified; Z79.899 Other long term (current) drug therapy
CPT/HCPCS: 99283

== ENCOUNTER 2025-02-22 01:21 | Emergency (ER) | payer MEDICAID ==
[~2025-02-22] VITALS: Ht 175.3 cm; Wt 61.0 kg
[~2025-02-22 01:21] MED LIST changes: +DOXY100C43 PO
--- NOTE | 2025-02-22 01:46 | Physician Documentation ---
History of Present Illness ~ General Chief Complaint: General Stated Complaint: FEELS SICK Time Seen by MD: 01:41 Primary Medical Doctor: NONE History of Present Illness Initial Comments Patient states he does not feel well. I asked him if he feels nauseous but he states no. Medication Reconciliation Allergies: Coded Allergies: No Known Allergies (Unverified , 02/20/25) Scheduled Doxycycline Monohydrate (Doxycycline Monohydrate), 100 MG PO BID Hydroxyzine Hcl (Atarax), 1 TAB PO Q12H Hydroxyzine Hcl (Atarax), 1 TAB PO Q8H Hydroxyzine Hcl (Atarax), 1 TAB PO Q8H Naloxone HCl (Narcan), 1 SPRAYS BOTHNARES ONCE Naloxone HCl (Narcan), 1 SPRAYS BOTHNARES ONCE Scheduled PRN ONDANSETRON ODT 4mg tablet (Ondansetron Odt), 1 TAB PO Q6H PRN PRN for nausea/vomiting Miscellaneous Medications Home Med List (No Home Medications), (Reported) Past Medical History Past Medical History: No Pertinent History, *PSYCH*, Anxiety, Psychosis Past Surgical History: no surgical history Alcohol Use: Heavy Drug Use: marijuana, methamphetamine, other Lives In: Homeless Occupation: unemployed Review of Systems ROS All review of systems negative except as per HPI Physical Exam Physical Exam Vital Signs: Temperature: 98.0, Heart Rate: 106, Respiratory Rate: 16, BP: 124/84, Pulse Oximetry: 98, Weight: 61.000 Physical Exam General: Patient is awake, alert, oriented x4 in no acute distress Head: Normocephalic and atraumatic. Eyes: Conjunctival normal. EOMI. PERRL. ENT: Mucous membranes moist. Neck: Supple, trachea is midline. Chest: Clear to auscultation bilaterally without rales, rhonchi, or wheezes. There is no accessory muscle use or retractions. Cardiac: Tachycardic and regular without murmurs, gallops, or rubs. Abd: Soft, nondistended, nontender, with normoactive bowel sounds. No guarding, rebound, or rigidity. Progress Results/Orders Results/Orders Vital Signs 02/22/25 01:26 Temp 98.0 Pulse 106 Resp 16 B/P (MAP) 124/84 Pulse Ox 98 Medical Decision Making Additional information obtaine: old records Findings Patient presents to the emergency room stating that has sick. Upon further investigation he states he feels sick about his decisions. I do not feel he is suffering a medical emergency. Mild tachycardia however he has history of this. Differential Diagnosis re Departure Disposition: HOME / SELF CARE / HOMELESS Impression: Primary Impression: General medical exam Condition: Stable Discharge Instructions: General Discharge Instructions Referrals: NO PRIMARY CARE PROVIDER (PCP) Signature Scribe Signature: No scribe Attestation: The note accurately reflects work and decisions made by me.Jose J Cornell MD 02/22/25 01:46 JOSE J CORNELL MD Feb 22, 2025 01:46
[2025-02-22 01:54] VITALS: BP 122/82; PULSE 99; RESP 18; TEMP 98; O2SAT 99
== END 2025-02-22 01:55 | disposition home or self-care (01) ==
LOC: ER 01:22
DX: Z00.00 Encounter for general adult medical examination without abnormal findings (principal); F41.9 Anxiety disorder, unspecified; F12.90 Cannabis use, unspecified, uncomplicated; F15.90 Other stimulant use, unspecified, uncomplicated; F19.90 Other psychoactive substance use, unspecified, uncomplicated; Z59.00 Homelessness unspecified; Z56.0 Unemployment, unspecified; Z79.899 Other long term (current) drug therapy
CPT/HCPCS: 99282

== ENCOUNTER 2025-03-03 11:07 | Emergency (ER) | payer MEDICAID ==
[~2025-03-03] VITALS: Ht 175.3 cm; Wt 57.7 kg
[2025-03-03 11:10] VITALS: TEMP 97.2
--- NOTE | 2025-03-03 12:01 | Physician Documentation ---
History of Present Illness ~ Chief Complaint: Abscess Stated Complaint: ABSCESS Time Seen by MD: 11:50 Primary Medical Doctor: NONE HPI 25-year-old male patient well known to this ED presents with a complaint of an abscess that is developed on the palm of his right hand. In his any fevers or nausea vomiting. States this is developed in the last two three days. Denies that it is a IV drug use miss. Tetanus Within 5 Years: No Medication Reconciliation Allergies: Coded Allergies: No Known Allergies (Unverified , 03/03/25) Scheduled Doxycycline Monohydrate (Doxycycline Monohydrate), 100 MG PO BID Hydroxyzine Hcl (Atarax), 1 TAB PO Q12H Hydroxyzine Hcl (Atarax), 1 TAB PO Q8H Hydroxyzine Hcl (Atarax), 1 TAB PO Q8H Naloxone HCl (Narcan), 1 SPRAYS BOTHNARES ONCE Naloxone HCl (Narcan), 1 SPRAYS BOTHNARES ONCE Sulfamethoxazole/Trimethoprim (Septra Ds Tab), 1 TAB PO Q12H Scheduled PRN ONDANSETRON ODT 4mg tablet (Ondansetron Odt), 1 TAB PO Q6H PRN PRN for nausea/vomiting Miscellaneous Medications Home Med List (No Home Medications), (Reported) Past Medical History Past Medical History: No Pertinent History, *PSYCH*, Anxiety, Psychosis Past Surgical History: no surgical history Alcohol Use: Heavy Drug Use: marijuana, methamphetamine, other Lives In: Homeless Occupation: unemployed Review of Systems All Other Systems at this time: Reviewed and Negative ROS As stated above in the HPI, otherwise all systems are reviewed and negative. Physical Exam Vital Signs: Temperature: 97.2, Source: Oral, Heart Rate: 110, Respiratory Rate: 18, BP: 121/80, Pulse Oximetry: 100, Weight: 57.700 Oxygen Flow Rate: 0 Physical Exam General: Alert, no apparent distress. Extremities: Normal range of motion, no deformity. 4 x 4 cm raised purulent area on the medial aspect of the right palm with surrounding erythema Neurologic: Oriented x4. Psychiatric: Normal mood and affect. Skin: Normal color, warm and dry. No edema, no ecchymosis. Procedures I & D Procedure : Anesthesia: Lidocaine Blade Size: 11 Prep/Supplies: irrigated Incision: pus drained Tolerated Procedure Well?: yes, no complications Progress Results/Orders Results/Orders Orders - CLARENCE LOGAN NP Laceration/I&D Tray Set Up (03/03/25 ) General Nursing Order (03/03/25 ) Completed Orders - CLARENCE LOGAN NP Ceftriaxone Im Kit W/Lidocaine (Rocephin (03/03/25 12:05) Lidocaine 1% 30ml Vial (Xylocaine 1% Via (03/03/25 12:08) Medications Received in ER Medications (Trade) Dose Ordered Sig/Lidia Route PRN Reason Start Time Stop Time Status Last Admin Dose Admin (Rocephin 1GM IM kit (w/lidocaine diluent)) 1,000 mg ONCE ONCE IM 03/03/25 12:05 03/03/25 12:06 DC 03/03/25 12:14 1,000 MG Vital Signs 03/03/25 11:10 Temp 97.2 Pulse 110 Resp 18 B/P (MAP) 121/80 Pulse Ox 100 O2 Flow Rate 0 Medical Decision Making Additional information obtaine: old records Findings Drain the patient's abscess in his hand in placed him on oral antibiotics after receiving an initial Rocephin shot in the ED Differential Dx:Considerations: Include: Abscess, Bacteremia, Cellulitis, Erysipelas, Felon, Gas gangrene, Hidrademitis suppurativa, Impetigo, Lymphangitis, Osteromyelitis, Paronychia, Septicemia, Other Departure Disposition: 01 HOME / SELF CARE / HOMELESS Impression: Primary Impression: Abscess Additional Impression: Cellulitis Discharge Instructions: Abscess, Care After Referrals: NO PRIMARY CARE PROVIDER (PCP) Prescriptions Sulfamethoxazole/Trimethoprim (Septra Ds Tab) 800 Mg/160 Mg Tablet 1 TAB PO Q12H for 10 Days, #20 TAB Prov: CLARENCE LOGAN NP 03/03/25 Education Educated: Patient Signature Scribe Signature: g Attestation: Scribed for Clarence Logan Academic Adviser by Clraence Ardon NP . 03/03/25 12:24 CLARENCE LOGAN NP Mar 03, 2025 12:01
[2025-03-03] MEDS ORDERED: SULF-16 PO (12:11)
[2025-03-03] MEDS: CefTRIAXone 1000mg IM Kit (w/lidocaine diluent) IM ONE (12:14)
[2025-03-03] MEDS: LIDOcaine 1% 30ml preserv. free vial SQ STA (12:38)
[2025-03-03 13:10] VITALS: BP 139/117; PULSE 87; RESP 18; O2SAT 97
[2025-03-04] MEDS ORDERED: CEPH-585 PO (03:47)
== END 2025-03-03 13:12 | disposition home or self-care (01) ==
LOC: ER 11:07
DX: L02.511 Cutaneous abscess of right hand (principal); L03.113 Cellulitis of right upper limb; F41.9 Anxiety disorder, unspecified; F12.90 Cannabis use, unspecified, uncomplicated; F15.90 Other stimulant use, unspecified, uncomplicated; F10.90 Alcohol use, unspecified, uncomplicated; F19.90 Other psychoactive substance use, unspecified, uncomplicated; Z79.899 Other long term (current) drug therapy; Z56.0 Unemployment, unspecified; Z59.00 Homelessness unspecified; Y90.9 Presence of alcohol in blood, level not specified
CPT/HCPCS: 10060; 96372; 99283; J0696; A6449

== ENCOUNTER 2025-03-03 15:42 | Emergency (ER) | payer MEDICAID ==
[~2025-03-03 15:42] MED LIST changes: +SULF-16 PO
--- NOTE | 2025-03-03 20:05 | Physician Documentation ---
History of Present Illness General Chief Complaint: See Chief Complaint Stated Complaint: SI Time Seen by MD: 16:02 Primary Medical Doctor: NONE History of Present Illness Initial Comments This is a 25-year-old homeless male well known to this emergency department few initially made vague statements of suicidal ideation to registration staff however on further questioning in triage reports is primarily looking for food and a blanket. Patient was seen earlier in the day for an infection to his hand and which he received antibiotics for. Medication Reconciliation Allergies: Coded Allergies: No Known Allergies (Unverified , 03/03/25) Scheduled Doxycycline Monohydrate (Doxycycline Monohydrate), 100 MG PO BID Hydroxyzine Hcl (Atarax), 1 TAB PO Q12H Hydroxyzine Hcl (Atarax), 1 TAB PO Q8H Hydroxyzine Hcl (Atarax), 1 TAB PO Q8H Naloxone HCl (Narcan), 1 SPRAYS BOTHNARES ONCE Naloxone HCl (Narcan), 1 SPRAYS BOTHNARES ONCE Sulfamethoxazole/Trimethoprim (Septra Ds Tab), 1 TAB PO Q12H Scheduled PRN ONDANSETRON ODT 4mg tablet (Ondansetron Odt), 1 TAB PO Q6H PRN PRN for nausea/vomiting Miscellaneous Medications Home Med List (No Home Medications), (Reported) Past Medical History Past Medical History: No Pertinent History, *PSYCH*, Anxiety, Psychosis Past Surgical History: no surgical history Alcohol Use: Heavy Drug Use: marijuana, methamphetamine, other Lives In: Homeless Occupation: unemployed Review of Systems ROS As stated above in the HPI, otherwise all systems are reviewed and negative. Physical Exam Physical Exam Physical Exam VITALS: Patient refused GENERAL: Alert, nontoxic appearing, no apparent distress, disheveled appearing RESPIRATORY: No increased work of breathing, no respiratory distress, speaking in full clear sentences Medical Decision Making Additional information obtaine: old records Findings This 25-year-old homeless male who is well known to the emergency department presented requesting a blanket and food after initially telling registration staff he was having suicidal thoughts, on further questioning in triage patient recanted his statements on suicidal thoughts endorsing that he was only here for food and a blanket after being questioned further about suicidal thoughts and his history of using these statements to utilize the emergency department as senior care any place for food given his homeless status. Patient left triage prior to completion of triage assessment nursing staff, at this time since patient is primarily only requesting food and a blanket I have no reason to suspect in the medical emergency exists. In his appropriate for outpatient follow up to follow previous discharge instructions and take previously prescribed antibiotics. Differential Diagnosis , homeless, suicidal ideation, homicidal ideation, abscess, sepsis, cellulitis Departure Disposition: 07 LEFT AWOL/ELOPED Impression: Primary Impression: Hungry Qualified Codes: T73.0XXD - Starvation, subsequent encounter Additional Impression: Homelessness Referrals: NO PRIMARY CARE PROVIDER (PCP) Signature Scribe Signature: No scribe Attestation: The note accurately reflects work and decisions made by me.YASH Mcdonald 01:15 ALISON VIDALES Mar 03, 2025 20:05
[2025-03-04] MEDS ORDERED: CEPH-585 PO (03:47)
== END 2025-03-03 18:51 | disposition left against medical advice (07) ==
LOC: ER 15:43
DX: T73.0XXA Starvation, initial encounter (principal); F12.90 Cannabis use, unspecified, uncomplicated; F15.90 Other stimulant use, unspecified, uncomplicated; F19.90 Other psychoactive substance use, unspecified, uncomplicated; F41.9 Anxiety disorder, unspecified; Z59.00 Homelessness unspecified; Z56.0 Unemployment, unspecified; X58.XXXA Exposure to other specified factors, initial encounter; Z53.21 Procedure and treatment not carried out due to patient leaving prior to being seen by health care provider
CPT/HCPCS: 99281

== ENCOUNTER 2025-03-04 02:15 | Emergency (ER) | payer MEDICAID ==
[2025-03-04 02:30] VITALS: BP 124/56; PULSE 101; RESP 15; TEMP 97.8; O2SAT 98
--- NOTE | 2025-03-04 03:43 | Physician Documentation ---
History of Present Illness ~ Chief Complaint: Abscess Stated Complaint: HAND PAIN Time Seen by MD: 03:41 Primary Medical Doctor: NONE HPI Patient presents to the emergency room with report of abscess to his right hand. He has been seen here regularly and we are very familiar with the patient. He was prescribed antibiotics but he states he never picked it up. Asked him why h e does not and that has not have a good response. Tetanus Within 5 Years: No Medication Reconciliation Allergies: Coded Allergies: No Known Allergies (Unverified , 03/04/25) Scheduled Doxycycline Monohydrate (Doxycycline Monohydrate), 100 MG PO BID Hydroxyzine Hcl (Atarax), 1 TAB PO Q12H Hydroxyzine Hcl (Atarax), 1 TAB PO Q8H Hydroxyzine Hcl (Atarax), 1 TAB PO Q8H Naloxone HCl (Narcan), 1 SPRAYS BOTHNARES ONCE Naloxone HCl (Narcan), 1 SPRAYS BOTHNARES ONCE Sulfamethoxazole/Trimethoprim (Septra Ds Tab), 1 TAB PO Q12H Scheduled PRN ONDANSETRON ODT 4mg tablet (Ondansetron Odt), 1 TAB PO Q6H PRN PRN for nausea/vomiting Miscellaneous Medications Home Med List (No Home Medications), (Reported) Past Medical History Past Medical History: No Pertinent History, *PSYCH*, Anxiety, Psychosis Past Surgical History: no surgical history Alcohol Use: Heavy Drug Use: marijuana, methamphetamine, other Lives In: Homeless Occupation: unemployed Review of Systems ROS All review of systems negative except as per HPI Physical Exam Vital Signs: Temperature: 97.8, Source: Temporal, Heart Rate: 101, Respiratory Rate: 15, BP: 124/56, Pulse Oximetry: 98 Physical Exam General: Patient is sleeping, easily arousable in no acute distress Head: Normocephalic and atraumatic. Eyes: Conjunctival normal. EOMI. PERRL. ENT: Mucous membranes moist. Neck: Supple, trachea is midline. Chest: Clear to auscultation bilaterally without rales, rhonchi, or wheezes. There is no accessory muscle use or retractions. Cardiac: RRR without murmurs, gallops, or rubs. Extremities: Blister noted to patient's volar aspect of his right wrist. No cellulitis Progress Results/Orders Results/Orders Vital Signs 03/04/25 02:30 Temp 97.8 Pulse 101 Resp 15 B/P (MAP) 124/56 Pulse Ox 98 Medical Decision Making Additional information obtaine: old records Findings Patient has a blister on the volar aspect of his wrist. This is likely from his drug habit. I do not feel incision and drainage or emergent labs or imaging is necessary. I will refill his antibiotic once again. Poor prognosis Differential Dx:Considerations: Include: Abscess, Bacteremia, Cellulitis, Erysipelas, Felon, Gas gangrene, Hidrademitis suppurativa, Impetigo, Lymphan gitis, Osteromyelitis, Paronychia, Septicemia, Other Departure Disposition: HOME / SELF CARE / HOMELESS Impression: Primary Impression: Wound Condition: Stable Discharge Instructions: Skin Abscess, [id number] Referrals: NO PRIMARY CARE PROVIDER (PCP) Prescriptions Cephalexin*Monohydrate* (Keflex*) 500 Mg Capsule 1 CAP PO Q12H for 10 Days, #20 CAP Prov: JOSE J CORNELL MD 03/04/25 Signature Scribe Signature: No scribe Attestation: The note accurately reflects work and decisions made by me.Jose J Cornell MD 03/04/25 03:47 JOSE J CORNELL MD Mar 04, 2025 03:43
[2025-03-04] MEDS ORDERED: CEPH-585 PO (03:47)
== END 2025-03-04 03:57 | disposition home or self-care (01) ==
LOC: ER 02:16
DX: L02.511 Cutaneous abscess of right hand (principal); Z88.2 Allergy status to sulfonamides
CPT/HCPCS: 99283

== ENCOUNTER 2025-03-05 08:29 | Emergency (ER) | payer MEDICAID ==
[~2025-03-05] VITALS: Ht 170.2 cm; Wt 68.0 kg
[~2025-03-05 08:29] MED LIST changes: +CEPH-585 PO
[2025-03-05 08:39] VITALS: PULSE 88; RESP 16; TEMP 97.8; O2SAT 97
--- NOTE | 2025-03-05 09:30 | Physician Documentation ---
History of Present Illness ~ Chief Complaint: Hand pain Stated Complaint: HAND INFECTION Time Seen by MD: 09:25 OK to notify your PCP?: Yes Primary Medical Doctor: NONE Source: patient Mode of Arrival: POV Exam Limitations: no limitations HPI 25-year-old male who is here requesting a sandwich. Denies any other concerns. States in the stated complaint hand infection however he was seen last night for this and does not mentioned this to me whatsoever mentions only that he wants a sandwich Tetanus within 5 years: No Medication Reconciliation Allergies: Coded Allergies: No Known Allergies (Unverified , 03/04/25) Scheduled Cephalexin*Monohydrate* (Keflex*), 1 CAP PO Q12H Doxycycline Monohydrate (Doxycycline Monohydrate), 100 MG PO BID Hydroxyzine Hcl (Atarax), 1 TAB PO Q12H Hydroxyzine Hcl (Atarax), 1 TAB PO Q8H Hydroxyzine Hcl (Atarax), 1 TAB PO Q8H Naloxone HCl (Narcan), 1 SPRAYS BOTHNARES ONCE Naloxone HCl (Narcan), 1 SPRAYS BOTHNARES ONCE Sulfamethoxazole/Trimethoprim (Septra Ds Tab), 1 TAB PO Q12H Scheduled PRN ONDANSETRON ODT 4mg tablet (Ondansetron Odt), 1 TAB PO Q6H PRN PRN for nausea/vomiting Miscellaneous Medications Home Med List (No Home Medications), (Reported) Past Medical History Past Medical History: No Pertinent History, *PSYCH*, Anxiety, Psychosis Past Surgical History: no surgical history Alcohol Use: Heavy Drug Use: marijuana, methamphetamine, other Lives In: Homeless Occupation: unemployed Review of Systems All Other Systems at this time: Reviewed and Negative Physical Exam Vital Signs: Temperature: 97.8, Heart Rate: 88, Respiratory Rate: 16, Pulse Oximetry: 97, Weight: 68.000 Oxygen Flow Rate: 0 Physical Exam General Appearance: Alert, WD/WN. NAD. HEENT: NCAT, PERRL, EOMI. Neck: Supple, trachea midline. Lungs: Breathing unlabored Extremities: Normal inspection. No edema. Skin: Warm/dry, normal color Neurological: Alert and oriented x4, normal gait. Psychiatric: Affect congruent with mood. Progress Results/Orders Results/Orders Vital Signs 03/05/25 08:39 Temp 97.8 Pulse 88 Resp 16 Pulse Ox 97 O2 Flow Rate 0 Medical Decision Making Additional information obtaine: N/A Findings n/a General Diff Dx:Considerations: Unlikely: Other Shoulder Diff Dx:Consideration: Unlikely: Other Elbow Diff Dx:Considerations: Unlikely: Other Wrist Diff Dx:Considerations: Unlikely: Other Hand Diff Dx:Considerations: Unlikely: Other Finger Diff Dx:Considerations: Unlikely: Other Departure Time of Disposition: 09:29 Disposition: 01 HOME / SELF CARE / HOMELESS Impression: Primary Impression: Homelessness Additional Impression: Hungry Qualified Codes: T73.0XXA - Starvation, initial encounter Condition: Stable Discharge Instructions: General Discharge Instructions Additional Instructions: SANDWICH PROVIDED Referrals: NO PRIMARY CARE PROVIDER (PCP) Education Educated: Patient Educated regarding: diagnosis, treatment, need for follow up Signature Scribe Signature: X Attestation: TALYA BARROS Mar 05, 2025 09:30
== END 2025-03-05 11:09 | disposition home or self-care (01) ==
LOC: ER 08:30
DX: T73.0XXA Starvation, initial encounter (principal); Z59.00 Homelessness unspecified; X58.XXXA Exposure to other specified factors, initial encounter
CPT/HCPCS: 99282

== ENCOUNTER 2025-03-05 23:47 | Emergency (ER) | payer MEDICAID ==
[~2025-03-05] VITALS: Ht 170.2 cm; Wt 68.0 kg
[2025-03-06 00:32] VITALS: PULSE 87; RESP 15; TEMP 97.8; O2SAT 98
== END 2025-03-06 04:28 | disposition left against medical advice (07) ==
LOC: ER 23:47
DX: R53.1 Weakness (principal)
CPT/HCPCS: 99281

== ENCOUNTER 2025-03-12 18:54 | Emergency (ER) | payer MEDICAID ==
--- NOTE | 2025-03-12 19:34 | Physician Documentation ---
History of Present Illness Stated Complaint: LICE Primary Medical Doctor: NONE HPI Is a 25-year-old male that presents to the emergency department without medical complaint. Patient reports he is hungry. Patient was provided with a sandwich and juice. Patient was discharged from the [facility] in stable condition. Medication Reconciliation Allergies: Coded Allergies: No Known Allergies (Unverified , 03/06/25) Scheduled Cephalexin*Monohydrate* (Keflex*), 1 CAP PO Q12H Doxycycline Monohydrate (Doxycycline Monohydrate), 100 MG PO BID Hydroxyzine Hcl (Atarax), 1 TAB PO Q12H Hydroxyzine Hcl (Atarax), 1 TAB PO Q8H Hydroxyzine Hcl (Atarax), 1 TAB PO Q8H Naloxone HCl (Narcan), 1 SPRAYS BOTHNARES ONCE Naloxone HCl (Narcan), 1 SPRAYS BOTHNARES ONCE Sulfamethoxazole/Trimethoprim (Septra Ds Tab), 1 TAB PO Q12H Scheduled PRN ONDANSETRON ODT 4mg tablet (Ondansetron Odt), 1 TAB PO Q6H PRN PRN for nausea/vomiting Miscellaneous Medications Home Med List (No Home Medications), (Reported) Past Medical History Past Medical History: No Pertinent History, *PSYCH*, Anxiety, Psychosis Past Surgical History: no surgical history Alcohol Use: Heavy Drug Use: marijuana, methamphetamine, other Lives In: Homeless Occupation: unemployed Review of Systems ROS As stated above in the HPI, otherwise all systems are reviewed and negative. Physical Exam Physical Exam VITALS: Reviewed and as above. GENERAL: Alert, no apparent distress. SKIN: Warm and dry, no rash NEURO: Oriented x4, No motor or sensory deficit PSYCH: Normal mood and affect, no agitation Medical Decision Making Additional information obtaine: other Findings The patient is a 25-year-old male that presents to the emergency department without medical complaint. Patient reports he is hungry. Patient was provided with a sandwich and juice. Patient was discharged from the [facility] in stable condition. Differential Dx:Considerations: Other, N/A Departure Disposition: 01 HOME / SELF CARE / HOMELESS Impression: Primary Impression: Special needs assessment Condition: Stable Additional Instructions: Is a 25-year-old male that presents to the emergency department without medical complaint. Patient reports he is hungry. Patient was provided with a sandwich and juice. Patient was discharged from the [facility] in stable condition. Referrals: NO PRIMARY CARE PROVIDER (PCP) Education Educated: Patient Educated regarding: diagnosis, treatment, need for follow up Signature Scribe Signature: A Attestation: Scribed for Emergency,Department by YASH Navarro . 03/12/25 19:34 MARJORIE SANON Mar 12, 2025 19:34
[2025-03-12 19:46] VITALS: TEMP 97.4
== END 2025-03-12 20:17 | disposition home or self-care (01) ==
LOC: ER 18:54
DX: B85.2 Pediculosis, unspecified (principal); F41.9 Anxiety disorder, unspecified; F12.90 Cannabis use, unspecified, uncomplicated; F15.90 Other stimulant use, unspecified, uncomplicated; F19.90 Other psychoactive substance use, unspecified, uncomplicated; Z79.899 Other long term (current) drug therapy; Z59.00 Homelessness unspecified; Z56.0 Unemployment, unspecified
CPT/HCPCS: 99282

== ENCOUNTER 2025-03-13 00:53 | Emergency (ER) | payer MEDICAID ==
[~2025-03-13] VITALS: Ht 175.3 cm; Wt 72.0 kg
[2025-03-13 01:06] VITALS: TEMP 98
[2025-03-13 02:29] VITALS: BP 137/79; PULSE 88; RESP 17; O2SAT 100
--- NOTE | 2025-03-13 03:24 | Physician Documentation ---
History of Present Illness ~ General Chief Complaint: See Chief Complaint Stated Complaint: UPSET STOMACH Time Seen by MD: 03:23 Primary Medical Doctor: NONE Mode of Arrival: Ambulatory History of Present Illness Initial Comments 25-year-old male, history of homelessness, well known to this emergency department for multiple visits sometimes multiple times a day The patient presents with vague symptoms, requesting food, and water to drink. He says that his stomach is upset. He later goes and lays outside with hospital blankets in tries to sleep on a chair outside of the emergency department. When I asked him if anything else is wrong he says no. When asked if there was anything else we can do to help him today he requests some water to drink Medication Reconciliation Allergies: Coded Allergies: No Known Allergies (Unverified , 03/06/25) Scheduled Cephalexin*Monohydrate* (Keflex*), 1 CAP PO Q12H Doxycycline Monohydrate (Doxycycline Monohydrate), 100 MG PO BID Hydroxyzine Hcl (Atarax), 1 TAB PO Q12H Hydroxyzine Hcl (Atarax), 1 TAB PO Q8H Hydroxyzine Hcl (Atarax), 1 TAB PO Q8H Naloxone HCl (Narcan), 1 SPRAYS BOTHNARES ONCE Naloxone HCl (Narcan), 1 SPRAYS BOTHNARES ONCE Sulfamethoxazole/Trimethoprim (Septra Ds Tab), 1 TAB PO Q12H Scheduled PRN ONDANSETRON ODT 4mg tablet (Ondansetron Odt), 1 TAB PO Q6H PRN PRN for nausea/vomiting Miscellaneous Medications Home Med List (No Home Medications), (Reported) Past Medical History Past Medical History: No Pertinent History, *PSYCH*, Anxiety, Psychosis Past Surgical History: no surgical history Alcohol Use: Heavy Drug Use: marijuana, methamphetamine, other Lives In: Homeless Occupation: unemployed Review of Systems All Other Systems at this time: Reviewed and Negative Physical Exam Physical Exam Vital Signs: Temperature: 98.0, Source: Temporal, Heart Rate: 88, Respiratory Rate: 17, BP: 137/79, Pulse Oximetry: 100, Weight: 72.000 Oxygen Flow Rate: 0 Physical Exam General: This is a disheveled thin young man, appears similar to the past times I have seen him here in the emergency department HEENT: Atraumatic, oropharynx is moist Heart: Regular rate and rhythm, normal-appearing peripheral perfusion Lungs: normal work of breathing, normal oxygen saturation on room air Neuro: Alert and interactive Psychiatric: Appears tired, but is cooperative Progress Results/Orders Results/Orders Vital Signs 03/13/25 03/13/25 03/13/25 01:06 02:23 02:29 Temp 98.0 Pulse 105 88 Resp 16 17 17 B/P (MAP) 137/79 (98) Pulse Ox 98 100 O2 Flow Rate 0 Medical Decision Making Additional information obtaine: old records Findings Reviewed past ER visits Differential Diagnosis Homelessness, hunger, injury, infection Assessment The patient presents with vague complaints and requesting food. He has been seen here in the emergency department multiple times recently including earlier today. He is not appear to have a new injury or evidence of infection or other dangerous medical problem at this time. He will be discharged. Departure Disposition: HOME / SELF CARE / HOMELESS Impression: Primary Impression: Unsheltered homelessness Additional Impression: Hungry Condition: Stable Referrals: NO PRIMARY CARE PROVIDER (PCP) Education Educated: Patient Educated regarding: need for follow up Signature Scribe Signature: hope Attestation: MAEGAN Dupont MD Mar 13, 2025 03:24
== END 2025-03-13 02:30 | disposition home or self-care (01) ==
LOC: ER 00:54
DX: T73.0XXA Starvation, initial encounter (principal); F12.90 Cannabis use, unspecified, uncomplicated; F15.90 Other stimulant use, unspecified, uncomplicated; F19.90 Other psychoactive substance use, unspecified, uncomplicated; F41.9 Anxiety disorder, unspecified; Z79.899 Other long term (current) drug therapy; Z56.0 Unemployment, unspecified; Z59.02 Unsheltered homelessness; X58.XXXA Exposure to other specified factors, initial encounter
CPT/HCPCS: 99282

== ENCOUNTER 2025-03-14 20:30 | Emergency (ER) | payer MEDICAID ==
[~2025-03-14] VITALS: Ht 175.3 cm; Wt 72.0 kg
--- NOTE | 2025-03-14 21:41 | Physician Documentation ---
History of Present Illness ~ Chief Complaint: Medical Clearance Stated Complaint: MED CLEARANCE Time Seen by MD: 20:56 Primary Medical Doctor: NONE HPI Is a very pleasant 25-year-old male that presents to the emergency department for evaluation of fleas. Patient reports he has fleas did not been able to get rid of his lease but maybe they are getting better and he is unsure. Patient reports that he is scheduled to check in with the rehab facility but does not until tomorrow so he will come back tomorrow to get medical clearance. At this time. The patient is a asking for a sandwich and some food and a blanket if we are able to provide it. Patient denies any medical complaints at this time. Tetanus within 5 years?: Yes Medication Reconciliation Allergies: Coded Allergies: No Known Allergies (Unverified , 03/06/25) Scheduled Cephalexin*Monohydrate* (Keflex*), 1 CAP PO Q12H Hydroxyzine Hcl (Atarax), 1 TAB PO Q12H Hydroxyzine Hcl (Atarax), 1 TAB PO Q8H Hydroxyzine Hcl (Atarax), 1 TAB PO Q8H Naloxone HCl (Narcan), 1 SPRAYS BOTHNARES ONCE Naloxone HCl (Narcan), 1 SPRAYS BOTHNARES ONCE Scheduled PRN ONDANSETRON ODT 4mg tablet (Ondansetron Odt), 1 TAB PO Q6H PRN PRN for nausea/vomiting Miscellaneous Medications Home Med List (No Home Medications), (Reported) Discontinued Medications Doxycycline Monohydrate (Doxycycline Monohydrate), 100 MG PO BID Discontinued Reason: Auto Discontinued Sulfamethoxazole/Trimethoprim (Septra Ds Tab), 1 TAB PO Q12H Discontinued Reason: Auto Discontinued Past Medical History Past Medical History: No Pertinent History, *PSYCH*, Anxiety, Psychosis Past Surgical History: no surgical history Alcohol Use: Heavy Drug Use: marijuana, methamphetamine, other Lives In: Homeless Occupation: unemployed Review of Systems ROS As stated above in the HPI, otherwise all systems are reviewed and negative. Physical Exam Vital Signs: Temperature: 98.0, Heart Rate: 97, Respiratory Rate: 16, BP: 127/ 92, Pulse Oximetry: 99, Weight: 72.000 Oxygen Flow Rate: 0 Physical Exam VITALS: Reviewed and as above. GENERAL: Alert, no apparent distress. SKIN: Warm and dry, no rash NEURO: Oriented x4, No motor or sensory deficit PSYCH: Normal mood and affect, no agitation Progress Results/Orders Results/Orders Vital Signs 03/14/25 20:39 Temp 98.0 Pulse 97 Resp 16 B/P (MAP) 127/92 Pulse Ox 99 O2 Flow Rate 0 Medical Decision Making Additional information obtaine: other Findings Is a very pleasant 25-year-old male that presents to the emergency department for evaluation of fleas. Patient reports he has fleas did not been able to get rid of his lease but maybe they are getting better and he is unsure. Patient reports that he is scheduled to check in with the rehab facility but does not until tomorrow so he will come back tomorrow to get medical clearance. At this time. The patient is a asking for a sandwich and some food and a blanket if we are able to provide it. Patient denies any medical complaints at this time. Differential Dx:Considerations: Include: Intoxication-Alcohol, Intoxication- Other drug, Personality disorder, Substance abuse disorder, Acute delirium, Closed head injury, Cervical spine injury, Skull fracture, Fracture(s), Abrasion, Contusion, Foreign body, Hematoma, Laceration, Alcohol withdrawl syndrom, Encephalopathy, Hepatitis, Medically stable, Other Departure Disposition: 01 HOME / SELF CARE / HOMELESS Impression: Primary Impression: General medical exam Additional Impression: Social needs met Condition: Stable Additional Instructions: Is a very pleasant 25-year-old male that presents to the emergency department for evaluation of fleas. Patient reports he has fleas did not been able to get rid of his lease but maybe they are getting better and he is unsure. Patient reports that he is scheduled to check in with the rehab facility but does not until tomorrow so he will come back tomorrow to get medical clearance. At this time. The patient is a asking for a sandwich and some food and a blanket if we are able to provide it. Patient denies any medical complaints at this time. Referrals: NO PRIMARY CARE PROVIDER (PCP) Education Educated: Patient Educated regarding: diagnosis, treatment, need for follow up Signature Scribe Signature: A Attestation: Scribed for Marjorie Sanon by YASH Navarro . 03/14/25 21:42 MARJORIE SANON Mar 14, 2025 21:41
[2025-03-14 21:50] VITALS: BP 125/90; PULSE 97; RESP 18; TEMP 98.6; O2SAT 99
== END 2025-03-14 22:37 | disposition home or self-care (01) ==
LOC: ER 20:31
DX: Z00.00 Encounter for general adult medical examination without abnormal findings (principal); F41.9 Anxiety disorder, unspecified; F12.90 Cannabis use, unspecified, uncomplicated; F15.90 Other stimulant use, unspecified, uncomplicated; F19.90 Other psychoactive substance use, unspecified, uncomplicated; Z79.899 Other long term (current) drug therapy; Z59.00 Homelessness unspecified; Z56.0 Unemployment, unspecified
CPT/HCPCS: 99282

== ENCOUNTER 2025-03-17 00:33 | Emergency (ER) | payer MEDICAID ==
[~2025-03-17] VITALS: Ht 175.3 cm; Wt 72.0 kg
[~2025-03-17 00:33] MED LIST changes: -CEPH-585 PO; -DOXY100C43 PO; -SULF-16 PO
--- NOTE | 2025-03-17 00:41 | Physician Documentation ---
History of Present Illness ~ General Stated Complaint: FELLS ITCHY ALL OVER Time Seen by MD: 00:36 Primary Medical Doctor: NONE History of Present Illness Initial Comments Patient presents to the emergency room with chief complaint of itching. He was seen here for similar complaint and was given a prescription but never filled it. Medication Reconciliation Allergies: Coded Allergies: No Known Allergies (Unverified , 03/06/25) Scheduled Hydroxyzine Hcl (Atarax), 1 TAB PO Q12H Hydroxyzine Hcl (Atarax), 1 TAB PO Q8H Hydroxyzine Hcl (Atarax), 1 TAB PO Q8H Naloxone HCl (Narcan), 1 SPRAYS BOTHNARES ONCE Naloxone HCl (Narcan), 1 SPRAYS BOTHNARES ONCE Scheduled PRN ONDANSETRON ODT 4mg tablet (Ondansetron Odt), 1 TAB PO Q6H PRN PRN for nausea/vomiting Miscellaneous Medications Home Med List (No Home Medications), (Reported) Discontinued Medications Cephalexin*Monohydrate* (Keflex*), 1 CAP PO Q12H Discontinued Reason: Auto Discontinued Doxycycline Monohydrate (Doxycycline Monohydrate), 100 MG PO BID Discontinued Reason: Auto Discontinued Sulfamethoxazole/Trimethoprim (Septra Ds Tab), 1 TAB PO Q12H Discontinued Reason: Auto Discontinued Past Medical History Past Medical History: No Pertinent History, *PSYCH*, Anxiety, Psychosis Past Surgical History: no surgical history Alcohol Use: Heavy Drug Use: marijuana, methamphetamine, other Lives In: Homeless Occupation: unemployed Review of Systems ROS All review of systems negative except as per HPI Physical Exam Physical Exam Physical Exam General: Patient is awake, alert, oriented x4. Homeless appearing Head: Normocephalic and atraumatic. Eyes: Conjunctival injection noted. EOMI. PERRL. ENT: Mucous membranes moist. Neck: Supple, trachea is midline. Chest: No respiratory distress Cardiac: Good plethora of skin Progress Progress Note Patient witnessed attempting to do drugs in ambulance [place]. Security called Medical Decision Making Additional information obtaine: old records Findings Patient presents to the emergency room complaining of itching. Differentials include but are not limited to scabies, bedbugs, eczema, poison oak. Patient failed to picker tender helper his prescription and he has been instructed that he needs to do this before anything else that has tried. Patient noted to be doing drugs in her ambulance [place] therefore security was removed him from the property. Differential Diagnosis h Departure Disposition: HOME / SELF CARE / HOMELESS Impression: Primary Impression: Noncompliance with medication regimen Condition: Stable Discharge Instructions: General Discharge Instructions Additional Instructions: You need to picker tender helper your prescription if you expect less to help you. I will not be prescribing any additional medications until you picker tender helper and use the medication that has prescribe for you for this very complaint. Referrals: NO PRIMARY CARE PROVIDER (PCP) Signature Scribe Signature: No scribe Attestation: The note accurately reflects work and decisions made by me.Jose J Cornell MD 03/17/25 00:41 JOSE J CORNELL MD Mar 17, 2025 00:41
[2025-03-17 00:45] VITALS: PULSE 80; RESP 16
[2025-03-22] MEDS ORDERED: HYDR28CR14 TOP (23:23)
== END 2025-03-17 02:12 | disposition home or self-care (01) ==
LOC: ER 00:34
DX: L29.9 Pruritus, unspecified (principal); F12.90 Cannabis use, unspecified, uncomplicated; F15.90 Other stimulant use, unspecified, uncomplicated; F19.90 Other psychoactive substance use, unspecified, uncomplicated; Z79.899 Other long term (current) drug therapy; Z59.00 Homelessness unspecified; Z56.0 Unemployment, unspecified; Z91.148 Patient's other noncompliance with medication regimen for other reason
CPT/HCPCS: 99282

== ENCOUNTER 2025-03-19 13:17 | Emergency (ER) | payer MEDICAID ==
[~2025-03-19] VITALS: Ht 172.7 cm; Wt 135.0 kg
[2025-03-19 13:26] VITALS: TEMP 97.8
[2025-03-19] MEDS: LIDOcaine 1% 30ml preserv. free vial IJ STA (13:56)
[2025-03-19] MEDS ORDERED: DOXY100C43 PO (14:28)
[2025-03-19] MEDS ORDERED: IBUP-1984 PO (14:28)
--- NOTE | 2025-03-19 14:28 | Physician Documentation ---
History of Present Illness ~ Chief Complaint: Abscess Stated Complaint: LEG WOUND Time Seen by MD: 13:34 Primary Medical Doctor: NONE HPI 25-year-old male on sheltered presents to the emergency department with an abscess of the right inner thigh. Abscesses proximally 2 cm raised fluctuant erythemic painful. There was no lymphangitis. Abscess requiring incision and drainage. Tetanus Within 5 Years: Yes Medication Reconciliation Allergies: Coded Allergies: No Known Allergies (Unverified , 03/19/25) Scheduled Doxycycline Monohydrate (Doxycycline Monohydrate), 100 MG PO BID Hydroxyzine Hcl (Atarax), 1 TAB PO Q12H Hydroxyzine Hcl (Atarax), 1 TAB PO Q8H Hydroxyzine Hcl (Atarax), 1 TAB PO Q8H Naloxone HCl (Narcan), 1 SPRAYS BOTHNARES ONCE Naloxone HCl (Narcan), 1 SPRAYS BOTHNARES ONCE Scheduled PRN Ibuprofen* (Motrin*), 1 TAB PO Q6H PRN PRN for pain or fever ONDANSETRON ODT 4mg tablet (Ondansetron Odt), 1 TAB PO Q6H PRN PRN for nausea/vomiting Miscellaneous Medications Home Med List (No Home Medications), (Reported) Discontinued Medications Cephalexin*Monohydrate* (Keflex*), 1 CAP PO Q12H Discontinued Reason: Auto Discontinued Doxycycline Monohydrate (Doxycycline Monohydrate), 100 MG PO BID Discontinued Reason: Auto Discontinued Sulfamethoxazole/Trimethoprim (Septra Ds Tab), 1 TAB PO Q12H Discontinued Reason: Auto Discontinued Past Medical History Past Medical History: No Pertinent History, *PSYCH*, Anxiety, Psychosis Past Surgical History: no surgical history Alcohol Use: Heavy Drug Use: marijuana, methamphetamine, other Lives In: Homeless Occupation: unemployed Review of Systems All Other Systems at this time: Reviewed and Negative Integumentary: Reports: see HPI Physical Exam Vital Signs: RN Vital Signs have been reviewed: Yes, Temperature: 97.8, Source: Oral, Heart Rate: 87, Respiratory Rate: 18, BP: 132/96, Pulse Oximetry: 98, Weight: 135.000 Oxygen Flow Rate: 0 General Appearance: alert, WD/WN, mild distress EENT: normal ENT inspection Neck: normal inspection Respiratory: no respiratory distress Chest: no accessory muscle use Gastrointestinal: non-tender Skin See HPI Neurologic: oriented x4 Lymphatic: normal inspection Psychiatric: normal mood/affect Procedures I & D Procedure : Site: right inner thigh Anesthesia: Lidocaine Volume Anesthetic (mls): 1 Blade Size: 11 Prep/Supplies: betadine prep Incision: mass incised, pus drained Tolerated Procedure Well?: yes, no complications Procedure Note 1 " 1/4 inch guaze packed Progress Results/Orders Results/Orders Completed Orders - MAEGAN MARTINEZ Lidocaine 1% 30ml Vial (Xylocaine 1% Via (03/19/25 13:49) Vital Signs 03/19/25 13:26 Temp 97.8 Pulse 87 Resp 18 B/P (MAP) 132/96 Pulse Ox 98 O2 Flow Rate 0 Medical Decision Making Additional information obtaine: N/A Findings 25-year-old male with right inner thigh abscess requiring incision and drainage. Please see incision and drainage procedure note. Patient tolerated procedure well. Prescribed doxycycline and ibuprofen. Recommend 48-72 hour recheck. Safely discharge. Differential Dx:Considerations: Include: Abscess, Bacteremia, Cellulitis, Erysipelas Departure Disposition: HOME / SELF CARE / HOMELESS Impression: Primary Impression: Abscess Condition: Improved Discharge Instructions: Incision and Drainage, Abscess, Care After Referrals: NO PRIMARY CARE PROVIDER (PCP) Prescriptions Ibuprofen* (Motrin*) 400 Mg Tablet 1 TAB PO Q6H PRN PRN for pain or fever for 5 Days, #20 TAB Prov: MAEGAN MARTINEZ 03/19/25 Doxycycline Monohydrate (Doxycycline Monohydrate) 100 Mg Capsule 100 MG PO BID, #14 CAP may sub doxycycline hyclate or azithromycin z-pack as prescribed Prov: MAEGAN MARTINEZ 03/19/25 Education Educated: Patient Educated regarding: diagnosis, treatment, prognosis Signature Scribe Signature: . Attestation: . MAEGAN MARTINEZ Mar 19, 2025 14:28
[2025-03-19 15:01] VITALS: BP 128/68; PULSE 120; RESP 16; O2SAT 98
[2025-03-22] MEDS ORDERED: HYDR28CR14 TOP (23:23)
== END 2025-03-19 14:45 | disposition home or self-care (01) ==
LOC: ER 13:17
DX: L02.415 Cutaneous abscess of right lower limb (principal); F41.9 Anxiety disorder, unspecified; F12.90 Cannabis use, unspecified, uncomplicated; F15.90 Other stimulant use, unspecified, uncomplicated; F19.90 Other psychoactive substance use, unspecified, uncomplicated; Z79.899 Other long term (current) drug therapy; Z59.00 Homelessness unspecified; Z56.0 Unemployment, unspecified
CPT/HCPCS: 10060; 99283; A6407; A6449

== ENCOUNTER 2025-03-19 19:00 | Emergency (ER) | payer MEDICAID ==
[~2025-03-19] VITALS: Ht 167.6 cm; Wt 72.0 kg
[~2025-03-19 19:00] MED LIST changes: +DOXY100C43 PO; +IBUP-1984 PO
[2025-03-19 19:44] VITALS: BP 135/65; PULSE 89; RESP 15; TEMP 96.3; O2SAT 98
--- NOTE | 2025-03-19 21:57 | Physician Documentation ---
History of Present Illness General Chief Complaint: See Chief Complaint Stated Complaint: SI Time Seen by MD: 21:52 Primary Medical Doctor: NONE History of Present Illness Initial Comments This is a 25-year-old gentleman who has a has already been seen at this facility twice today, returns with a request to be seen. He is very vague about his chief complaint. He states that his leg is not better. He reports unchanged chronic psychiatric disease. Continues to suffer from homelessness. Does drugs. Medication Reconciliation Allergies: Coded Allergies: No Known Allergies (Unverified , 03/19/25) Scheduled Doxycycline Monohydrate (Doxycycline Monohydrate), 100 MG PO BID Hydroxyzine Hcl (Atarax), 1 TAB PO Q12H Hydroxyzine Hcl (Atarax), 1 TAB PO Q8H Hydroxyzine Hcl (Atarax), 1 TAB PO Q8H Naloxone HCl (Narcan), 1 SPRAYS BOTHNARES ONCE Naloxone HCl (Narcan), 1 SPRAYS BOTHNARES ONCE Scheduled PRN Ibuprofen* (Motrin*), 1 TAB PO Q6H PRN PRN for pain or fever ONDANSETRON ODT 4mg tablet (Ondansetron Odt), 1 TAB PO Q6H PRN PRN for nausea/vomiting Miscellaneous Medications Home Med List (No Home Medications), (Reported) Discontinued Medications Cephalexin*Monohydrate* (Keflex*), 1 CAP PO Q12H Discontinued Reason: Auto Discontinued Doxycycline Monohydrate (Doxycycline Monohydrate), 100 MG PO BID Discontinued Reason: Auto Discontinued Sulfamethoxazole/Trimethoprim (Septra Ds Tab), 1 TAB PO Q12H Discontinued Reason: Auto Discontinued Past Medical History Past Medical History: No Pertinent History, *PSYCH*, Anxiety, Psychosis Past Surgical History: no surgical history Alcohol Use: Heavy Drug Use: marijuana, methamphetamine, other Lives In: Homeless Occupation: unemployed Review of Systems ROS 10 point review of systems was performed and unless noted above in HPI is negative for acute process/complaint. Physical Exam Physical Exam Vital Signs: Temperature: 96.3, Source: Temporal, Heart Rate: 89, Respiratory Rate: 15, BP: 135/65, Pulse Oximetry: 98, Weight: 72.000 Physical Exam Physical examination: GENERAL: Awake, alert, oriented, GCS 15, no apparent distress, non-toxic appearing, answers questions, follows commands appropriately. Examined in triage HEENT: Atraumatic, normocephalic, pupils equal, extraocular muscles intact Active gross movements, sclerae anicteric, mucus membranes moist, no stridor. NECK: Midline, no JVD CARDIOVASCULAR: Good skin perfusion without evidence of pallor, mottling. PULMONARY: Nonlabored, symmetric chest rise, no audible wheezing, no accessory muscle use, no respiratory distress, speaking in full sentences. GASTROINTESTINAL: Not distended. NEUROLOGIC: Lucid with normal mental status. Normal facial symmetry. Moves all extremities symmetrically and with purpose. No truncal ataxia. Speech is fluid without evidence of dysarthria or aphasia, no focal deficits appreciated. EXTREMITIES: Acute deformities Skin: warm, dry PSYCHIATRIC: Normal affect, normal insight, normal concentration. Focused exam: [Does not appear to be responding to internal stimuli] Progress Results/Orders Results/Orders Vital Signs 03/19/25 19:44 Temp 96.3 Pulse 89 Resp 15 B/P (MAP) 135/65 Pulse Ox 98 Medical Decision Making Additional information obtaine: old records Findings Facility Status: ED Holds, [facility] process The plan was discussed with the patient, who demonstrates clear understanding of the plan and is in agreement with the plan unless otherwise noted in the chart. All questions have been answered, all concerns were addressed unless otherwise documented. I was available throughout their ED stay for frequent reassessment and questions. Differential Diagnoses (considered and possible or likely): [Seeking alternative accommodation, homelessness, hunger, chronic psychiatric disease. The gentleman is known for presenting with a request for sandwiches, suicidal statements, and manipulative behavior.] ??Differential Diagnoses (considered and unlikely, not requiring evaluation currently): [No actual somatic complaints.] MDM Data Please see [facility] for the following: Independent Historians and external Records Review. Historian: [Patient] Independent Historians: ?[Record review] Medication Management: [Reviewed medication list] Social History and determinants: [Reviewed] Please see the body of the note for the following: Any independent interpretations of ECG, imaging studies. All vitals signs/haemodynamics, ordered tests were independently reviewed and interpreted by myself. Nursing triage complaint and vitals reviewed, additional nursing notes were reviewed as available and I agree unless otherwise noted or documented in contradiction in the chart Vital Signs: Independently reviewed Labs: Independently interpreted Imaging: Independently interpreted Old Medical Records: Independently reviewed, see HPI for relevant summary and information Additionally notably showing: [Hemodynamically stable] Tests considered but not ordered include: [Hematologic workup and imaging has been considered but does not appear to be necessary given clinical nature of diagnosis] Social Determinants of Health Impact: Patient was evaluated in [facility], [facility] [place] to healthcare due to below par ratio of patient to medical providers. [] Comorbid Conditions Impacting Present Evaluation and Care/Treatment: [Polysubstance use, homelessness, psychiatric disease the gone untreated] Management Discussions with other Healthcare Providers: [None] Treatment and Disposition Medication Management (Given or considered): []. See EMR for details Consideration for Hospitalization/Escalation/Deescalation of Care: Admission for observation has been considered, [however the patient is able to tolerate p.o., their symptoms are controlled, they are able to rely on oral medications, and their chief complaint/diagnosis can be managed on outpatient basis.] ?ED Course:?[No clinical deterioration after observation in the lobby] ?Shared decision making:? Patient is hemodynamically stable for discharge home with follow with their primary care provider. [ ] Specific and cautious return precautions provided and discussed with full understanding. Any incidental findings were also discussed and follow up recommendations given. [] All questions answered. Patient/family were able to verbalize back return precautions. Patient/family agree to plan. Copies of imaging and laboratory studies were provided. Code status:?FULL Please see the full Electronic Medical Record for full details of nursing documentation, medications list, other records of complete past medical history and conditions, vital signs, laboratory studies, and any radiologic study interpretations by radiologists. Portions of this note were completed using [employer] 101 dictation software and as a result there may exist minor errors in spelling. I have reviewed elements of past family and social history and agree as included in note. Differential Diagnosis See body of main note for differential diagnosis Departure Disposition: HOME / SELF CARE / HOMELESS Impression: Primary Impression: General medical exam Additional Impressions: Polysubstance abuse Homelessness Methamphetamine abuse Condition: Stable Discharge Instructions: Lung Cancer Screening Referrals: NO PRIMARY CARE PROVIDER (PCP) Education Educated: Patient Educated regarding: diagnosis, treatment, prognosis, need for follow up Signature Scribe Signature: No scribe Attestation: The note accurately reflects work and decisions made by me.Dwayne Perez, 03/19/25 22:02 DWAYNE PEREZ DO Mar 19, 2025 21:57
[2025-03-22] MEDS ORDERED: HYDR28CR14 TOP (23:23)
== END 2025-03-19 22:02 | disposition home or self-care (01) ==
LOC: ER 19:00
DX: Z00.00 Encounter for general adult medical examination without abnormal findings (principal); F99 Mental disorder, not otherwise specified; F41.9 Anxiety disorder, unspecified; F15.10 Other stimulant abuse, uncomplicated; F12.90 Cannabis use, unspecified, uncomplicated; F19.90 Other psychoactive substance use, unspecified, uncomplicated; Z59.00 Homelessness unspecified; Z79.899 Other long term (current) drug therapy; Z56.0 Unemployment, unspecified
CPT/HCPCS: 99282

== ENCOUNTER 2025-03-20 18:57 | Emergency (ER) | payer MEDICAID ==
[~2025-03-20] VITALS: Ht 175.3 cm; Wt 65.9 kg
[2025-03-20 19:13] VITALS: BP 140/67; PULSE 138; TEMP 97.7; O2SAT 99
[2025-03-20] MEDS ORDERED: sulfamethoxazole/trimethoprim DS (800/160mg) tablet PO ONE (20:20)
--- NOTE | 2025-03-20 20:25 | Physician Documentation ---
History of Present Illness ~ Chief Complaint: Wound Stated Complaint: ARM SWELLING Time Seen by MD: 19:44 Primary Medical Doctor: NONE HPI This is a 25-year-old homeless male who is well known to this emergency department who presents back to the emergency department with two areas of pain and swelling on his right arm previously diagnosed as abscesses, patient has been prescribed antibiotics though has not picked up this medication. Patient reports no subjective fevers and no other acute symptoms or concerns. Tetanus within 5 years?: Yes (2022) Medication Reconciliation Allergies: Coded Allergies: No Known Allergies (Unverified , 03/20/25) Scheduled Doxycycline Monohydrate (Doxycycline Monohydrate), 100 MG PO BID Hydroxyzine Hcl (Atarax), 1 TAB PO Q12H Hydroxyzine Hcl (Atarax), 1 TAB PO Q8H Hydroxyzine Hcl (Atarax), 1 TAB PO Q8H Naloxone HCl (Narcan), 1 SPRAYS BOTHNARES ONCE Naloxone HCl (Narcan), 1 SPRAYS BOTHNARES ONCE Scheduled PRN Ibuprofen* (Motrin*), 1 TAB PO Q6H PRN PRN for pain or fever ONDANSETRON ODT 4mg tablet (Ondansetron Odt), 1 TAB PO Q6H PRN PRN for nausea/vomiting Miscellaneous Medications Home Med List (No Home Medications), (Reported) Discontinued Medications Cephalexin*Monohydrate* (Keflex*), 1 CAP PO Q12H Discontinued Reason: Auto Discontinued Doxycycline Monohydrate (Doxycycline Monohydrate), 100 MG PO BID Discontinued Reason: Auto Discontinued Sulfamethoxazole/Trimethoprim (Septra Ds Tab), 1 TAB PO Q12H Discontinued Reason: Auto Discontinued Past Medical History Past Medical History: No Pertinent History, *PSYCH*, Anxiety, Psychosis Past Surgical History: no surgical history Alcohol Use: Heavy Drug Use: marijuana, methamphetamine, other Lives In: Homeless Occupation: unemployed Review of Systems ROS As stated above in the HPI, otherwise all systems are reviewed and negative. Physical Exam Vital Signs: Temperature: 97.7, Source: Temporal, Heart Rate: 138, Respiratory Rate: 19, BP: 140/67, Pulse Oximetry: 99, Weight: 65.900 Oxygen Flow Rate: 0 Physical Exam VITALS: Reviewed and as above. GENERAL: Alert, nontoxic appearing, no apparent distress, disheveled RESPIRATORY: No increased work of breathing, no respiratory distress, speaking in full clear sentences SKIN: Two approximately 3 cm round areas of erythema and swelling with fluctuance to right posterior forearm without significant surrounding erythema o r induration, tender to palpation without significant surrounding tenderness or deep tenderness to palpation. Dressed post I and D wound to right posterior thigh well healing appearing with small amount of purulent drainage on dressing, minimal surrounding erythema with no surrounding induration Procedures I & D Procedure #1: Site: Right dorsal forearm proximal Anesthesia: Lidocaine w/ Epi Volume Anesthetic (mls): 6 Blade Size: 11 Prep/Supplies: drapes applied, dressing applied Incision: mass incised, pus drained, blood drained Tolerated Procedure Well?: yes, no complications I & D Procedure #2: Site: Right dorsal forearm distal Anesthesia: Lidocaine w/ Epi Volume Anesthetic (mls): 5 Blade Size: 11 Prep/Supplies: drapes applied, dressing applied Incision: mass incised, pus drained, blood drained Tolerated Procedure Well?: yes, no complications Progress Results/Orders Results/Orders Orders - ALISON VIDALES Cult (Aer) Routine C&S+Gram St (03/20/25 20:16) Laceration/I&D Tray Set Up (03/20/25 20:16) Completed Orders - ALISON VIDALES Lidocaine 1% W/Epi 1:100,000 (Xylocaine (03/20/25 20:20) Sulfamethox/Trimetho. Ds Tab (Septra Ds (03/20/25 20:20) Doxycycline 100mg Capsule (Vibramycin 10 (03/20/25 20:30) Ketorolac Trometh 15mg/Ml Vial (Toradol (03/20/25 21:15) Medications Received in ER Medications (Trade) Dose Ordered Sig/Lidia Route PRN Reason Start Time Stop Time Status Last Admin Dose Admin (Xylocaine 1%-EPI 1:100,000) Physician to administ... ONCE ONCE IJ 03/20/25 20:20 03/20/25 20:23 DC 03/20/25 20:37 20 ML (VIBRAMYCIN 100mg capsule) 100 mg ONCE STAT PO 03/20/25 20:30 03/20/25 20:32 DC 03/20/25 20:36 100 MG (Toradol injection) 15 mg ONCE ONCE IM 03/20/25 21:15 03/20/25 21:26 DC 03/20/25 21:30 15 MG Vital Signs 03/20/25 03/20/25 03/20/25 19:13 21:30 21:38 Temp 97.7 Pulse 138 Resp 19 17 16 B/P (MAP) 140/67 Pulse Ox 99 O2 Flow Rate 0 Medical Decision Making Additional information obtaine: old records Findings This 25-year-old male presented to emergency department with two areas of pain and swelling to his right forearm, physical exam consistent with a to uncomplicated superficial dermal abscesses amenable to incision and drainage due to fluctuance on physical exam, it was reassuring there was not significant surrounding erythema or induration and deep tenderness to palpation to suggest deep tissue infection including but not limited to necrotizing fasciitis. The previously incident is in drained wound to right posterior thigh appears to be healing well. Patient provided a dose of oral antibiotic in emergency department and discharged with a new prescription for oral antibiotics. Provided careful return to care precautions follow up instructions, and home care instructions. Differential Dx:Considerations: Include: Abscess, Cellulitis, Dressing change, Healing wound, Other (Retained foreign body, necrotizing fasciitis) Departure Time of Disposition: 21:19 Disposition: 01 HOME / SELF CARE / HOMELESS Impression: Primary Impression: Abscess Condition: Improved Discharge Instructions: Skin Abscess Additional Instructions: Please take the antibiotics as previously prescribed, keep the areas clean dry and covered, wash the areas at least once a day, I recommend using a warm compress on these areas prior to washing. Please follow up with your primary care provider in the next few days. Please return to the emergency department for any new or worsening concerning symptoms. Referrals: NO PRIMARY CARE PROVIDER (PCP) Education Educated: Patient Educated regarding: diagnosis, treatment, prognosis, need for follow up Signature Scribe Signature: No scribe Attestation: The note accurately reflects work and decisions made by me.YASH Mcdonald 03/20/25 21:21 ALISON VIDALES Mar 20, 2025 20:25
[2025-03-20] MEDS: DOXYCYCLINE 100MG CAPSULE PO STA (20:36)
[2025-03-20] MEDS: LIDOcaine 1% W/epiNEPHrine 1:100,000 20ml vial IJ ONE (20:37)
[2025-03-20] MEDS: ketorolac trometh 15mg/ml vial 15 MG/ML ML IM ONE (21:30)
[2025-03-20 21:38] VITALS: RESP 16
[2025-03-22] MEDS ORDERED: HYDR28CR14 TOP (23:23)
== END 2025-03-20 22:28 | disposition home or self-care (01) ==
LOC: ER 18:57
DX: L02.511 Cutaneous abscess of right hand (principal); F12.90 Cannabis use, unspecified, uncomplicated; F15.90 Other stimulant use, unspecified, uncomplicated; F19.90 Other psychoactive substance use, unspecified, uncomplicated; F41.9 Anxiety disorder, unspecified; Z59.00 Homelessness unspecified; Z79.899 Other long term (current) drug therapy; Z56.0 Unemployment, unspecified
CPT/HCPCS: 10061; 87070; 96372; 99284; J1885; J3490; 87077; 87186; A6258; A6446; A6449

== ENCOUNTER → 2025-03-22 | Emergency (ER) | payer MEDICAID ==
[~2025-03-22] VITALS: Ht 175.3 cm; Wt 66.0 kg
[~2025-03-22] MED LIST changes: +DOXYCYCLINE 100MG CAPSULE PO STA; +HYDR28CR14 TOP; +MAGN296S68 PO; +MUPI22OI30 TOP; +ONDA-245 PO
[2025-03-22 22:37] VITALS: BP 146/102; PULSE 120; RESP 16; TEMP 98; O2SAT 100
--- NOTE | 2025-03-22 22:58 | Physician Documentation ---
History of Present Illness ~ Chief Complaint: Bite-insect Stated Complaint: BUG BITES Time Seen by MD: 22:48 Primary Medical Doctor: NONE HPI This is a 25-year-old homeless male known to myself and this emergency department, patient returns to the emergency department due to itching to his arms bilaterally. Patient reports he believes he was bitten by insects on his arms. Patient was seen by myself for an incision drainage of abscesses to his right arm which he reports are healing well though patient reports he has not picked up prescribed antibiotics. Tetanus within 5 years?: Yes (2022) Medication Reconciliation Allergies: Coded Allergies: No Known Allergies (Unverified , 03/20/25) Scheduled Doxycycline Monohydrate (Doxycycline Monohydrate), 100 MG PO BID Hydrocortisone (hydrocortisone 1% cream), 1 APPLIC TOP Q12H Hydroxyzine Hcl (Atarax), 1 TAB PO Q12H Hydroxyzine Hcl (Atarax), 1 TAB PO Q8H Hydroxyzine Hcl (Atarax), 1 TAB PO Q8H Naloxone HCl (Narcan), 1 SPRAYS BOTHNARES ONCE Naloxone HCl (Narcan), 1 SPRAYS BOTHNARES ONCE Scheduled PRN Ibuprofen* (Motrin*), 1 TAB PO Q6H PRN PRN for pain or fever ONDANSETRON ODT 4mg tablet (Ondansetron Odt), 1 TAB PO Q6H PRN PRN for nausea/vomiting Miscellaneous Medications Home Med List (No Home Medications), (Reported) Past Medical History Past Medical History: No Pertinent History, *PSYCH*, Anxiety, Psychosis Past Surgical History: no surgical history Alcohol Use: Heavy Drug Use: marijuana, methamphetamine, other Lives In: Homeless Occupation: unemployed Review of Systems ROS As stated above in the HPI, otherwise all systems are reviewed and negative. Physical Exam Vital Signs: Temperature: 98.0, Heart Rate: 120, Respiratory Rate: 16, BP: 146/102, Pulse Oximetry: 100, Weight: 66.000 Physical Exam VITALS: Reviewed and as above. GENERAL: Alert, nontoxic appearing, no apparent distress. RESPIRATORY: No increased work of breathing, no respiratory distress, speaking in full clear sentences SKIN: Well healing incised abscesses to right forearm minimal erythema or induration, no fluctuance, no active discharge, nontender. Skin of bilateral arms dry with scattered erythema and excoriations Progress Results/Orders Results/Orders Completed Orders - ALISON VIDALES Doxycycline 100mg Capsule (Vibramycin 10 (03/22/25 22:54) Vital Signs 03/22/25 22:37 Temp 98.0 Pulse 120 Resp 16 B/P (MAP) 146/102 Pulse Ox 100 Medical Decision Making Additional information obtaine: old records Findings This 25-year-old homeless male who is well known to this emergency department presented requesting medication for itching to his forearms reportedly from insect bites, as I have seen the patient for abscess to the right forearm two days prior a additionally reexamined the abscess sites that I had previously incised and drained, these abscesses appear to be healing well with no evidence of complication despite patient not picking up prescribed antibiotics. Exam of the forearms additionally demonstrated mild excoriations and dry skin with no evidence of active insect infestation or scabies, additionally no evidence of cellulitis, I suspect pruritus due to dry skin or contact dermatitis. In careful discussion with the patient and at his request a low-dose steroid cream we will be prescribed for mild pruritus of forearms, additionally a dose of previously prescribed oral antibiotic was ordered for patient's take in the emergency department and patient directed to pick and shovel worker previously prescribed medications. Patient is otherwise well-appearing with remainder of physical exam benign and at baseline, patient is appropriate for outpatient follow up. Return to care precautions follow up instructions and home care instructions discussed patient Differential Dx:Considerations: Include: Abrasion, Allergic reaction, Anaphylaxis, Cellulitis, Contusion, Fracture, Hematoma, Insect envenomation, Laceration, Neurovascular injury, Punture wound, Retained foreign body, Urticaria Departure Time of Disposition: 23:21 Disposition: HOME / SELF CARE / HOMELESS Impression: Primary Impression: Pruritus Condition: Improved Discharge Instructions: Insect Bite, Adult, [id number] Additional Instructions: Please use the prescribed cream on the areas that itch on your arms. Please pick and shovel worker your previously prescribed antibiotics. Please follow up with your primary care provider in the next few days. Please return to the emergency department for any new or worsening concerning symptoms. Referrals: NO PRIMARY CARE PROVIDER (PCP) Prescriptions Hydrocortisone (hydrocortisone 1% cream) 1 % Cream..g. 1 APPLIC TOP Q12H for 5 Days, #15 GM 0 Refills apply to affected area(s) Prov: ALISON VIDALES 03/22/25 Education Educated: Patient Educated regarding: diagnosis, treatment, prognosis, need for follow up Signature Scribe Signature: No scribe Attestation: The note accurately reflects work and decisions made by me.YASH Mcdonald 03/23/25 12:03 ALISON VIDALES Mar 22, 2025 22:58
== END | disposition home or self-care (01) ==
LOC: ER 22:00
DX: L02.413 Cutaneous abscess of right upper limb (principal); F41.9 Anxiety disorder, unspecified; F12.90 Cannabis use, unspecified, uncomplicated; F15.90 Other stimulant use, unspecified, uncomplicated; F19.90 Other psychoactive substance use, unspecified, uncomplicated; Z59.00 Homelessness unspecified; Z79.899 Other long term (current) drug therapy; Z56.0 Unemployment, unspecified
CPT/HCPCS: 99282

== ENCOUNTER 2025-03-27 13:46 | Emergency (ER) | payer MEDICAID ==
[~2025-03-27] VITALS: Ht 175.3 cm; Wt 64.2 kg
[~2025-03-27 13:46] MED LIST changes: -DOXYCYCLINE 100MG CAPSULE PO STA; -IBUP-1984 PO; -MAGN296S68 PO; -MUPI22OI30 TOP; -ONDA-245 PO
[2025-03-27 14:06] VITALS: BP 124/85; PULSE 120; RESP 16; TEMP 99.5; O2SAT 99
[2025-03-27] MEDS ORDERED: ibuprofen tablet 400 MG TABLET PO ONE (14:15)
--- NOTE | 2025-03-27 14:16 | Physician Documentation ---
History of Present Illness ~ Chief Complaint: Cold, cough & congestion Stated Complaint: "FEEL SICK" Time Seen by MD: 14:10 OK to notify your PCP?: Yes Primary Medical Doctor: NONE Source: patient Mode of Arrival: POV Exam Limitations: no limitations HPI Reports feeling some cough and nasal congestion for the past day. He is requesting a sandwich. Denies any shortness of breath, chest pain, nausea, vomiting or diarrhea. Denies having a fever. Has not taken any [id number] medications for his symptoms. Endorses meth use today Medication Reconciliation Allergies: Coded Allergies: No Known Allergies (Unverified , 03/27/25) Scheduled Doxycycline Monohydrate (Doxycycline Monohydrate), 100 MG PO BID Hydrocortisone (hydrocortisone 1% cream), 1 APPLIC TOP Q12H Hydroxyzine Hcl (Atarax), 1 TAB PO Q12H Hydroxyzine Hcl (Atarax), 1 TAB PO Q8H Hydroxyzine Hcl (Atarax), 1 TAB PO Q8H Naloxone HCl (Narcan), 1 SPRAYS BOTHNARES ONCE Naloxone HCl (Narcan), 1 SPRAYS BOTHNARES ONCE Scheduled PRN ONDANSETRON ODT 4mg tablet (Ondansetron Odt), 1 TAB PO Q6H PRN PRN for nausea/vomiting Miscellaneous Medications Home Med List (No Home Medications), (Reported) Discontinued Medications Ibuprofen* (Motrin*), 1 TAB PO Q6H PRN PRN for pain or fever Discontinued Reason: Auto Discontinued Past Medical History Past Medical History: No Pertinent History, *PSYCH*, Anxiety, Psychosis Past Surgical History: no surgical history Alcohol Use: Heavy Drug Use: marijuana, methamphetamine, other Lives In: Homeless Occupation: unemployed Review of Systems All Other Systems at this time: Reviewed and Negative Physical Exam Vital Signs: RN Vital Signs have been reviewed: Yes, Temperature: 99.5, Source: Temporal, Heart Rate: 120, Respiratory Rate: 16, BP: 124/85, Pulse Oximetry: 99, Weight: 64.200 Oxygen Flow Rate: 0 Pulse Oximetry Reflects: adequate oxygenation Physical Exam General: Alert, no apparent distress. HEENT: PERRL, EOMI, no injection, moist mucous membranes. TM clear. Clear nasal drainage present, posterior pharynx normal, no exudate. Neck: Full range of motion. Respiratory: Lungs clear, no respiratory distress. No wheezes or crackles heard. Cardiovascular: Regular rate and rhythm, no murmurs. Gastrointestinal: Soft, nontender, nondistended. Bowels sounds present. Extremities: Normal range of motion, no deformity. Neurologic: Oriented x4. Psychiatric: Normal mood and affect. Skin: Normal color, warm and dry. No edema, no ecchymosis. Progress Results/Orders Reviewed/noted all lab results: Yes Results/Orders Vital Signs 03/27/25 14:06 Temp 99.5 Pulse 120 Resp 16 B/P (MAP) 124/85 Pulse Ox 99 O2 Flow Rate 0 Medical Decision Making Additional information obtaine: old records Findings Reports having some sinus congestion and on physical exam does have some clear nasal drainage. He reports having an intermittent cough and generally does not feel very good. He is requesting a sandwich requesting to be discharged. We will give Tylenol and ibuprofen to help with his discomfort. Differential Dx:Considerations: Include: Allergic rhinitis, Influenza, Otitis media, Peritonsillar abscess, Pneumonia, Pnuemonitis, Sinusitis Departure Disposition: 01 HOME / SELF CARE / HOMELESS Impression: Primary Impression: Cough Condition: Stable Discharge Instructions: Cough, Adult Additional Instructions: As discussed you have a viral illness. Unfortunately there are no specific medications we can give you to make the illness and faster. Antibiotics do not work for viral illnesses. However, you can take acetaminophen or ibuprofen to help with fevers and pain. Stay well hydrated and rested. Return to the emergency department if your fevers and chills continue to worsen after 5 days, if you develop worsening cough with thick sputum, are unable to stay hydrated, or have any new or concerning concerning symptoms. Contact your primary care provider in the next 2-3 days for re-evaluation and to make sure your symptoms are improving. Referrals: NO PRIMARY CARE PROVIDER (PCP) Education Educated: Patient Educated regarding: diagnosis, treatment, prognosis, need for follow up Additional Comment Medical Screen Exam This patient recieved a medical screening examination. After reviewing the individual's medical complaints with presenting symptoms and performing an appropriate physical examination, it was determined that no immediate life- threatening emergency medical condition is present. This individual is also not a women having contractions. Signature Scribe Signature: . Attestation: Scribed for Emergency,Department by Linnette Ardon NP . 03/27/25 14:11 [facility] Mar 27, 2025 14:15
[2025-04-01] MEDS ORDERED: ONDA-245 PO (02:31)
[2025-04-01] MEDS ORDERED: MAGN296S68 PO (02:31)
== END 2025-03-27 14:52 | disposition home or self-care (01) ==
LOC: ER 13:47
DX: R05.9 Cough, unspecified (principal); R09.81 Nasal congestion; F15.90 Other stimulant use, unspecified, uncomplicated; F12.90 Cannabis use, unspecified, uncomplicated; F41.9 Anxiety disorder, unspecified; F19.90 Other psychoactive substance use, unspecified, uncomplicated; Z79.899 Other long term (current) drug therapy; Z59.00 Homelessness unspecified; Z56.0 Unemployment, unspecified
CPT/HCPCS: 99282

== ENCOUNTER 2025-03-27 18:01 | Emergency (ER) | payer MEDICAID ==
[~2025-03-27] VITALS: Ht 175.3 cm; Wt 64.0 kg
--- NOTE | 2025-03-27 19:22 | Physician Documentation ---
History of Present Illness ~ General Chief Complaint: Cold, cough & congestion Stated Complaint: "FEELS SICK" Time Seen by MD: 19:05 OK to notify your PCP?: Yes Primary Medical Doctor: NONE Source: patient Mode of Arrival: POV Exam Limitations: no limitations History of Present Illness Initial Comments Patient returns for the 2nd time today with complaints of feeling sick with dry cough and runny nose for the past few days. He is requesting a sandwich. He left prior to discharge paperwork and administration of his Tylenol and ibuprofen which was previously ordered earlier today. Denies any headache, shortness of breath, chest pain, nausea, vomiting or diarrhea. Medication Reconciliation Allergies: Coded Allergies: No Known Allergies (Unverified , 03/27/25) Scheduled Doxycycline Monohydrate (Doxycycline Monohydrate), 100 MG PO BID Hydrocortisone (hydrocortisone 1% cream), 1 APPLIC TOP Q12H Hydroxyzine Hcl (Atarax), 1 TAB PO Q12H Hydroxyzine Hcl (Atarax), 1 TAB PO Q8H Hydroxyzine Hcl (Atarax), 1 TAB PO Q8H Naloxone HCl (Narcan), 1 SPRAYS BOTHNARES ONCE Naloxone HCl (Narcan), 1 SPRAYS BOTHNARES ONCE Scheduled PRN ONDANSETRON ODT 4mg tablet (Ondansetron Odt), 1 TAB PO Q6H PRN PRN for nausea/vomiting Miscellaneous Medications Home Med List (No Home Medications), (Reported) Discontinued Medications Ibuprofen* (Motrin*), 1 TAB PO Q6H PRN PRN for pain or fever Discontinued Reason: Auto Discontinued Past Medical History Past Medical History: No Pertinent History, *PSYCH*, Anxiety, Psychosis Past Surgical History: no surgical history Alcohol Use: Heavy Drug Use: marijuana, methamphetamine, other Lives In: Homeless Occupation: unemployed Review of Systems All Other Systems at this time: Reviewed and Negative Physical Exam Physical Exam Vital Signs: RN Vital Signs have been reviewed: Yes, Temperature: 98.0, Heart Rate: 100, Respiratory Rate: 18, BP: 125/71, Pulse Oximetry: 99, Weight: 64.000 Oxygen Flow Rate: 0 Pulse Oximetry Reflects: adequate oxygenation Physical Exam General: Alert, no distress. HEENT: No injection, moist mucous membranes. Bilateral TM clear, posterior pharynx clear, no exudates, uvula midline. Cleared discharge from nose, sinuses nontender bilaterally Neck: Full range of motion. Respiratory: No respiratory distress, equal chest rise and fall. Lungs clear bi laterally Chest: No accessory muscle use. Cardiovascular: Regular rate and rhythm. Gastrointestinal: Nondistended. Extremities: Normal range of motion, no deformity. Neurologic: Oriented x4. Psychiatric: Normal mood and affect. Skin: Normal color, warm and dry. Progress Results/Orders Results/Orders Completed Orders - LINNETTE CANDELARIO Acetaminophen 325mg Tablet (Tylenol Tabl (03/27/25 19:25) Ibuprofen Tablet (Motrin Tablet) (03/27/25 19:25) Medications Received in ER Medications (Trade) Dose Ordered Sig/Lidia Route PRN Reason Start Time Stop Time Status Last Admin Dose Admin (Tylenol tablet) 650 mg ONCE ONCE PO 03/27/25 19:25 03/27/25 19:26 DC 03/27/25 19:41 650 MG (Motrin tablet) 400 mg ONCE ONCE PO 03/27/25 19:25 03/27/25 19:26 DC 03/27/25 19:40 400 MG Vital Signs 03/27/25 03/27/25 18:15 19:56 Temp 98.0 98.0 Pulse 100 99 Resp 18 16 B/P (MAP) 125/71 117/64 Pulse Ox 99 99 O2 Flow Rate 0 Medical Decision Making Additional information obtaine: old records Findings Patient reports again for same complaints of cough and congestion. He denies that there has been any change in his symptoms since he was here earlier today. He was discharged prior to the administration of his Tylenol and ibuprofen. I read ordered the Tylenol and ibuprofen to be administered to him at this visit to help with general discomfort. He was provided with a meal. No signs of infection that would require an antibiotic. Differential Diagnosis Malingering, sinusitis, pneumonia, otitis media, bronchitis Departure Disposition: HOME / SELF CARE / HOMELESS Impression: Primary Impression: Cough Condition: Stable Discharge Instructions: Cough, Adult Additional Instructions: As discussed you have a viral illness. Unfortunately there are no specific medications we can give you to make the illness and faster. Antibiotics do not work for viral illnesses. However, you can take acetaminophen or ibuprofen to help with fevers and pain. Stay well hydrated and rested. Return to the emergency department if your fevers and chills continue to worsen after 5 days, if you develop worsening cough with thick sputum, are unable to stay hydrated, or have any new or concerning concerning symptoms. Contact your primary care provider in the next 2-3 days for re-evaluation and to make sure your symptoms are improving. Referrals: NO PRIMARY CARE PROVIDER (PCP) Education Educated: Patient Educated regarding: diagnosis, treatment, prognosis, need for follow up Additional Comment Medical Screen Exam This patient recieved a medical screening examination. After reviewing the individual's medical complaints with presenting symptoms and performing an appropriate physical examination, it was determined that no immediate life- threatening emergency medical condition is present. This individual is also not a women having contractions. Signature Scribe Signature: . Attestation: Scribed for Linnette Candelario Change Attendant by Linnette Ardon NP . 03/28/25 01:54 Parts of this note were created using [place] voice recognition software program. While efforts were made to correct any mistakes made by this voice recognition software program, nonsensical phrases may remain in this note. In addition, there may be errors and syntax, grammar, content and spelling. LINNETTE CANDELARIO CONTRACT ADMINISTRATION SPECIALIST Mar 27, 2025 19:22
[2025-03-27] MEDS: ibuprofen tablet 400 MG TABLET PO ONE (19:40)
[2025-03-27 19:56] VITALS: BP 117/64; PULSE 99; RESP 16; TEMP 98; O2SAT 99
[2025-04-01] MEDS ORDERED: MAGN296S68 PO (02:31)
[2025-04-01] MEDS ORDERED: ONDA-245 PO (02:31)
== END 2025-03-27 19:50 | disposition home or self-care (01) ==
LOC: ER 18:01
DX: R05.9 Cough, unspecified (principal); F12.90 Cannabis use, unspecified, uncomplicated; F15.90 Other stimulant use, unspecified, uncomplicated; F19.90 Other psychoactive substance use, unspecified, uncomplicated; F41.9 Anxiety disorder, unspecified; Z79.899 Other long term (current) drug therapy; Z56.0 Unemployment, unspecified; Z59.00 Homelessness unspecified
CPT/HCPCS: 99283

== ENCOUNTER 2025-03-28 04:23 | Emergency (ER) | payer MEDICAID ==
[~2025-03-28] VITALS: Ht 175.3 cm; Wt 64.0 kg
[2025-03-28 04:43] VITALS: BP 117/64; PULSE 99; RESP 16; TEMP 98; O2SAT 99
[2025-04-01] MEDS ORDERED: MAGN296S68 PO (02:31)
[2025-04-01] MEDS ORDERED: ONDA-245 PO (02:31)
[2025-04-02] MEDS ORDERED: MUPI22OI30 TOP (16:53)
== END 2025-03-28 09:20 | disposition left against medical advice (07) ==
LOC: ER 04:24
DX: R10.9 Unspecified abdominal pain (principal); Z53.21 Procedure and treatment not carried out due to patient leaving prior to being seen by health care provider
CPT/HCPCS: 99281